=== PATIENT | male | born 1945 | race Two or more races ===

== ENCOUNTER 2024-11-13 11:47 | Outpatient (OUT) | payer MEDICARE, OTHER, SELFPAY ==
--- OUTSIDE RECORDS SUMMARY | 2024-10-30 09:30 | XMS_ITS | Encounter Summary ---
Author Organization [facility] Address [address] [place] [address] Phone Care Team Providers Care Hand Stitcher Name Role Phone Jeferson Estrada MD Primary Care Provider [phone] Reason for Referral * Consultation (Routine) - Authorized Specialty Diagnoses / Procedures Referred By Contac t Referred To Contact Cardiology Diagnoses Essential hypertension Procedures Follow Up In Cardiology Erika Mayes MD [address] [place] [address] [address], [address] [address] Phone: tel: fax: Erika Mayes MD [address] [place] [address] [address], [address] [address] Phone: tel: fax: Referral ID Status Reason Start Date Expiration Date V isits Requested Visits Authorized [id number] Authorized 10/30/2024 10/30/2025 1 1 Reason for Visit * Reason Comments BP OV * Consultation (Routine) - Authorized Specialty Diagnoses / Procedures Referred By Contac t Referred To Contact Cardiology Diagnoses Essential hypertension Procedures Follow Up In Cardiology Erika Mayes MD [address] [place] [address] [address], [address] [address] Phone: tel: fax: Erika Mayes MD [address] [place] [address] 2, [address] [address] Phone: tel: fax: Referral ID Status Reason Start Date Expiration Date V isits Requested Visits Authorized [id number] Authorized 10/07/2024 10/07/2025 1 1 Encounter Details Date Type Department Care Team (Late st Contact Info) Description 10/30/2024 9:30 AM EDT Office Visit [facility] [address] [facility] [address] [place] [id number] Erika Mayes MD [address] [facility] [address] [place] [address] Essential hypertension; [place] 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; BMI 24.0-24.9, adult; Former smoker Social History Tobacco Use Types Packs/Day Years Used Date Smoking Tobacco: Former Cigarettes Q uit: 06/1984 Smokeless Tobacco: Never Alcohol Use Standard Drinks/Week Comments Never 0 (1 standard drink = 0.6 oz pur e alcohol) Sex and Gender Information Value Date Recorded Sex Assigned at Not on file Legal Sex Male 4:28 AM EST Gender Identity Not on file Sexual Orientation Not on file documented as of this encounter Last Filed Vital Signs Vital Sign Reading Time Taken Comments Blood Pressure 146/70 10/30/2024 9:34 AM EDT Pulse 88 10/30/2024 9:30 AM EDT Temperature - - Respiratory Rate - - Oxygen Saturation - - Inhaled Oxygen Concentration - - Weight 73 kg (161 lb) 10/30/2024 9:30 AM EDT Height 172.7 cm (5' 8 ) 10/30/2024 9:30 AM EDT Body Mass Index 24.48 10/30/2024 9:30 AM EDT documented in this encounter Functional Status * BP Answer Date of Assessment Author 146/70 10/30/2024 9:34 AM EDT Lori Willson LPN * Pulse Answer Date of Assessment Author 88 10/30/2024 9:30 AM EDT Lori Willson LPN * Communicable Disease Screening Question Answer Date of Assessment Author Do you have any of the follo wing new or worsening symptoms? None of these 10/30/2024 9:05 AM EDT Cage, Jato charmaine documented as of this encounter Patient Instructions * Patient Instructions* Riddhi Harden LPN - 10/30/2024 9:30 AM EDT 03/31/2025 visit documented in this encounter Progress Notes * Erika Mayes MD - 10/30/2024 9:30 AM EDT HPI Patient is in the office for hypertension management. He did not tolerate amlodipine due to severe edema which eventually resolved by stopping the medicine, did not tolerate hydralazine and clonidine. His creatinine is 2.0 mg/dL and he is on 10 mg daily of lisinopril. Heart rate 88 bpm. Will add Neb ivolol 5 mg daily and watch his blood pressure reading and heart rate when he comes back in few weeks. ROS Vitals: 10/30/24 0930 10/30/24 0934 BP: 150/72 146/70 BP Location: Right arm Left arm Patient Position: Sitting Sitting Pulse: 88 Weight: 73 kg (161 lb) Height: 1.727 m (5' 8 ) Objective Physical Exam Allergies Clonidine, Hydralazine, Amlodipine, Atenolol, Beta-blockers (beta-adrenergic blocking agts), and Cyanocobalamin (vitamin b12) Current Medications Current Outpatient Medications Medication Instructions ascorbic acid (VITAMIN C) 1,000 mg, Daily aspirin 81 mg chewable tablet 1 tablet, Daily atorvastatin (LIPITOR) 40 mg, oral, Daily cholecalciferol (Vitamin D3) 50 mcg (2,000 units) capsule 2 capsules, Daily clopidogrel (PLAVIX) 75 mg, oral, Daily ezetimibe (ZETIA) 10 mg, oral, Daily ferrous sulfate 325 mg, 2 times daily levothyroxine (SYNTHROID, LEVOXYL) 100 mcg, Daily lisinopril 10 mg, oral, Daily MAGNESIUM GLYCINATE ORAL 300 mg, 2 times daily metFORMIN (GLUCOPHAGE) 500 mg, 2 times daily (morning and late afternoon) nitroglycerin (Nitrostat) 0.[address] under the tongue. pantoprazole (PROTONIX) 40 mg, oral, Daily before breakfast, Do not crush, chew, or split. pioglitazone (Actos) 15 mg tablet 1 tablet, Daily tamsulosin (FLOMAX) 0.4 mg, Daily Assessment/Plan 1. Essential hypertension Follow Up In Cardiology 2. 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 BMI 24.0-24.9, adult 4. Former smoker Scribe Attestation By signing my name below, Riddih Day LPN , Scribe attest that this documentation has been prepared under the direction and in the presence of Erika Mayes MD. Provider Attestation - Scribe documentation All medical record entries made by the Scribe were at my direction and personally dictated by me. Ihave reviewed the chart and agree that the record accurately reflects my personal performance of the history, physical exam, discussion and plan. 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
--- OUTSIDE RECORDS SUMMARY | 2024-11-10 09:46 | XMS_ITS | Continuity of Care Document ---
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 Role Phone Jeferson Estrada MD Primary Care Provider [phone] Himanshu Vargas Attending Provider [phone] Marisel Mcclain MD Emergency Provider Jeferson Estrada MD Attending Provider [phone] Jeferson Estrada MD Referring Provider [phone] Care Teams Patient Care Team Team Status: Active Member Role Status Quinn Estrada MD Primary Care Provider Active Visit Care Team Team Status: Inactive Member Role Status Quinn Estrada MD Primary Care Provider Active S tart: September 01, 2024 End: September 01, 2024 Sydney Vargas MD Attending Provider Active Start : September 01, 2024 End: September 01, 2024 Visit Care Team Team Status: Inactive Member Role Status Quinn Estrada MD Primary Care Provider Active S tart: September 04, 2024 End: September 04, 2024 Sydney Vargas MD Attending Provider Active Start : September 04, 2024 End: September 04, 2024 Visit Care Team Team Status: Inactive Member Role Status Quinn Estrada MD Primary Care Provider Active S tart: September 14, 2024 End: September 14, 2024 Marisel Mcclain MD Emergency Provider Active Start: September 14, 2024 End: September 14, 2024 Visit Care Team Team Status: Inactive Member Role Status Dates Jeferson Estrada MD Primary Care Provider Active S tart: September 18, 2024 End: September 18, 2024 Jeferson Estrada MD Attending Provider Active Star t: September 18, 2024 End: September 18, 2024 Jeferson Estrada MD Referring Provider Active Star t: September 18, 2024 End: September 18, 2024 Visit Care Team Team Status: Inactive Member Role Status Dates Jeferson Estrada MD Primary Care Provider Active S tart: October 27, 2024 End: October 27, 2024 Sydney Vargas MD Attending Provider Active Start : October 27, 2024 End: October 27, 2024 Patient Care Team Team Status: Inactive Member Role Status Dates Jeferson Estrada MD Primary Care Provider Active S tart: November 10, 2024 End: November 10, 2024 Sydney Vargas MD Attending Provider Active Start : November 10, 2024 End: November 10, 2024 Chief Complaint and Reason for Visit Chief Complaint Admit Date e11.22 September 01, 2024 12:0 6pm Renal F/U per DR Vargas September 04, 2024 2 :22pm bilat leg swelling September 14, 2024 7:26 am I67.1 September 18, 2024 11:2 1am I10 October 27, 2024 6:14am RENAL 4 MONTH F/U November 10, 2024 1:04pm Reason for Visit Admit Date Anemia of renal disease September 04, 2024 2:22pm Bladder cancer September 04, 2024 2:22 pm CKD (chronic kidney disease) stage 3, GF R 30-59 ml/min September 04, 2024 2:22pm Hyperkalemia September 04, 2024 2:22 pm Hypomagnesemia September 04, 2024 2:22 pm Proteinuria September 04, 2024 2:22 pm Secondary hyperparathyroidism September 04, 2024 2:22pm Type 2 diabetes mellitus wit h diabetic chronic kidney disease September 04, 2024 2:22pm Anemia of renal disease November 10, 2024 1:04pm Bladder cancer November 10, 2024 1:04pm CKD (chronic kidney disease) stage 3, GF R 30-59 ml/min November 10, 2024 1:04pm Hyperkalemia November 10, 2024 1:04pm Hypomagnesemia November 10, 2024 1:04pm Proteinuria November 10, 2024 1:04pm Secondary hyperparathyroidism November 10, 2024 1:04pm Type 2 diabetes mellitus wit h diabetic chronic kidney disease November 10, 2024 1:04pm Allergies, Adverse Reactions, Alerts Allergen Type Severity Reaction Last Updated Verified Status Comments house dust Allergy Mild Sneezing November 10, 2024 10:53am Yes Active This patient is not allergic to Albuterol amlodipine Allergy Unknown Swelling November 10, 2024 1:21pm Yes Active clonidine Allergy Unknown not able to sleep November 10, 2024 1:21pm Yes Active cyanocobalamin (vitamin B12) Allergy Unknown Dizziness November 10, 2024 10:53am Yes Active hydralazine Allergy Unknown Difficulty Breathing November 10, 2024 1:21pm Yes Active atenolol Adverse Reaction Unknown Unknown Reaction November 10, 2024 10:53am Yes Active pet dander Allergy Mild Sneezing February 26, 2024 9:48am No Active Social History Smoking Status Status Start Date End Date Date of Observa tion Ex-smoker (finding) Azra r 2024 1:21pm Observation Status Observation Response Date of Response Legal Sex Male (finding) Sex Assigned At Male April Family History Relationship Condition Age at Onset Recorded Date/T eder mother Unknown Malignant neoplasm of breast Unknown father Diabetes mellitus Unknown Heart disease Unknown Hypertension Unknown Cerebrovascular accident (CVA) Unknown Unknown sister Transient ischemic attack Unknown Problems Active Problems Medical Problem Onset Date Status NIRANJAN (acute kidney injury) Unknown Active Hypertensive urgency Unknown Active Epiploic appendagitis Unknown Active UTI (urinary tract infection) Unknown Ac tive Acute cystitis Unknown Active Elevated alkaline phosphatase level Unknown Active Type 2 diabetes mellitus with diabetic chronic k idney disease Unknown Active Diabetes mellitus due to underlying condition Un known Active Noncompliance w/medication t reatment due to intermit use of medication Unknown Active Secondary hyperparathyroidism Unknown Ac tive DM (diabetes mellitus) Unknown Active Bladder cancer Unknown Active B12 deficiency Unknown Active CKD (chronic kidney disease) stage 3, GFR 30-59 ml/min Unknown Active Anginal chest pain at rest Unknown Activ e CAD (coronary artery disease) Unknown Ac tive Mobitz (type) I (Wenckebach's) atrioventricular block Unknown Active Delirium Unknown Active Cerebral aneurysm without rupture Unknown Active Vitamin B12 deficiency anemia Unknown Ac tive Microscopic hematuria Unknown Active Postsurgical hypothyroidism Unknown Acti ve Proteinuria Unknown Active Encephalopathy Unknown Active Acute kidney injury superimposed on CKD Unknown Active Elevated TSH Unknown Active Acute metabolic encephalopathy Unknown A ctive S/P coronary artery stent placement Unknown Active Status post excision of lipoma Unknown A ctive Intermittent left lower quadrant abdominal pain Unknown Active AMS (altered mental status) Unknown Acti ve GERD (gastroesophageal reflux disease) Unknown Active Anemia of renal disease Unknown Active Primary papillary adenocarcinoma of thyroid glan d Unknown Active HTN (hypertension) Unknown Active Hypertension Unknown Active Vitamin D deficiency Unknown Active Hiatal hernia Unknown Active Dehydration Unknown Active Hyperkalemia Unknown Active Hypomagnesemia Unknown Active Inactive/Resolved Problems Medical Problem Onset Date Status CHF exacerbation Unknown Resolved Altered mental status Unknown Resolved Medications Medication Status Dose Units Route Directions Qty Days St art Date Stop Date End Date Instructions Adherence Furosemide (Lasix) 20 mg tablet Discont inued 20 MG PO Daily September 15, 2024 12:00a m [facility] 2024 1:16p m Atenolol 50 mg tablet Discont inued 50 MG PO Daily 2016 12:00a m Febua 2020 9:26a m Atorvastati n 40 mg tablet Discont inued 40 MG PO Daily 2016 12:00a m [facility] 2016 4:36p m Atorvastati n 40 mg tablet Discont inued 50 MG PO Daily 2016 12:00a m Febru 2018 12:36 pm Levothyroxi ne 175 mcg tablet Discont inued 175 MCG PO Daily 2016 12:00a m Febua 2020 9:26a m Gabapentin 600 mg tablet Discont inued 600 MG PO Daily at bedtime 2016 12:00a m 2024 12:16 pm Isosorbide Mononitrate 30 mg tablet extended release 24 hr Discont inued 30 MG PO Every morning 2016 12:00a m Octob er 2023 1:20p m Pioglitazon e (Actos) 45 mg tablet Discont inued 45 MG PO Daily 2016 12:00a m 2020 9:26a m Clopidogrel 75 mg tablet Discont inued 75 MG PO Every morning 2016 12:00a m July 12, 2021 12:11 pm On Hold: Resume on 07/14/21. Aspirin (Aspir-81) 81 mg Tablet,Fanta yed Release (Dr/Ec) Active 81 MG PO Every morning 2016 12:00a m Complies with drug therapy Metformin 1,000 mg tablet Discont inued 1000 MG PO Twice daily 2016 12:00a m July 16, 2024 9:15a m Lisinopril 10 mg tablet Discont inued 10 MG PO Every morning 2016 12:00a m Octob er 2023 1:34p m Nitroglycer in (Nitrostat) 0.4 mg Tablet, Sublingual Active 0.4 MG SUBLIN GUAL Per protocol as needed for Chest Pain 2016 12:00a m Complies with drug therapy Insulin Aspart U-100 (Novolog Flexpen U-100 Insulin) 100 unit/mL Insulin Pen Discont inued 5 UNITS SUBCUT Before meals 2016 12:00a m [facility] 2016 4:36p m Duloxetine (Cymbalta) 60 mg capsule,del ayed release(DR/ EC) Discont inued 60 MG PO Daily at bedtime 2016 12:00a m Feb 2024 12:16 pm Omeprazole 20 mg Capsule,Del ayed Release(Dr/ Ec) Discont inued 40 MG PO Daily at bedtime 2016 12:00a m September 04, 2024 3:01p m Insulin Glargine (Lantus Solostar U-100 Insulin) 100 unit/mL (3 mL) Insulin Pen Discont inued 30 UNITS SUBCUT Bedtime 2016 12:00a m [facility] 2016 4:36p m Tramadol 50 mg tablet Discont inued 50 MG PO Every 6 hours as needed for pain 45 Novemb er 2016 1:00am April 26, 2017 9:07a m 1/2-1 tab po q 6 hours prn pain Atorvastati n 40 mg tablet Discont inued 40 MG PO Daily 0 2018 12:35p m June 27, 2021 11:53 am Ascorbic Acid (Vitamin C) (Vitamin C) 1,000 mg Tablet Discont inued 1000 MG PO Every morning June 27, 2021 12:00a m July 12, 2021 1:13p m Zolpidem (Ambien Cr) 12.5 mg Tablet,Ext Release Multiphase Discont inued 12.5 MG PO Daily at bedtime June 27, 2021 12:00a m 2024 1:56p m Atorvastati n 40 mg tablet Discont inued 40 MG PO Every morning June 27, 2021 12:00p m 2024 12:16 pm Levothyroxi ne 125 mcg Tablet Discont inued 125 MCG PO Daily June 27, 2021 12:00a m June 07, 2023 1:11p m Polysacchar kyle Iron Complex 150 mg iron capsule Discont inued 150 MG PO Every 48 hours July 12, 2021 12:00a m June 07, 2023 1:13p m Lutein 20 mg tablet Discont inued 20 MG PO Daily Decemb er 2023 1:00am 2024 11:04 am give with meal/snack Amlodipine- Valsartan 5-160 mg tablet Discont inued 1 TAB PO Daily 2024 1:00am August 26, 2024 4:53p m Cephalexin 500 mg capsule Discont inued 500 MG PO Twice daily 14 2024 1:00am 2024 11:58 am Cyanocobala min (Vitamin B-12) 1,000 mcg Tablet Discont inued 1000 MCG PO Daily April 26, 2017 1:00am June 27, 2021 11:52 am Cholecalcif amy (Vitamin D3) 50,000 unit Capsule Discont inued 92903 UNIT PO every week April 26, 2017 1:00am clarisse 2018 6:46p m Diphenhydra mine-Acetam inophen (Tylenol Pm Extra Strength) 25-500 mg Tablet Discont inued 2 TAB PO Daily at bedtime as needed for Sleep 2016 12:00a m 2020 9:26a m Pioglitazon e 15 mg tablet Discont inued 15 MG PO Every morning 2020 1:00am 2024 1:56p m Atenolol 25 mg tablet Discont inued 25 MG PO Every morning 2020 1:00am June 07, 2023 1:16p m Cholecalcif amy (Vitamin D3) (Vitamin D3) 125 mcg (5,000 unit) Tablet Discont inued 125 MCG PO Every morning 2020 1:00am June 07, 2023 1:13p m Levothyroxi ne 150 mcg Capsule Discont inued 150 MCG PO Daily 2020 1:00am June 27, 2021 11:54 am Atenolol 25 mg tablet Discont inued 12.5 MG PO Every morning June 07, 2023 1:08pm June 07, 2023 1:20p m Cefdinir 300 mg capsule Discont inued 300 MG PO Twice daily 10 5 2024 1:00am 2024 7:49a m Cyanocobala min (Vitamin B-12) 1,000 mcg Tablet Discont inued 1000 MCG PO Every morning 2024 1:00am June 18, 2024 1:40p m Omeprazole 20 mg capsule,del ayed release(DR/ EC) Discont inued 20 MG PO Twice daily June 07, 2023 12:00a m June 22, 2023 2:03p m Levothyroxi ne 75 mcg tablet Discont inued 100 MCG PO Daily June 07, 2023 12:00a m Octob er 2023 1:21p m Clopidogrel 75 mg tablet Active 75 MG PO Daily June 07, 2023 12:00a m Complies with drug therapy Nitroglycer in (Nitrostat) 0.4 mg tablet, sublingual Discont inued 0.4 MG SUBLIN GUAL every 5 to 15 minutes as needed for chest pain June 07, 2023 12:00a m Octob er 2023 1:22p m Cholecalcif amy (Vitamin D3) 25 mcg (1,000 unit) capsule Discont inued 25 MCG PO Daily June 07, 2023 12:00a m July 16, 2024 8:59a m Magnesium Oxide 400 mg (241.3 mg magnesium) tablet Discont inued 400 MG PO Daily June 07, 2023 12:00a m Octob er 2023 1:22p m Ascorbic Acid (Vitamin C) 1,000 mg tablet Active 1 GM PO Daily June 07, 2023 12:00a m Complies with drug therapy Cholecalcif amy (Vitamin D3) 25 mcg (1,000 unit) capsule Discont inued 75 MCG PO Daily July 16, 2024 8:56am September 04, 2024 3:02p m Cholecalcif amy (Vitamin D3) 25 mcg (1,000 unit) capsule Active 100 MCG PO Daily September 04, 2024 3:02pm Complies with drug therapy Cholecalcif amy (Vitamin D3) 75 mcg (3,000 unit) tablet Discont inued 75 MCG PO Daily July 16, 2024 12:00a m September 04, 2024 2:58p m Ivermectin 3 mg tablet Discont inued 12 MG PO Daily July 16, 2024 12:00a m September 04, 2024 3:14p m Metformin 1,000 mg tablet Discont inued 500 MG PO Twice daily July 16, 2024 9:15am September 04, 2024 3:01p m Latanoprost 0.005 % drops Active DROPS OPHTHA LMIC 2024 12:00a m Complies with drug therapy Oxazepam 15 mg capsule Active 15 MG PO Daily at bedtime as needed 2024 12:00a m Complies with drug therapy Lisinopril 10 mg tablet Active 10 MG PO Daily 2024 12:00a m Complies with drug therapy Desonide 0.05 % lotion Active TOPICA L 2024 12:00a m Complies with drug therapy Ferrous Sulfate 325 mg (65 mg iron) tablet,fanta yed release (DR/EC) Active 325 MG PO Twice daily 2024 12:00a m Complies with drug therapy Pioglitazon e 30 mg tablet Active 30 MG PO Daily 2024 12:00a m Complies with drug therapy Levothyroxi ne 100 mcg capsule Discont inued 100 MCG PO Daily [facility] 2023 12:00a m July 16, 2024 8:59a m Magnesium 250 mg tablet Discont inued 750 MG PO Daily [facility] 2023 12:00a m June 18, 2024 1:41p m Tamsulosin 0.4 mg capsule Discont inued 0.4 MG PO Daily [facility] 2023 12:00a m July 16, 2024 8:58a m Ferrous Fumarate 325 mg (106 mg iron) tablet Discont inued 325 MG PO Twice daily [facility] r 2023 12:00a m September 04, 2024 2:59p m Levothyroxi ne 100 mcg capsule Discont inued 125 MCG PO Daily July 16, 2024 8:57am September 04, 2024 3:02p m Levothyroxi ne 100 mcg capsule Active 100 MCG PO Daily September 04, 2024 3:00pm Complies with drug therapy magnesium glycinate Discont inued PO June 18, 2024 12:00a m July 16, 2024 8:59a m turmeric Discont inued PO June 18, 2024 12:00a m September 04, 2024 3:01p m magnesium glycinate Discont inued 1 TAB PO Daily July 16, 2024 8:57am [facility] 2024 1:19p m magnesium glycinate Active 2 TAB PO Daily Oct 2024 1:16pm Complies with drug therapy Amlodipine 10 mg tablet Discont inued 10 MG PO Daily August 26, 2024 12:00a m August 26, 2024 4:56p m Amlodipine 10 mg tablet Discont inued 10 MG PO Daily 90 August 26, 2024 4:56pm [facility] 2024 1:15p m Ferrous Fumarate 324 mg (106 mg iron) tablet Discont inued 324 MG PO Twice daily September 04, 2024 12:00a m [facility] 22nd, 2025 1:17p m Metformin 500 mg tablet Active 500 MG PO Twice daily with meals September 04, 2024 12:00a m Complies with drug therapy Tamsulosin 0.4 mg capsule Discont inued MG PO September 04, 2024 12:00a m [facility] 2024 1:19p m Pantoprazol e 40 mg tablet,fanta yed release (DR/EC) Discont inued MG PO September 04, 2024 12:00a m [facility]2024 1:19p m Ezetimibe 10 mg tablet Active 10 MG PO Daily September 04, 2024 12:00a m Complies with drug therapy Pantoprazol e 40 mg tablet,fanta yed release (DR/EC) Active 40 MG PO Daily 2024 1:16pm Complies with drug therapy Tamsulosin 0.4 mg capsule Active 0.4 MG PO Daily at bedtime 2024 1:16pm Complies with drug therapy Immunizations Immunization Event Date Not Given Reason Dose 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 COVID-19 mRNA, Comirnaty ([employer]) May 07, [id number] [facility] COVID-19 mRNA, Comirnaty ([employer]) November 23, 2020 Pneumococcal Polysacc. Vaccine, 23 valent January 17, 2016 Trivalent Influenza Vaccine November 19, 2014 Trivalent Influenza Vaccine January 17, 2016 Shingles (Zoster) January 17, 2016 Medical Equipment Device Date Implanted Device Details CL CLOSURE DEVICE EXOSEAL 6F April 01, 2018 CL STENT LAUREANO 2.75 X 08 April 01, 2018 Procedures Procedure Date Performed Status MR angio head wo con September 18, 2024 11:22am com pleted XR chest 2V* September 14, 2024 7:38am completed Relevant Diagnostic Tests and/or Laboratory Data Laboratory Results Test Collection Date/Time Result Date/Time Result Interpretation Reference Range Result Comment Performing Site Corrected White Blood Count September 14, 2024 7:58am September 14, 2024 8:10am 7.0 10*3/uL 4.1-10.[address] [facility] [id number] [address] [place] [address] Corrected White Blood Count October 27, 2024 6:17am October 27, 2024 11:31am 6.2 10*3/uL 4.1-10.[address] [facility] [id number] [address] [place] [address] Uncorrect ed WBC Count September 14, 2024 7:58am September 14, 2024 8:10am 7.0 10*3/uL 4.1-10.[address] [facility] [id number] [address] [place], [place] [id number] Red Blood Count September 14, 2024 7:58am September 14, 2024 8:10am 3.54 10*6/uL Below low normal 3.90-5.[address] [facility] [id number] [address] [place] [address] Red Blood Count October 27, 2024 6:17am October 27, 2024 11:31am 4.17 10*6/uL 3.90-5.[address] [facility] [id number] [address] [place], [place] [id number] Hemoglobi n September 14, 2024 7:58am September 14, 2024 8:10am 10.8 g/dL Below low normal 13.0-17.[address] [facility] [id number] [address] [place] [address] Hemoglobi n October 27, 2024 6:17am October 27, 2024 11:31am 12.7 g/dL Below low normal 13.0-17.[address] [facility] [id number] [address] [place] [address] Hematocri t September 14, 2024 7:58am September 14, 2024 8:10am 32.7 % Below low normal 38.8-50.[address] [facility] [id number] [address] [place] [address] Hematocri t October 27, 2024 6:17am October 27, 2024 11:31am 38.0 % Below low normal 38.8-50.[address] [facility] [id number] [address] [place] [address] Mean Corpuscul ar Volume September 14, 2024 7:58am September 14, 2024 8:10am 92.3 fL 83.5-[address] [facility] [id number] [address] [facility] [address] Mean Corpuscul ar Volume October 27, 2024 6:17am October 27, 2024 11:31am 91.1 fL 83.5-[address] [facility] [id number] [address] [facility] [address] Mean Corpuscul ar Hemoglobi n September 14, 2024 7:58am September 14, 2024 8:10am 30.5 pg 27.5-35.[address] [facility] [id number] [address] [facility] [address] Mean Corpuscul ar Hemoglobi n October 27, 2024 6:17am October 27, 2024 11:31am 30.4 pg 27.5-35.[address] [facility] [id number] [address] [facility] [address] Mean Corpuscul ar Hemoglobi n Concent September 14, 2024 7:58am September 14, 2024 8:10am 33.1 g/dL 32.5-35.[address] [facility] [id number] [address] [facility] [address] Mean Corpuscul ar Hemoglobi n Concent October 27, 2024 6:17am October 27, 2024 11:31am 33.4 g/dL 32.5-35.[address] [facility] [id number] [address] [facility] [address] Red Cell Distribut ion Width September 14, 2024 7:58am September 14, 2024 8:10am 13.6 % 12.0-14.[address] [facility] [id number] [address] [facility] [address] Red Cell Distribut ion Width October 27, 2024 6:17am October 27, 2024 11:31am 13.3 % 12.0-14.[address] [facility] [id number] [address] [facility] [address] Platelet Count September 14, 2024 7:58am September 14, 2024 8:10am 300 10*3/uL 150-[address] [facility] [id number] [address] [facility] [address] Platelet Count October 27, 2024 6:17am October 27, 2024 11:31am 254 10*3/uL 150-[address] [facility] [id number] [address] [facility] [address] Mean Platelet Volume September 14, 2024 7:58am September 14, 2024 8:10am 8.4 fL 6.6-10.[address] [facility] [id number] [address] [facility] [address] Mean Platelet Volume October 27, 2024 6:17am October 27, 2024 11:31am 9.7 fL 6.6-10.[address] [facility] [id number] [address] [facility] [address] Monocyte Distribut ion Width September 14, 2024 7:58am September 14, 2024 8:10am 18.48 % 0.00-20.[address] [facility] [id number] [address] [facility] [address] Neutrophi ls (%) (Auto) September 14, 2024 7:58am September 14, 2024 8:10am 63.8 % . [facility] [id number] [address] [facility] [address] Lymphocyt es (%) (Auto) September 14, 2024 7:58am September 14, 2024 8:10am 18.3 % . [facility] [id number] [address] [facility] [address] Monocytes (%) (Auto) September 14, 2024 7:58am September 14, 2024 8:10am 7.9 % . [facility] [id number] [address] [facility] [address] Eosinophi ls (%) (Auto) September 14, 2024 7:58am September 14, 2024 8:10am 9.0 % . [facility] [id number] [address] [facility] [address] Basophils (%) (Auto) September 14, 2024 7:58am September 14, 2024 8:10am 1.0 % . [facility] [id number] [address] [facility] [address] Nucleated RBC Relative Count (auto) September 14, 2024 7:58am September 14, 2024 8:10am 0.1 /100{WB C} 0-0.[address] [facility] [id number] [address] [facility] [address] Neutrophi ls # (Auto) September 14, 2024 7:58am September 14, 2024 8:10am 4.5 10*3/uL 1.8-7.[address] [facility] [id number] [address] [facility] [address] Lymphocyt es # (Auto) September 14, 2024 7:58am September 14, 2024 8:10am 1.3 10*3/uL 1.00-4.[address] [facility] [id number] [address] [facility] [address] Monocytes # (Auto) September 14, 2024 7:58am September 14, 2024 8:10am 0.6 10*3/uL 0.0-0.[address] [facility] [id number] [address] [facility] [address] Eosinophi ls # (Auto) September 14, 2024 7:58am September 14, 2024 8:10am 0.6 10*3/uL Above high normal 0.0-0.[address] [facility] [id number] [address] [facility] [address] Basophils # (Auto) September 14, 2024 7:58am September 14, 2024 8:10am 0.1 10*3/uL 0.0-0.[address] [facility] [id number] [address] [facility] [address] Glucose Level September 01, 2024 12:06pm September 01, 2024 4:09pm 163 mg/dL Above high normal 70-100 ADA recommended reference rangeRandom Glucose Reference Range is dependent on time and content of last meal. Glucose of more than 200 mg/dL in a nonstressed, ambulatory subject supports the diagnosis of Diabetes Mellitus. [facility] [id number] [address] [facility] [address] Glucose Level September 14, 2024 7:58am September 14, 2024 8:30am 163 mg/dL Above high normal 70-100 ADA recommended reference rangeRandom Glucose Reference Range is dependent on time and content of last meal. Glucose of more than 200 mg/dL in a nonstressed, ambulatory subject supports the diagnosis of Diabetes Mellitus. [facility] [id number] [address] [facility] [address] Glucose Level October 27, 2024 6:16am October 27, 2024 11:55am 123 mg/dL Above high normal 70-100 ADA recommended reference rangeRandom Glucose Reference Range is dependent on time and content of last meal. Glucose of more than 200 mg/dL in a nonstressed, ambulatory subject supports the diagnosis of Diabetes Mellitus. [facility] [id number] [address] [place] [id number] Blood Urea Nitrogen September 01, 2024 12:06pm September 01, 2024 4:09pm 36 mg/dL Above high normal 7-[address] [facility] [address] [facility] [facility] [id number] [facility] [facility] [address] Blood Urea Nitrogen September 14, 2024 7:58am September 14, 2024 8:30am 28 mg/dL Above high normal 7-[address] [facility] [id number] [address] [facility] [address] Blood Urea Nitrogen October 27, 2024 6:16am October 27, 2024 11:55am 43 mg/dL Above high normal 7-[address] [facility] [id number] [address] [facility] [address] Creatinin e September 01, 2024 12:06pm September 01, 2024 4:09pm 1.76 mg/dL Above high normal 0.70-1.[address] [facility] [id number] [address] [facility] [address] Creatinin e September 14, 2024 7:58am September 14, 2024 8:30am 1.76 mg/dL Above high normal 0.70-1.[address] [facility] [id number] [address] [place] [address] Creatinin e October 27, 2024 6:16am October 27, 2024 11:55am 2.12 mg/dL Above high normal 0.70-1.[address] [facility] [id number] [address] [place] [address] Estimated GFR (CKD-EPI) September 01, 2024 12:06pm September 01, 2024 4:09pm 39.091 mL/Min [facility] [id number] [address] [facility] [address] Estimated GFR (CKD-EPI) September 14, 2024 7:58am September 14, 2024 8:30am 39.091 mL/Min [facility] [id number] [address] [facility] [address] Estimated GFR (CKD-EPI) October 27, 2024 6:16am October 27, 2024 11:55am 31.267 mL/Min [facility] [id number] [address] [facility] [address] Sodium Level September 01, 2024 12:06pm September 01, 2024 4:09pm 142 mmol/L 136-[address] [facility] [id number] [address] [facility] [address] Sodium Level September 14, 2024 7:58am September 14, 2024 8:30am 142 mmol/L 136-[address] [facility] [id number] [address] [facility] [address] Sodium Level October 27, 2024 6:16am October 27, 2024 11:55am 140 mmol/L 136-[address] [facility] [id number] [address] [facility] [address] Potassium Level September 01, 2024 12:06pm September 01, 2024 4:09pm 4.6 mmol/L 3.5-5.[address] [facility] [id number] [address] [facility] [address] Potassium Level September 14, 2024 7:58am September 14, 2024 8:30am 4.4 mmol/L 3.5-5.[address] [facility] [id number] [address] [facility] [address] Potassium Level October 27, 2024 6:16am October 27, 2024 11:55am 5.0 mmol/L 3.5-5.[address] [facility] [id number] [address] [facility] [address] Chloride Level September 01, 2024 12:06pm September 01, 2024 4:09pm 110 mmol/L Above high normal 98-[address] [facility] [id number] [address] [facility] [address] Chloride Level September 14, 2024 7:58am September 14, 2024 8:30am 110 mmol/L Above high normal 98-[address] [facility] [id number] [address] [facility] [address] Chloride Level October 27, 2024 6:16am October 27, 2024 11:55am 105 mmol/L 98-[address] [facility] [id number] [address] [facility] [address] Carbon Dioxide Level September 01, 2024 12:06pm September 01, 2024 4:09pm 24.7 mmol/L 21.0-31.[address] [facility] [id number] [address] [facility] [address] Carbon Dioxide Level September 14, 2024 7:58am September 14, 2024 8:30am 23.9 mmol/L 21.0-31.[address] [facility] [id number] [address] [facility] [address] Carbon Dioxide Level October 27, 2024 6:16am October 27, 2024 11:55am 24.9 mmol/L 21.0-31.[address] [facility] [id number] [address] [facility] [address] Anion Gap September 01, 2024 12:06pm September 01, 2024 4:09pm 11.9 mEq/L 6.0-15.[address] [facility] [id number] [address] [facility] [address] Anion Gap September 14, 2024 7:58am September 14, 2024 8:30am 12.5 mEq/L 6.0-15.[address] [facility] [id number] [address] [facility] [address] Anion Gap October 27, 2024 6:16am October 27, 2024 11:55am 15.1 mEq/L Above high normal 6.0-15.[address] [facility] [id number] [address] [facility] [address] Calcium Level September 01, 2024 12:06pm September 01, 2024 4:09pm 9.3 mg/dL 8.6-10.[address] [facility] [id number] [address] [facility] [address] Calcium Level September 14, 2024 7:58am September 14, 2024 8:30am 9.1 mg/dL 8.6-10.[address] [facility] [id number] [address] [facility] [address] Calcium Level October 27, 2024 6:16am October 27, 2024 11:55am 9.2 mg/dL 8.6-10.[address] [facility] [id number] [address] [facility] [address] Phosphoru s Level September 01, 2024 12:06pm September 01, 2024 4:09pm 4.0 mg/dL 2.5-4.[address] [facility] [id number] [address] [place] [address] Phosphoru s Level October 27, 2024 6:16am October 27, 2024 11:55am 4.3 mg/dL 2.5-4.[address] [facility] [id number] [address] [place] [address] Magnesium Level October 27, 2024 6:17am October 27, 2024 11:53am 2.2 mg/dL 1.9-2.[address] [facility] [id number] [address] [facility] [address] Albumin September 01, 2024 12:06pm September 01, 2024 4:09pm 4.2 g/dL 3.5-5.[address] [facility] [id number] [address] [facility] [address] Albumin October 27, 2024 6:16am October 27, 2024 11:55am 4.3 g/dL 3.5-5.[address] [facility] [id number] [address] [place] [address] Uric Acid October 27, 2024 6:17am October 27, 2024 11:53am 6.1 mg/dL 4.4-7.[address] [facility] [id number] [address] [place] [address] Iron Level October 27, 2024 6:17am October 27, 2024 11:53am 47 ug/dL Below low normal 50-[address] [facility] [id number] [address] [place] [address] Total Iron Binding Capacity October 27, 2024 6:17am October 27, 2024 11:53am 447 ug/dL 255-[address] [facility] [id number] [address] [place] [address] Iron Saturatio n October 27, 2024 6:17am October 27, 2024 11:53am 10.5 % Below low normal 20-[address] [facility] [id number] [address] [facility] [address] Transferr in October 27, 2024 6:17am October 27, 2024 11:53am 319 mg/dL 203-[address] [facility] [id number] [address] [facility] [address] Ferritin October 27, 2024 6:17am October 27, 2024 12:14pm 29.9 ng/mL 23.9-336.[address] [facility] [id number] [address] [place] [address] Troponin I High Sensitivi ty September 14, 2024 9:15am September 14, 2024 9:48am 25 ng/L Above high normal 0-20 The Troponin units of report have been changed to meet the Chest Pain Accreditatio n requirement, element EC5.M1l2. Troponin units are changed from pg/ml to ng/L. Also, the decimal is removed and results are in whole numbers. [facility] [id number] [address] [place] [address]683 B-Type Natriuret ic Peptide September 14, 2024 7:58am September 14, 2024 8:36am 598.0 pg/mL Above high normal 5-[address] [facility] [id number] [address] [place] [address] 25-Hydrox y Vitamin D Total October 27, 2024 6:17am October 27, 2024 12:21pm 62.4 ng/mL 30-100 VITAMIN D STATUS 25(OH)VITAMI N D RANGE (ng/mL) Deficient <20 Insufficient 20 to <30Sufficien t 30 to 100Reference : Ruperto MF,Cristóbal NC, Ros aguirre FLORES, et al. Evaluation,t reatment, and prevention of vitamin D deficiency; an Endocrine Society clinical practice guideline. JCEM. 2010; 96(7):1911-[address] [facility] [id number] [address] [facility] [address] Parathyro id Hormone (Intact) October 27, 2024 6:17am October 27, 2024 11:55am 68.0 pg/mL 12-[address] [facility] [id number] [address] [place], [place] [address] Pharmacy Creatinin e Clearance (Chem September 01, 2024 12:06pm September 01, 2024 4:09pm N/A [facility] [id number] [address] [place], [place] [address] Pharmacy Creatinin e Clearance (Chem September 14, 2024 7:58am September 14, 2024 8:30am 33.[address] [facility] [id number] [address] [place], [place] [address] Pharmacy Creatinin e Clearance (Chem October 27, 2024 6:16am October 27, 2024 11:55am N/A [facility] [id number] [address] [place], [place] [address] Urine Random Creatinin e October 27, 2024 6:17am October 27, 2024 10:56am 83.00 mg/dL No reference range established [facility] [id number] [address] [place], [place] [address] Urine Random Total Protein October 27, 2024 6:17am October 27, 2024 10:56am 107 mg/dL Above high normal 0-[address] [facility] [id number] [address] [place], [place] [address] Urine Protein/C reatinine Ratio October 27, 2024 6:17am October 27, 2024 10:56am 1289 mg/g{Cr e} Above high normal 0-[address] [facility] [id number] [address] [place], [place] [address] Diagnostic Imaging Reports Author Alejandro [facility] Authored September 14, 2024 8:33 am Report Dictated Date/Time Dictated By Status Radiology Report September 14, 2024 8:33am Alejandro ramey Jr DO completed [facility] Main [place] [id number] XRay Report Signed Patient: Maynor Samuels MR#: [id number] : 1945 Acct:[id number] Age/Sex: 79 / M ADM Date: 5 Loc: ER Room: Type: [facility] ER Attending Dr: Copies to: Marisel Mcclain MD~ Ordering Provider: Marisel Mcclain MD Date of Service: 09/14/24 XR/XR chest 2V*: Extremity Problem, Nontraumatic Chest 2 views CLINICAL HISTORY: Leg swelling and shortness of breath. COMPARISON: Chest 03/03/2024 FINDINGS: Heart is normal in size. Bibasilar airspace disease and trace pleural effusions. No pneumothorax or free air. XR/XR chest 2V* IMPRESSION: BIBASILAR AIRSPACE DISEASE AND TRACE PLEURAL EFFUSIONS. Impression dictated by: Alejandro Springer Jr., D.O. 09/14/2024 8:34 AM Dictation Location: RADIO-PC-18 Transcribed By: PWS 09/14/24 0834 Dictated By: Alejandro Springer Jr, DO 09/14/24 0833 Signed By: <Electronically signed by Alejandro Springer Jr, DO in [place]> 09/14/24 0834 Author Jamie [facility] Authored September 18, 2024 3:31 pm Report Dictated Date/Time Dictated By Status Radiology Report September 18, 2024 3:31pm Jamie Escobar MD completed [facility] [place] [address] MRI Report Signed Patient: Maynor Samuels MR#: [id number] : 1945 Acct:[id number] Age/Sex: 79 / M ADM Date: 5 Loc: Room: Type: [facility] Attending Dr: Jeferson Estrada MD Copies to: Jeferson Estrdaa MD~ Ordering Provider: Jeferson Estrada MD Date of Service: 09/18/24 MR/MR angio head wo con: I67.1 MR angio head wo con 09/18/2024 12:14 PM SIGN OF SYMPTOMS: I67.1 routine monitoring aneurysm COMPARISON: CT angiogram head 02/28/2024. FINDINGS: MRI BRAIN WITHOUT CONTRAST: Evidence of diffusion hyperintensity right splenium the corpus callosum and involving the left parietal deep white matter without corresponding ADC signal suggestive of areas of subacute stroke. Moderate generalized involutional changes, advanced for the patient's age. Diffuse thinning of the corpus callosum with remote focus of gliosis anterior body noted. No shift midline structure. Basal cisterns are patent. Moderate burden of periventricular, subcortical T2 signal suggestive of chronic small vessel ischemic disease. No midline shift. Cisterns are patent. Polypoid changes right sphenoid sinus. Remote areas of stroke left posterior medial cerebellum. Remote right thalamic lacunar stroke. MRA BRAIN: Stable 2 x 2 x 2.8 mm anterior inferiorly directed to aneurysm arising from the left MCA bifurcation. Otherwise intracranial ICAs, ACAs and MCAs are patent. Vertebral arteries, picas, basilar artery, and posterior cerebral arteries are patent. 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 No large vessel occlusion or hemodynamically significant stenosis. Findings suggestive of subacute stroke throughout involving right splenium the corpus callosum and left parietal deep white matter. Impression dictated by: Jamie Escobar M.D. 09/18/2024 3:41 PM Dictation Location: [place] [address] Transcribed By: [facility] 09/18/24 1541 Dictated By: Jamie Escobar MD 09/18/24 1531 Signed By: <Electronically signed by Jamie Escobar MD in [place]> 09/18/24 1541 Vital Signs Vital Reading Result Reference Range Collection Date/Time Height 69 [in_i] September 04, 2024 2:56pm Weight 76.82 kg September 04, 2024 2:56pm Body Temperature 96.2 [degF] 97.6-99.0 September 04, 2024 2:56pm Heart Rate 82 /min 60-100 September 04, 2024 2:56pm Respiratory rate 18 /min 12-24 September 04, 2024 2:56pm Oxygen saturation by Pulse oximetry 99 % 95-100 September 04, 2024 2:56 pm BP Systolic 147 mm[Hg] 100-140 September 04, 2024 2:56pm BP Diastolic 69 mm[Hg] 60-100 September 04, 2024 2:56pm BMI (Body Mass Index) 25.0 kg/m2 August 192024 2:56pm Height 68 [in_i] September 14, 2024 7:30am Weight 81.50 kg September 14, 2024 7:30am Body Temperature 97.8 [degF] 97.6-99.0 September 14, 2024 7:30am Heart Rate 91 /min 60-100 September 14, 2024 10:18am Respiratory rate 20 /min -September 14, 2024 10:18am Oxygen saturation by Pulse oximetry 95 % 95-100 September 14, 2024 10:1 8am BP Systolic 165 mm[Hg] 100-140 September 14, 2024 10:18am BP Diastolic 80 mm[Hg] 60-100 September 14, 2024 10:18am Height 68 [in_i] November 10, 2024 1:13pm Weight 73.48 kg November 10, 2024 1:13pm Heart Rate 55 /min 60-100 November 10, 2024 1:13pm Respiratory rate 18 /min -October 212024 1:13pm Oxygen saturation by Pulse oximetry 98 % 95-100 November 10, 2024 1:13pm BP Systolic 131 mm[Hg] 100-140 November 10, 2024 1:13pm BP Diastolic 55 mm[Hg] 60-100 November 10, 2024 1:13pm BMI (Body Mass Index) 24.6 kg/m2 2024 1:13pm Advance Directives Advance Directive Response Recorded Date/ Time Advance Directives No October 12, 2016 6:51pm Insurance Providers Guarantor Maynor Samuels Address [address] [place] [id number] Contact Info. Home Phone: Payer Policy Id Subscriber's Name Subscriber Id Effectiv e Date Expiration Date Medicare [id number] Maynor Samuels [id number] [facility] [id number] Maynor Samuels [id number] [facility] [id number] Maynor Samuels [id number] Encounters Encounter Location(s) Arrival/Admit Date Discharge/Depart Date Provider(s) Departed Clinical -Lab [place] September 01, 2024 12:06pm September 01, 2024 12:07pm Sydney Vargas MD Departed Physician/Prov ider Office Visit -[facility] September 04, 2024 2:22pm September 04, 2024 3:19pm Sydney Vargas MD Departed Emergency -Emergency Room September 14, 2024 7:26am September 14, 2024 10:36am Departed Clinical -MRI [facility] September 18, 2024 11:21am September 18, 2024 11:22am Jeferson Estrada MD Departed Clinical -Lab [place] October 27, 2024 6:14am October 27, 2024 6:15am Sydney Vargas MD Departed Physician/Prov ider Office Visit -[facility] November 10, 2024 1:04pm November 10, 2024 1:44pm Sydney Vargas MD Recent Diagnosis Onset Date Admit Date Anemia of renal disease Unknown August 2:22pm Bladder cancer Unknown September 04, 2024 2:22pm CKD (chronic kidney disease) stage 3, GFR 30-59 ml/min Unknown September 04, 2024 2:22pm Hyperkalemia Unknown September 04, 2024 2:22pm Hypomagnesemia Unknown September 04, 2024 2:22pm Proteinuria Unknown September 04, 2024 2:22pm Secondary hyperparathyroidism Unknown Ju ly 2024 2:22pm Type 2 diabetes mellitus wit h diabetic chronic kidney disease Unknown September 04, 2024 2:22pm Anemia of renal disease Unknown [facility] r 2024 1:04pm Bladder cancer Unknown November 10, 2024 1:04pm CKD (chronic kidney disease) stage 3, GFR 30-59 ml/min Unknown November 10, 2024 1:04pm Hyperkalemia Unknown November 10, 2024 1:04pm Hypomagnesemia Unknown November 10, 2024 1:04pm Proteinuria Unknown November 10, 2024 1:04pm Secondary hyperparathyroidism Unknown Se ptember 2024 1:04pm Type 2 diabetes mellitus wit h diabetic chronic kidney disease Unknown November 10, 2024 1:04pm Assessments Diagnosis Onset Date Resolution Status Admit Date Anemia of renal disease acute J nova 2024 2:22pm Bladder cancer acute September 04, 2024 2:22pm CKD (chronic kidney disease) stage 3, GFR 30-59 ml/min acute August 192024 2:22pm Hyperkalemia acute September 04 2:22pm Hypomagnesemia acute September 04, 2024 2:22pm Proteinuria acute September 04 2:22pm Secondary hyperparathyroidism acute September 04, 2024 2:22pm Type 2 diabetes mellitus wit h diabetic chronic kidney disease acute September 04, 2024 2:22pm Anemia of renal disease acute S eptember 2024 1:04pm Bladder cancer acute November 10, 2024 1:04pm CKD (chronic kidney disease) stage 3, GFR 30-59 ml/min acute 2024 1:04pm Hyperkalemia acute November 102024 1:04pm Hypomagnesemia acute November 10, 2024 1:04pm Proteinuria acute October 1:04pm Secondary hyperparathyroidism acute November 10, 2024 1:04pm Type 2 diabetes mellitus wit h diabetic chronic kidney disease acute November 10, 2024 1:04pm Plan of Treatment Author Sydney Varg[facility] Authored November 10, 2024 1:01pm He has CKD due to longstandi ng Hypertension with DM. His baseline serum creatinine is now 1.6 to 1.7 mg/dL. His renal function back to his baseline after discontinuation of the valsartan. His renal ultrasound renal disease in the right kidney with no evidence of kidney mass, hydronephrosis or kidney stones. I discussed with him the importance of good DM and HTN control to slow down the progression of CKD. I have advised him to avoid tumeric. Advised to continue to follow with PCP for DM management. He was taken off of the valsartan due to the hyperkalemia. He may benefit with a SGLT 2 inhibitors including Farxiga, Jardiance or Invokana. Will defer this to PCP. I would recommend to decrease the dose of the metformin is if EGFR stays below 45 ml/min. Hemoglobin is within the goal but has low iron stores. Will continue oral iron. We will give IV iron if hemoglobin drop below 10 g/dL. He has the EGD and colonoscopy in 2020. Advised him to take a high iron diet. 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 Continue oral magnesium 400 mg once daily. He has a secondary hyperparathyroidism due to the CKD but his calcium, phosphorus and vitamin D are within the goal. No need for calcitriol. He has a proteinuria likely due to the diabetic kidney disease. He had hyperkalemia due to the CKD and valsartan. His serum potassium is back to normal. I have advised him to comply with low potassium diet. He follows with Dr. Smith for bladder cancer and gets the BCG injection. He also taking ivermectin Author Sydney [facility] Authored September 07, 2024 1:51 pm He has CKD due to longstandi ng Hypertension with DM. His baseline serum creatinine is now 1.6 to 1.7 mg/dL. His renal function back to his baseline after discontinuation of the valsartan. His renal ultrasound renal disease in the right kidney with no evidence of kidney mass, hydronephrosis or kidney stones. I discussed with him the importance of good DM and HTN control to slow down the progression of CKD. I have advised him to avoid tumeric. Advised to continue to follow with PCP for DM management. He was taken off of the valsartan due to the hyperkalemia. He may benefit with a SGLT 2 inhibitors including Farxiga, Jardiance or Invokana. Will defer this to PCP. I would recommend to decrease the dose of the metformin is if EGFR stays below 45 ml/min. Hemoglobin is within the goal but has low iron stores. Will continue oral iron. We will give IV iron if hemoglobin drop below 10 g/dL. He has the EGD and colonoscopy in 2020. Advised him to take a high iron diet. 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 Continue oral magnesium 400 mg once daily. He has a secondary hyperparathyroidism due to the CKD but his calcium, phosphorus and vitamin D are within the goal. No need for calcitriol. He has a proteinuria likely due to the diabetic kidney disease. He had hyperkalemia due to the CKD and valsartan. His serum potassium is back to normal. I have advised him to comply with low potassium diet. He follows with Dr. Smith for bladder cancer and gets the BCG injection. He also taking ivermectin Future Tests Future scheduled test information is unavailable Pending Tests Test Name Ordered Date Scheduled Date Renal Function Panel November 10, 2024 1:43pm 6 Months Renal Function Panel September 04, 2024 3:16pm 3 Mo nths Future Visits Future appointment information is unavailable Referrals to Other Providers Reason for Referral Referral Start Date Provider Provider Contact Information Provider Address Jeferson Estrada MD Work Phone: [phone] [place] [address] Future Procedures Procedure Name Ordered Date Scheduled Date Hemogram CBC Without Diff November 10, 2024 1 :43pm 6 Months Iron and TIBC Profile November 10, 2024 1:43p m 6 Months Ferritin November 10, 2024 1:43pm 6 Mo nths Magnesium November 10, 2024 1:43pm 6 Mo nths Protein Creat Ratio Ur Random November 10 1:43pm 6 Months Parathyroid Hormone Intact November 10, 2024 1:43pm 6 Months Uric Acid November 10, 2024 1:43pm 6 Mo nths Vitamin D 25 Hydroxy Total November 10, 2024 1:43pm 6 Months Hemogram CBC Without Diff September 04, 2024 3:16pm 3 Months Magnesium September 04, 2024 3:16pm 3 Months Parathyroid Hormone Intact September 04, 2024 3:16p m 3 Months Uric Acid September 04, 2024 3:16pm 3 Months Vitamin D 25 Hydroxy Total September 04, 2024 3:16p m 3 Months Future Medications Future medication information is unavailable Patient Instructions Instruction Admit Date Low-sodium diet Heart failure in adults - Discharge instructions September 14, 2024 7:26am
--- OUTSIDE RECORDS SUMMARY | 2024-11-13 11:55 | XMS_ITS | Encounter Summary ---
Author Organization [facility] Address [address] [place] [address] Care Team Providers Care Reinforced Steel Placing Supervisor Name Role Phone Jeferson Estrada MD Unavailable [phone] Jeferson Estrada MD Primary Care Provider Leonie Mcginnis NP Unavailable Edwige Arana NP Unavailable [phone] Gera Escobar MA Unavailable [phone] Edwige Arana NP Unavailable Encounter Details Date Type Department Care Team (Late st Contact Info) Description 12/14/2023 External Result Encounter [facility] External Department Unsolicited Jeferson Estrada MD [address] [place] [address] Social History Tobacco Use Types Packs/Day Years Used Date Smoking Tobacco: Former Cigarettes 0 04/24/1962 - 1984 Smokeless Tobacco: Never Alcohol Use Standard Drinks/Week Comments Never 0 (1 standard drink = 0.6 oz pur e alcohol) Quit drinking in 1979 AUDIT-C Answer Date Recorded Q1: How often do you have a drink containing alcohol? Never 12/12/2022 Q2: How many drinks containi ng alcohol do you have on a typical day when you are drinking? Patient does not drink Q3: How often do you have si x or more drinks on one occasion? Never 12/12/2022 PHQ-2 Answer Date Recorded Patient Health Questionnaire-2 Score 0 11/21/2023 Sex and Gender Information Value Date Recorded Sex Assigned at Not on file Legal Sex Male 7:12 PM EDT Gender Identity Not on file Sexual Orientation Not on file documented as of this encounter Plan of Treatment Upcoming Encounters Date Type Department Care Team (Late st Contact Info) Description 12/26/2024 1:10 PM EST Office Visit [facility] [address] [place] [address] Jan Ghosh DPM [address] [address] 02/03/2025 2:00 PM EST Office Visit [facility] [address] [place] [address] Jeferson Estrada MD [address] [place] [address] 05/29/2025 1:00 PM EDT Office Visit [facility] [address] [place] [address] Jl Grajeda DO [address] [place] [address] documented as of this encounter Procedures Procedure Name Priority Date/Time Associated Diagnosis Comments CARDIAC EVENT MONITOR 12/14/2023 5:05 PM EDT documented in this encounter Results * Cardiac event monitor (12/14/2023 5:05 PM EDT) Anatomical Region Laterality Modality Heart Other 12/14/2023 5:05 PM EDT Narrative 12/17/2023 11:32 PM EDT [facility] Main [address] [address] Cardiac Event Monitor Signed Patient: Maynor Samuels MR#: [id number] : 1945 Acct:[id number] Age/Sex: 78 / M ADM Date: 10/27/23 Loc: Room: Type: [facility] Attending Dr: Jeferson Estrada MD Copies to: MD Davin Dutton MD Ordering Provider: Jeferson Estrada MD Date of Service: 10/27/23 CA/CA cardiac event monitor: R42 I65.23 Z91.81 REASON FOR STUDY: Arrhythmia, palpitation. REFERRING PHYSICIAN: Jeferson Estrada MD PROCEDURE: The patient underwent 30-day event monitor. Baseline rhythm is sinus with first-degree AV block. During the monitoring period, numerous complaints of palpitation, lightheadedness, dizziness, shortness of breath were reported. Rhythm during those episodes appears to alternate between sinus rhythm with first-degree AV block alternating with sinus with 2:1 AV block, occasional tachycardia noted with documentation of junctional rhythm, atrial tachycardia and sinus tachycardia. 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 Episode of bradycardia with heart rate in the mid 30s with 2:1 AV block was noted. CONCLUSION: 1. Baseline rhythm is normal sinus rhythm with first-degree AV block. 2. A variety of arrhythmia, suggesting the diagnosis of tachy-shubham syndrome. 3. Occasional PACs and PVCs. 4. Multiple episodes of 2:1 AV block with bradycardia and heart rate down to the mid 30s. 5. Episode of junctional rhythm and junctional tachycardia. 6. A few episodes of atrial tachycardia were seen. 7. Symptoms of lightheadedness, dizziness, palpitation, occurred during a variety of the above described rhythm, more than 100 pages of rhythm strips were reviewed. Transcribed By: NTS 12/16/23 1012 Dictated By: Davin Donald MD 12/14/23 1705 Signed By: <Electronically signed by MD Davin Donald> 12/17/23 2332 Procedure Note Davin Donald MD - 12/17/2023 [facility] [place] [address] Cardiac Event Monitor Signed Patient: Maynor Samuels R#: [id number] : 1945cct:[id number] Age/Sex: 78 / MADM Date: 10/27/23 Loc: Room:Type: [facility] Attending Dr: Jeferson Estrada MD Copies to: MD Davin Dutton MD Ordering Provider: Jeferson Estrada MD Date of Service: 10/27/23 CA/CA cardiac event monitor: R42 I65.23Z91.81 REASON FOR STUDY: Arrhythmia, palpitation. REFERRING PHYSICIAN: Jeferson Estrada MD PROCEDURE: The patient underwent 30-day event monitor. Baseline rhythmis sinus with first-degree AV block. During the monitoring period, numerous complaints ofpalpitation, lightheadedness, dizziness, shortness of breath were reported. Rhythm during thoseepisodes appears to alternate between sinus rhythm with first-degree AV block alternating with sinuswith 2:1 AV block, occasional tachycardia noted with documentation of junctional rhythm, atrialtachycardia and sinus tachycardia. 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 Episode of bradycardia with heart rate in the mid 30s with 2:1 AV block was noted. CONCLUSION: 1. Baseline rhythm is normal sinus rhythm with first-degree AV block. 2. A variety of arrhythmia, suggesting the diagnosis of tachy-bradysyndrome. 3. Occasional PACs and PVCs. 4. Multiple episodes of 2:1 AV block with bradycardia and heart ratedown to the mid 30s. 5. Episode of junctional rhythm and junctional tachycardia. 6. A few episodes of atrial tachycardia were seen. 7. Symptoms of lightheadedness, dizziness, palpitation, occurred duringa variety of the above described rhythm, more than 100 pages of rhythm strips were reviewed. Transcribed By: NTS 12/16/23 1012 Dictated By: Davin Donald MD 12/14/23 1705 Signed By: <Electronically signed by MD Davin Donald> 12/17/23 2332 us Jeferson Estrada MD CV CARDIAC SERVICES PROCEDURES Final Result documented in this encounter Visit Diagnoses Not on filedocumented in this encounter Additional Health Concerns Assessment Noted Time PHQ-9 Depression Total Score: 2 10/09/19 1:18 PM EDT documented as of this encounter Care Teams Reinforced Steel Placing Supervisor Relationship Specialty Start Date End Date Jeferson Estrada MD [address] [place] [address] PCP - ACO Reach 07/13/22 Jeferson Estrada MD [address] [place] [address] PCP - General Family Medicine 08/09/22 Leonie Mcginnis NP [address] [place] [address] Nurse Practitioner Family Medicine 09/18/22 05/08/24 Edwige Arana, WOOL AND PELT GRADER [address] [place] [address] Nurse Practitioner Pulmonary Disease 09/18/22 10/23/24 Gera Escobar MA [address] [place] [address] Family Medicine 07/01/24 07/09/24 Edwige Arana WOOL AND PELT GRADER [address] [place] [address] Nurse Practitioner Family Medicine 10/24/24 documented as of this encounter
--- OUTSIDE RECORDS SUMMARY | 2024-11-13 11:55 | XMS_ITS | Encounter Summary ---
Author Organization [facility] Address [address] [place] [address] Phone Care Team Providers Care Vocational Counselor Name Role Phone Jeferson Estrada MD Primary Care Provider Encounter Details Date Type Department Care Team (Late st Contact Info) Description 06/15/2022 Orders Only [facility] [address] [place] [address] Conversion, Onbase Social History Tobacco Use Types Packs/Day Years Used Date Smoking Tobacco: Never Assessed Sex and Gender Information Value Date Recorded Sex Assigned at Not on file Legal Sex Male 4:28 AM EST Gender Identity Not on file Sexual Orientation Not on file documented as of this encounter Plan of Treatment Upcoming Encounters Date Type Department Care Team (Late st Contact Info) Description 12/09/2024 9:30 AM EDT Office Visit [address] [phone] Erika Mayes MD [address] [place] [address], [address] [address] 03/31/2025 11:10 AM EST Office Visit [address] [phone] Erika Mayes MD 703 [place] 2, [address] [address] Scheduled Orders Name Type Priority Associated Diagnoses Orde r Schedule OUTSIDE LAB SCAN Lab Ordered: 06/15/2022 documented as of this encounter Visit Diagnoses Not on filedocumented in this encounter Care Teams Vocational Counselor Relationship Specialty Start Date End Date Jeferson Estrada MD [address] [place] [address] PCP - General 12/30/13 documented as of this encounter
--- OUTSIDE RECORDS SUMMARY | 2024-11-13 11:55 | XMS_ITS | Encounter Summary ---
Author Organization [facility] Address [address] [place] [address] Phone Care Team Providers Care Manager Database Name Role Phone Jeferson Estrada MD Primary Care Provider Encounter Details Date Type Department Care Team (Late st Contact Info) Description 09/22/2021 Orders Only [facility] [address] [place] [address] Conversion, Onbase Social History Tobacco Use Types [...] Description 12/09/2024 9:30 AM EDT Office Visit [address] [phone] Erika Mayes MD [address] [place] [address], [address] [address] 03/31/2025 11:10 AM EST Office Visit [address] [phone] Erika Mayes MD 3 [facility] 2, [address] [address] Scheduled Orders Name Type Priority Associated Diagnoses Orde r Schedule OUTSIDE LAB SCAN Lab Ordered: 09/22/2021 documented as of this encounter Visit Diagnoses Not on filedocumented in this encounter Care Teams Manager Database Relationship Specialty Start Date End Date Jeferson Estrada MD [address] [place] [address] PCP - General 12/30/13 documented as of this encounter
--- OUTSIDE RECORDS SUMMARY | 2024-11-13 11:55 | XMS_ITS | Encounter Summary ---
Author Organization [facility] Address [address] [place] [address] Phone Care Team Providers Care Skin Tanner Name Role Phone Jeferson Estrada MD Primary Care Provider [phone] Encounter Details Date Type Department Care Team (Late st Contact Info) Description 11/17/2023 Orders Only [facility] [address] [place] [address] Scanning, Generic Provider Social History Tobacco Use Types Packs/Day Years [...] Description 12/09/2024 9:30 AM EDT Office Visit [address] [address] Erika Mayes MD 703 [facility] 2, [address] [place] [address] 03/31/2025 11:10 AM EST Office Visit [address] [place] [address] Erika Mayes MD 703 [facility] 2, [address] [place] [address] documented as of this encounter Procedures Procedure Name Priority Date/Time Associated Diagnosis Comments HOLTER AND CARDIAC EVENT MONITOR - ONBASE SCAN 11/17/2023 documented in this encounter Results * Holter and Cardiac Event Monitor - Onbase Scan (11/17/2023) Narrative 11/17/2023 Ordered by an unspecified provider. Generic Provider Scanning [facility] [place] OCEDURES Final Result documented in this encounter Visit Diagnoses Not on filedocumented in this encounter Additional Health Concerns Assessment Noted Time A fall risk assessment has been complete d for the patient 03/28/2023 11:30 AM EST documented as of this encounter Care Teams Skin Tanner Relationship Specialty Start Date End Date Jeferson Estrada MD [address] [place] [address] PCP - General 12/30/13 documented as of this encounter
--- OUTSIDE RECORDS SUMMARY | 2024-11-13 11:55 | XMS_ITS | Encounter Summary ---
Author Organization [facility] Address [address] [place] [address] Phone Care Team Providers Care Saxophone Teacher Name Role Phone Jeferson Estrada MD Primary Care Provider [phone] Encounter Details Date Type Department Care Team (Late st Contact Info) Description 11/12/2023 Scanned Document [facility] [address] [place] [address] Scanning, Generic Provider Social History [...] Description 12/09/2024 9:30 AM EDT Office Visit [address] [address] Erika Mayes MD 703 [facility] 2, [address] [place] [address] 03/31/2025 11:10 AM EST Office Visit [address] [place] [address] Erika Mayes MD 703 [facility] 2, [address] [place] [address] documented as of this encounter Visit Diagnoses Not on filedocumented in this encounter Additional Health Concerns Assessment Noted Time A fall risk assessment has been complete d for the patient 03/28/2023 11:30 AM EST documented as of this encounter Care Teams Saxophone Teacher Relationship Specialty Start Date End Date Jeferson Estrada MD [address] [place] [address] PCP - General 12/30/13 documented as of this encounter
--- OUTSIDE RECORDS SUMMARY | 2024-11-13 11:55 | XMS_ITS | Encounter Summary ---
Author Organization [facility] Address [address] [facility] [place] [address] Care Team Providers Care Sweatband Flanger Name Role Phone Jeferson Estrada MD Unavailable [phone] Jeferson Estrada MD Primary Care Provider Edwige Arana STAFF ANALYST Unavailable [phone] Gera Escobar MA Unavailable [phone] Edwige Arana NP Unavailable [phone] Encounter Details Date Type Department Care Team (Late st Contact Info) Description 06/18/2024 Abstract [facility] [address] [place] [address] Jeferson Estrada MD [address] [place] [address] Social History Tobacco Use Types Packs/Day Years [...] Date Recorded Patient Health Questionnaire-2 Score 0 03/20/2024 Sex and Gender Information Value Date Recorded Sex Assigned at Not on file Legal Sex Male 7:12 PM EDT Gender Identity Not on file Sexual Orientation Not on file documented as of this encounter Plan of Treatment Upcoming Encounters Date Type Department Care Team (Late st Contact Info) Description 12/26/2024 1:10 PM EST Office Visit [facility] [address] [place] [address] Jan Ghosh DPM [address] [address] 02/03/2025 2:00 PM EST Office Visit [facility] [address] [place] [address] Jeferson Estrada MD [address] [place] [address] 05/29/2025 1:00 PM EDT [facility] [address] [place] [address] Jl Grajeda DO [address] [place] [address] documented as of this encounter Visit Diagnoses Not on filedocumented in this encounter Additional Health Concerns Assessment Noted Time PHQ-9 Depression Total Score: 2 10/09/19 24 1:18 PM EDT documented as of this encounter Care Teams Sweatband Flanger Relationship Specialty Start Date End Date Jeferson Estrada MD [address] [place] [address] PCP - ACO Reach 07/13/22 Jeferson Estrada MD [address] [place] [address] PCP - General Family Medicine 08/09/22 Edwige Arana NP [address] [place] [address] Nurse Practitioner Pulmonary Disease 09/18/22 10/23/24 Gera Escobar, [place] [address] [place] [address] Family Medicine 07/01/24 07/09/24 Edwige Arana NP [address] [place] [address] Nurse Practitioner Family Medicine 10/24/24 documented as of this encounter
--- OUTSIDE RECORDS SUMMARY | 2024-11-13 11:55 | XMS_ITS | Encounter Summary ---
Author Organization [facility] Address [address] [place] [address] Care Team Providers Care Hauling Contractor Name Role Phone Jeferson Estrada MD Primary Care Provider Unav ailable Source Comments In the event this information is protected by the Federal Confidentiality of Alcohol and Drug AbusePatient Records regulations: The Federal rules restrict any use of the information to criminally investigate or prosecute any alcohol or drug abuse patient.[facility] Encounter Details Date Type Department Care Team (Late st Contact Info) Description 03/07/2024 Lab Requisition [facility] [address] [place] [address] Soy Valdez MD [address] [place], [place] [id number] Person encountering health services to consult on behalf of another person Social History Tobacco Use Types Packs/Day Years Used Date Smoking Tobacco: Never Assessed Sex and Gender Information Value Date Recorded Sex Assigned at Not on file Legal Sex Male 9:48 AM EST Gender Identity Not on file Sexual Orientation Not on file documented as of this encounter Plan of Treatment Not on file documented as of this encounter Procedures Procedure Name Priority Date/Time Associated Diagnosis Comments SURGICAL PATHOLOGY REFERENCE LAB CONSULT Routine 03/07/2024 9:48 PM EST Person encountering health services to consult on behalf of another person documented in this encounter Results * SURGICAL PATHOLOGY REFERENCE LAB CONSULT (03/07/2024 9:48 PM EST) Case Report Surgical Pathology Report Case: [id number] Authorizing Provider: Soy Valdez, Collected: 03/07/2024 09:48 PM Ordering Location: [facility] Received: 03/07/2024 09:45 PM [facility] Pathologist: Jewel Pereira MD Specimen: Slide(s), 5 SLIDES [id number] 03/10/2024 1:43 PM EST [facility] FINAL DIAGNOSIS Outside slides for consultation, 02/26/2024 Urinary bladder, tumor, transurethral resection: - Urothelial carcinoma, papillary and suspicious for focal invasion, high-grade. - Suspicious for early lamina propria invasion (at least sensory scientist, suspicious for pT1). - Muscularis propria is present for evaluation and negative for neoplasm. 03/10/2024 1:43 PM EST [facility] at 1343 EST Clinical History CONSULT REQUESTED 03/10/2024 1:43 PM EST [facility] Performing Lab Diagnostic interpretation performed at: [facility], [address] [place] [address], [place] [address] CLIA# [id number] Android Programmer: Abhishek High MD 03/10/2024 1:43 PM EST [facility] Blocks or Slides MICROSCOPE SLIDE / Unknown 03/07/2024 9:48 PM EST 03/07/2024 9:45 PM EST us Soy Jarrett MD SURGICAL PATHOLOGY Fin al Result [facility] [address] [place] [address] documented in this encounter Visit Diagnoses Diagnosis Person encountering health services to consult on behalf of another person Other person consulting on behalf of another person documented in this encounter Care Teams Hauling Contractor Relationship Specialty Start Date End Date Jeferson Estrada MD [address] [place] [address] PCP - General Family Medicine 03/28/24 documented as of this encounter
--- OUTSIDE RECORDS SUMMARY | 2024-11-13 11:55 | XMS_ITS | Encounter Summary ---
Author Organization [facility] Address [address] [place] [address] Phone Care Team Providers Care Bank Clerk Name Role Phone Jeferson Estrada MD Primary Care Provider [phone] Encounter Details Date Type Department Care Team (Late st Contact Info) Description 03/01/[address] [facility] [address] [place] [address] Conversion, Onbase Social History Tobacco Use Types [...] Description 12/09/2024 9:30 AM EDT Office Visit [address] [phone] Erika Mayes MD [address] [place] [address], [address] [address] 03/31/2025 11:10 AM EST Office Visit [address] [phone] Erika Mayes MD 3 [facility] 2, [address] [address] Scheduled Orders Name Type Priority Associated Diagnoses Orde r Schedule OUTSIDE LAB SCAN Lab Ordered: 03/01/2020 documented as of this encounter Visit Diagnoses Not on filedocumented in this encounter Care Teams Bank Clerk Relationship Specialty Start Date End Date Jeferson Estrada MD [address] [place] [address] PCP - General 12/30/13 documented as of this encounter
--- OUTSIDE RECORDS SUMMARY | 2024-11-13 11:55 | XMS_ITS | Encounter Summary ---
Author Organization [facility] Address [address] [place] [address] Phone Care Team Providers Care Wine Steward/Stewardess Name Role Phone Jeferson Estrada MD Primary Care Provider [phone] Encounter Details Date Type Department Care Team (Late st Contact Info) Description 07/07/2020 Orders Only [facility] [address] [place] [address] Conversion, Onbase Social History Tobacco Use Types [...] Description 12/09/2024 9:30 AM EDT Office Visit [address] [phone] Erika Mayes MD [address] [place] [address], [address] [address] 03/31/2025 11:10 AM EST Office Visit [address] [phone] Erika Mayes MD 3 [facility] 2, [address] [address] Scheduled Orders Name Type Priority Associated Diagnoses Orde r Schedule OUTSIDE LAB SCAN Lab Ordered: 07/07/2020 documented as of this encounter Visit Diagnoses Not on filedocumented in this encounter Care Teams Wine Steward/Stewardess Relationship Specialty Start Date End Date Jeferson Estrada MD [address] [place] [address] PCP - General 12/30/13 documented as of this encounter
--- OUTSIDE RECORDS SUMMARY | 2024-11-13 11:55 | XMS_ITS | Encounter Summary ---
Author Organization [facility] Address [address] [facility] [place] [address] Care Team Providers Care Electronics Warfare Technician Name Role Phone Jeferson Estrada MD Unavailable [phone] Jeferson Estrada MD Primary Care Provider [phone] Leonie Mcginnis NP Unavailable Edwige Arana NP Unavailable Gera Escobar MA Unavailable [phone] Edwige Arana NP Unavailable [phone] Encounter Details Date Type Department Care Team (Late st Contact Info) Description 12/11/2023 Abstract [facility] [address] [place] [address] Jeferson Estrada MD [address] [place] [address] Social History Tobacco Use Types [...] Description 12/26/2024 1:10 PM EST Office Visit [facility] [address] [place] [address] Jan Ghosh DPM [address] [address] 02/03/2025 2:00 PM EST Office Visit [facility] [address] [place] [address] Jeferson Estrada MD [address] [place] [address] 05/29/2025 1:00 PM EDT Office Visit [facility] [address] [place] [address] Jl Grajeda DO [address] [place] [address] documented as of this encounter Visit Diagnoses Not on filedocumented in this encounter Additional Health Concerns Assessment Noted Time PHQ-9 Depression Total Score: 2 10/09/19 1:18 PM EDT documented as of this encounter Care Teams Electronics Warfare Technician Relationship Specialty Start Date End Date Jeferson Estrada MD [address] [place] [address] PCP - ACO Reach 07/13/22 Jeferson Estrada MD [address] [place] [address] PCP - General Family Medicine 08/09/22 Leonie Mcginnis NP [address] [place] [address] Nurse Practitioner Family Medicine 09/18/22 05/08/24 Edwige Arana NP [address] [place] [address] Nurse Practitioner Pulmonary Disease 09/18/22 10/23/24 Gera Escobar, PA [address] [place] [address] Family Medicine 07/01/24 07/09/24 Edwige Arana NP [address] [place] [address] Nurse Practitioner Family Medicine 10/24/24 documented as of this encounter
--- OUTSIDE RECORDS SUMMARY | 2024-11-13 11:55 | XMS_ITS | Encounter Summary ---
Author Organization [facility] Address [address] [place] [address] Phone Care Team Providers Care Pick Out Hand Name Role Phone Jeferson Estrada MD Primary Care Provider Encounter Details Date Type Department Care Team (Late st Contact Info) Description 08/19/2021 Orders Only [facility] [address] [place] [address] Conversion, Onbase Social History Tobacco Use Types [...] Description 12/09/2024 9:30 AM EDT Office Visit [address] [phone] Erika Mayes MD [address] [place] [address], [address] [address] 03/31/2025 11:10 AM EST Office Visit [address] [phone] Erika Mayes MD 3 [facility] 2, [address] [address] Scheduled Orders Name Type Priority Associated Diagnoses Orde r Schedule OUTSIDE LAB SCAN Lab Ordered: 08/19/2021 documented as of this encounter Visit Diagnoses Not on filedocumented in this encounter Care Teams Pick Out Hand Relationship Specialty Start Date End Date Jeferson Estrada MD [address] [place] [address] PCP - General 12/30/13 documented as of this encounter
--- OUTSIDE RECORDS SUMMARY | 2024-11-13 11:55 | XMS_ITS | Encounter Summary ---
Author Organization [facility] Address [address] [place] [address] Phone Care Team Providers Care It Training Specialist Name Role Phone Jeferson Estrada MD Primary Care Provider [phone] Encounter Details Date Type Department Care Team (Late st Contact Info) Description 02/28/2024 Scanned Document [facility] [address] [place] [address] Scanning, Generic Provider Social History [...] on file Sexual Orientation Not on file COVID-19 Exposure Response Date Recorded In the last 10 days, have yo u been in contact with someone who was confirmed or suspected to have Coronavirus/COVID-19? No / Unsure 02/21/2024 8:31 AM EST documented as of this encounter Plan of Treatment Upcoming Encounters Date Type Department Care Team (Late st Contact Info) Description 12/09/2024 9:30 AM EDT Office Visit [address] [address] Erika Mayes MD [address] [place] [address] 2, [address] [place] [address] 03/31/2025 11:10 AM EST Office Visit [address] [place] [address] Erika Mayes MD 703 [facility] [address] 2, [facility] [address] [place] [address] Scheduled Orders Name Type Priority Associated Diagnoses Orde r Schedule Ultrasound- OnBase Scan Imaging O rdered: 02/28/2024 documented as of this encounter Visit Diagnoses Not on filedocumented in this encounter Additional Health Concerns Assessment Noted Time A fall risk assessment has been complete d for the patient 02/21/2024 8:57 AM EST documented as of this encounter Care Teams It Training Specialist Relationship Specialty Start Date End Date Jeferson Estrada MD [address] [place] [address] PCP - General 12/30/13 documented as of this encounter
--- OUTSIDE RECORDS SUMMARY | 2024-11-13 11:55 | XMS_ITS | Encounter Summary ---
Author Organization [facility] Address [address] [place] [address] Phone Care Team Providers Care Ship Unloader Name Role Phone Jeferson Estrada MD Primary Care Provider [phone] Encounter Details Date Type Department Care Team (Late st Contact Info) Description 03/04/2024 Scanned Document [facility] [address] [place] [address] Scanning, Generic Provider Social History [...] Description 12/09/2024 9:30 AM EDT Office Visit [address] [address] Erika Mayes MD [address] [place] [address] 2, [address] [place] [address] 03/31/2025 11:10 AM EST Office Visit [address] [place] [address] Erika Mayes MD 703 [facility] [address] 2, [address] [place] [address] documented as of this encounter Visit Diagnoses Not on filedocumented in this encounter Additional Health Concerns Assessment Noted Time A fall risk assessment has been complete d for the patient 02/21/2024 8:57 AM EST documented as of this encounter Care Teams Ship Unloader Relationship Specialty Start Date End Date Jeferson Estrada MD [address] [place] [address] PCP - General 12/30/13 documented as of this encounter
--- OUTSIDE RECORDS SUMMARY | 2024-11-13 11:55 | XMS_ITS | Encounter Summary ---
Author Organization [facility] Address [address] [facility] [place] [address] Care Team Providers Care Jd Edwards Consultant Name Role Phone Jeferson Estrada MD Unavailable [phone] Jeferson Estrada MD Primary Care Provider [phone] Leonie Mcginnis NP Unavailable Edwige Arana RENAL TECHNICIAN Unavailable [phone] Gera Escobar MA Unavailable [phone] Edwige Arana RENAL TECHNICIAN Unavailable [phone] Encounter Details Date Type Department Care Team (Late st Contact Info) Description 08/16/2023 Orders Only [facility] [address] [place] [address] Unallocated, Noms MD Trina [address] [place], [place] [id number] Social History Tobacco Use Types Packs/Day Years [...] Date Recorded Patient Health Questionnaire-2 Score 0 09/28/2022 Sex and Gender Information Value Date Recorded Sex Assigned at Not on file Legal Sex Male 7:12 PM EDT Gender Identity Not on file Sexual Orientation Not on file documented as of this encounter Plan of Treatment Upcoming Encounters Date Type Department Care Team (Late st Contact Info) Description 12/26/2024 1:10 PM EST Office Visit [facility] [address] [place] [address] Jan Ghosh DPM [address] [address] 02/03/2025 2:00 PM EST Office Visit [facility] [address] [place] [address] Jeferson Estrada MD [address] [place] [address] 05/29/2025 1:00 PM EDT Office Visit [facility] [address] [place] [address] Jl Grajeda DO [address] [place] [address] documented as of this encounter Procedures Procedure Name Priority Date/Time Associated Diagnosis Comments CYTOLOGY, URINE Routine 08/16/2023 1:18 PM EDT documented in this encounter Results * Cytology, urine (08/16/2023 1:18 PM EDT) Urine Urine specimen obtained by clean catch procedure / Unknown us Noms Provider Unallocated LAB CYTOLOGY ORDERA BLES Final Result documented in this encounter Visit Diagnoses Not on filedocumented in this encounter Additional Health Concerns Assessment Noted Time PHQ-9 Depression Total Score: 0 09/29/19 12:00 PM EDT documented as of this encounter Care Teams Jd Edwards Consultant Relationship Specialty Start Date End Date Jeferson Estrada MD [address] [place] [address] PCP - ACO Reach 07/13/22 Jeferson Estrada MD [address] [place] [address] PCP - General Family Medicine 08/09/22 Leonie Mcginnis NP [address] [place] [address] Nurse Practitioner Family Medicine 09/18/22 05/08/24 Edwige Arana, RENAL TECHNICIAN [address] [place] [address] Nurse Practitioner Pulmonary Disease 09/18/22 10/23/24 Gera Escobar MA [address] [place] [address] Family Medicine 07/01/24 07/09/24 Edwige Arana RENAL TECHNICIAN [address] [place] [address] Nurse Practitioner Family Medicine 10/24/24 documented as of this encounter
--- OUTSIDE RECORDS SUMMARY | 2024-11-13 11:55 | XMS_ITS | Encounter Summary ---
Author Organization [facility] Address [address] [place] [address] Phone Care Team Providers Care Communication Analyst Name Role Phone Jeferson Estrada MD Primary Care Provider Encounter Details Date Type Department Care Team (Late st Contact Info) Description 06/20/2019 Orders Only [facility] [address] [place] [address] Conversion, Onbase Social History Tobacco Use Types [...] Description 12/09/2024 9:30 AM EDT Office Visit [address] [phone] Erika Mayes MD [address] [place] [address], [address] [address] 03/31/2025 11:10 AM EST Office Visit [address] [phone] Erika Mayes MD 3 [facility] 2, [address] [address] Scheduled Orders Name Type Priority Associated Diagnoses Orde r Schedule OUTSIDE LAB SCAN Lab Ordered: 06/20/2019 documented as of this encounter Visit Diagnoses Not on filedocumented in this encounter Care Teams Communication Analyst Relationship Specialty Start Date End Date Jeferson Estrada MD [address] [place] [address] PCP - General 12/30/13 documented as of this encounter
--- OUTSIDE RECORDS SUMMARY | 2024-11-13 11:55 | XMS_ITS | Encounter Summary ---
Author Organization [facility] Address [address] [place] [address] Phone Care Team Providers Care Generation Technician Name Role Phone Jeferson Estrada MD Primary Care Provider Encounter Details Date Type Department Care Team (Late st Contact Info) Description 04/21/2019 Orders Only [facility] [address] [place] [address] Conversion, Onbase Social History Tobacco Use Types [...] Description 12/09/2024 9:30 AM EDT Office Visit [address] [phone] Erika Mayes MD [address] [place] [address], [address] [address] 03/31/2025 11:10 AM EST Office Visit [address] [phone] Erika Mayes MD 3 [facility] 2, [address] [address] Scheduled Orders Name Type Priority Associated Diagnoses Orde r Schedule OUTSIDE LAB SCAN Lab Ordered: 04/21/2019 documented as of this encounter Visit Diagnoses Not on filedocumented in this encounter Care Teams Generation Technician Relationship Specialty Start Date End Date Jeferson Estrada MD [address] [place] [address] PCP - General 12/30/13 documented as of this encounter
--- OUTSIDE RECORDS SUMMARY | 2024-11-13 11:55 | XMS_ITS | Encounter Summary ---
Author Organization [facility] Address [address] [place] [address] Phone Care Team Providers Care Floor Cleaner Name Role Phone Jeferson Estrada MD Primary Care Provider [phone] Encounter Details Date Type Department Care Team (Late st Contact Info) Description 10/27/2023 Orders Only [facility] [address] [place] [address] Scanning, Generic Provider Social History [...] Description 12/09/2024 9:30 AM EDT Office Visit [address] [address] Erika Mayes MD 703 [facility] 2, [address] [place] [address] 03/31/2025 11:10 AM EST Office Visit [address] [place] [address] Erika Mayes MD 703 [facility] 2, [address] [place] [address] documented as of this encounter Procedures Procedure Name Priority Date/Time Associated Diagnosis Comments HOLTER AND CARDIAC EVENT MONITOR - ONBASE SCAN 10/27/2023 documented in this encounter Results * Holter and Cardiac Event Monitor - Onbase Scan (10/27/2023) Narrative 10/27/2023 Ordered by an unspecified provider. Generic Provider Scanning [facility] MD OCEDURES Final Result documented in this encounter Visit Diagnoses Not on filedocumented in this encounter Additional Health Concerns Assessment Noted Time A fall risk assessment has been complete d for the patient 03/28/2023 11:30 AM EST documented as of this encounter Care Teams Floor Cleaner Relationship Specialty Start Date End Date Jeferson Estrada MD [address] [place] [address] PCP - General 12/30/13 documented as of this encounter
--- OUTSIDE RECORDS SUMMARY | 2024-11-13 11:55 | XMS_ITS | Encounter Summary ---
Author Organization [facility] Address [address] [facility] [place] [address] Care Team Providers Care Dough Cutting Machine Operator Name Role Phone Jeferson Estrada MD Unavailable [phone] Jeferson Estrada MD Primary Care Provider Leonie Mcginnis NP Unavailable Edwige Arana NP Unavailable [phone] Gera Escobar MA Unavailable [phone] Edwige Arana NP Unavailable Encounter Details Date Type Department Care Team (Late st Contact Info) Description 12/13/2023 Abstract [facility] [address] [place] [address] Jeferson Estrada MD [address] [place] [address] Social History Tobacco Use Types [...] EST Office Visit [facility] [address] [place] [address] Jan Ghosh DPM [address] [address] 02/03/2025 2:00 PM EST Office Visit [facility] [address] [place] [address] Jeferson Estrada MD [address] [place] [address] 05/29/2025 1:00 PM EDT Office Visit [facility] [address] [place] [address] Jl Grajeda DO [address] [place] [address] documented as of this encounter Visit Diagnoses Not on filedocumented in this encounter Additional Health Concerns Assessment Noted Time PHQ-9 Depression Total Score: 2 10/09/19 1:18 PM EDT documented as of this encounter Care Teams Dough Cutting Machine Operator Relationship Specialty Start Date End Date Jeferson Estrada MD [address] [place] [address] PCP - ACO Reach 07/13/22 Jeferson Estrada MD [address] [place] [address] PCP - General Family Medicine 08/09/22 Leonie Mcginnis NP [address] [place] [address] Nurse Practitioner Family Medicine 09/18/22 05/08/24 Edwige Arana NP [address] [place] [address] Nurse Practitioner Pulmonary Disease 09/18/22 10/23/24 Gera Escobar, [place] [address] [place] [address] Family Medicine 07/01/24 07/09/24 Edwige Arana NP [address] [place] [address] Nurse Practitioner Family Medicine 10/24/24 documented as of this encounter
--- OUTSIDE RECORDS SUMMARY | 2024-11-13 11:55 | XMS_ITS | Encounter Summary ---
Author Organization [facility] Address [address] [place] [address] Phone Care Team Providers Care Occupational Therapist Assistant Name Role Phone Jeferson Estrada MD Primary Care Provider [phone] Encounter Details Date Type Department Care Team (Late st Contact Info) Description 03/03/2024 Scanned Document [facility] [address] [place] [address] Scanning, Generic Provider Social History [...] Description 12/09/2024 9:30 AM EDT Office Visit [address] [address] Erika Mayes MD [address] [place] [address] 2, [address] [place] [address] 03/31/2025 11:10 AM EST Office Visit [address] [place] [address] Erika Mayes MD 703 [facility] [address] 2, [address] [place] [address] documented as of this encounter Procedures Procedure Name Priority Date/Time Associated Diagnosis Comments OUTSIDE IMAGING SCAN 03/03/2024 documented in this encounter Results * OUTSIDE IMAGING SCAN (03/03/2024) Anatomical Region Laterality Modality Other Narrative 03/03/2024 Ordered by an unspecified provider. us Generic Provider Scanning OUTSIDE SCAN Final Result documented in this encounter Visit Diagnoses Not on filedocumented in this encounter Additional Health Concerns Assessment Noted Time A fall risk assessment has been complete d for the patient 02/21/2024 8:57 AM EST documented as of this encounter Care Teams Occupational Therapist Assistant Relationship Specialty Start Date End Date Jeferson Estrada MD [address] [place] [address] PCP - General 12/30/13 documented as of this encounter
--- OUTSIDE RECORDS SUMMARY | 2024-11-13 11:55 | XMS_ITS | Encounter Summary ---
Author Organization [facility] Address [address] [facility] [place] [address] Care Team Providers Care Airport Maintenance Chief Name Role Phone Jeferson Estrada MD Unavailable [phone] Jeferson Estrada MD Primary Care Provider Leonie Mcginnis NP Unavailable Edwige Arana NP Unavailable [phone] Gera Escobar MA Unavailable [phone] Edwige Arana NP Unavailable [phone] Encounter Details Date Type Department Care Team (Late st Contact Info) Description 12/13/2023 Abstract [facility] [address] [place] [address] Jeferson Estrada MD [address] [place] [address] Social History Tobacco Use Types [...] EST Office Visit [facility] [address] [place] [address] Jan Ghosh DPM [address] [address] 02/03/2025 2:00 PM EST Office Visit [facility] [address] [place] [address] Jeferson Estrada MD [address] [place] [address] 05/29/2025 1:00 PM EDT Office Visit [facility] [address] [place] [address] Jl Grajeda DO [address] [place] [address] documented as of this encounter Visit Diagnoses Not on filedocumented in this encounter Additional Health Concerns Assessment Noted Time PHQ-9 Depression Total Score: 2 10/09/19 1:18 PM EDT documented as of this encounter Care Teams Airport Maintenance Chief Relationship Specialty Start Date End Date Jeferson Estrada MD [address] [place] [address] PCP - ACO Reach 07/13/22 Jeferson Estrada MD [address] [place] [address] PCP - General Family Medicine 08/09/22 Leonie Mcginnis NP [address] [place] [address] Nurse Practitioner Family Medicine 09/18/22 05/08/24 Edwige Arana NP [address] [place] [address] Nurse Practitioner Pulmonary Disease 09/18/22 10/23/24 Gera Escobar, [place] [address] [place] [address] Family Medicine 07/01/24 07/09/24 Edwige Arana NP [address] [place] [address] Nurse Practitioner Family Medicine 10/24/24 documented as of this encounter
--- OUTSIDE RECORDS SUMMARY | 2024-11-13 11:55 | XMS_ITS | Encounter Summary ---
Author Organization [facility] Address [address] [place] [address] Phone Care Team Providers Care Repeat Photocomposing Machine Operator Name Role Phone Jeferson Estrada MD Primary Care Provider [phone] Encounter Details Date Type Department Care Team (Late st Contact Info) Description 02/27/2024 Scanned Document [facility] [address] [place] [address] Scanning, Generic Provider Social History [...] 12/09/2024 9:30 AM EDT Office Visit [address] [address] Erika Mayes MD [address] [place] [address] 2, [address] [place] [address] 03/31/2025 11:10 AM EST Office Visit [address] [place] [address] Erika Mayes MD 703 [facility] [address] 2, [address] [place] [address] documented as of this encounter Visit Diagnoses Not on filedocumented in this encounter Additional Health Concerns Assessment Noted Time A fall risk assessment has been complete d for the patient 02/21/2024 8:57 AM EST documented as of this encounter Care Teams Repeat Photocomposing Machine Operator Relationship Specialty Start Date End Date Jeferson Estrada MD [address] [place] [address] PCP - General 12/30/13 documented as of this encounter
--- OUTSIDE RECORDS SUMMARY | 2024-11-13 11:55 | XMS_ITS | Encounter Summary ---
Author Organization [facility] Address [address] [facility] [place] [address] Care Team Providers Care Actuarial Manager Name Role Phone Jeferson Estrada MD Unavailable [phone] Jeferson Estrada MD Primary Care Provider Edwige Arana END POLISHER Unavailable [phone] Gera Escobar MA Unavailable [phone] Edwige Arana NP Unavailable [phone] Encounter Details Date Type Department Care Team (Late st Contact Info) Description 05/09/2024 Abstract [facility] [address] [place] [address] Jeferson Estrada MD [address] [place] [address] Social History Tobacco Use Types [...] 1:10 PM EST Office Visit [facility] [address] [place] [address] Jan Ghosh DPM [address] [address] 02/03/2025 2:00 PM EST Office Visit [facility] [address] [place] [address] Jeferson Estrada MD [address] [place] [address] 05/29/2025 1:00 PM EDT Office Visit [facility] [address] [place] [address] Jl Grajeda DO [address] [address] documented as of this encounter Visit Diagnoses Not on filedocumented in this encounter Additional Health Concerns Assessment Noted Time PHQ-9 Depression Total Score: 2 10/09/19 24 1:18 PM EDT documented as of this encounter Care Teams Actuarial Manager Relationship Specialty Start Date End Date Jeferson Estrada MD [address] [place] [address] PCP - ACO Reach 07/13/22 Jeferson Estrada MD [address] [place] [address] PCP - General Family Medicine 08/09/22 Edwige Arana NP [address] [place] [address] Nurse Practitioner Pulmonary Disease 09/18/22 10/23/24 Gera Escobar, [place] [address] [place] [address] Family Medicine 07/01/24 07/09/24 Edwige Arana NP [address] [place] [address] Nurse Practitioner Family Medicine 10/24/24 documented as of this encounter
--- OUTSIDE RECORDS SUMMARY | 2024-11-13 11:55 | XMS_ITS | Encounter Summary ---
Author Organization [facility] Address [address] [place] [address] Phone Care Team Providers Care Parker Name Role Phone Jeferson Estrada MD Primary Care Provider [phone] Encounter Details Date Type Department Care Team (Late st Contact Info) Description 02/11/2024 Scanned Document [facility] [address] [place] [address] Scanning, Generic Provider Social History [...] Description 12/09/2024 9:30 AM EDT Office Visit [address] [address] Erika Mayes MD 703 [facility] 2, [address] [place] [address] 03/31/2025 11:10 AM EST Office Visit [address] [place] [address] Erika Mayes MD 703 [facility] 2, [address] [place] [address] documented as of this encounter Procedures Procedure Name Priority Date/Time Associated Diagnosis Comments OUTSIDE IMAGING SCAN 02/11/2024 documented in this encounter Results * OUTSIDE IMAGING SCAN (02/11/2024) Anatomical Region Laterality Modality Other Narrative 02/11/2024 Ordered by an unspecified provider. Generic Provider Scanning OUTSIDE SCAN Final Result documented in this encounter Visit Diagnoses Not on filedocumented in this encounter Additional Health Concerns Assessment Noted Time A fall risk assessment has been complete d for the patient 12/07/2023 1:43 PM EDT documented as of this encounter Care Teams Parker Relationship Specialty Start Date End Date Jeferson Estrada MD [address] [place] [address] PCP - General 12/30/13 documented as of this encounter
--- OUTSIDE RECORDS SUMMARY | 2024-11-13 11:55 | XMS_ITS | Encounter Summary ---
Author Organization [facility] Address [address] [place] [address] Phone Care Team Providers Care Stock Broker Supervisor Name Role Phone Jeferson Estrada MD Primary Care Provider Encounter Details Date Type Department Care Team (Late st Contact Info) Description 11/28/2022 Scanned Document [facility] [address] [place] [address] Scanning, Generic Provider Social History [...] Description 12/09/2024 9:30 AM EDT Office Visit [address] [address] Erika Mayes MD [address] [place] [address] 2, [address] [address] 03/31/2025 11:10 AM EST Office Visit [address] [address] Erika Mayes MD [address] [place] [address] 2, [address] [phone] documented as of this encounter Visit Diagnoses Not on filedocumented in this encounter Care Teams Stock Broker Supervisor Relationship Specialty Start Date End Date Jeferson Estrada MD [address] [place] [address] PCP - General 12/30/13 documented as of this encounter
--- OUTSIDE RECORDS SUMMARY | 2024-11-13 11:55 | XMS_ITS | Encounter Summary ---
Author Organization [facility] Address [address] [place] [address] Phone Care Team Providers Care Plate Straightener Name Role Phone Jeferson Estrada MD Primary Care Provider Encounter Details Date Type Department Care Team (Late st Contact Info) Description 09/14/2020 Orders Only [facility] [address] [place] [address] Conversion, Onbase Social History Tobacco Use Types [...] Description 12/09/2024 9:30 AM EDT Office Visit [address] [phone] Erika Mayes MD [address] [place] [address], [address] [address] 03/31/2025 11:10 AM EST Office Visit [address] [phone] Erika Mayes MD 3 [facility] 2, [address] [address] Scheduled Orders Name Type Priority Associated Diagnoses Orde r Schedule OUTSIDE LAB SCAN Lab Ordered: 09/14/2020 documented as of this encounter Visit Diagnoses Not on filedocumented in this encounter Care Teams Plate Straightener Relationship Specialty Start Date End Date Jeferson Estrada MD [address] [place] [address] PCP - General 12/30/13 documented as of this encounter
--- OUTSIDE RECORDS SUMMARY | 2024-11-13 11:55 | XMS_ITS | Encounter Summary ---
Author Organization [facility] Address [address] [place] [address] Phone Care Team Providers Care Travel Writer Name Role Phone Jeferson Estrada MD Primary Care Provider Encounter Details Date Type Department Care Team (Late st Contact Info) Description 01/22/2020 Orders Only [facility] [address] [place] [address] Conversion, Onbase Social History Tobacco Use Types [...] Description 12/09/2024 9:30 AM EDT Office Visit [address] [phone] Erika Mayes MD [address] [place] [address], [address] [address] 03/31/2025 11:10 AM EST Office Visit [address] [phone] Erika Mayes MD 3 [facility] 2, [address] [address] Scheduled Orders Name Type Priority Associated Diagnoses Orde r Schedule OUTSIDE LAB SCAN Lab Ordered: 01/22/2020 documented as of this encounter Visit Diagnoses Not on filedocumented in this encounter Care Teams Travel Writer Relationship Specialty Start Date End Date Jeferson Estrada MD [address] [place] [address] PCP - General 12/30/13 documented as of this encounter
--- OUTSIDE RECORDS SUMMARY | 2024-11-13 11:55 | XMS_ITS | Encounter Summary ---
Author Organization [facility] Address [address] [facility] [place] [address] Care Team Providers Care Media Relations Intern Name Role Phone Jeferson Estrada MD Unavailable [phone] Jeferson Estrada MD Primary Care Provider Leonie Mcginnis NP Unavailable Edwige Arana PERSONAL CARE SERVICE PROVIDER Unavailable Gera Escobar MA Unavailable [phone] Edwige Arana PERSONAL CARE SERVICE PROVIDER Unavailable [phone] Encounter Details Date Type Department Care Team (Late st Contact Info) Description 11/20/2023 Orders Only [facility] [address] [place] [address] Unallocated, Noms MD Trina [address] [place], [place] [address] Social History Tobacco Use Types Packs/Day Years [...] on file documented as of this encounter Functional Status * Over the past 2 weeks, how often have you been bothered by any of the following problems? Question Answer Date of Assessment Author Little interest or pleasure in doing things Not at all 11/21/2023 3:31 PM EDT Tracey Meraz MA Feeling down, depressed, or hopeless Not at all 11/21/2023 3:31 PM EDT Tracey Meraz MA Patient Health Questionnaire -2 Score 0 11/21/2023 3:31 PM EDT Tracey Meraz MA documented as of this encounter Plan of Treatment Upcoming Encounters Date Type Department Care Team (Late st Contact Info) Description 12/26/2024 1:10 PM EST Office Visit [facility] [address] [place] [address] Jan Ghosh DPM [address] [address] 02/03/2025 2:00 PM EST Office Visit [facility] [address] [place] [address] Jeferson Estrada MD [address] [place] [address] 05/29/2025 1:00 PM EDT Office Visit [facility] [address] [place] [address] Jl Grajeda DO [address] [place] [address] documented as of this encounter Procedures Procedure Name Priority Date/Time Associated Diagnosis Comments CARDIAC EVENT MONITOR Routine 11/18/2023 8:39 AM EDT documented in this encounter Results * Cardiac event monitor (11/18/2023 8:39 AM EDT) Anatomical Region Laterality Modality Heart Other us Noms Provider Unallocated CV CARDIAC SERVICES PROCEDURES Final Result documented in this encounter Visit Diagnoses Not on filedocumented in this encounter Additional Health Concerns Assessment Noted Time PHQ-9 Depression Total Score: 2 10/09/19 24 1:18 PM EDT documented as of this encounter Care Teams Media Relations Intern Relationship Specialty Start Date End Date Jeferson Estrada MD [address] [place] [address] PCP - ACO Reach 07/13/22 Jeferson Estrada MD [address] [place] [address] PCP - General Family Medicine 08/09/22 Leonie Mcginnis NP [address] [place] [address] Nurse Practitioner Family Medicine 09/18/22 05/08/24 Edwige Arana NP [address] [place] [address] Nurse Practitioner Pulmonary Disease 09/18/22 10/23/24 Gera Escobar MA [address] [place] [address] Family Medicine 07/01/24 07/09/24 Edwige Arana NP [address] [place] [address] Nurse Practitioner Family Medicine 10/24/24 documented as of this encounter
--- OUTSIDE RECORDS SUMMARY | 2024-11-13 11:55 | XMS_ITS | Encounter Summary ---
Author Organization [facility] Address [address] [place] [address] Phone Care Team Providers Care Director Product Development Name Role Phone Jeferson Estrada MD Primary Care Provider Encounter Details Date Type Department Care Team (Late st Contact Info) Description 10/13/2022 Scanned Document [facility] [address] [place] [address] Conversion, Onbase Social History Tobacco Use Types [...] Description 12/09/2024 9:30 AM EDT Office Visit [address] [phone] Erika Mayes MD 3 [facility] 2, [address] [address] 03/31/2025 11:10 AM EST Office Visit [address] [phone] Erika Mayes MD 703 [facility] 2, [address] [address] documented as of this encounter Procedures Procedure Name Priority Date/Time Associated Diagnosis Comments OUTSIDE IMAGING SCAN 10/13/2022 documented in this encounter Results * OUTSIDE IMAGING SCAN (10/13/2022) Anatomical Region Laterality Modality Other Narrative 10/13/2022 Ordered by an unspecified provider. us Onbase Conversion OUTSIDE SCAN Final Result documented in this encounter Visit Diagnoses Not on filedocumented in this encounter Care Teams Director Product Development Relationship Specialty Start Date End Date Jeferson Estrada MD [address] [place] [address] PCP - General 12/30/13 documented as of this encounter
--- OUTSIDE RECORDS SUMMARY | 2024-11-13 11:56 | XMS_ITS | Encounter Summary ---
Author Organization [facility] Address [address] [facility] [place] [address] Care Team Providers Care Diet Kitchen Cook Name Role Phone Jeferson Estrada MD Unavailable [phone] Jeferson Estrada MD Primary Care Provider [phone] Leonie Mcginnis NP Unavailable Edwige Arana NP Unavailable Gera Escobar MA Unavailable [phone] Edwige Arana NP Unavailable [phone] Encounter Details Date Type Department Care Team (Late st Contact Info) Description 03/03/2024 Abstract [facility] [address] [place] [address] Jeferson Estrada MD [address] [place] [address] Social History Tobacco Use Types [...] EST Office Visit [facility] [address] [place] [address] Jan Ghosh DPM [address] [address] 02/03/2025 2:00 PM EST Office Visit [facility] [address] [place] [address] Jeferson Estrada MD [address] [place] [address] 05/29/2025 1:00 PM EDT Office Visit [facility] [address] [place] [address] Jl Grajeda DO [address] [place] [address] documented as of this encounter Visit Diagnoses Not on filedocumented in this encounter Additional Health Concerns Assessment Noted Time PHQ-9 Depression Total Score: 2 10/09/19 1:18 PM EDT documented as of this encounter Care Teams Diet Kitchen Cook Relationship Specialty Start Date End Date Jeferson Estrada MD [address] [place] [address] PCP - ACO Reach 07/13/22 Jeferson Estrada MD [address] [place] [address] PCP - General Family Medicine 08/09/22 Leonie Mcginnis NP [address] [place] [address] Nurse Practitioner Family Medicine 09/18/22 05/08/24 Edwige Arana NP [address] [place] [address] Nurse Practitioner Pulmonary Disease 09/18/22 10/23/24 Gera Escobar, [place] [address] [place] [address] Family Medicine 07/01/24 07/09/24 Edwige Arana NP [address] [place] [address] Nurse Practitioner Family Medicine 10/24/24 documented as of this encounter
--- OUTSIDE RECORDS SUMMARY | 2024-11-13 11:56 | XMS_ITS | Encounter Summary ---
Author Organization [facility] Address [address] [facility] [place] [address] Care Team Providers Care Jig Hand Name Role Phone Jeferson Estrada MD Unavailable [phone] Jeferson Estrada MD Primary Care Provider Leonie Mcginnis NP Unavailable Edwige Arana NP Unavailable Gera Escobar MA Unavailable [phone] Edwige Arana NP Unavailable Encounter Details Date Type Department Care Team (Late st Contact Info) Description 02/28/2024 Abstract [facility] [address] [place] [address] Jeferson Estrada MD [address] [place] [address] Social History Tobacco Use Types [...] EST Office Visit [facility] [address] [place] [address] Jan Ghosh DPM [address] [address] 02/03/2025 2:00 PM EST Office Visit [facility] [address] [place] [address] Jeferson Estrada MD [address] [place] [address] 05/29/2025 1:00 PM EDT Office Visit [facility] [address] [place] [address] Jl Grajeda DO [address] [place] [address] documented as of this encounter Visit Diagnoses Not on filedocumented in this encounter Additional Health Concerns Assessment Noted Time PHQ-9 Depression Total Score: 2 10/09/19 1:18 PM EDT documented as of this encounter Care Teams Jig Hand Relationship Specialty Start Date End Date Jeferson Estrada MD [address] [place] [address] PCP - ACO Reach 07/13/22 Jeferson Estrada MD [address] [place] [address] PCP - General Family Medicine 08/09/22 Leonie Mcginnis NP [address] [place] [address] Nurse Practitioner Family Medicine 09/18/22 05/08/24 Edwige Arana NP [address] [place] [address] Nurse Practitioner Pulmonary Disease 09/18/22 10/23/24 Gera Escobar, [place] [address] [place] [address] Family Medicine 07/01/24 07/09/24 Edwige Arana NP [address] [place] [address] Nurse Practitioner Family Medicine 10/24/24 documented as of this encounter
--- OUTSIDE RECORDS SUMMARY | 2024-11-13 11:56 | XMS_ITS | Encounter Summary ---
Author Organization [facility] Address [address] [place] [address] Phone Care Team Providers Care Astronautical Engineer Name Role Phone Jeferson Estrada MD Primary Care Provider [phone] Encounter Details Date Type Department Care Team (Late st Contact Info) Description 09/14/2024 Scanned Document [facility] [address] [place] [address] Scanning, Generic Provider Social History [...] Description 12/09/2024 9:30 AM EDT Office Visit [address] [address] Erika Mayes MD 703 [facility] 2, [address] [place] [address] 03/31/2025 11:10 AM EST Office Visit [address] [place] [address] Erika Mayes MD 703 [facility] 2, [address] [place] [address] documented as of this encounter Procedures Procedure Name Priority Date/Time Associated Diagnosis Comments OUTSIDE IMAGING SCAN 09/14/2024 documented in this encounter Results * OUTSIDE IMAGING SCAN (09/14/2024) Anatomical Region Laterality Modality Other Narrative 09/14/2024 Ordered by an unspecified provider. Generic Provider Scanning OUTSIDE SCAN Final Result documented in this encounter Visit Diagnoses Not on filedocumented in this encounter Additional Health Concerns Assessment Noted Time A fall risk assessment has been complete d for the patient 08/15/2024 1:06 PM EDT documented as of this encounter Care Teams Astronautical Engineer Relationship Specialty Start Date End Date Jeferson Etsrada MD [address] [place] [address] PCP - General 12/30/13 documented as of this encounter
--- OUTSIDE RECORDS SUMMARY | 2024-11-13 11:56 | XMS_ITS | Encounter Summary ---
Author Organization [facility] Address [address] [facility] [address] Care Team Providers Care Cell Changer Name Role Phone Jeferson Estrada MD Unavailable [phone] Jeferson Estrada MD Primary Care Provider Leonie Mcginnis NP Unavailable Edwige Arana NP Unavailable [phone] Gera Escobar MA Unavailable [phone] Edwige Arana NP Unavailable Encounter Details Date Type Department Care Team (Late st Contact Info) Description 03/04/2024 Orders Only [facility] [address] [place] [address] Jeferson Estrada MD [address] [place] [address] Social History Tobacco Use Types [...] 12/26/2024 1:10 PM EST Office Visit [facility] [address] [place] [address] Jan Ghosh DPM [address] [address] 02/03/2025 2:00 PM EST Office Visit [facility] [address] [place] [address] Jeferson Estrada MD [address] [place] [address] 05/29/2025 1:00 PM EDT Office Visit [facility] [address] [place] [address] Jl Grajeda DO [address] [place] [address] documented as of this encounter Procedures Procedure Name Priority Date/Time Associated Diagnosis Comments DIABETIC RETINOPATHY SCREENING - OU - BOTH EYES Routine 06/06/2023 3:01 PM EDT documented in this encounter Results * (ABNORMAL) Diabetic Retinopathy Screening - OU - Both Eyes (06/06/2023 3:01 PM EDT) Anatomical Region Laterality Modality Head Other us Jeferson Estrada MD OPHTH PHOTOGRAPHY Final Result documented in this encounter Visit Diagnoses Not on filedocumented in this encounter Additional Health Concerns Assessment Noted Time PHQ-9 Depression Total Score: 2 10/09/19 1:18 PM EDT documented as of this encounter Care Teams Cell Changer Relationship Specialty Start Date End Date Jeferson Estrada MD [address] [place] [address] PCP - ACO Reach 07/13/22 Jeferson Estrada MD [address] [place] [address] PCP - General Family Medicine 08/09/22 Leonie Mcginnis NP [address] [place] [address] Nurse Practitioner Family Medicine 09/18/22 05/08/24 Edwige Arana, LEATHER LACER [address] [place] [address] Nurse Practitioner Pulmonary Disease 09/18/22 10/23/24 Gera Escobar MA [address] [place] [address] Family Medicine 07/01/24 07/09/24 Edwige Arana, LEATHER LACER [address] [place] [address] Nurse Practitioner Family Medicine 10/24/24 documented as of this encounter
--- OUTSIDE RECORDS SUMMARY | 2024-11-13 11:56 | XMS_ITS | Encounter Summary ---
Author Organization [facility] Address [address] [facility] [place] [address] Care Team Providers Care Supervisor Word Processing Name Role Phone Jeferson Estrada MD Unavailable [phone] Jeferson Estrada MD Primary Care Provider Edwige Arana REMOTE OPERATIONS PRODUCER Unavailable [phone] Gera Escobar MA Unavailable [phone] Edwige Arana NP Unavailable Encounter Details Date Type Department Care Team (Late st Contact Info) Description 07/08/2024 Abstract [facility] [address] [place] [address] Jeferson Estrada MD [address] [place] [address] Social History Tobacco Use Types [...] 1:10 PM EST Office Visit [facility] [address] [place] [address] Jan Ghosh DPM [address] [address] 02/03/2025 2:00 PM EST Office Visit [facility] [address] [place] [address] Jeferson Estrada MD [address] [place] [address] 05/29/2025 1:00 PM EDT Office Visit [facility] [address] [place] [address] Jl Grajeda DO [address] [place] [address] documented as of this encounter Visit Diagnoses Not on filedocumented in this encounter Additional Health Concerns Assessment Noted Time PHQ-9 Depression Total Score: 2 10/09/19 24 1:18 PM EDT documented as of this encounter Care Teams Supervisor Word Processing Relationship Specialty Start Date End Date Jeferson Estrada MD [address] [place] [address] PCP - ACO Reach 07/13/22 Jeferson Estrada MD [address] [place] [address] PCP - General Family Medicine 08/09/22 Edwige Arana NP [address] [place] [address] Nurse Practitioner Pulmonary Disease 09/18/22 10/23/24 Gera Escobar, [place] [address] [place] [address] Family Medicine 07/01/24 07/09/24 Edwige Arana NP [address] [place] [address] Nurse Practitioner Family Medicine 10/24/24 documented as of this encounter
--- OUTSIDE RECORDS SUMMARY | 2024-11-13 11:56 | XMS_ITS | Encounter Summary ---
Author Organization [facility] Address [address] [facility] [place] [address] Care Team Providers Care Metropolitan Editor Name Role Phone Jeferson Estrada MD Unavailable [phone] Jeferson Estrada MD Primary Care Provider Leonie Mcginnis NP Unavailable Edwige Arana NP Unavailable Gera Escobar MA Unavailable [phone] Edwige Arana NP Unavailable Encounter Details Date Type Department Care Team (Late st Contact Info) Description 02/29/2024 Abstract [facility] [address] [place] [address] Jeferson Estrada MD [address] [place] [address] Social History Tobacco Use Types [...] EST Office Visit [facility] [address] [place] [address] Jan Ghosh DPM [address] [address] 02/03/2025 2:00 PM EST Office Visit [facility] [address] [place] [address] Jeferson Estrada MD [address] [place] [address] 05/29/2025 1:00 PM EDT Office Visit [facility] [address] [place] [address] Jl Grajeda DO [address] [place] [address] documented as of this encounter Visit Diagnoses Not on filedocumented in this encounter Additional Health Concerns Assessment Noted Time PHQ-9 Depression Total Score: 2 10/09/19 1:18 PM EDT documented as of this encounter Care Teams Metropolitan Editor Relationship Specialty Start Date End Date Jeferson Estrada MD [address] [place] [address] PCP - ACO Reach 07/13/22 Jeferson Estrada MD [address] [place] [address] PCP - General Family Medicine 08/09/22 Leonie Mcginnis NP [address] [place] [address] Nurse Practitioner Family Medicine 09/18/22 05/08/24 Edwige Arana NP [address] [place] [address] Nurse Practitioner Pulmonary Disease 09/18/22 10/23/24 Gera Escobar, [place] [address] [place] [address] Family Medicine 07/01/24 07/09/24 Edwige Arana NP [address] [place] [address] Nurse Practitioner Family Medicine 10/24/24 documented as of this encounter
--- OUTSIDE RECORDS SUMMARY | 2024-11-13 11:56 | XMS_ITS | Encounter Summary ---
Author Organization [facility] Address [address] [place] [address] Phone Care Team Providers Care Flame Hardening Machine Operator Name Role Phone Jeferson Estrada MD Primary Care Provider [phone] Encounter Details Date Type Department Care Team (Late st Contact Info) Description 09/01/2024 Scanned Document [facility] [address] [place] [address] Scanning, Generic Provider Social History [...] Description 12/09/2024 9:30 AM EDT Office Visit [address] [address] Erika Mayes MD 703 [facility] 2, [address] [place] [address] 03/31/2025 11:10 AM EST Office Visit [address] [place] [address] Erika Mayes MD 703 [facility] 2, [address] [place] [address] documented as of this encounter Visit Diagnoses Not on filedocumented in this encounter Additional Health Concerns Assessment Noted Time A fall risk assessment has been complete d for the patient 08/15/2024 1:06 PM EDT documented as of this encounter Care Teams Flame Hardening Machine Operator Relationship Specialty Start Date End Date Jeferson Estrada MD [address] [place] [address] PCP - General 12/30/13 documented as of this encounter
--- OUTSIDE RECORDS SUMMARY | 2024-11-13 11:56 | XMS_ITS | Encounter Summary ---
Author Organization [facility] Address [address] [facility] [place] [address] Care Team Providers Care Tourist Home Keeper Name Role Phone Jeferson Estrada MD Unavailable [phone] Jeferson Estrada MD Primary Care Provider [phone] Leonie Mcginnis NP Unavailable Edwige Arana NP Unavailable [phone] Gera Escobar MA Unavailable [phone] Edwige Arana NP Unavailable Encounter Details Date Type Department Care Team (Late st Contact Info) Description 02/28/2024 Abstract [facility] [address] [place] [address] Jeferson Estrada MD [address] [place] [address] Social History Tobacco Use Types [...] EST Office Visit [facility] [address] [place] [address] Jan Ghosh DPM [address] [address] 02/03/2025 2:00 PM EST Office Visit [facility] [address] [place] [address] Jeferson Estrada MD [address] [place] [address] 05/29/2025 1:00 PM EDT Office Visit [facility] [address] [place] [address] Jl Grajeda DO [address] [place] [address] documented as of this encounter Visit Diagnoses Not on filedocumented in this encounter Additional Health Concerns Assessment Noted Time PHQ-9 Depression Total Score: 2 10/09/19 1:18 PM EDT documented as of this encounter Care Teams Tourist Home Keeper Relationship Specialty Start Date End Date Jeferson Estrada MD [address] [place] [address] PCP - ACO Reach 07/13/22 Jeferson Estrada MD [address] [place] [address] PCP - General Family Medicine 08/09/22 Leonie Mcginnis NP [address] [place] [address] Nurse Practitioner Family Medicine 09/18/22 05/08/24 Edwige Arana NP [address] [place] [address] Nurse Practitioner Pulmonary Disease 09/18/22 10/23/24 Gera Escobar, [place] [address] [place] [address] Family Medicine 07/01/24 07/09/24 Edwige Arana NP [address] [place] [address] Nurse Practitioner Family Medicine 10/24/24 documented as of this encounter
--- OUTSIDE RECORDS SUMMARY | 2024-11-13 11:56 | XMS_ITS | Encounter Summary ---
Author Organization [facility] Address [address] [facility] [place] [address] Care Team Providers Care Terrazzo Worker Apprentice Name Role Phone Jeferson Estrada MD Unavailable [phone] Jeferson Estrada MD Primary Care Provider Leonie Mcginnis NP Unavailable Edwige Arana NP Unavailable Gera Escobar MA Unavailable [phone] Edwige Arana NP Unavailable Encounter Details Date Type Department Care Team (Late st Contact Info) Description 03/04/2024 Abstract [facility] [address] [place] [address] Jeferson Estrada MD [address] [place] [address] Social History Tobacco Use Types [...] EST Office Visit [facility] [address] [place] [address] Jan Ghosh DPM [address] [address] 02/03/2025 2:00 PM EST Office Visit [facility] [address] [place] [address] Jeferson Estrada MD [address] [place] [address] 05/29/2025 1:00 PM EDT Office Visit [facility] [address] [place] [address] Jl Grajeda DO [address] [place] [address] documented as of this encounter Visit Diagnoses Not on filedocumented in this encounter Additional Health Concerns Assessment Noted Time PHQ-9 Depression Total Score: 2 10/09/19 1:18 PM EDT documented as of this encounter Care Teams Terrazzo Worker Apprentice Relationship Specialty Start Date End Date Jeferson Estrada MD [address] [place] [address] PCP - ACO Reach 07/13/22 Jeferson Estrada MD [address] [place] [address] PCP - General Family Medicine 08/09/22 Leonie Mcginnis NP [address] [place] [address] Nurse Practitioner Family Medicine 09/18/22 05/08/24 Edwige Arana NP [address] [place] [address] Nurse Practitioner Pulmonary Disease 09/18/22 10/23/24 Gera Escobar, [place] [address] [place] [address] Family Medicine 07/01/24 07/09/24 Edwige Arana NP [address] [place] [address] Nurse Practitioner Family Medicine 10/24/24 documented as of this encounter
--- OUTSIDE RECORDS SUMMARY | 2024-11-13 11:56 | XMS_ITS | Encounter Summary ---
Author Organization [facility] Address [address] [place] [address] Care Team Providers Care Director Work Name Role Phone Jeferson Estrada MD Unavailable [phone] Jeferson Estrada MD Primary Care Provider [phone] Edwige Arana GETTER OPERATOR Unavailable Edwige Arana NP Unavailable [phone] Encounter Details Date Type Department Care Team (Late st Contact Info) Description 10/02/2024 Telephone [facility] [address] [facility] [address] [place] [address] Niya Johnson, GETTER OPERATOR [address] [facility] [address] [place] [address] Social History Tobacco Use Types Packs/Day Years [...] on file documented as of this encounter Miscellaneous Notes * Telephone Encounter - Niya Johnson NP - 10/02/2024 2:16 PM EDT Please let the patient know the results of his venous ultrasound. He does not have a blood clot. Hedoes have soft tissue inflammation to his right thigh. I sent an antibiotic for him to start along with the steroid cream for his rash. He must follow-up with PCP or UC Sunday for recheck. documented in this encounter Plan of Treatment Upcoming Encounters Date Type Department Care Team (Late st Contact Info) Description 12/26/2024 1:10 PM EST Office Visit [facility] [address] [place] [address] Jan Ghosh DPM [address] [address] 02/03/2025 2:00 PM EST Office Visit [facility] [address] [place] [address] Jeferson Estrada MD [address] [place] [address] 05/29/2025 1:00 PM EDT Office Visit [facility] [address] [place] [address] Jl Grajeda DO [address] [place] [address] documented as of this encounter Visit Diagnoses Not on filedocumented in this encounter Additional Health Concerns Assessment Noted Time PHQ-9 Depression Total Score: 2 10/09/19 1:18 PM EDT documented as of this encounter Care Teams Director Work Relationship Specialty Start Date End Date Jeferson Estrada MD [address] [place] [address] PCP - ACO Reach 07/13/22 Jeferson Estrada MD [address] [place] [address] PCP - General Family Medicine 08/09/22 Edwige Arana NP [address] [place] [address] Nurse Practitioner Pulmonary Disease 09/18/22 10/23/24 Edwige Arana NP [address] [place] [address] Nurse Practitioner Family Medicine 10/24/24 documented as of this encounter
--- OUTSIDE RECORDS SUMMARY | 2024-11-13 11:56 | XMS_ITS ---
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
--- OUTSIDE RECORDS SUMMARY | 2024-11-13 11:56 | XMS_ITS | Encounter Summary ---
Author Organization [facility] Address [address] [place] [address] Care Team Providers Care Disbursing Officer Name Role Phone Jeferson Estrada MD Unavailable [phone] Jeferson Estrada MD Primary Care Provider [phone] Edwige Arana [employer] Unavailable [phone] Encounter Details Date Type Department Care Team (Late Contact Info) Description 11/12/2024 Abstract [facility] [address] [place] [address] Jeferson Estrada MD [address] [place] [address] Social History Tobacco Use Types Packs/Day Years [...] Date Recorded Patient Health Questionnaire-2 Score 0 10/28/2024 Sex and Gender Information Value Date Recorded Sex Assigned at Not on file Legal Sex Male 7:12 PM EDT Gender Identity Not on file Sexual Orientation Not on file documented as of this encounter Plan of Treatment Upcoming Encounters Date Type Department Care Team (Late st Contact Info) Description 12/26/2024 1:10 PM EST Office Visit [facility] [address] [facility] [address] Jan Ghosh DPM [address] [address] 02/03/2025 2:00 PM EST Office Visit [facility] [address] [place] [address] Jeferson Estrada MD [address] [place] [address] 05/29/2025 1:00 PM EDT Office Visit [facility] [address] [place] [address] Jl Grajeda DO [address] [place] [place] [address] documented as of this encounter Visit Diagnoses Not on filedocumented in this encounter Additional Health Concerns Assessment Noted Time PHQ-9 Depression Total Score: 6 10/29/19 25 1:00 PM EDT documented as of this encounter Care Teams Disbursing Officer Relationship Specialty Start Date End Date Jeferson Estrada MD [address] [place] [address] PCP - ACO Reach 07/13/22 Jeferson Estrada MD [address] [place] [address] PCP - General Family Medicine 08/09/22 Edwige Arana NP [address] [place] [address] Nurse Practitioner Family Medicine 10/24/24 documented as of this encounter
--- OUTSIDE RECORDS SUMMARY | 2024-11-13 11:56 | XMS_ITS | Clinical Summary ---
Author Organization [facility] Address [address] [place] [address] Phone Care Team Providers Care Decker Operator Name Role Phone Jeferson Estrada MD Primary Care Provider Allergies Active Allergy Reactions Criticality Noted Date Comments Amlodipine Swelling Medium 10/07/2024 Atenolol Unknown Low 06/18/2024 Beta-Blockers (Beta-Adrenergic Blocking Agts) Other Low 03/28/2023 bradycardia Clonidine Shortness of breath High 10/30/2024 Cyanocobalamin (Vitamin B12) Dizziness Low 025 Hydralazine Shortness of breath High 10/30/2024 Medications aspirin 81 mg chewable tablet Chew and swallow 1 tablet (81 mg) once daily. Active pioglitazone (Actos) 15 mg tablet Take 1 tablet (15 mg) by mouth once daily. Active ascorbic acid (Vitamin C) 1,000 mg tablet Take 1 tablet (1,000 mg) by mouth once daily. Active clopidogrel (Plavix) 75 mg tabletIndications: Athscl heart disease of [place] coronary artery w/o ang pctrs,Essential hypertension Take 1 tablet (75 mg) by mouth once daily. 90 tablet 3 12/07/19 24 025 Active atorvastatin (Lipitor) 40 mg tabletIndications: Mixed hyperlipidemia TAKE 1 TABLET BY MOUTH DAILY 90 tablet 3 04/18/19 25 Active levothyroxine (Synthroid, Levoxyl) 100 mcg tablet Take 1 tablet (100 mcg) by mouth early in the morning.. Take on an empty stomach at the same time each day, either 30 to 60 minutes prior to breakfast Active tamsulosin (Flomax) 0.4 mg 24 hr capsule Take 1 capsule (0.4 mg) by mouth once daily. 05/14/19 Active metFORMIN (Glucophage) 500 mg tablet Take 1 tablet (500 mg) by mouth 2 times daily (morning and late afternoon). 08/06/19 25 Active cholecalciferol (Vitamin D3) 50 mcg (2,000 units) capsule Take 2 capsules (100 mcg) by mouth once daily. Active MAGNESIUM GLYCINATE ORAL Take 300 mg by mouth 2 times a day. Active ferrous sulfate 325 (65 Fe) mg EC tablet Take 1 tablet by mouth 2 times a day. Do not crush, chew, or split. Active ezetimibe (Zetia) 10 mg tabletIndications: Mixed hyperlipidemia Take 1 tablet (10 mg) by mouth once daily. 90 tablet 3 08/16/19 Active pantoprazole (Protonix) 40 mg EC tabletIndications: Gastroesophageal reflux disease without esophagitis Take 1 tablet (40 mg) by mouth once daily in the morning. Take before meals. Do not crush, chew, or split. 90 tablet 3 08/16/19 026 Active lisinopril 10 mg tabletIndications: Essential hypertension Take 1 tablet (10 mg) by mouth once daily. 90 tablet 3 10/23/19 026 Active nitroglycerin (Nitrostat) 0.4 mg SL tabletIndications: Athscl heart disease of [place] coronary artery w/o ang pctrs Place 1 tablet (0.4 mg) under the tongue every 5 minutes if needed for chest pain. 25 tablet 10/31/19 25 Active nebivolol (Bystolic) 5 mg tabletIndications: Essential hypertension Take 1 tablet (5 mg) by mouth once daily. 90 tablet 3 10/31/19 25 Active levothyroxine (Synthroid, Levoxyl) 75 mcg tabletIndications: Hyperthyroidism TAKE 1 TABLET BY MOUTH DAILY 90 tablet 3 12/21/19 23 025 Discontin ued(Thera py completed ) nitroglycerin (Nitrostat) 0.[address] under the tongue. 02/28/19 14 025 Discontin ued(Reord er) cloNIDine (Catapres) 0.1 mg tabletIndications: Essential hypertension Take 1 tablet (0.1 mg) by mouth 2 times a day. 180 tablet 3 09/09/19 25 025 Discontin ued(Side effects) levothyroxine (Synthroid, Levoxyl) 100 mcg tablet Take 1 tablet (100 mcg) by mouth early in the morning.. Take on an empty stomach at the same time each day, either 30 to 60 minutes prior to breakfast 025 Discontin ued(Dupli sarbjit order) hydrALAZINE (Apresoline) 50 mg tabletIndications: Essential hypertension Take 1 tablet (50 mg) by mouth 2 times a day. 180 tablet 3 10/08/19 25 025 Discontin ued(Side effects) Active Problems Problem Noted Date Diagnosed Date Stage 3b chronic kidney disease (Multi) 05/13/19 25 BMI 24.0-24.9, adult 02/21/2024 PVD (peripheral vascular disease) 12/07/2023 Former smoker 12/07/2023 AAA (abdominal aortic aneurysm) 12/19/2022 Aneurysm of middle cerebral artery (HHS-HCC) Arthritis 12/19/2022 Athscl heart disease of [place] coronary artery w/o ang pctrs 12/19/2022 AV block, Mobitz 1 12/19/2022 Cancer (Multi) 12/19/2022 Carcinoma of thyroid gland 12/19/2022 Cataract 12/19/2022 Diabetes mellitus (Multi) 12/19/2022 Esophageal reflux 12/19/2022 Essential hypertension 12/19/2022 Essential tremor 12/19/2022 H/O total thyroidectomy 12/19/2022 Hyperlipidemia 12/19/2022 Hypothyroidism 12/19/2022 Pain in throat 12/19/2022 Status post coronary angioplasty 12/19/2022 Resolved Problems Problem Noted Date Diagnosed Date Resolved Date BMI 25.0-25.9,adult 12/07/2023 02/20/19 25 Hyperthyroidism 12/19/2022 12/07/2023 Intermittent claudication 12/19/2022 Encounters Date Type Department Care Team Description 10/30/2024 9:30 AM EDT Office Visit [address] [address] Erika Mayes MD Essential hypertension; Athscl heart disease of [place] coronary artery w/o ang pctrs; BMI 24.0-24.9, adult; Former smoker 10/30/2024 Travel 10/23/[address] [place] [address] Riddhi Harden LPN pre op 10/15/2024 Telephone [place] [address] [place] [address] Althea Rojas LPN Hypertension 10/07/2024 9:30 AM EDT Office Visit [facility] [address] [place] [address] [address] [place] [address] Erika Mayes MD Essential hypertension 10/07/2024 Travel 09/15/2024 Telephone [facility] [address] [place] [address] Althea Rojas LPN recent ER visit 09/14/2024 Scanned Document [facility] [address] [place] [address] Scanning, Generic Provider 09/08/2024 1:30 PM EDT Office Visit [address] [place] [address] Erika Mayes MD Essential hypertension; BMI 26.0-26.9,adult; Former smoker 09/08/2024 Travel 09/01/2024 Scanned Document [facility] [address] [place] [address] Scanning, Generic Provider 08/15/2024 1:10 PM EDT Office Visit [address] [place] [address] Erika Mayes MD Athscl heart disease of [place] coronary artery w/o ang pctrs; Status post coronary angioplasty; Essential hypertension; Mixed hyperlipidemia; PVD (peripheral vascular disease); Gastroesophageal reflux disease without esophagitis; Stage 3b chronic kidney disease (Multi); Former smoker; BMI 25.0-25.9,adult 08/15/2024 Travel from Last 3 Months Immunizations Immunization Administration Dates Next Due Flu vaccine (IIV4), preserva tive free *Check age/dose* 11/05/2019 Flu vaccine, quadrivalent, h igh-dose, preservative free, age 65y+ (FLUZONE) 11/24/2021,10/25/2020 Flu vaccine, trivalent, pres ervative free, HIGH-DOSE, age 65y+ (Fluzone) 10/21/2019,01/19/2017 Flu vaccine, trivalent, pres ervative free, age 6 months and greater (Fluarix/Fluzone/Flulaval) 02/10/2015 Influenza, Seasonal, Quadriv alent, Adjuvanted 12/12/2022 Influenza, Unspecified 11/20/2023,12/24/2017 Influenza, seasonal, injectable 11/20/2023,11/19 Influenza, seasonal, intrade rmal, preservative free 12/20/2015,01/20/2011 Pneumococcal conjugate vacci ne, 13-valent (PREVNAR 13) 08/05/2014,02/19/2013 Pneumococcal polysaccharide vaccine, 23-valent, age 2 years and older (PNEUMOVAX 23) 10/31/2017,01/17/2016,03/01/2013 Td vaccine, age 7 years and older (TENIVAC) 06/20 Zoster, live 01/17/2016,01/24/2013,11/19/2012 Family History Medical History Relation Name Comments Coronary artery disease Father Stroke Father arteriosclerotic cardiovascular disease Father Breast cancer Mother Relation Name Status Comments Father Mother Social History Tobacco Use Types Packs/Day Years [...] on file Sexual Orientation Not on file Last Filed Vital Signs Vital Sign Reading [...] Mass Index 24.48 10/30/2024 9:30 AM EDT Plan of Treatment Upcoming Encounters Date Type Department Care Team (Late st Contact Info) Description 12/09/2024 9:30 AM EDT Office Visit [address] [phone] Erika Mayes MD [address] [place] [address] 2, [facility] [address] [place] [address] 03/31/2025 11:10 AM EST Office Visit [address] [place] [address] Erika Mayes MD [address] [place] [address] 2, [address] [id number] Health Maintenance Due Date Last Done Comments Creatinine Level 1946 Diabetes: Hemoglobin A1C 1945 Medicare Annual Wellness Visit (AWV) 1945 Potassium Level 1946 Diabetes: Retinopathy Screening 1956 Hepatitis C Screening 1964 Hepatitis A Vaccines (1 of 2 - Risk 2-dose series) 1965 Hepatitis B Vaccines (1 of 3 - Risk 3-dose series) 2006 DTaP/Tdap/Td Vaccines (1 - Tdap) 07/15/2007 07/14/2007 Zoster Vaccines (2 of 3) 03/13/2016 016, 01/24/2013, 11/19/2012 RSV High Risk: (Elderly (60+) or Population) (1 - 1-dose 75+ series) 2021 Echocardiogram 06/21/2022 06/21/2021 Diabetes: Urine Protein Screening 06/13/2024 06/14/2023 COVID-19 Vaccine ( - season) 2024 Thyroglobulin Test 05/16/2025 05/16/2024 Lipid Panel 06/21/2025 06/21/2024, 10/10/2023 TSH Level 06/21/2025 06/21/2024, 04/20, 05/16/2024 Pneumococcal Vaccine Completed 10/31/2017, 01/17/2016, 08/05/2014, Additional history exists Colonoscopy Discontinued 02/26/2020 Colorectal Cancer Screening Discontinued Irritable Bowel Syndrome Discontinued 02/26/2020 Influenza Vaccine Completed 10/24/2024, , 11/20/2023, Additional history exists CT Colonography Discontinued FIT-DNA (Cologuard) Discontinued FIT Discontinued HIB Vaccines Aged Out No longer eligi ble based on patient's age to complete this topic HPV Vaccines Aged Out No longer eligi ble based on patient's age to complete this topic IPV Vaccines Aged Out No longer eligi ble based on patient's age to complete this topic Meningococcal Vaccine Aged Out No salena darya eligible based on patient's age to complete this topic Rotavirus Vaccines Aged Out No longer eligible based on patient's age to complete this topic Sigmoidoscopy Discontinued Procedures Procedure Name Priority Date/Time Associated Diagnosis Comments OUTSIDE IMAGING SCAN 09/14/2024 ECHOCARDIOGRAM 06/21/2021 from Last 3 Months or Most Recently Relevant to Health Maintenance Results * OUTSIDE IMAGING SCAN (09/14/2024) Anatomical Region Laterality Modality Other Narrative 09/14/2024 Ordered by an unspecified provider. us Generic Provider Scanning OUTSIDE SCAN Final Result * ECHOCARDIOGRAM (06/21/2021) Narrative 06/21/2021 Ordered by an unspecified provider. us Onbase Conversion CV ECHO PROCEDURES Final Resul t from Last 3 Months or Most Recently Relevant to Health Maintenance Insurance MEDICARE PART A AND B [employer] MEDICARE SUPPLEMENT Care Teams Decker Operator Relationship Specialty Start Date End Date Jeferson Estrada MD [address] [place] [id number] PCP - General 12/30/13
--- OUTSIDE RECORDS SUMMARY | 2024-11-13 11:56 | XMS_ITS | Encounter Summary ---
Author Organization [facility] Address [address] [facility] [place] [address] Care Team Providers Care Electrician Master Name Role Phone Jeferson Estrada MD Unavailable Jeferson Estrada MD Primary Care Provider [phone] Edwige Arana SOLE TRIMMER Unavailable Edwige Arana SOLE TRIMMER Unavailable [phone] Encounter Details Date Type Department Care Team (Late st Contact Info) Description 09/07/2024 Abstract [facility] [address] [place] [address] Jeferson Estrada MD [address] [place] [address] Social History Tobacco Use Types Packs/Day Years [...] 12/26/2024 1:10 PM EST Office Visit [facility] [address] [place] [address] Jan Ghosh DPM [address] [address] 02/03/2025 2:00 PM EST Office Visit [facility] [address] [place] [address] Jeferson Estrada MD [address] [place] [address] 05/29/2025 1:00 PM EDT Office Visit [facility] [address] [place] [address] Jl Grajeda DO [address] [address] documented as of this encounter Visit Diagnoses Not on filedocumented in this encounter Additional Health Concerns Assessment Noted Time PHQ-9 Depression Total Score: 2 10/09/19 1:18 PM EDT documented as of this encounter Care Teams Electrician Master Relationship Specialty Start Date End Date Jeferson Estrada MD [address] [place] [address] PCP - ACO Reach 07/13/22 Jeferson Estrada MD [address] [place] [address] PCP - General Family Medicine 08/09/22 Edwige Arana SOLE TRIMMER [address] [place] [address] Nurse Practitioner Pulmonary Disease 09/18/22 10/23/24 Edwige Arana NP [address] [place] [address] Nurse Practitioner Family Medicine 10/24/24 documented as of this encounter
--- OUTSIDE RECORDS SUMMARY | 2024-11-13 11:56 | XMS_ITS | Clinical Summary ---
Author Organization [facility] Address [address] [place] [address] Care Team Providers Care Traffic Division Commanding Officer Name Role Phone Jeferson Estrada MD Primary Care Provider Unav ailable Allergies Active Allergy Reactions Criticality Noted Date Comments Beta-Blockers (Beta-Adrenergic Blocking Agts) Other: See Comments 03/28/2023 bradycardia Medications atorvastatin calcium (ATORVASTATIN ORAL) Take 50 mg by mouth once daily. 6 Active aspirin, enteric coated (ASPIRIN, ENTERIC COATED) 81 mg EC tablet Take 81 mg by mouth once daily. Active clopidogrel (PLAVIX) 75 mg tablet Take 75 mg by mouth once daily. 6 12/07/19 25 Active isosorbide mononitrate ER (IMDUR) 30 mg 24 hr tablet Take 30 mg by mouth once daily. 6 Active levothyroxine (SYNTHROID) 100 mcg tablet Take 100 mcg by mouth daily before breakfast. 5 Active levothyroxine (SYNTHROID) 175 mcg tablet Take 175 mcg by mouth daily before breakfast. 6 Active MAGNESIUM ORAL Take 300 mg by mouth once daily. Active metFORMIN (GLUCOPHAGE) 1,000 mg tablet Take 1,000 mg by mouth two times a day with meals. 2 Active nitroglycerin sublingual (NITROQUICK) 0.4 mg SL tablet Dissolve 0.4 mg under the tongue every 5 minutes as needed. 4 Active pioglitazone (ACTOS) 45 mg tablet Take 45 mg by mouth once daily. 6 Active Ascorbic Acid (VITAMIN C) 1,000 mg tablet Take 1,000 mg by mouth once daily. Active cholecalciferol, vitamin D3, (VITAMIN D3 ORAL) Take by mouth once daily. Active amLODIPine-Valsa rtan 5-160 mg per tablet Take 1 tablet by mouth once daily. 5 02/20/19 Active omeprazole (PRILOSEC) 20 mg capsule Take 40 mg by mouth once daily. Active pantoprazole DR (PROTONIX) 40 mg tablet Take 40 mg by mouth. 5 08/16/19 26 Active Active Problems Problem Noted Date Diagnosed Date Malignant neoplasm of overlapping sites of bladd er 03/28/2024 Cancer Staging:Clinical:Stage I(cT1, cN0, cM0) - Signed by Tunde Blair MD on 03/30/2024 Encounters Date Type Department Care Team Description 10/14/2024 Telephone Cancer Appts [facility] [place] [address] Tunde Blair MD 09/16/2024 Telephone Hematology/Oncology [address] [place] [address] [place] [address] Tunde Blair MD Records copied 08/29/2024 Results Follow-Up Hematology/Oncology [address] [place] [address] [place] [address] Emmy Bailey APRN.CLINICAL PRODUCT SPECIALIST Results 08/21/2024 8:30 AM EDT Infusion Center Hematology/Oncology [address] [place] [address] [place] [address] Malignant neoplasm of overlapping sites of bladder (HCC) (Primary Dx) 08/21/2024 8:30 AM EDT Visit (SP) Office Hematology/Oncology [address] [place] [address] [place] [address] Emmy Bailey APRN.CLINICAL PRODUCT SPECIALIST Malignant neoplasm of overlapping sites of bladder (HCC) (Primary Dx); Malignant neoplasm of urinary bladder, unspecified site (HCC); Hematuria, unspecified type 08/21/2024 Results Follow-Up Hematology/Oncology [address] [place] [address] [place] [address] Iesha Cabral APRN.CLINICAL PRODUCT SPECIALIST abnormal labs (renal function/K+) 08/21/2024 Travel 08/15/2024 8:30 AM EDT Infusion Center Hematology/Oncology [address] [place] [address] [place] [address] Malignant neoplasm of overlapping sites of bladder (HCC) (Primary Dx) from Last 3 Months Immunizations Immunization Administration Dates Next Due influenza (HD-IIV3) vaccine, age 65+ yr, high dose, trivalent, PF (FLUZONE HIGH-DOSE) 10/21/2019,01/19/2017 influenza (HD-IIV4) vaccine, age 65+ yr, high dose, quadrivalent, PF (FLUZONE HIGH-DOSE) 11/24/2021,10/25/2020 influenza (IIV3) vaccine, tr ivalent (AFLURIA, FLULAVAL, FLUVIRIN, FLUZONE) 11/20/2023,01/17/2016,11/19/2014 influenza (IIV3) vaccine, tr ivalent, PF (AFLURIA, FLUARIX, FLULAVAL, FLUVIRIN, FLUZONE) 02/10/2015 influenza (IIV3) vaccine, tr ivalent, PF, intradermal (FLUZONE INTRADERMAL) 12/20/2015,01/20/2011 influenza (IIV4) vaccine, ag e 6 mo - 64 yr, quadrivalent, PF (AFLURIA, FLUARIX, FLULAVAL, FLUZONE) 11/05/2019,12/24/2017 influenza (aIIV4) vaccine, a ge 65+ yr, quadrivalent, PF (FLUAD QUAD) 12/12/2022 pneumococcal conjugate (PCV1 3) vaccine, 13 valent (PREVNAR 13) 08/05/2014,02/19/2013 pneumococcal polysaccharide (PPV23) vaccine, 23 valent (PNEUMOVAX 23) 10/31/2017,01/17/2016,03/01/2013 tetanus diphtheria (Td) vacc ine, age 7+ yr, 5 Lf tetanus, PF (TENIVAC) 07/14/2007 zoster (ZVL) vaccine, live (ZOSTAVAX) 01/17/2016 ,01/24/2013,11/19/2012 Family History Medical History Relation Comments Diabetes Father Heart disease Father Hyperlipidemia Father Hypertension Father Stroke Father Cancer Mother Liver Disease Mother Malignant neoplasm of female breast Mother Stroke Sister Relation Status Comments Father Mother Sister Social History Tobacco Use Types Packs/Day Years Used Date Smoking Tobacco: Former Cigarettes Smokeless Tobacco: Never Tobacco Cessation:Counseling Given: Not Answered Alcohol Use Standard Drinks/Week Comments Not Currently 0 (1 standard drink = 0.6 oz pur e alcohol) Area Deprivation Index Answer Date Joseluis rded National Score (1-100), lower number is lower ri sk 64 03/28/2024 State Score (1-10), lower number is lower risk 4 03/28/2024 Data from: https://www.neighborhoodatlas.medicine.[facility]/. Last address used for calculation [address] [facility] 03/28/2024 Sex and Gender Information Value Date Recorded Sex Assigned at Not on file Legal Sex Male 9:48 AM EST Gender Identity Not on file Sexual Orientation Not on file Last Filed Vital Signs Vital Sign Reading Time Taken Comments Blood Pressure 121/63 08/21/2024 8:17 AM EDT Pulse 86 08/21/2024 8:17 AM EDT Temperature 36.6 C (97.8 F) 08/21/2024 8:17 AM EDT Respiratory Rate 16 08/21/2024 8:17 AM EDT Oxygen Saturation 95% 08/21/2024 8:17 AM EDT Inhaled Oxygen Concentration - - Weight 75.9 kg (167 lb 5.3 oz) 08/21/2024 8:17 A M EDT Height 171.3 cm (5' 7.44 ) 08/21/2024 8:17 AM ED T Body Mass Index 25.87 08/21/2024 8:17 AM EDT Plan of Treatment Health Maintenance Due Date Last Done Comments Anxiety Screening 1963 Depression Screening 1963 Hepatitis C Screening 1963 DTaP,Tdap,Td Vaccine (1 - Tdap) 07/15/2007 8 Medicare Annual Wellness Visit 04/20/2011 Shingrix Vaccine (2 of 3) 03/13/20162015, 01/24/2013, 11/19/2012 RSV Vaccine (1 - 1-dose 75+ series) 2021 Advance Directive Discussion 02/20/2024 Influenza Vaccine (#1) 2024 , 12/12/2022, 11/24/2021, Additional history exists Diabetes Screening 08/29/2027 08/28/2024, 0 08/21/2024, 08/05/2024, Additional history exists Pneumococcal Vaccine: 50+ Completed 2017, 01/17/2016, 08/05/2014, Additional history exists Procedures Procedure Name Priority Date/Time Associated Diagnosis Comments COMPREHENSIVE METABOLIC PANEL Routine 08/28/2024 12:48 PM EDT Malignant neoplasm of overlapping sites of bladder (HCC) EXTERNAL LAB 08/21/2024 9:34 AM EDT EXTERNAL PROCEDURE 08/21/2024 9: 34 AM EDT COMPREHENSIVE METABOLIC PANEL Routine 08/21/2024 8:14 AM EDT Malignant neoplasm of overlapping sites of bladder (HCC) CBC + DIFF Routine 08/21/2024 8:14 AM EDT Malignant neoplasm of overlapping sites of bladder (HCC) from Last 3 Months Results * (ABNORMAL) COMPREHENSIVE METABOLIC PANEL (08/28/2024 12:48 PM EDT) Only the most recent of2 resultswithin the time period is included. Protein, Total 7.1 6.3 - 8.0 g/dL 08/28/2024 1:11 PM EDT [facility] Albumin 4.4 3.9 - 4.9 g/dL 08/28/2024 1:11 PM EDT [facility] Calcium, Total 9.7 8.5 - 10.2 mg/dL 08/28/2024 1:11 PM EDT [facility] Bilirubin, Total 0.3 0.2 - 1.3 mg/dL 08/28/2024 1:11 PM EDT [facility] Alkaline Phosphatase 106 38 - 113 U/L 08/28/2024 1:11 PM EDT [facility] AST 10(L) 14 - 40 U/L 08/28/2024 1:11 PM EDT [facility] ALT 11 10 - 54 U/L 08/28/2024 1:11 PM [facility] Glucose 188(H) 74 - 99 mg/dL 08/28/2024 1:11 PM [facility] Comment: The [place] Diabetes Association (ADA) provides guidance for cutoff values for fasting glucose and random glucose. The ADA defines fasting as no caloric intake for at least 8 hours. Fasting plasma glucose results between 100 to 125 mg/dL indicate increased risk for diabetes (prediabetes). Fasting plasma glucose results greater than or equal to 126 mg/dL meet the criteria for diagnosis of diabetes. In the absence of unequivocal hyperglycemia, results should be confirmed by repeat testing. In a patient with classic symptoms of hyperglycemia or hyperglycemic crisis, random plasma glucose results greater than or equal to 200 mg/dL meet the criteria for diagnosis of diabetes. Reference: Standards of Medical Care in Diabetes 2016, [place] [employer] Association. Diabetes Care. 2016.39(Suppl 1). BUN 45(H) 9 - 24 mg/dL 08/28/2024 1:11 PM [facility] Creatinine 2.08(H) 0.73 - 1.22 mg/dL 08/28/2024 1:11 PM [facility] Sodium 141 136 - 144 mmol/L 08/28/2024 1:11 PM [facility] Potassium 4.9 3.7 - 5.1 mmol/L 08/28/2024 1:11 PM [facility] Chloride 107 98 - 107 mmol/L 08/28/2024 1:11 PM [facility] CO2 22 22 - 30 mmol/L 08/28/2024 1:11 PM [facility] Anion Gap 12 8 - 15 mmol/L 08/28/2024 1:11 PM [facility] Estimated Glomerular Filtration Rate 32(L) >=60 mL/min/1. 73m 08/28/2024 1:11 PM [facility] Comment:Estimated Glomerular Filtration Rate (eGFR) is calculated using the 2020 CKD-EPI creatinine equation. This equation utilizes serum creatinine, sex, and age as parameters. The creatinine assay has traceable calibration to isotope dilution- mass spectrometry. Refer to KDIGO guidelines for clinical interpretation. In patients with unstable renal function, e.g. those with acute kidney injury, the eGFR may not accurately reflect actual GFR. Blood BLOOD SPECIMEN / Unknown Venipuncture / Unknown 08/28/2024 12:48 PM EDT 08/28/2024 12:48 PM EDT us Emmy Bailey MONITORING ANALYST.CLINICAL PRODUCT SPECIALIST LABORATORY Final Resul t [facility] [address] [place] [address] * EXTERNAL LAB (08/21/2024 9:34 AM EDT) us External Provider PA-C LABORATORY Final Res ult * EXTERNAL PROCEDURE (08/21/2024 9:34 AM EDT) External Provider PA-C PROCEDURE Final Res ult * (ABNORMAL) COMPLETE BLOOD COUNT AND DIFFERENTIAL (08/21/2024 8:14 AM EDT) WBC 5.49 3.70 - 11.00 k/uL 08/21/2024 8:23 AM EDT [facility] RBC 3.36(L) 4.20 - 6.00 m/uL 08/21/2024 8:23 AM EDT [facility] Hemoglobin 10.4(L) 13.0 - 17.0 g/dL 08/21/2024 8:23 AM EDT [facility] Hematocrit 32.0(L) 39.0 - 51.0 % 08/21/2024 8:23 AM EDT [facility] MCV 95.2 80.0 - 100.0 fL 08/21/2024 8:23 AM EDT [facility] MCH 31.0 26.0 - 34.0 pg 08/21/2024 8:23 AM EDT [facility] MCHC 32.5 30.5 - 36.0 g/dL 08/21/2024 8:23 AM EDT [facility] RDW-CV 13.3 11.5 - 15.0 % 08/21/2024 8:23 AM EDT [facility] Platelet Count 240 150 - 400 k/uL 08/21/2024 8:23 AM EDT [facility] MPV 10.2 9.0 - 12.7 fL 08/21/2024 8:23 AM EDT [facility] Neutrophils % 60.5 % 08/21/2024 8:23 AM EDT [facility] Abs Neut 3.33 1.45 - 7.50 k/uL 08/21/2024 8:23 AM EDT [facility] Lymphocytes % 23.9 % 08/21/2024 8:23 AM EDT [facility] Abs Lymph 1.31 1.00 - 4.00 k/uL 08/21/2024 8:23 AM EDT [facility] Monocytes % 9.7 % 08/21/2024 8:23 AM EDT [facility] Abs [place] 0.53 <0.87 k/uL 08/21/2024 8:23 AM EDT [facility] Eosinophils % 4.6 % 08/21/2024 8:23 AM EDT [facility] Abs Eosin 0.25 <0.46 k/uL 08/21/2024 8:23 AM EDT [facility] Basophils % 0.9 % 08/21/2024 8:23 AM EDT [facility] Abs Baso 0.05 <0.11 k/uL 08/21/2024 8:23 AM EDT [facility] Immature Granulocytes % 0.4 % 08/21/2024 8:23 AM EDT [facility] Abs Immature Gran <0.03 <0.10 k/uL 08/21/2024 8:23 AM EDT [facility] NRBC 0.0 /100 WBC 08/21/2024 8:23 AM EDT [facility] Absolute nRBC <0.01 <0.01 k/uL 08/21/2024 8:23 AM EDT [facility] Diff Type Auto 08/21/2024 8:23 AM EDT [facility] Blood BLOOD SPECIMEN / Unknown Venipuncture / Unknown 08/21/2024 8:14 AM EDT 08/21/2024 8:14 AM EDT Tunde Blair MD LABORATORY Final Result [facility] [address] [place] [address] from Last 3 Months Insurance [facility] MEDICARE Care Teams Traffic Division Commanding Officer Relationship Specialty Start Date End Date Jeferson Estrada MD [address] [place] [address] PCP - General Family Medicine 03/28/24
--- OUTSIDE RECORDS SUMMARY | 2024-11-13 11:56 | XMS_ITS | Clinical Summary ---
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 Name Role Phone Jeferson Estrada MD Unavailable [phone] Jeferson Estrada MD Primary Care Provider [phone] Edwige Arana FACILITY MAINTENANCE WORKER Unavailable [phone] Allergies Active Allergy Reactions Criticality Noted Date Comments Beta Adrenergic Blockers 03/28/2023 Other Reaction(s): Other: See Comments bradycardia Dust Mite Extract Unknown Low 08/11/2022 Other Reaction(s): Sneezing This patient is not allergic to Albuterol Other Low 02/26/2024 Other Reaction(s): Sneezing Vitamin B12 Dizziness 08/11/2022 Medications ASPIRIN 81 PO Take 81 mg by mouth in the morning. Active clopidogrel (Plavix) 75 MG tablet Take 75 mg by mouth in the morning. Active nitroglycerin (Nitrostat) 0.[address] 0.4 mg under the tongue every 5 (five) minutes if needed. Active atorvastatin (Lipitor) 40 MG tablet Take 40 mg by mouth 1 (one) time each day at the same time. Active Ascorbic Acid (vitamin C) 1000 MG tablet Take 1,000 mg by mouth 1 (one) time each day at the same time. Active isosorbide mononitrate ER (Imdur) 30 MG 24 hr tablet Take 30 mg by mouth in the morning. 03/01/19 24 Active cholecalciferol (Vitamin D-3) 25 MCG (1000 UT) tabletIndications: Vitamin D Deficiency Take 1,000 Units by mouth Daily Active metFORMIN (Glucophage) 1000 MG tabletIndications: Type 2 diabetes mellitus with chronic kidney disease, with long-term current use of insulin, unspecified CKD stage (HCC) Take 1 tablet (1,000 mg) by mouth in the morning and 1 tablet (1,000 mg) in the evening. Take with meals. 200 tablet 1 05/02/19 25 025 Active amLODIPine-valsart an (Exforge) 5-160 MG tablet Take 1 tablet by mouth in the morning. 02/20/19 25 026 Active ivermectin (Stromectol) 3 MG tabletIndications: Thyroid cancer (HCC) Take 3 tablets (9 mg) by mouth Daily for 90 doses 90 tablet 2 06/04/19 25 Active levothyroxine (Synthroid) 125 MCG tabletIndications: Postoperative hypothyroidism Take 1 tablet (125 mcg) by mouth in the morning. Take before meals. 90 tablet 3 07/03/19 25 Active metFORMIN (Glucophage) 500 MG tabletIndications: Type 2 diabetes mellitus with chronic kidney disease, with long-term current use of insulin, unspecified CKD stage (HCC) Take 1 tablet (500 mg) by mouth in the morning and 1 tablet (500 mg) in the evening. Take with meals. 180 tablet 1 08/06/19 25 025 Active omeprazole (PriLOSEC) [address] capsuleIndications :Esophageal dysphagia Take 2 capsules (40 mg) by mouth at bedtime 180 capsule 08/15/19 25 Active Additional Information Patient not taking.Reported on 10/28/2024 Ferrous Fumarate 325 (106 Fe) MG tabletIndications: Iron deficiency anemia secondary to inadequate dietary iron intake Take 325 mg by mouth Daily 90 tablet 1 08/28/19 25 025 Active amLODIPine (Norvasc) 10 MG tablet Daily 08/27/19 25 Active cloNIDine (Catapres) 0.1 MG tablet Take 0.1 mg by mouth in the morning and 0.1 mg in the evening. 09/09/19 25 026 Active ezetimibe (Zetia) 10 MG tablet Daily 08/16/19 25 Active pantoprazole (ProtoNix) 40 MG EC tablet 08/16/19 25 Active tamsulosin (Flomax) 0.4 MG 24 hr capsule 05/14/19 25 Active pioglitazone (Actos) 30 MG tabletIndications: 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) Take 1 tablet (30 mg) by mouth Daily 90 tablet 1 10/03/19 25 026 Active ferrous sulfate 325 (65 Fe) MG EC tabletIndications: Iron deficiency Take 1 tablet (325 mg) by mouth in the morning and at noon 180 tablet 1 10/29/19 25 Active oxazepam (Serax) 15 MG capsuleIndications :Primary insomnia Take 1 capsule (15 mg) by mouth as needed at bedtime for sleep 30 capsule 1 10/29/19 25 026 Active desonide (DesOwen) 0.05 % lotionIndications: Morbilliform rash Apply topically in the morning and before bedtime. Do all this for 14 days. 118 mL 2 10/29/19 25 Active ferrous sulfate 325 (65 Fe) MG EC tablet Take 1 tablet by mouth in the morning and 1 tablet in the evening. 025 Discontinu ed(Reorder ) desonide (DesOwen) 0.05 % lotionIndications: Morbilliform rash Apply topically in the morning and before bedtime. Do all this for 14 days. 118 mL 1 10/12/19 25 025 Discontinu ed(Reorder ) cephalexin (Keflex) 250 MG capsuleIndications :Cellulitis of right thigh Take 1 capsule (250 mg) by mouth in the morning and 1 capsule (250 mg) in the evening and 1 capsule (250 mg) before bedtime. Do all this for 5 days. 15 capsule 10/12/19 25 025 Active Problems Problem Noted Date Diagnosed Date Abnormal CT scan, pelvis 11/21/2023 Asthma 11/21/2023 BPH (benign prostatic hyperplasia) 11/21/2023 Diverticulosis 11/21/2023 Vomiting without nausea 06/19/2023 Abdominal aortic aneurysm (AAA) without rupture 08/11/2022 Abnormal blood chemistry 08/11/2022 Abnormal ultrasound of neck 08/11/2022 Acquired hypothyroidism 08/11/2022 Anemia of chronic disease 08/11/2022 Carotid stenosis, bilateral 08/11/2022 Chronic cluster headache, not intractable 2022 Cerebral aneurysm (HHS-HCC) 08/11/2022 Diabetic peripheral neuropat hy associated with type 2 diabetes mellitus 08/11/2022 Diverticulosis of large intestine without hemorr mono 08/11/2022 Dystonia 08/11/2022 Esophageal dysphagia 08/11/2022 Gastroesophageal reflux disease 08/11/2022 Hiatal hernia 08/11/2022 Neurogenic pain 08/11/2022 PAD (peripheral artery disease) 08/11/2022 Peripheral neuropathy 08/11/2022 Sensorineural hearing loss, bilateral 08/11/2022 Primary insomnia 08/11/2022 Stage 3b chronic kidney disease 08/11/2022 Type 2 diabetes mellitus wit h diabetic chronic kidney disease 08/11/2022 Vitamin D deficiency 08/11/2022 Class 1 obesity 10/21/2020 Reactive depression (situational) 10/01/2020 Hypertensive heart failure 08/09/2020 Pulmonary hypertension 08/09/2020 Low back pain 11/17/2019 Constipation 03/24/2019 Mixed hyperlipidemia 12/11/2018 Unspecified rotator cuff tea r or rupture of left shoulder, not specified as traumatic 05/22/2018 Lumbosacral spondylosis without myelopathy 12/27 Chronic obstructive pulmonary disease 06/01/2017 Iron deficiency 05/07/2017 Hyperglycemia due to type 2 diabetes mellitus Chronic diastolic heart failure 06/12/2016 Simple chronic bronchitis 06/12/2016 Peripheral angiopathy due to type 2 diabetes anna litus 07/27/2015 Resolved Problems Problem Noted Date Diagnosed Date Resolved Date Acute cystitis 05/16/2024 05/16/2024 Acute metabolic encephalopathy 05/16/2024 05/16/2024 Altered mental status 05/16/20242024 B12 deficiency 05/16/2024 05/16/2024 Bladder cancer 05/16/2024 05/16/2024 Delirium 05/16/2024 05/16/2024 Dyslipidemia 05/16/2024 05/16/2024 Elevated TSH 05/16/2024 05/16/2024 Follicular cystitis 05/16/2024 05/17/19 25 Glaucoma 05/16/2024 05/16/2024 History of testicular mass 05/16/2024 0 05/16/2024 Hypertensive urgency 05/16/2024 025 Iron deficiency anemia 05/16/202405/16 Left renal stone 05/16/2024 05/16/2024 Simple renal cyst 05/16/2024 05/16/2024 Stricture of penile urethra 05/16/2024 05/16/2024 UTI (urinary tract infection) 05/16/2024 05/16/2024 BMI 24.0-24.9, adult 02/21/2024 025 Former smoker 12/07/2023 05/16/2024 NIRANJAN (acute kidney injury) 04/27/2023 Anginal chest pain at rest 04/27/2023 0 04/27/2023 Primary papillary adenocarci noma of thyroid gland 04/27/2023 04/27/2023 Dehydration 04/27/2023 04/27/2023 Hyperkalemia 04/27/2023 04/27/2023 Intermittent left lower quad rant abdominal pain 04/27/2023 04/27/2023 Mobitz (type) I (Wenckebach' s) atrioventricular block 04/27/2023 04/27/2023 Noncompliance w/medication t reatment due to intermit use of medication 04/27/2023 04/27/2023 S/P coronary artery stent placement 04/27/2023 04/27/2023 Status post excision of lipoma 04/27/2023 04/27/2023 Aneurysm of middle cerebral artery ([facility]) 04/27/2023 Cancer 12/19/2022 04/27/2023 Carcinoma of thyroid gland 12/19/2022 0 04/27/2023 Cataract 12/19/2022 04/27/2023 Essential hypertension 12/19/202204/26 Essential tremor 12/19/2022 04/27/2023 H/O total thyroidectomy 12/19/2022 03/0 09/2023 Intermittent claudication 12/19/2022 AV block, Mobitz 1 12/19/2022 Pain in throat 12/19/2022 04/27/2023 Status post coronary angioplasty 12/19/2022 04/27/2023 CVD (cerebrovascular disease) 08/11/2022 09/21/2022 Excessive daytime sleepiness 08/11/2022 03/06/2024 Muscle twitch 08/11/2022 09/21/2022 Other osteoporosis without c urrent pathological fracture 08/11/2022 09/21/2022 Dementia 12/11/2018 03/06/2024 Dyssomnia 12/11/2018 09/21/2022 Encounters Date Type Department Care Team Description 11/12/2024 [facility] [address] [place] [address] Jeferson Estrada MD 11/03/2024 Telephone [facility] [place] [facility] [address] [place] [address] Jeferson Estrada MD 11/03/2024 Orders [facility] [address] [place] [address] Jeferson Estrada MD 10/28/2024 1:20 PM EDT Office Visit [facility] [address] [place] [address] Jeferson Estrada MD Medicare annual wellness visit, subsequent (Primary Dx); [...] Malignant neoplasm of urinary bladder, unspecified site ([facility]) 10/28/2024 Bamboo flowsheet [facility] [place] [facility] [address] [place] [address] Jeferson Estrada MD 10/28/2024 Travel 10/21/2024 [facility] [address] [place] [address] Jeferson Estrada MD 10/11/2024 9:10 AM EDT [facility] [address] [place] [phone] Leonie Mcginnis, ALICJA Morbilliform rash (Primary Dx); Cellulitis of right thigh 10/11/2024 Travel 10/02/2024 2:00 PM EDT Ancillary Procedure [facility] [address] [place] [address] 10/02/2024 10:25 AM EDT Office Visit [facility] [address] [place] [address] Niya Johnson NP Acute pain of right thigh (Primary Dx); Rash; Cellulitis of right thigh 10/02/2024 Refill [facility] [address] [place] [phone] Jeferson Estrada MD 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) 10/02/2024 [facility]phone [facility] [address] [place] [address] Niya Johnson NP 10/02/2024 Travel 09/29/2024 2:00 PM EDT Office Visit [facility] [address] [place] [phone] Jan Ghosh DPM Venous insufficiency (Primary Dx); Diabetes mellitus due to underlying condition with diabetic polyneuropathy, without long-term current use of insulin (HCC); Pain due to onychomycosis of toenails of both feet; PVD (peripheral vascular disease) 09/29/2024 Bamboo flowsheet [facility] [address] [place] [phone] Jan Ghosh DPM 09/18/2024 Results Follow-Up [facility] [address] [place] [phone] eJferson Estrada MD MR angiogram head wo IV contrast 09/18/2024 External Result Encounter [facility] External Department Unsolicited Jeferson Estrada MD 09/15/2024 Patient Outreach [facility] [address] [place] [address] Gera Escobar MA 09/15/2024 Abstract [facility] [place] [facility] [address] [place] [address] Jeferson Estrada MD 09/07/2024 Abstract [facility] [address] [place] [address] Jeferson Estrada MD 08/28/2024 Clinisync Result Encounter [facility] External Department Unsolicited Provider, Generic External Data [facility] [address] [place] [address] Lupe Mcgregor MA Iron deficiency anemia secondary to inadequate dietary iron intake 08/21/2024 Clinisync Result Encounter [facility] External Department Unsolicited Provider, Generic External Data 08/19/2024 [facility] [address] [place] [address] Jeferson Estrada MD 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) 08/13/2024 Refill [facility] [address] [place] [address] Jeferson Estrada MD Esophageal dysphagia from Last 3 Months Immunizations Immunization Administration Dates Next Due Influenza, High Dose Seasona l, Preservative Free 11/05/2019,12/24/2017,12/20/2015 Influenza, High-dose Seasona l, Quadrivalent, Preservative Free 11/24/2021,10/25/2020,10/21/2019 Influenza, Seasonal, Quadriv alent, Adjuvanted 12/12/2022 Influenza, Unspecified 11/20/2023 Influenza, seasonal, injectable 01/17/2016 Influenza, seasonal, injecta ble, preservative free 02/10/2015 Influenza, seasonal, intrade rmal, preservative free 01/20/2011 Influenza, trivalent, adjuvanted 10/24/2024 Pneumococcal Conjugate PCV 13 08/05/2014, 014 Pneumococcal Polysaccharide PPSV23 10/31/2017,,03/01/2013 Td (adult), 5 Lf tetanus tox oid, preservative free, adsorbed 07/14/2007 Zoster, live 01/17/2016,01/24/2013,11/19/2012 Family History Medical History Relation Name Comments No Known Problems Daughter 1 willie 1972 No Known Problems Daughter 2 lilli 1976 Diabetes Father anna Heart disease Father anna 76 Hypertension Father anna Stroke Father anna Breast cancer Mother lisa 42 COPD Sister nhung Hypertension Sister nhung 1949 Relation Name Status Comments Daughter 1 willie Alive Daughter 2 lilli Alive Father anna Maternal Grandfather Maternal Grandmother Mother lisa Paternal Grandfather Paternal Grandmother Sister nhung Alive Social History Tobacco Use Types Packs/Day Years Used Date Smoking Tobacco: Former Cigarettes 0 04/24/1962 - 1984 Smokeless Tobacco: Never Tobacco Cessation:Counseling Given: Yes Alcohol Use Standard Drinks/Week Comments Never 0 [...] Sign Reading Time Taken Comments Blood Pressure 140/60 10/28/2024 1:18 PM EDT Pulse 82 10/28/2024 1:18 PM EDT Temperature 36.6 C (97.8 F) 10/28/2024 1:18 PM EDT Respiratory Rate 18 09/29/2024 1:55 PM EDT Oxygen Saturation 98% 10/28/2024 1:18 PM EDT Inhaled Oxygen Concentration - - Weight 73 kg (161 lb) 10/28/2024 1:18 PM EDT Height 172.7 cm (5' 8 ) 10/28/2024 1:18 PM EDT Body Mass Index 24.48 10/28/2024 1:18 PM EDT Plan of Treatment Upcoming Encounters Date Type Department Care Team (Late st Contact Info) Description 12/26/2024 1:10 PM EST Office Visit [facility] [address] [place] [address] Jan Ghosh DPM [address] [address] 02/03/2025 2:00 PM EST Office Visit [facility] [address] [place] [address] Jeferson Estrada MD [address] [place] [address] 05/29/2025 1:00 PM EDT Office Visit [facility] [address] [place] [phone] Jl Grajeda DO [address] [place] [address] Health Maintenance Due Date Last Done Comments Diabetes: Hemoglobin A1C 11/05/2024 025, 03/06/2024, 10/09/2023, Additional history exists Diabetes: Urine Protein Screening 08/05/2025 08/05/2024, 06/14/2023, 06/27/2021, Additional history exists Medicare Annual Wellness (AWV) 10/28/2025 0 10/28/2024, 10/09/2023, 09/22/2021 Diabetes: Retinopathy Screening 10/29/2026 10/29/2024, 06/06/2023, 10/11/2022, Additional history exists Pneumococcal Vaccine: 65+ Years Completed 10/31/2017, 01/17/2016, 08/05/2014, Additional history exists Influenza Vaccine Completed 10/24/2024, , 12/12/2022, Additional history exists Procedures Procedure Name Priority Date/Time Associated Diagnosis Comments DIABETIC RETINOPATHY SCREENING - OU - BOTH EYES Routine 10/29/2024 11:34 AM EDT VASC US LOWER EXTREMITY VENOUS DUPLEX RIGHT STAT 10/02/2024 2:11 PM EDT Acute pain of right thigh MR ANGIOGRAM HEAD WO IV CONTRAST 09/18/2024 3:31 PM EDT [facility] COMP METAB 2000 PNL SERPL Routine 08/28/2024 12:48 PM EDT [facility] COMP METAB 2000 PNL SERPL Routine 08/21/2024 8:14 AM EDT [facility] CBC W AUTO DIFF BLD Routine 08/21/2024 8:14 AM EDT POCT MICROALBUMIN Routine 08/05/2024 2:2 8 PM EDT Type 2 diabetes mellitus with chronic kidney disease, with long-term current use of insulin, unspecified CKD stage (HCC) POCT GLYCOSYLATED HEMOGLOBIN (HGB A1C) Routine 08/05/2024 2:09 PM EDT Type 2 diabetes mellitus with chronic kidney disease, with long-term current use of insulin, unspecified CKD stage (HCC) from Last 3 Months or Most Recently Relevant to Health Maintenance Results * Diabetic Retinopathy Screening - OU - Both Eyes (10/29/2024 11:34 AM EDT) Anatomical Region Laterality Modality Head Other us Jeferson Estrada MD OPHTH PHOTOGRAPHY Final Result * Vascular US lower extremity venous duplex right (10/02/2024 2:11 PM EDT) Anatomical Region Laterality Modality Lower Extremities Ultrasound 10/02/2024 2:47 PM EDT Impressions 10/02/2024 2:48 PM EDT NO DVT IDENTIFIED IN THE RIGHT LOWER EXTREMITY. ELECTRONICALLY SIGNED BY: Bello Queen DO Narrative 10/02/2024 2:48 PM EDT [facility] US LOWER EXTREMITY VENOUS DUPLEX RIGHT : 10/02/2024 1:42 PM CLINICAL HISTORY: right thigh pain and erythema. hx of cancer. COMPARISON: None available. Grayscale, compression, color and waveform Doppler analysis of the right lower extremity deep venous systems was performed with augmentation. FINDINGS: There is no deep venous thrombosis, abnormal masses, fluid collections or other findings of concern identified within the right lower extremity. Procedure Note Bello Queen DO - 10/02/2024 [facility] US LOWER EXTREMITY VENOUS DUPLEX RIGHT : 10/02/2024 1:42 PM CLINICAL HISTORY: right thigh pain and erythema. hx of cancer. COMPARISON: None available. Grayscale, compression, color and waveform Doppler analysis of the rightlower extremity deep venous systems was performed with augmentation. FINDINGS: There is no deep venous thrombosis, abnormal masses, fluid collections orother findings of concern identified within the right lower extremity. IMPRESSION: NO DVT IDENTIFIED IN THE RIGHT LOWER EXTREMITY. ELECTRONICALLY SIGNED BY: Bello Queen DO Niya Johnson FACILITY MAINTENANCE WORKER IMG US PROCEDURES Final Res ult * MR angiogram head wo IV contrast (09/18/2024 3:31 PM EDT) Anatomical Region Laterality Modality Head, Neck Magnetic Resonan ce 09/18/2024 3:31 PM EDT Impressions 09/18/2024 3:43 PM EDT Stable left MCA bifurcation aneurysm measuring 2.8 mm in size in greatest dimension. No large vessel occlusion or hemodynamically significant stenosis. Findings suggestive of subacute stroke throughout involving right splenium the corpus callosum and left parietal deep white matter. Impression dictated by: Jamie Escobar M.D. 09/18/2024 3:41 PM Dictation Location: [place] [address] Transcribed By: [facility] 09/18/24 1541 Dictated By: Jamie Escobar MD 09/18/24 1531 Signed By: <Electronically signed by Jamie Escobar MD in OV> 09/18/24 1541 Narrative 09/18/2024 3:43 PM EDT [facility] [address] [place] [address] MRI Report Signed Patient: Maynor Samuels MR#: [id number] : 1945 Acct:[id number] Age/Sex: 79 / M ADM Date: 09/18/24 Loc: MR Room: Type: [facility] Attending Dr: Jeferson Estrada MD Copies to: Jeferson Estrada MD Ordering Provider: Jeferson Estrada MD Date [...] and MCAs are patent. Vertebral arteries, picas, bas ilar artery, and posterior cerebral arteries are patent. 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 MR/MR angio head wo con Procedure Note Radiology, Radiologist, - 09/18/2024 [facility] [address] [place] [id number] MRI Report Signed Patient: Maynor Samuels LMR#: [id number] : 1945cct:[id number] Age/Sex: 79 / MADM Date: 09/18/24 Loc: MR Room:Type: [facility] Attending Dr: Jeferson Estrada MD Copies to: Jeferson Estrada MD Ordering Provider: Jeferson Estrada MD Date of Service: 09/18/24 MR/MR angio head wo con: I67.1 MR angio head wo con 09/18/2024 12:14 PM SIGN OF SYMPTOMS: I67.1 routine monitoring aneurysm COMPARISON: CT angiogram head 02/28/2024. FINDINGS: MRI BRAIN WITHOUT CONTRAST: Evidence of diffusion hyperintensity right splenium the corpus callosumand involving the left parietal deep white matter without corresponding ADC signal suggestive ofareas of subacute stroke. Moderate generalized involutional changes, advanced for the patient's age.Diffuse thinning of the corpus callosum with remote focus of gliosis anterior body noted. Noshift midline structure. Basal cisterns are patent. Moderate burden of periventricular,subcortical T2 signal suggestive of chronic small vessel ischemic disease. No midline shift. Cisterns arepatent. Polypoid changes right sphenoid sinus. Remote areas of stroke left posterior medialcerebellum. Remote right thalamic lacunar stroke. MRA BRAIN: Stable 2 x 2 x 2.8 mm anterior inferiorly directed to aneurysm arisingfrom the left MCA bifurcation. Otherwise intracranial ICAs, ACAs and MCAs are patent.Vertebral arteries, picas, bas ilar artery, and posterior cerebral arteries are patent. 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 No large vessel occlusion or hemodynamically significant stenosis. Findings suggestive of subacute stroke throughout involving right spleniumthe corpus callosum and left parietal deep white matter. Impression dictated by: Jamie Escobar M.D. 09/18/2024 3:41 PM Dictation Location: [place] [address] Transcribed By: [facility] 09/18/24 1541 Dictated By: Jamie Escobar MD 09/18/24 1531 Signed By: <Electronically signed by Jamie Escobar MD in OV> 09/18/24 1541 us Jeferson Estrada MD IMG MRI PROCEDURES Final Resul t * (ABNORMAL) [facility] COMP METAB 2000 PNL SERPL (08/28/2024 12:48 PM EDT) Only the most recent of2 resultswithin the time period is included. [facility] PROT SERPL-[facility] 7.1 6.3 - 8.0 g/dL [facility] ALBUMIN SERPL-[facility] 4.4 3.9 - 4.9 g/dL [facility] CALCIUM SERPL-[facility] 9.7 8.5 - 10.2 mg/dL [facility] BILIRUB SERPL-[facility] 0.3 0.2 - 1.3 mg/dL [facility] ALP SERPL-[facility] 106 38 - 113 U/L [facility] AST SERPL-[facility] 10(L) 14 - 40 U/L [facility] ALT SERPL-[facility] 11 10 - 54 U/L [facility] GLUCOSE SERPL-[facility] 188(H) 74 - 99 mg/dL [facility] Comment: The [place] [employer] (ADA) provides guidance for cutoff [...] Standards of Medical Care in Diabetes 2016, [place] [employer]. Diabetes Care. 2016.39(Suppl 1). [facility] BUN SERPL-[facility] 45(H) 9 - 24 mg/dL [facility] CREAT SERPL-[facility] 2.08(H) 0.73 - 1.22 mg/dL [facility] SODIUM SERPL-[facility] 141 136 - 144 mmol/L [facility] POTASSIUM SERPL-[facility] 4.9 3.7 - 5.1 mmol/L [facility] CHLORIDE SERPL-[facility] 107 98 - 107 mmol/L [facility] CO2 SERPL-[facility] 22 22 - 30 mmol/L [facility] ANION GAP SERPL-[facility] 12 8 - 15 mmol/L [facility] CREATININE + EGFR PNL SERPLBLD 32(L) >=60 mL/min/1. 73m??? [facility] Comment:Estimated Glomerular Filtration Rate (eGFR) is calculated using the 2020 CKD-EPI creatinine equation. This equation utilizes serum creatinine, sex, and age as parameters. The creatinine assay has traceable calibration to isotope dilution- mass spectrometry. Refer to KDIGO guidelines for clinical interpretation. In patients with unstable renal function, e.g. those with acute kidney injury, the eGFR may not accurately reflect actual GFR. 08/28/2024 12:4 8 PM EDT 08/28/2024 12:48 PM EDT Narrative [facility] - 08/28/2024 1:11 PM EDT Specimen Type: BLOOD SPECIMEN Ordering Facility: [facility] Address: [address] [place], [place] [id number] Original Ordering Provider: KIMBER AGUILLON Generic External Data Provider ALEC billy Result Performing Organization Address [facility]/State/[facility] Phone Number [facility] [address] [place] [address] * (ABNORMAL) [facility] CBC W AUTO DIFF BLD (08/21/2024 8:14 AM EDT) [facility] WBC # BLD AUTO 5.49 3.70 - 11.00 k/uL [facility] RBC # BLD AUTO 3.36(L) 4.20 - 6.00 m/uL [facility] HGB BLD-[facility] 10.4(L) 13.0 - 17.0 g/dL [facility] HCT VFR BLD AUTO 32.0(L) 39.0 - 51.0 % [facility] MCV RBC AUTO 95.2 80.0 - 100.0 fL [facility] MCH RBC QN AUTO 31.0 26.0 - 34.0 pg [facility] MCHC RBC AUTO-[facility] 32.5 30.5 - 36.0 g/dL [facility] RDW RBC-RTO 13.3 11.5 - 15.0 % [facility] PLATELET # BLD AUTO 240 150 - 400 k/uL [facility] PMV BLD AUTO 10.2 9.0 - 12.7 fL [facility] NEUTROPHILS/LEUK NFR BLD AUTO 60.5 % [facility] NEUTROPHILS # BLD AUTO 3.33 1.45 - 7.50 k/uL [facility] LYMPHOCYTES/LEUK NFR BLD AUTO 23.9 % [facility] LYMPHOCYTES # BLD AUTO 1.31 1.00 - 4.00 k/uL [facility] MONOCYTES/LEUK NFR BLD AUTO 9.7 % [facility] MONOCYTES # BLD AUTO 0.53 <0.87 k/uL [facility] EOSINOPHIL/LEUK NFR BLD AUTO 4.6 % [facility] EOSINOPHIL # BLD AUTO 0.25 <0.46 k/uL [facility] BASOPHILS/LEUK NFR BLD AUTO 0.9 % [facility] BASOPHILS # BLD AUTO 0.05 <0.11 k/uL [facility] IMM GRANULOCYTES/LEUK NFR BLD AUTO 0.4 % [facility] IMM GRANULOCYTES # BLD AUTO <0.03 <0.10 k/uL [facility] NRBC/100 WBC BLD-RTO 0.0 /100 WBC [facility] NRBC # BLD AUTO <0.01 <0.01 k/uL [facility] DIFFERENTIAL METHOD BLD Auto [facility] 08/21/2024 8:14 AM EDT 08/21/2024 8:14 AM EDT Narrative ALE[facility] - 08/21/2024 8:23 AM EDT Specimen Type: BLOOD SPECIMEN Ordering Facility: [facility] Address: [address] [place] [address] Original Ordering Provider: AILYN LANE us Generic External Data Provider CLINISYDARYL F inal Result [facility] [address] [place] [address] * (ABNORMAL) POCT microalbumin manually resulted (08/05/2024 2:28 PM EDT) MICROALBUMIN, URINE 150 ALB/CREAT RATIO >300 URINE CREAT 100 Urine 08/05/2024 2:28 PM EDT Jefreson Estrada MD POINT OF CARE TEST ENTER/EDIT ORDERABLES Final Result * (ABNORMAL) POCT glycosylated hemoglobin (Hb A1C) docked device (08/05/2024 2:09 PM EDT) Hemoglobin A1C 6.6 Blood Venous blood specimen / Unknown 08/05/2024 2:09 PM EDT Jeferson Estrada MD POINT OF CARE TEST ENTER/EDIT ORDERABLES Final Result from Last 3 Months or Most Recently Relevant to Health Maintenance Insurance MEDICARE [facility] MEDICARE SUPPLEMENT Care Teams Dry Cell And Battery Assembler Relationship Specialty Start Date End Date Jeferson Estrada MD [address] [place] [address] PCP - ACO Reach 07/13/22 Jeferson Estrada MD [address] [place] [address] PCP - General Family Medicine 08/09/22 Edwige Arana NP [address] [place] [address] Nurse Practitioner Family Medicine 10/24/24
--- OUTSIDE RECORDS SUMMARY | 2024-11-13 11:56 | XMS_ITS | Encounter Summary ---
Author Organization [facility] Address [address] [facility] [place] [address] Care Team Providers Care Director Of Online Education Name Role Phone Jeferson Estrada MD Unavailable [phone] Jeferson Estrada MD Primary Care Provider [phone] Leonie Mcginnis NP Unavailable Edwige Arana NP Unavailable Gera Escobar MA Unavailable [phone] Edwige Arana NP Unavailable Encounter Details Date Type Department Care Team (Late st Contact Info) Description 02/29/2024 Abstract [facility] [address] [place] [address] Jeferson Estrada MD [address] [place] [address] Social History Tobacco Use Types [...] EST Office Visit [facility] [address] [place] [address] Jan Ghosh DPM [address] [address] 02/03/2025 2:00 PM EST Office Visit [facility] [address] [place] [address] Jeferson Estrada MD [address] [place] [address] 05/29/2025 1:00 PM EDT Office Visit [facility] [address] [place] [address] Jl Grajeda DO [address] [place] [address] documented as of this encounter Visit Diagnoses Not on filedocumented in this encounter Additional Health Concerns Assessment Noted Time PHQ-9 Depression Total Score: 2 10/09/19 1:18 PM EDT documented as of this encounter Care Teams Director Of Online Education Relationship Specialty Start Date End Date Jeferson Estrada MD [address] [place] [address] PCP - ACO Reach 07/13/22 Jeferson Estrada MD [address] [place] [address] PCP - General Family Medicine 08/09/22 Leonie Mcginnis NP [address] [place] [address] Nurse Practitioner Family Medicine 09/18/22 05/08/24 Edwige Arana NP [address] [place] [address] Nurse Practitioner Pulmonary Disease 09/18/22 10/23/24 Gera Escobar, [place] [address] [place] [address] Family Medicine 07/01/24 07/09/24 Edwige Arana NP [address] [place] [address] Nurse Practitioner Family Medicine 10/24/24 documented as of this encounter
--- OUTSIDE RECORDS SUMMARY | 2024-11-13 11:56 | XMS_ITS | Encounter Summary ---
Author Organization [facility] Address [address] [place] [address] Care Team Providers Care Rn International Name Role Phone Jeferson Estrada MD Unavailable [phone] Jeferson Estrada MD Primary Care Provider [phone] Edwige Arana CLINICAL LABORATORY SCIENTIST Unavailable Encounter Details Date Type Department Care Team ([facility] Contact Info) Description 11/03/2024 Telephone [facility] [address] [place] [address] Jeferson Estrada MD [address] [place] [address] Social History Tobacco Use Types [...] encounter Miscellaneous Notes * Telephone Encounter - Neymar Reyna - 11/03/2024 4:22 PM EDT 11/03/24 pt seen at [facility] on 10/29/24 they are faxing exam report over documented in this encounter Plan of Treatment Upcoming Encounters Date Type Department Care Team (Late st Contact Info) Description 12/26/2024 1:10 PM EST Office Visit [facility] [address] [place] [address] Jan Ghosh DPM [address] [address] 02/03/2025 2:00 PM EST Office Visit [facility] [address] [place] [address] Jeferson Estrada MD [address] [place] [address] 05/29/2025 1:00 PM EDT Office Visit [facility] [address] [place] [address] Jl Grajeda DO [address] [place] [address] documented as of this encounter Visit Diagnoses Not on filedocumented in this encounter Additional Health Concerns Assessment Noted Time PHQ-9 Depression Total Score: 6 10/29/19 1:00 PM EDT documented as of this encounter Care Teams Rn International Relationship Specialty Start Date End Date Jeferson Estrada MD [address] [place] [address] PCP - ACO Reach 07/13/22 Jeferson Estrada MD [address] [place] [address] PCP - General Family Medicine 08/09/22 Edwige Arana NP [address] [place] [address] Nurse Practitioner Family Medicine 10/24/24 documented as of this encounter
--- OUTSIDE RECORDS SUMMARY | 2024-11-13 11:56 | XMS_ITS | Encounter Summary ---
Author Organization [facility] Address [address] [facility] [place] [address] Care Team Providers Care Staff Physical Therapist Name Role Phone Jeferson Estrada MD Unavailable [phone] Jeferson Estrada MD Primary Care Provider Leonie Mcginnis NP Unavailable Edwige Arana NP Unavailable Gera Escobar MA Unavailable [phone] Edwige Arana NP Unavailable Encounter Details Date Type Department Care Team (Late st Contact Info) Description 03/31/2024 Abstract [facility] [address] [place] [address] Jeferson Estrada MD [address] [place] [address] Social History Tobacco Use Types [...] EST Office Visit [facility] [address] [place] [address] Jan Ghosh DPM [address] [address] 02/03/2025 2:00 PM EST Office Visit [facility] [address] [place] [address] Jeferson Estrada MD [address] [place] [address] 05/29/2025 1:00 PM EDT Office Visit [facility] [address] [place] [address] Jl Grajeda DO [address] [place] [address] documented as of this encounter Visit Diagnoses Not on filedocumented in this encounter Additional Health Concerns Assessment Noted Time PHQ-9 Depression Total Score: 2 10/09/19 24 1:18 PM EDT documented as of this encounter Care Teams Staff Physical Therapist Relationship Specialty Start Date End Date Jeferson Estrada MD [address] [place] [address] PCP - ACO Reach 07/13/22 Jeferson Estrada MD [address] [place] [address] PCP - General Family Medicine 08/09/22 Leonie Mcginnis NP [address] [place] [address] Nurse Practitioner Family Medicine 09/18/22 05/08/24 Edwige Arana NP [address] [place] [address] Nurse Practitioner Pulmonary Disease 09/18/22 10/23/24 Gera Escobar, [place] [address] [place] [address] Family Medicine 07/01/24 07/09/24 Edwige Arana NP [address] [place] [address] Nurse Practitioner Family Medicine 10/24/24 documented as of this encounter
--- OUTSIDE RECORDS SUMMARY | 2024-11-13 11:56 | XMS_ITS | Encounter Summary ---
Author Organization [facility] Address [address] [facility] [place] [address] Care Team Providers Care Hydraulic Repairer Name Role Phone Jeferson Estrada MD Unavailable [phone] Jeferson Estrada MD Primary Care Provider [phone] Edwige Arana FEDERAL DISTRICT CLERK Unavailable Edwige Arana FEDERAL DISTRICT CLERK Unavailable [phone] Encounter Details Date Type Department Care Team (Late st Contact Info) Description 10/21/2024 Abstract [facility] [address] [place] [address] Jeferson Estrada MD [address] [place] [address] Social History Tobacco Use Types Packs/Day Years [...] Office Visit [facility] [address] [place] [address] Jan Ghosh DPM [address] [address] 02/03/2025 2:00 PM EST Office Visit [facility] [address] [place] [address] Jeferson Estrada MD [address] [place] [address] 05/29/2025 1:00 PM EDT Office Visit [facility] [address] [place] [place] [address] Jl Grajeda DO [address] [place] [address] documented as of this encounter Visit Diagnoses Not on filedocumented in this encounter Additional Health Concerns Assessment Noted Time PHQ-9 Depression Total Score: 2 10/09/19 1:18 PM EDT documented as of this encounter Care Teams Hydraulic Repairer Relationship Specialty Start Date End Date Jeferson Estrada MD [address] [place] [address] PCP - ACO Reach 07/13/22 Jeferson Estrada MD [address] [place] [address] PCP - General Family Medicine 08/09/22 Edwige Arana FEDERAL DISTRICT CLERK [address] [place] [address] Nurse Practitioner Pulmonary Disease 09/18/22 10/23/24 Edwige Arana NP [address] [place] [address] Nurse Practitioner Family Medicine 10/24/24 documented as of this encounter
--- OUTSIDE RECORDS SUMMARY | 2024-11-13 11:56 | XMS_ITS | Encounter Summary ---
Author Organization [facility] Address [address] [place] [address] Phone Care Team Providers Care Review Consultant Name Role Phone Jeferson Estrada MD Primary Care Provider [phone] Encounter Details Date Type Department Care Team (Late st Contact Info) Description 07/16/2024 Scanned Document [facility] [address] [place] [address] Scanning, Generic Provider Social History [...] 12/09/2024 9:30 AM EDT Office Visit [address] [address] Erika Mayes MD [address] [facility] [address] [place] [address] 03/31/2025 11:10 AM EST Office Visit [address] [place] [address] Erika Mayes MD [address] [facility] [address] [place] [address] documented as of this encounter Visit Diagnoses Not on filedocumented in this encounter Additional Health Concerns Assessment Noted Time A fall risk assessment has been complete d for the patient 03/26/2024 1:30 PM EST documented as of this encounter Care Teams Review Consultant Relationship Specialty Start Date End Date Jeferson Estrada MD [address] [place] [address] PCP - General 12/30/13 documented as of this encounter
--- OUTSIDE RECORDS SUMMARY | 2024-11-13 11:56 | XMS_ITS | Encounter Summary ---
Author Organization [facility] Address [address] [facility] [place] [address] Care Team Providers Care Speeder Machine Operator Name Role Phone Jeferson Estrada MD Unavailable [phone] Jeferson Estrada MD Primary Care Provider [phone] Edwige Arana SENIOR APPLICATION PROGRAMMER Unavailable [phone] Edwige Arana SENIOR APPLICATION PROGRAMMER Unavailable [phone] Encounter Details Date Type Department Care Team (Late st Contact Info) Description 09/18/2024 External Result Encounter [facility] External Department Unsolicited Jeferson Estrada MD [address] [place] [address] Social History Tobacco Use Types Packs/Day Years [...] 1:10 PM EST Office Visit [facility] [address] [facility] [place] [place] [address] Jan Ghosh DPM [address] [address] 02/03/2025 2:00 PM EST Office Visit [facility] [address] [place] [address] Jeferson Estrada MD [address] [place] [address] 05/29/2025 1:00 PM EDT Office Visit [facility] [address] [place] [address] Jl Grajeda DO [address] [place] [address] documented as of this encounter Procedures Procedure Name Priority Date/Time Associated Diagnosis Comments MR ANGIOGRAM HEAD WO IV CONTRAST 09/18/2024 3:31 PM EDT documented in this encounter Results * MR angiogram head wo IV contrast [...] Escobar M.D. 09/18/2024 3:41 PM Dictation Location: [id number] Transcribed By: [facility] 09/18/24 1541 Dictated By: Jamie Escobar MD 09/18/24 1531 Signed By: <Electronically signed by Jamie Escobar MD in OV> 09/18/24 1541 Narrative 09/18/2024 3:43 PM EDT [facility] [address] MRI Report Signed Patient: Maynor Samuels MR#: [id number] : 1945 Acct:[id number] Age/Sex: 79 / M ADM Date: 09/18/24 Loc: MR Room: Type: [facility] Attending Dr: Jeferson Estrada MD Copies [...] posterior cerebral arteries are patent. origin bilateral fur repair inspector. MR/MR angio head wo con Procedure Note Radiology, Radiologist, - 09/18/2024 [facility] [address] MRI Report Signed Patient: Maynor Samuels LMR#: [id number] : 7Acct:[id number] Age/Sex: 79 / MADM Date: 09/18/24 Loc: MR Room:Type: [facility] Attending Dr: Jeferson Estrada MD Copies [...] and posterior cerebral arteries are patent. originbilateral fur repair inspector. 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 No large vessel occlusion or hemodynamically significant stenosis. Findings suggestive of subacute stroke throughout involving right spleniumthe corpus callosum and left parietal deep white matter. Impression dictated by: Jamie Escobar M.D. 09/18/2024 3:41 PM Dictation Location: [place] [address] Transcribed By: [facility] 09/18/24 1541 Dictated By: Jamie Escobar MD 09/18/24 1531 Signed By: <Electronically signed by Jamie Escobar MD in OV> 09/18/24 1541 us Jeferson Estrada MD IMG MRI PROCEDURES Final Resul t documented in this encounter Visit Diagnoses Not on filedocumented in this encounter Additional Health Concerns Assessment Noted Time PHQ-9 Depression Total Score: 2 10/09/19 24 1:18 PM EDT documented as of this encounter Care Teams Speeder Machine Operator Relationship Specialty Start Date End Date Jeferson Estrada MD [address] [place] [address] PCP - ACO Reach 07/13/22 Jeferson Estrada MD [address] [place] [address] PCP - General Family Medicine 08/09/22 Edwige Arana NP [address] [place] [address] Nurse Practitioner Pulmonary Disease 09/18/22 10/23/24 Edwige Arana NP [address] [place] [address] Nurse Practitioner Family Medicine 10/24/24 documented as of this encounter
--- OUTSIDE RECORDS SUMMARY | 2024-11-13 11:56 | XMS_ITS ---
Author Organization [facility] Address [address] [place] [address] Care Team Providers Care Homebirth Midwife Name Role Phone Jeferson Estrada MD Unavailable [phone] Jeferson Estrada MD Primary Care Provider Edwige Arana ASSEMBLER METAL BUILDING Unavailable Active Problems Problem Noted Date Diagnosed Date [...] to type 2 diabetes anna litus 07/27/2015 Current Treatment and Therapy Plans No current plan information found. Past Treatment and Therapy Plans No past plan information found. Lifetime Dose Tracking * Chemical Lifetime Dose Automatic Entry Manual Entr y Radiation 111 mSv 111 mSv 0 mSv Resolved Problems Problem Noted Date Diagnosed Date [...] 04/27/2023 04/27/2023 Aneurysm of middle cerebral artery ([facility]) 04/27/2023 Cancer 12/19/2022 04/27/2023 Carcinoma of thyroid [...]
--- OUTSIDE RECORDS SUMMARY | 2024-11-13 11:56 | XMS_ITS | Encounter Summary ---
Author Organization [facility] Address [address] [facility] [place] [address] Care Team Providers Care Nascar Driver Name Role Phone Jeferson Estrada MD Unavailable [phone] Jeferson Estrada MD Primary Care Provider [phone] Edwige Arana HEALTH AND WELLNESS ADVISOR Unavailable [phone] Edwige Arana HEALTH AND WELLNESS ADVISOR Unavailable [phone] Encounter Details Date Type Department Care Team (Late st Contact Info) Description 09/15/2024 Abstract [facility] [address] [place] [address] Jeferson Estrada MD [address] [place] [address] Social History Tobacco Use Types Packs/Day Years [...] Office Visit [facility] [address] [place] [address] Jan Ghosh DPM [address] [address] 02/03/2025 2:00 PM EST Office Visit [facility] [address] [place] [address] Jeferson Estrada MD [address] [place] [address] 05/29/2025 1:00 PM EDT Office Visit [facility] [address] [place] [address] Jl Grajeda DO [address] [address] documented as of this encounter Visit Diagnoses Not on filedocumented in this encounter Additional Health Concerns Assessment Noted Time PHQ-9 Depression Total Score: 2 10/09/19 1:18 PM EDT documented as of this encounter Care Teams Nascar Driver Relationship Specialty Start Date End Date Jeferson Estrada MD [address] [place] [address] PCP - ACO Reach 07/13/22 Jeferson Estrada MD [address] [place] [address] PCP - General Family Medicine 08/09/22 Edwige Arana HEALTH AND WELLNESS ADVISOR [address] [place] [address] Nurse Practitioner Pulmonary Disease 09/18/22 10/23/24 Edwige Arana NP [address] [place] [address] Nurse Practitioner Family Medicine 10/24/24 documented as of this encounter
--- OUTSIDE RECORDS SUMMARY | 2024-11-13 11:56 | XMS_ITS | Encounter Summary ---
Author Organization [facility] Address [address] [facility] [place] [address] Care Team Providers Care Research Geologist Name Role Phone Jeferson Estrada MD Unavailable [phone] Jeferson Estrada MD Primary Care Provider Leonie Mcginnis NP Unavailable Edwige Arana NP Unavailable [phone] Gera Escobar MA Unavailable [phone] Edwige Arana NP Unavailable Encounter Details Date Type Department Care Team (Late st Contact Info) Description 02/28/2024 Abstract [facility] [address] [place] [address] Jeferson Estrada MD [address] [place] [address] Social History Tobacco Use Types [...] EST Office Visit [facility] [address] [place] [address] Jan Ghosh DPM [address] [address] 02/03/2025 2:00 PM EST Office Visit [facility] [address] [place] [address] Jeferson Estrada MD [address] [place] [address] 05/29/2025 1:00 PM EDT Office Visit [facility] [address] [place] [address] Jl Grajeda DO [address] [place] [address] documented as of this encounter Visit Diagnoses Not on filedocumented in this encounter Additional Health Concerns Assessment Noted Time PHQ-9 Depression Total Score: 2 10/09/19 1:18 PM EDT documented as of this encounter Care Teams Research Geologist Relationship Specialty Start Date End Date Jeferson Estrada MD [address] [place] [address] PCP - ACO Reach 07/13/22 Jeferson Estrada MD [address] [place] [address] PCP - General Family Medicine 08/09/22 Leonie Mcginnis NP [address] [place] [address] Nurse Practitioner Family Medicine 09/18/22 05/08/24 Edwige Arana NP [address] [place] [address] Nurse Practitioner Pulmonary Disease 09/18/22 10/23/24 Gera Escobar, MD [address] [place] [address] Family Medicine 07/01/24 07/09/24 Edwige Arana NP [address] [place] [address] Nurse Practitioner Family Medicine 10/24/24 documented as of this encounter
--- OUTSIDE RECORDS SUMMARY | 2024-11-13 11:56 | XMS_ITS | Encounter Summary ---
Author Organization [facility] Address [address] [place] [address] Care Team Providers Care Refractory Repairer Name Role Phone Jeferson Estrada MD Unavailable [phone] Jeferson Estrada MD Primary Care Provider Leonie Mcginnis NP Unavailable Edwige Arana NP Unavailable Gera Escobar MA Unavailable [phone] Edwige Arana NP Unavailable Encounter Details Date Type Department Care Team (Late st Contact Info) Description 12/20/2023 Abstract [facility] [address] [place] [address] Jeferson Estrada MD [address] [place] [address] Social History Tobacco Use Types [...] EST Office Visit [facility] [address] [place] [address] Jan Ghosh DPM [address] [address] 02/03/2025 2:00 PM EST Office Visit [facility] [address] [place] [address] Jeferson Estrada MD [address] [place] [address] 05/29/2025 1:00 PM EDT Office Visit [facility] [address] [place] [address] Jl Grajeda DO [address] [place] [address] documented as of this encounter Visit Diagnoses Not on filedocumented in this encounter Additional Health Concerns Assessment Noted Time PHQ-9 Depression Total Score: 2 10/09/19 1:18 PM EDT documented as of this encounter Care Teams Refractory Repairer Relationship Specialty Start Date End Date Jeferson Estrada MD [address] [place] [address] PCP - ACO Reach 07/13/22 Jeferson Estrada MD [address] [place] [address] PCP - General Family Medicine 08/09/22 Leonie Mcginnis NP [address] [place] [address] Nurse Practitioner Family Medicine 09/18/22 05/08/24 Edwige Arana NP [address] [place] [address] Nurse Practitioner Pulmonary Disease 09/18/22 10/23/24 Gera Escobar, [place] [address] [place] [address] Family Medicine 07/01/24 07/09/24 Edwige Arana NP [address] [place] [address] Nurse Practitioner Family Medicine 10/24/24 documented as of this encounter
--- OUTSIDE RECORDS SUMMARY | 2024-11-13 11:56 | XMS_ITS | Encounter Summary ---
Author Organization [facility] Address [address] [facility] [address] Care Team Providers Care Rn Hospice Name Role Phone Jeferson Estrada MD Unavailable [phone] Jeferson Estrada MD Primary Care Provider [phone] Leonie Mcginnis NP Unavailable Edwige Arana NP Unavailable [phone] Jake Hall LPN Unavailable Unavailable Gera Escobar MA Unavailable [phone] Edwige Arana NP Unavailable Encounter Details Date Type Department Care Team (Late st Contact Info) Description 06/10/2023 Abstract [facility] [address] [place] [address] Jeferson Estrada MD [address] [place] [address] Social History Tobacco Use Types Packs/Day Years [...] 12/26/2024 1:10 PM EST Office Visit [facility] [address] [place] [address] Jan Ghosh DPM [address] [address] 02/03/2025 2:00 PM EST Office Visit [facility] [address] [place] [address] Jeferson Estrada MD [address] [place] [address] 05/29/2025 1:00 PM EDT Office Visit [facility] [address] [place] [address] Jl Grajeda DO [address] [place] [address] documented as of this encounter Visit Diagnoses Not on filedocumented in this encounter Additional Health Concerns Assessment Noted Time PHQ-9 Depression Total Score: 0 09/29/19 12:00 PM EDT documented as of this encounter Care Teams Rn Hospice Relationship Specialty Start Date End Date Jeferson Estrada MD [address] [place] [address] PCP - ACO Reach 07/13/22 Jeferson Estrada MD [address] [place] [address] PCP - General Family Medicine 08/09/22 Leonie Mcginnis NP [address] [place] [address] Nurse Practitioner Family Medicine 09/18/22 05/08/24 Edwige Arana NP [address] [place] [address] Nurse Practitioner Pulmonary Disease 09/18/22 10/23/24 Jake Hall LPN Licensed Practical Nurse Family Medicine 07/20/2307/23/23 Gera Escobar MA [address] [place] [address] Family Medicine 07/01/24 07/09/24 Edwige Arana NP [address] [place] [address] Nurse Practitioner Family Medicine 10/24/24 documented as of this encounter
--- OUTSIDE RECORDS SUMMARY | 2024-11-13 11:56 | XMS_ITS | Encounter Summary ---
Author Organization [facility] Address [address] [facility] [place] [address] Care Team Providers Care Cytopathology Technologist Name Role Phone Jeferson Estrada MD Unavailable [phone] Jeferson Estrada MD Primary Care Provider [phone] Edwige Arana CLOTHES MARKER Unavailable Edwige Arana CLOTHES MARKER Unavailable [phone] Encounter Details Date Type Department Care Team (Late st Contact Info) Description 07/16/2024 Abstract [facility] [address] [place] [address] Jeferson Estrada MD [address] [place] [address] Social History Tobacco Use Types Packs/Day Years [...] Office Visit [facility] [address] [place] [address] Jan Ghosh DPM [address] [address] 02/03/2025 2:00 PM EST Office Visit [facility] [address] [place] [address] Jeferson Estrada MD [address] [place] [address] 05/29/2025 1:00 PM EDT Office Visit [facility] [place] [facility] [address] [place] [address] Jl Grajeda DO [address] [place] [address] documented as of this encounter Visit Diagnoses Not on filedocumented in this encounter Additional Health Concerns Assessment Noted Time PHQ-9 Depression Total Score: 2 10/09/19 1:18 PM EDT documented as of this encounter Care Teams Cytopathology Technologist Relationship Specialty Start Date End Date Jeferson Estrada MD [address] [place] [address] PCP - ACO Reach 07/13/22 Jeferson Estrada MD [address] [place] [address] PCP - General Family Medicine 08/09/22 Edwige Arana CLOTHES MARKER [address] [place] [address] Nurse Practitioner Pulmonary Disease 09/18/22 10/23/24 Edwige Arana NP [address] [place] [address] Nurse Practitioner Family Medicine 10/24/24 documented as of this encounter
--- OUTSIDE RECORDS SUMMARY | 2024-11-13 11:56 | XMS_ITS | Encounter Summary ---
Author Organization [facility] Address [address] [place] [address] Care Team Providers Care Fruit Harvest Machine Operator Name Role Phone Jeferson Estrada MD Unavailable [phone] Jeferson Estrada MD Primary Care Provider Leonie Mcginnis NP Unavailable Edwige Arana NP Unavailable Jake Hall LPN Unavailable Unavailable Gera Escobar MA Unavailable [phone] Edwige Arana NP Unavailable Encounter Details Date Type Department Care Team (Late st Contact Info) Description 06/15/2023 External Result Encounter [facility] External Department Unsolicited Jeferson Estrada MD [address] [place] [address] Social History Tobacco Use Types Packs/Day Years [...] Description 12/26/2024 1:10 PM EST Office Visit [facility] [address] [place] [address] Jan Ghosh DPM [address] [address] 02/03/2025 2:00 PM EST Office Visit [facility] [place] [facility] [address] [place] [address] Jeferson Estrada MD [address] [place] [address] 05/29/2025 1:00 PM EDT Office Visit [facility] [address] [place] [address] Jl Grajeda DO [address] [place] [address] documented as of this encounter Procedures Procedure Name Priority Date/Time Associated Diagnosis Comments XR LUMBAR SPINE 6+ VIEWS INCLUDING OBLIQUE FLEXION EXTENSION 06/15/2023 1:01 PM EDT documented in this encounter Results * XR lumbar spine 6+ views including oblique flexion extension (06/15/2023 1:01 PM EDT) Anatomical Region Laterality Modality Spine, L-spine Radiographic Neeru ging 06/15/2023 1:01 PM EDT Impressions 06/15/2023 1:09 PM EDT OSTEOPENIA AND DEGENERATIVE CHANGES. ATHEROSCLEROTIC DISEASE AND DISTAL ABDOMINAL AORTA ANEURYSM. Impression dictated by: Sheri Fishman M.D.06/15/2023 1:06 PM Dictation Location: [facility]--12 Transcribed By: [facility] [place] 06/15/23 1306 Dictated By: Sheri Fishman MD 06/15/23 1301 Signed By: <Electronically signed by MD Sheri Fishman in OV> 06/15/23 1306 Narrative 06/15/2023 1:09 PM EDT [facility] [place] [address] XRay Report Signed Patient: Maynor Samuels MR#: [id number] : 1945 Acct:[id number] Age/Sex: 78 / M ADM Date: 06/15/23 Loc: XD Room: Type: [facility] Attending Dr: Jeferson Estrada MD Copies to: Jeferson Estrada MD Ordering Provider: Jeferson Estrada MD Date of Service: 06/15/23 XR/XR lumbar spine 6V w bending: M48.062 LUMBAR SPINE COMPLETE WITH FLEXION AND EXTENSION VIEWS - 8 views: CLINICAL HISTORY: Chronic low back pain radiating to the hips and down the legs where there is weakness and numbness. COMPARISON: CT 11/15/2016 AP, lateral (neutral, flexion and extension), both oblique and AP and lateral coned-down views of the lumbosacral junction were obtained. There is osteopenia. There is no evidence of fracture. Alignment is maintained on the lateral views. No instability is seen. Mild posterior disc space narrowing is seen at L3-4. There is also mild to moderate disc space narrowing at L4-5 and the lumbosacral junction. Mild endplate spurring is present. There is minimal lower lumbar facet hypertrophy. No pars defect is identified. The sacroiliac joints are maintained. There are no paraspinal soft tissue abnormalities. There is atherosclerotic plaque at the abdominal aorta and iliac arteries. There is continued mild interstitial dilatation at the aorta distally with potential diameter of 3.5 cm. XR/XR lumbar spine 6V w bending Procedure Note Radiology, Radiologist, - 06/15/2023 [facility] [place] [address] [address] XRay Report Signed Patient: Maynor Samuels LMR#: [id number] : 7Acct:[id number] Age/Sex: 78 / MADM Date: 06/15/23 Loc: XD Room:Type: [facility] Attending Dr: Jeferson Estrada MD Copies to: Jeferson Estrada MD Ordering Provider: Jeferson Estrada MD Date of Service: 06/15/23 XR/XR lumbar spine 6V w bending: M48.062 LUMBAR SPINE COMPLETE WITH FLEXION AND EXTENSION VIEWS - 8 views: CLINICAL HISTORY: Chronic low back pain radiating to the hips and downthe legs where there is weakness and numbness. COMPARISON: CT 11/15/2016 AP, lateral (neutral, flexion and extension), both oblique and AP andlateral coned-down views of the lumbosacral junction were obtained. There is osteopenia. There is noevidence of fracture. Alignment is maintained on the lateral views. No instability is seen. Mildposterior disc space narrowing is seen at L3-4. There is also mild to moderate disc spacenarrowing at L4-5 and the lumbosacral junction. Mild endplate spurring is present. There is minimallower lumbar facet hypertrophy. No pars defect is identified. The sacroiliac joints aremaintained. There are no paraspinal soft tissue abnormalities. There is atherosclerotic plaque atthe abdominal aorta and iliac arteries. There is continued mild interstitial dilatation at theaorta distally with potential diameter of 3.5 cm. XR/XR lumbar spine 6V w bending IMPRESSION: OSTEOPENIA AND DEGENERATIVE CHANGES. ATHEROSCLEROTIC DISEASE AND DISTAL ABDOMINAL AORTA ANEURYSM. Impression dictated by: Sheri Fishman M.D.06/15/2023 1:06 PM Dictation Location: [place] [address] Transcribed By: [facility] [place] 06/15/23 1306 Dictated By: Sheri Fsihman MD 06/15/23 1301 Signed By: <Electronically signed by MD Sheri Fishman in OV> 06/15/23 1306 us Jeferson Estrada MD IMG XR PROCEDURES Final Result documented in this encounter Visit Diagnoses Not on filedocumented in this encounter Additional Health Concerns Assessment Noted Time PHQ-9 Depression Total Score: 0 09/29/19 12:00 PM EDT documented as of this encounter Care Teams Fruit Harvest Machine Operator Relationship Specialty Start Date End Date Jeferson Estrada MD [address] [place] [address] PCP - ACO Reach 07/13/22 Jeferson Estrada MD [address] [place] [address] PCP - General Family Medicine 08/09/22 Leonie Mcginnis NP [address] [place] [address] Nurse Practitioner Family Medicine 09/18/22 05/08/24 Edwige Arana NP [address] [place] [address] Nurse Practitioner Pulmonary Disease 09/18/22 10/23/24 Jake Hall LPN Licensed Practical Nurse Family Medicine 07/20/2307/23/23 Gera Escobar MA [address] [place] [address] Family Medicine 07/01/24 07/09/24 Edwige Arana NP [address] [place] [address] Nurse Practitioner Family Medicine 10/24/24 documented as of this encounter
--- OUTSIDE RECORDS SUMMARY | 2024-11-13 11:56 | XMS_ITS | Encounter Summary ---
Author Organization [facility] Address [address] [place] [address] Care Team Providers Care Family Worker Name Role Phone Jeferson Estrada MD Unavailable [phone] Jeferson Estrada MD Primary Care Provider [phone] Leonie Mcginnis NP Unavailable Edwige Arana NP Unavailable Jake Hall LPN Unavailable Unavailable Gera Escobar MA Unavailable [phone] Edwige Arana NP Unavailable [phone] Encounter Details Date Type Department Care Team (Late st Contact Info) Description 07/08/2023 Orders Only [facility] [address] [place] [address] Jeferson Estrada MD [address] [place] [address] Social History Tobacco Use Types Packs/Day Years [...] 1:10 PM EST Office Visit [facility] [address] [place] [address] Jan Ghosh DPM [address] [address] 02/03/2025 2:00 PM EST Office Visit [facility] [address] [place] [address] Jeferson Estrada MD [address] [place] [address] 05/29/2025 1:00 PM EDT Office Visit [facility] [address] [place] [address] Jl Grajeda DO [address] [place] [address] documented as of this encounter Procedures Procedure Name Priority Date/Time Associated Diagnosis Comments ESOPHAGOSCOPY Routine 07/06/2023 8:27 PM EDT documented in this encounter Results * Esophagoscopy (07/06/2023 8:27 PM EDT) Anatomical Region Laterality Modality Endoscopy Jeferson Estrada MD ENDOSCOPY PROCEDURE ORDERABLES Final Result documented in this encounter Visit Diagnoses Not on filedocumented in this encounter Additional Health Concerns Assessment Noted Time PHQ-9 Depression Total Score: 0 09/29/19 12:00 PM EDT documented as of this encounter Care Teams Family Worker Relationship Specialty Start Date End Date Jeferson Estrada MD [address] [place] [address] PCP - ACO Reach 07/13/22 Jeferson Estrada MD [address] [place] [address] PCP - General Family Medicine 08/09/22 Leonie Mcginnis NP [address] [place] [address] Nurse Practitioner Family Medicine 09/18/22 05/08/24 Edwige Arana NP [address] [place] [address] Nurse Practitioner Pulmonary Disease 09/18/22 10/23/24 Jake Hall LPN Licensed Practical Nurse Family Medicine 07/20/2307/23/23 Gera Escobar, HEATH [address] [place] [address] Family Medicine 07/01/24 07/09/24 Edwige Arana NP [address] [place] [address] Nurse Practitioner Family Medicine 10/24/24 documented as of this encounter
--- OUTSIDE RECORDS SUMMARY | 2024-11-13 11:56 | XMS_ITS | Encounter Summary ---
Author Organization [facility] Address [address] [facility] [place] [address] Care Team Providers Care Fabric Cutter Name Role Phone Jeferson Estrada MD Unavailable [phone] Jeferson Estrada MD Primary Care Provider Leoine Mcginnis NP Unavailable Edwige Arana NP Unavailable Gera Escobar MA Unavailable [phone] Edwige Arana NP Unavailable Encounter Details Date Type Department Care Team (Late st Contact Info) Description 02/26/2024 Abstract [facility] [address] [place] [address] Jeferson Estrada MD [address] [place] [address] Social History Tobacco Use Types [...] EST Office Visit [facility] [address] [place] [address] Jan Ghosh DPM [address] [address] 02/03/2025 2:00 PM EST Office Visit [facility] [address] [place] [address] Jeferson Estrada MD [address] [place] [address] 05/29/2025 1:00 PM EDT Office Visit [facility] [address] [place] [address] Jl Grajeda DO [address] [place] [address] documented as of this encounter Visit Diagnoses Not on filedocumented in this encounter Additional Health Concerns Assessment Noted Time PHQ-9 Depression Total Score: 2 10/09/19 1:18 PM EDT documented as of this encounter Care Teams Fabric Cutter Relationship Specialty Start Date End Date Jeferson Estrada MD [address] [place] [address] PCP - ACO Reach 07/13/22 Jeferson Estrada MD [address] [place] [address] PCP - General Family Medicine 08/09/22 Leonie Mcginnis NP [address] [place] [address] Nurse Practitioner Family Medicine 09/18/22 05/08/24 Edwige Arana NP [address] [place] [address] Nurse Practitioner Pulmonary Disease 09/18/22 10/23/24 Gera Escobar, [place] [address] [place] [address] Family Medicine 07/01/24 07/09/24 Edwige Arana NP [address] [place] [address] Nurse Practitioner Family Medicine 10/24/24 documented as of this encounter
--- OUTSIDE RECORDS SUMMARY | 2024-11-13 11:56 | XMS_ITS | Encounter Summary ---
Author Organization [facility] Address [address] [place] [address] Phone Care Team Providers Care Planer Chain Offbearer Name Role Phone Jeferson Estrada MD Primary Care Provider [phone] Encounter Details Date Type Department Care Team (Latest Contact Info) Description 10/30/2024 Travel Social History Tobacco Use Types Packs/Day Years [...] as of this encounter Functional Status * BP Answer Date of Assessment Author 146/70 10/30/2024 9:34 AM EDT Lori Willson LPN * Pulse Answer Date of Assessment Author 88 10/30/2024 9:30 AM EDT Lori Willson LPN * Communicable Disease Screening Question Answer Date of Assessment Author Do you have any of the follo wing new or worsening symptoms? None of these 10/30/2024 9:05 AM EDT CageGuille charmaine documented as of this encounter Plan of Treatment Upcoming Encounters Date Type Department Care Team (Late st Contact Info) Description 12/09/2024 9:30 AM EDT Office Visit [facility] [address] [facility] [address] [place] [address] Erika Mayes MD [address] [facility] [address] [place] [address] 03/31/2025 11:10 AM EST Office Visit [facility] [address] [facility] [address] [place] [address] Erika Mayes MD [address] [facility] [address] [place], [place] [address] documented as of this encounter Visit Diagnoses Not on filedocumented in this encounter Additional Health Concerns Assessment Noted Time A fall risk assessment has been complete d for the patient 08/15/2024 1:06 PM EDT documented as of this encounter Care Teams Planer Chain Offbearer Relationship Specialty Start Date End Date Jeferson Estrada MD [address] [place] [address] PCP - General 12/30/13 documented as of this encounter
--- OUTSIDE RECORDS SUMMARY | 2024-11-13 11:56 | XMS_ITS | Encounter Summary ---
Author Organization [facility] Address [address] [place] [address] Care Team Providers Care Buffing Machine Operator Semiautomatic Name Role Phone Jfeerson Estrada MD Unavailable [phone] Jeferson Estrada MD Primary Care Provider [phone] Edwige Arana PROTOTYPE SPECIAL BUILD Unavailable Encounter Details Date Type Department Care Team (Late Contact Info) Description 11/03/2024 Orders Only [facility] [address] [place] [address] Jeferson Estrada MD [address] [place] [address] Social History Tobacco Use Types Packs/Day Years [...] 12/26/2024 1:10 PM EST Office Visit [facility] [address] [facility] [place] [address] Jan Ghosh DPM [address] [facility] [address] [place] [address] 02/03/2025 2:00 PM EST Office Visit [facility] [address] [place] [address] Jeferson Estrada MD [address] [place] [address] 05/29/2025 1:00 PM EDT Office Visit [facility] [address] [place] [address] Jl Grajeda DO [address] [place] [address] documented as of this encounter Procedures Procedure Name Priority Date/Time Associated Diagnosis Comments DIABETIC RETINOPATHY SCREENING - OU - BOTH EYES Routine 10/29/2024 11:34 AM EDT documented in this encounter Results * Diabetic Retinopathy Screening - OU - Both Eyes (10/29/2024 11:34 AM EDT) Anatomical Region Laterality Modality Head Other Jeferson Estrada MD OPHTH PHOTOGRAPHY Final Result documented in this encounter Visit Diagnoses Not on filedocumented in this encounter Additional Health Concerns Assessment Noted Time PHQ-9 Depression Total Score: 6 10/29/19 25 1:00 PM EDT documented as of this encounter Care Teams Buffing Machine Operator Semiautomatic Relationship Specialty Start Date End Date Jeferson Estrada MD [address] [place] [address] PCP - ACO Reach 07/13/22 Jeferson Estrada MD [address] [place] [address] PCP - General Family Medicine 08/09/22 Edwige Arana NP [address] [place] [address] Nurse Practitioner Family Medicine 10/24/24 documented as of this encounter
--- OUTSIDE RECORDS SUMMARY | 2024-11-13 11:56 | XMS_ITS | Encounter Summary ---
Author Organization [facility] Address [address] [place] [address] Care Team Providers Care Maple Products Maker Name Role Phone Jeferson Estrada MD Unavailable [phone] Jeferson Estrada MD Primary Care Provider Leonie Mcginnis NP Unavailable Edwige Arana NP Unavailable Gera Escobar MA Unavailable [phone] Edwige Arana NP Unavailable Encounter Details Date Type Department Care Team (Late st Contact Info) Description 10/09/2023 Abstract [facility] [address] [place] [address] Leonie Mcginnis PORTABLE ROUTER OPERATOR [address] [facility] [address] [place] [address] Social History Tobacco Use Types Packs/Day Years [...] Date Recorded Patient Health Questionnaire-2 Score 0 10/09/2023 Sex and Gender Information Value Date Recorded [...] pleasure in doing things Not at all 10/09/2023 1:18 PM EDT Mansi Arenas MA Feeling down, depressed, or hopeless Not at all 10/09/2023 1:18 PM EDT Mansi Arenas MA Patient Health Questionnaire -2 Score 0 10/09/2023 1:18 PM EDT Mansi Arenas MA * Question Answer Date of Assessment Author Trouble falling or staying asleep, or sleeping too much Not at all 10/09/2023 1:18 PM EDT Mansi Arenas MA Feeling tired or having little energy More than half the days 10/09/2023 1:18 PM EDT Mansi Arenas MA Poor appetite or overeating Not at all 10/09/2023 1:18 PM EDT Mansi Arenas MA Feeling bad about yourself - or that you are a failure or have let yourself or your family down Not at all 10/09/2023 1:18 PM EDT Mansi Arenas MA Trouble concentrating on things, such as reading the newspaper or watching television Not at all 10/09/2023 1:18 PM EDT Mansi Arenas MA Moving or speaking so slowly that other people could have noticed? Or the opposite - being so fidgety or restless that you have been moving around a lot more than usual. Not at all 10/09/2023 1:18 PM EDT Mansi Arenas MA Thoughts that you would be better off or hurting yourself in some way Not at all 10/09/2023 1:18 PM EDT Mansi Arenas MA Patient Health Questionnaire-9 Score 2 10/09/2023 1:18 PM EDT Mansi Arenas M A documented as of this encounter Plan of Treatment Upcoming Encounters Date Type Department Care Team (Late st Contact Info) Description 12/26/2024 1:10 PM EST Office Visit [facility] [address] [place] [address] Jan Ghosh DPM [address] [address] 02/03/2025 2:00 PM EST Office Visit [facility] [address] [place] [address] Jeferson Estrada MD [address] [place] [address] 05/29/2025 1:00 PM EDT Office Visit [facility] [address] [place] [address] Jl Grajeda DO [address] [place] [address] documented as of this encounter Visit Diagnoses Not on filedocumented in this encounter Additional Health Concerns Assessment Noted Time PHQ-9 Depression Total Score: 2 10/09/19 24 1:18 PM EDT documented as of this encounter Care Teams Maple Products Maker Relationship Specialty Start Date End Date Jeferson Estrada MD [address] [place] [address] PCP - ACO Reach 07/13/22 Jeferson Estrada MD [address] [place] [address] PCP - General Family Medicine 08/09/22 Leonie Mcginnis NP [address] [place] [address] Nurse Practitioner Family Medicine 09/18/22 05/08/24 Edwige Arana NP [address] [place] [address] Nurse Practitioner Pulmonary Disease 09/18/22 10/23/24 Gera Escobar, [place] [address] [place] [address] Family Medicine 07/01/24 07/09/24 Edwige Arana NP [address] [place] [address] Nurse Practitioner Family Medicine 10/24/24 documented as of this encounter
--- OUTSIDE RECORDS SUMMARY | 2024-11-13 11:57 | XMS_ITS | Encounter Summary ---
Author Organization [facility] Address [address] [place] [address] Care Team Providers Care Atomic Physics Teacher Name Role Phone Jeferson Estrada MD Unavailable [phone] Jeferson Estrada MD Primary Care Provider Leonie Mcginnis NP Unavailable Edwige Arana SMOOTH STUCCO RESURFACER Unavailable [phone] Gera Escobar MA Unavailable [phone] Edwige Arana SMOOTH STUCCO RESURFACER Unavailable Reason for Visit * Reason Comments Med Refill Encounter Details Date Type Department Care Team (Late Contact Info) Description 04/21/2024 Refill [facility] [address] [place] [address] Jl Grajeda, [address] [place] [address] Postoperative hypothyroidism Social History Tobacco Use Types Packs/Day Years [...] encounter Miscellaneous Notes * Telephone Encounter - Maria Del Carmen Lancaster - 05/20/2024 4:17 PM EDT Per labs - increase to 125mcg. Sent to Pharmacy and we will check labs in 6 weeks. Will mail order to patient. Spoke with patient. * Telephone Encounter - Maria Del Carmen [place] - 04/29/2024 1:11 PM EDT Waiting on appt and labs scheduled 05/16 documented in this encounter Plan of Treatment Upcoming Encounters Date Type Department Care Team (Late st Contact Info) Description 12/26/2024 1:10 PM EST Office Visit [facility] [address] [place] [address] Jan Ghosh DPM [address] [address] 02/03/2025 2:00 PM EST Office Visit [facility] [address] [place] [address] Jeferson Estrada MD [address] [place] [address] 05/29/2025 1:00 PM EDT Office Visit [facility] [address] [place] [address] Jl Grajeda DO [address] [place] [address] documented as of this encounter Visit Diagnoses Diagnosis Postoperative hypothyroidism Postsurgical hypothyroidism documented in this encounter Additional Health Concerns Assessment Noted Time PHQ-9 Depression Total Score: 2 10/09/19 24 1:18 PM EDT documented as of this encounter Care Teams Atomic Physics Teacher Relationship Specialty Start Date End Date Jeferson Estrada MD [address] [place] [id number] PCP - ACO Reach 07/13/22 Jeferson Estrada MD [address] [place] [address] PCP - General Family Medicine 08/09/22 Leonie Mcginnis NP [address] [place] [phone] Nurse Practitioner Family Medicine 09/18/22 05/08/24 Edwige Arana NP [address] [place] [address] Nurse Practitioner Pulmonary Disease 09/18/22 10/23/24 Gera Escobar MA [address] [place] [address] Family Medicine 07/01/24 07/09/24 Ediwge Arana NP [address] [place] [address] Nurse Practitioner Family Medicine 10/24/24 documented as of this encounter
--- OUTSIDE RECORDS SUMMARY | 2024-11-13 11:57 | XMS_ITS | Encounter Summary ---
Author Organization [facility] Address [address] [facility] [place] [address] Care Team Providers Care Morale Officer Name Role Phone Jeferson Estrada MD Unavailable [phone] Jeferson Estrada MD Primary Care Provider [phone] Leonie Mcginnis NP Unavailable Edwige Arana MUSIC CATALOGUER Unavailable Jake Hall LPN Unavailable Unavailable Gera Escobar MA Unavailable [phone] Edwige Arana MUSIC CATALOGUER Unavailable Encounter Details Date Type Department Care Team (Late st Contact Info) Description 09/19/2022 Orders Only [facility] [address] [place] [address] [place] [phone] Qiana Agustin, MUSIC CATALOGUER [address] [place] [address] Social History Tobacco Use Types Packs/Day Years Used Date Smoking Tobacco: Former Cigarettes Smokeless Tobacco: Never Alcohol Use Standard Drinks/Week Comments Never 0 (1 standard drink = 0.6 oz pur e alcohol) PHQ-2 Answer Date Recorded Patient Health Questionnaire-2 Score 0 09/21/2022 Sex and Gender Information Value Date Recorded [...] pleasure in doing things Not at all 09/21/2022 1:18 PM EDT Leah Stanley LPN Feeling down, depressed, or hopeless Not at all 09/21/2022 1:18 PM EDT Leah Stanley LPN Patient Health Questionnaire-2 Score 0 09/21/2022 1:18 PM EDT Singh Stanley LPN documented as of this encounter Plan of Treatment Upcoming Encounters Date Type Department Care Team (Late st Contact Info) Description 12/26/2024 1:10 PM EST Office Visit [facility] [address] [place] [address] Jan Ghosh DPM [address] [address] 02/03/2025 2:00 PM EST Office Visit [facility] [address] [place] [address] Jeferson Estrada MD [address] [place] [address] 05/29/2025 1:00 PM EDT Office Visit [facility] [address] [address] Jl Grajeda DO [address] [place] [address] documented as of this encounter Visit Diagnoses Not on filedocumented in this encounter Care Teams Morale Officer Relationship Specialty Start Date End Date Jeferson Estrada MD [address] [place] [address] PCP - ACO Reach 07/13/22 Jeferson Estrada MD [address] [place] [address] PCP - General Family Medicine 08/09/22 Leonie Mcginnis NP [address] [place] [address] Nurse Practitioner Family Medicine 09/18/22 05/08/24 Edwige Arana NP [address] [place] [place] [address] Nurse Practitioner Pulmonary Disease 09/18/22 10/23/24 Jake Hall LPN Licensed Practical Nurse Family Medicine 07/20/2307/23/23 Gera Escobar AL [address] [place] [address] Family Medicine 07/01/24 07/09/24 Edwige Arana NP [address] [place] [address] Nurse Practitioner Family Medicine 10/24/24 documented as of this encounter
--- OUTSIDE RECORDS SUMMARY | 2024-11-13 11:57 | XMS_ITS | Encounter Summary ---
Author Organization [facility] Address [address] [place] [address] Care Team Providers Care Cycle Analyst Name Role Phone Jeferson Estrada MD Unavailable [phone] Jeferson Estrada MD Primary Care Provider Leonie Mcginnis NP Unavailable Edwige Arana NP Unavailable Jake Hall LPN Unavailable Unavailable Gera Escobar MA Unavailable [phone] Edwige Arana NP Unavailable Encounter Details Date Type Department Care Team (Late st Contact Info) Description 10/17/2022 [facility] [address] [place] [address] [place] [address] [place] [address] Social History Tobacco Use Types Packs/Day Years Used Date Smoking Tobacco: Former Cigarettes Smokeless Tobacco: Never Alcohol Use Standard Drinks/Week Comments Never 0 (1 standard drink = 0.6 oz pur e alcohol) AUDIT-C Answer Date Recorded Q1: How often do you have a drink containing alcohol? Never 09/28/2022 Q2: How many drinks containi ng alcohol do you have on a typical day when you are drinking? Patient does not drink Q3: How often do you have si x or more drinks on one occasion? Never 09/28/2022 PHQ-2 Answer Date Recorded Patient Health Questionnaire-2 Score 0 09/28/2022 Sex and Gender Information Value Date Recorded Sex Assigned at Not on file Legal Sex Male 7:12 PM EDT Gender Identity Not on file Sexual Orientation Not on file documented as of this encounter Plan of Treatment Upcoming Encounters Date Type Department Care Team ([facility] st Contact Info) Description 12/26/2024 1:10 PM EST Office Visit [facility] [address] [place] [address] Jan Ghosh DPM [address] [address] 02/03/2025 2:00 PM EST Office Visit [facility] [address] [place] [address] Jeferson Estrada MD [address] [place] [address] 05/29/2025 1:00 PM EDT Office Visit [facility] [address] [place] [address] Jl Grajeda DO [address] [place] [address] documented as of this encounter Procedures Procedure Name Priority Date/Time Associated Diagnosis Comments US DOPPLER ABDOMEN COMPLE Routine 10/13/2022 9:22 AM EDT documented in this encounter Results * US DOPPLER ABDOMEN COMPLE (10/13/2022 9:22 AM EDT) Anatomical Region Laterality Modality Radiographic Neeru ging us Sugey Bundy MD IMG XR PROCEDURES Final Result documented in this encounter Visit Diagnoses Not on filedocumented in this encounter Additional Health Concerns Assessment Noted Time PHQ-9 Depression Total Score: 0 09/29/19 12:00 PM EDT documented as of this encounter Care Teams Cycle Analyst Relationship Specialty Start Date End Date Jeferson Estrada MD [address] [place] [address] PCP - ACO Reach 07/13/22 Jeferson Estrada MD [address] [place] [address] PCP - General Family Medicine 08/09/22 Leonie Mcginnis NP [address] [place] [address] Nurse Practitioner Family Medicine 09/18/22 05/08/24 Edwige Arana FOOT SETTER [address] [place] [address] Nurse Practitioner Pulmonary Disease 09/18/22 10/23/24 Jake Hall LPN Licensed Practical Nurse Family Medicine 07/20/2307/23/23 Gera Escobar MA [address] [place] [address] Family Medicine 07/01/24 07/09/24 Edwige Arana FOOT SETTER [address] [place] [address] Nurse Practitioner Family Medicine 10/24/24 documented as of this encounter
--- OUTSIDE RECORDS SUMMARY | 2024-11-13 11:57 | XMS_ITS | Encounter Summary ---
Author Organization [facility] Address [address] [facility] [place] [address] Care Team Providers Care Top Former Name Role Phone Jeferson Estrada MD Unavailable [phone] Jeferson Estrada MD Primary Care Provider Leonie Mcginnis NP Unavailable Edwige Arana NP Unavailable [phone] Jake Hall LPN Unavailable Unavailable Gera Escobar MA Unavailable [phone] Edwige Arana NP Unavailable Encounter Details Date Type Department Care Team (Late st Contact Info) Description 12/05/2022 [facility] [address] [place] [address] Jeferson Estrada MD [address] [place] [address] Social History Tobacco Use Types Packs/Day Years [...] Office Visit [facility] [address] [place] [address] Jan Ghosh DPM [address] [address] 02/03/2025 2:00 PM EST Office Visit [facility] [address] [place] [address] Jeferson Estrada MD [address] [place] [address] 05/29/2025 1:00 PM EDT Office Visit [facility] [address] [place] [address] Jl Grajeda DO [address] [place] [address] documented as of this encounter Visit Diagnoses Not on filedocumented in this encounter Additional Health Concerns Assessment Noted Time PHQ-9 Depression Total Score: 0 09/29/19 12:00 PM EDT documented as of this encounter Care Teams Top Former Relationship Specialty Start Date End Date Jeferson Estrada MD [address] [place] [address] PCP - ACO Reach 07/13/22 Jeferson Estrada MD [address] [place] [address] PCP - General Family Medicine 08/09/22 Leonie Mcginnis NP [address] [place] [address] Nurse Practitioner Family Medicine 09/18/22 05/08/24 Edwige rAana NP [address] [place] [address] Nurse Practitioner Pulmonary Disease 09/18/22 10/23/24 Jake Hall LPN Licensed Practical Nurse Family Medicine 07/20/2307/23/23 Gera Escobar, [place] [address] [place] [address] Family Medicine 07/01/24 07/09/24 Edwige Arana COMB FIXER [address] [place] [address] Nurse Practitioner Family Medicine 10/24/24 documented as of this encounter
--- OUTSIDE RECORDS SUMMARY | 2024-11-13 11:57 | XMS_ITS | Encounter Summary ---
Author Organization [facility] Address [address] [place] [address] Care Team Providers Care Operations Technician Name Role Phone Jeferson Estrada MD Unavailable [phone] Jeferson Estrada MD Primary Care Provider [phone] Leonie Mcginnis NP Unavailable Edwige Arana NP Unavailable Gera Escobar MA Unavailable [phone] Edwige Arana NP Unavailable Encounter Details Date Type Department Care Team (Late st Contact Info) Description 03/06/2024 Abstract [facility] [address] [place] [address] Jeferson Estrada MD [address] [place] [address] Social History Tobacco Use Types [...] EST Office Visit [facility] [address] [place] [address] Jan Ghosh DPM [address] [address] 02/03/2025 2:00 PM EST Office Visit [facility] [address] [place] [address] Jeferson Estrada MD [address] [place] [address] 05/29/2025 1:00 PM EDT Office Visit [facility] [address] [place] [address] Jl Grajeda DO [address] [place] [address] documented as of this encounter Visit Diagnoses Not on filedocumented in this encounter Additional Health Concerns Assessment Noted Time PHQ-9 Depression Total Score: 2 10/09/19 1:18 PM EDT documented as of this encounter Care Teams Operations Technician Relationship Specialty Start Date End Date Jeferson Estrada MD [address] [place] [address] PCP - ACO Reach 07/13/22 Jeferson Estrada MD [address] [place] [address] PCP - General Family Medicine 08/09/22 Leonie Mcginnis NP [address] [place] [address] Nurse Practitioner Family Medicine 09/18/22 05/08/24 Edwige Arana NP [address] [place] [address] Nurse Practitioner Pulmonary Disease 09/18/22 10/23/24 Gera Escobar, [place] [address] [place] [address] Family Medicine 07/01/24 07/09/24 Edwige Arana NP [address] [place] [address] Nurse Practitioner Family Medicine 10/24/24 documented as of this encounter
--- OUTSIDE RECORDS SUMMARY | 2024-11-13 11:57 | XMS_ITS | Clinical Summary ---
Author Organization [facility] Address [address] [facility] [place] [address] Care Team Providers Care Gate Supervisor Name Role Phone Silviano Gonzalez MD Primary Care Provider [phone] Source Comments The following information is NOT included in Care Everywhere downloads:Psychiatric notes, ECG results, Cardiac Rehab notes, Pulmonary Function notes, data from [employer] (includes but not limited toPregnancy data,audiograms, eye exams, pre-surgical evaluation notes, well-child exam data).[facility] Allergies Active Allergy Reactions Criticality Noted Date Comments Dust Blurred Vision 12/17/2008 Dust mites. Runny eyes, nasal drainage. Takes weekly allergy shots Medications TYLENOL PM EXTRA STRENGTH ORAL Take by mouth as needed. Active AMBIEN CR 12.5 MG TBCR Take 12.5 mg by mouth at bedtime as needed for Sleep. Active ASPIRIN 81 MG tablet Take 81 mg by mouth daily. Active NITROSTAT SUBLINGUAL 0.4 mg by Sublingual route as needed. Active CO-ENZYME Q-10 100 MG CAPS Take by mouth daily. Active OMEPRAZOLE 20 MG TBEC Take by mouth daily. Active SYNTHROID 175 MCG TABSIndications: Malignant neoplasm of thyroid gland (HCC),Secondary and unspecified malignant neoplasm of lymph nodes of head, face, and neck Take 175 mcg by mouth daily. Active LISINOPRIL 10 MG tablet Take 10 mg by mouth daily. Active PLAVIX 75 MG TABS Take 75 mg by mouth daily. Active CRESTOR 10 MG TABS Take 10 mg by mouth daily. Active ACTOS 45 MG TABS Take 45 mg by mouth daily. Active METFORMIN 1000 MG tablet Take 1,000 mg by mouth 2 times daily (with meals). Active ONGLYZA 5 MG TABS Take by mouth daily. Active TRILIPIX 135 MG CPDR Take by mouth daily. Active Social History Tobacco Use Types Packs/Day Years Used Date Smoking Tobacco: Never Assessed Sex and Gender Information Value Date Recorded Sex Assigned at Not on file Legal Sex Male 12:55 PM EST Gender Identity Not on file Sexual Orientation Not on file Last Filed Vital Signs Vital Sign Reading Time Taken Comments Blood Pressure 159/75 12/17/2008 10:43 AM EDT Pulse 74 12/17/2008 10:43 AM EDT Temperature 35.8 C (96.5 F) 12/17/2008 10:43 AM EDT Respiratory Rate 18 12/17/2008 10:43 AM EDT Oxygen Saturation - - Inhaled Oxygen Concentration - - Weight 81.6 kg (180 lb) 12/17/2008 10:43 AM EDT Height 177.8 cm (5' 10 ) 12/17/2008 10:43 AM EDT Body Mass Index 25.83 12/17/2008 10:43 AM EDT Plan of Treatment Health Maintenance Due Date Last Done Comments Hepatitis C Antibody 1964 Tdap Booster 1964 Hepatitis A (HAV) Vaccine (optional start 19+ years) 0 1965 Tetanus (Td or Tdap) Booster 1965 Pneumococcal Vaccine(s) (50+ yrs) (1 of 1 - PCV) 05/03 Shingles (RZV) Vaccine (1 of 2) 1996 Hepatitis B (HBV) Vaccine (optional start 60+ years) 0 2006 RSV vaccine (adult) (1 - 1-dose 75+ series) 2021 COVID-19 Vaccine ( - 2023- season) 2024 Influenza Vaccine (#1) 2024 Insurance [employer] - HMO/PPO/POS Member Subscriber Plan / Payer (Ef fective 2008-Present) Name:Maynor Samuels Relation to Subscriber:Self Name:Maynor Samuels Payer ID:Not on file Type:PPO Address: [address] [place] [id number] Care Teams Gate Supervisor Relationship Specialty Start Date End Date Silviano Gonzalez MD PCP - General 12/10/08
--- OUTSIDE RECORDS SUMMARY | 2024-11-13 11:57 | XMS_ITS | Encounter Summary ---
Author Organization [facility] Address [address] [facility] [place] [address] Care Team Providers Care Scheduling Clerk Name Role Phone Jeferson Estrada MD Unavailable [phone] Jeferson Estrada MD Primary Care Provider [phone] Leonie Mcginnis NP Unavailable Edwige Arana NP Unavailable [phone] Jake Hall LPN Unavailable Unavailable Gera Escobar MA Unavailable [phone] Edwige Arana NP Unavailable Encounter Details Date Type Department Care Team (Late st Contact Info) Description 12/12/2022 Abstract [facility] [address] [place] [address] Jeferson Estrada MD [address] [place] [address] Social History Tobacco Use Types Packs/Day Years Used Date Smoking Tobacco: Former Cigarettes Q uit: 1985 Smokeless Tobacco: Never Alcohol Use Standard Drinks/Week [...] as of this encounter Functional Status * Audit-C Score Answer Date of Assessment Author 0 12/12/2022 1:22 PM EDT Lupe Mcgregor MA * Question Answer Date of Assessment Author Q1: How often do you have a drink containing alcohol? Never 12/12/2022 1:22 PM EDT Lupe Mcgregor MA Q2: How many drinks containing alcohol do you have on a typical day when you are drinking? Patient does not drink 12/12/2022 1:22 PM EDT Lupe Mcgregor MA Q3: How often do you have six or more drinks on one occasion? Never 12/12/2022 1:22 PM EDT Lupe Mcgregor MA documented as of this encounter Plan of Treatment Upcoming Encounters Date Type Department Care Team (Late st Contact Info) Description 12/26/2024 1:10 PM EST Office Visit [facility] [address] [place] [address] Jan Ghosh DPM [address] [address] 02/03/2025 2:00 PM EST Office Visit [facility] [address] [place] [address] Jeferson Estrada MD [address] [place] [address] 05/29/2025 1:00 PM EDT Office Visit [facility] [address] [place] [address] Jl Grajeda DO [address] [place] [address] documented as of this encounter Visit Diagnoses Not on filedocumented in this encounter Additional Health Concerns Assessment Noted Time PHQ-9 Depression Total Score: 0 09/29/19 12:00 PM EDT documented as of this encounter Care Teams Scheduling Clerk Relationship Specialty Start Date End Date Jeferson Estrada MD [address] [place] [address] PCP - ACO Reach 07/13/22 Jeferson Estrada MD [address] [place] [address] PCP - General Family Medicine 08/09/22 Leonie Mcginnis NP [address] [place] [address] Nurse Practitioner Family Medicine 09/18/22 05/08/24 Edwige Arana NP [address] [place] [address] Nurse Practitioner Pulmonary Disease 09/18/22 10/23/24 Jake Hall LPN Licensed Practical Nurse Family Medicine 07/20/2307/23/23 Gera Escobar MA [address] [place] [address] Family Medicine 07/01/24 07/09/24 Edwige Arana NP [address] [place] [address] Nurse Practitioner Family Medicine 10/24/24 documented as of this encounter
--- OUTSIDE RECORDS SUMMARY | 2024-11-13 11:57 | XMS_ITS | Encounter Summary ---
Author Organization [facility] Address [address] [place] [address] Care Team Providers Care Helpdesk Manager Name Role Phone Jeferson Estrada MD Unavailable [phone] Jeferson Estrada MD Primary Care Provider Leonie Mcginnis NP Unavailable Edwige Arana NP Unavailable [phone] Jake Hall LPN Unavailable Unavailable Gera Escobar MA Unavailable [phone] Edwige Arana NP Unavailable Encounter Details Date Type Department Care Team (Late st Contact Info) Description 10/11/2022 Orders Only [facility] [address] [place] [address] Jeferson Estrada MD [address] [place] [address] Social History Tobacco Use Types [...] 1:10 PM EST Office Visit [facility] [address] [place] [address] Jan Ghosh DPM [address] [address] 02/03/2025 2:00 PM EST Office Visit [facility] [address] [place] [address] Jeferson Estrada MD [address] [place] [address] 05/29/2025 1:00 PM EDT [facility] [address] [place] [address] Jl Grajeda DO [address] [place] [address] documented as of this encounter Procedures Procedure Name Priority Date/Time Associated Diagnosis Comments DIABETIC RETINOPATHY SCREENING - OU - BOTH EYES Routine 10/11/2022 3:42 PM EDT documented in this encounter Results * (ABNORMAL) Diabetic Retinopathy Screening - OU - Both Eyes (10/11/2022 3:42 PM EDT) RESULTS Comment:stable proliferative diabetic retinopathy Anatomical Region Laterality Modality Head Other Jeferson Estrada MD OPHTH PHOTOGRAPHY Final Result documented in this encounter Visit Diagnoses Not on filedocumented in this encounter Additional Health Concerns Assessment Noted Time PHQ-9 Depression Total Score: 0 09/29/19 23 12:00 PM EDT documented as of this encounter Care Teams Helpdesk Manager Relationship Specialty Start Date End Date Jeferson Estrada MD [address] [place] [address] PCP - ACO Reach 07/13/22 Jeferson Estrada MD [address] [place] [address] PCP - General Family Medicine 08/09/22 Leonie Mcginnis NP [address] [place] [address] Nurse Practitioner Family Medicine 09/18/22 05/08/24 Edwige Arana NP [address] [place] [address] Nurse Practitioner Pulmonary Disease 09/18/22 10/23/24 Jake Hall LPN Licensed Practical Nurse Family Medicine 07/20/2307/23/23 Gera Escobar MA [address] [place] [address] Family Medicine 07/01/24 07/09/24 Edwige Arana NP [address] [place] [address] Nurse Practitioner Family Medicine 10/24/24 documented as of this encounter
--- NOTE | 2024-11-13 12:07 | ECG_ITS ---
[facility] Test Date: 2024-11-13 Pat Name: CLARY LIZAMA Department: Room: - Gender: Male Sales Porter: : 1945 Requested By: Order Number: [id number] [place] MD: DOROTHY DELACRUZ M.D. Measurements Intervals [place] Rate: 41 P: LA: QRS: 19 QRSD: 87 T: 49 QT: 486 QTc: 405 Interpretive Statements SINUS BRADYCARDIA WITH 2ND DEGREE AV BLOCK, MOBITZ TYPE I (WENCKEBACH) MINIMAL ST DEPRESSION [0.025+ mV ST DEPRESSION] Abnormal ECG No previous ECG available for comparison Electronically Signed On 11-14-2024 7:30:48 EDT by DOROTHY DELACRUZ M.D.
--- NOTE | 2024-11-13 12:08 | XR_ITS ---
The [address] [address] Patient Name: CLARY LIZAMA MRN: [facility]:[id number] date: 1945 Sex: M [facility] Current Patient Location: [facility] Accession/Order Number: [id number] Exam Date: 11/13/2024 13:25 Report Date: 11/13/2024 14:43 At the request of: TOAN DAWKINS MD Procedure: XR chest 2V Chest 2 views CLINICAL HISTORY: Preop exam COMPARISON: None FINDINGS: Heart normal in size. No lung consolidation pneumothorax pleural effusion or free air. XR/XR chest 2V IMPRESSION: NO ACUTE CARDIOPULMONARY ABNORMALITY. Impression dictated by: Alejandro Springer Jr., D.OSarah 11/13/2024 2:43 PM Dictation Location: [place] [address] Electronically authenticated by: [id number] Y Date: 11/13/2024 14:43
[2024-11-13 13:23] LABS: Hematocrit 36.9 % (42.0-54.0); Hemoglobin 11.5 g/dL (14.0-18.0); Immature Granulocytes Abs Auto 0.02 10^3/uL (0.00-0.03); Immature Granulocytes Pct Auto 0.3 % (0.0-0.5); Lymphocytes Absolute Auto 1.1 10^3/uL (1.2-3.8); Mean Corpuscular HGB Conc 31.2 g/dL (29.9-35.2); Mean Corpuscular Hemoglobin 29.6 pg (25.9-34.0); Mean Corpuscular Volume 95.1 fL (80.0-94.0); Platelet Count 217 10^3/uL (150-450); Red Blood Count 3.88 10^6/uL (4.70-6.10); White Blood Count 6.7 10^3/uL (4.0-11.0)
--- NOTE | 2024-11-13 13:30 | PM.PRESUREVA ---
History of Present Illness History of Present Illness Chief complaint: Bladder Tumors/Lesions Narrative: Patient presents for presurgical testing. The patient states he has a history of bladder cancer and had a cystoscopy and is now scheduled for a TURBT. The patient states he has intermittent hematuria and he does take Plavix. He denies dysuria, abdominal pain, fever, difficulty with urination, or any other complaints. Review of Systems ROS Narrative REVIEW OF SYSTEMS: Negative except as stated in HPI, ten or more systems reviewed. Constitutional: No fever, chills, weakness ENT: No sore throat or epistaxis Cardiovascular: No edema, chest pain, or palpitations; admits to dyspnea on exertion. Respiratory: No cough or wheezing Musculoskeletal: No joint pain or swelling Gastrointestinal: No abdominal pain, constipation, diarrhea, or vomiting Genitourinary: No dysuria Neurological: No tingling, weakness, or headache Psychiatric: No mood changes [facility] Medical History (Updated 11/13/24 @ 13:04 by Kathy Russell NP) Renal disease ?N28.9 - Disorder of kidney and ureter, unspecified (ICD-10) Back pain ?M54.9 - Dorsalgia, unspecified (ICD-10) Neuropathy ?G62.9 - Polyneuropathy, unspecified (ICD-10) Brain aneurysm ?I67.1 - Cerebral aneurysm, nonruptured (ICD-10) Abdominal aortic aneurysm (AAA) ?I71.40 - Abdominal aortic aneurysm, without rupture, unspecified (ICD-10) 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 without hematuria (ICD-10) Thyroid cancer ?C73 - Malignant neoplasm of thyroid gland (ICD-10) Urethral stricture ?N35.919 - Unspecified urethral stricture, male, unspecified site (ICD-10) Renal cyst ?N28.1 - Cyst of kidney, acquired (ICD-10) Hyperparathyroidism ?E21.3 - Hyperparathyroidism, unspecified (ICD-10) Peripheral vascular disease ?I73.9 - Peripheral vascular disease, unspecified (ICD-10) Kidney stones ?N20.0 - Calculus of kidney (ICD-10) Iron deficiency anemia ?D50.9 - Iron deficiency anemia, unspecified (ICD-10) Hypertension ?I10 - Essential (primary) hypertension (ICD-10) Testicular mass ?N50.89 - Other specified disorders of the male genital organs (ICD-10) Hiatal hernia ?K44.9 - Diaphragmatic hernia without obstruction or gangrene (ICD-10) Heel spur ?M77.30 - Calcaneal spur, unspecified foot (ICD-10) Myocardial infarction ?I21.9 - Acute myocardial infarction, unspecified (ICD-10) Glaucoma ?H40.9 - Unspecified glaucoma (ICD-10) GERD (gastroesophageal reflux disease) ?K21.9 - Gastro-esophageal reflux disease without esophagitis (ICD-10) Dyslipidemia ?E78.5 - Hyperlipidemia, unspecified (ICD-10) Diverticulosis ?K57.90 - Diverticulosis of intestine, part unspecified, without perforation or abscess without bleeding (ICD-10) Diabetes ?E11.9 - Type 2 diabetes mellitus without complications (ICD-10) Chronic kidney disease ?N18.9 - Chronic kidney disease, unspecified (ICD-10) CAD (coronary artery disease) ?I25.10 - Atherosclerotic heart disease of pechanga coronary artery without angina pectoris (ICD-10) BPH (benign prostatic hyperplasia) ?N40.0 - Benign prostatic hyperplasia without lower urinary tract symptoms (ICD-10) Asthma ?J45.909 - Unspecified asthma, uncomplicated (ICD-10) Arthritis ?M19.90 - Unspecified osteoarthritis, unspecified site (ICD-10) Bladder cancer ?C67.9 - Malignant neoplasm of bladder, unspecified (ICD-10) Bladder tumor ?D49.4 - Neoplasm of unspecified behavior of bladder (ICD-10) Surgical History (Updated 11/13/24 @ 13:04 by Kathy Russell NP) History of hernia repair ?Z98.890 - Other specified postprocedural states (ICD-10) ?Z87.19 - Personal history of other diseases of the digestive system (ICD-10) History of penile implant ?Z96.0 - Presence of urogenital implants (ICD-10) History of cataract extraction with lens replacement S/P arterial stent ?Z95.9 - Presence of cardiac and vascular implant and graft, unspecified (ICD-10) History of vasectomy ?Z98.52 - Vasectomy status (ICD-10) Hx of tonsillectomy ?Z90.89 - Acquired absence of other organs (ICD-10) H/O thyroidectomy ?Z98.890 - Other specified postprocedural states (ICD-10) ?Z90.89 - Acquired absence of other organs (ICD-10) H/O colonoscopy ?Z98.890 - Other specified postprocedural states (ICD-10) History of cardiac catheterization ?Z98.890 - Other specified postprocedural states (ICD-10) S/P arthroscopic knee surgery ?Z98.890 - Other specified postprocedural states (ICD-10) S/P trigger finger release ?Z98.890 - Other specified postprocedural states (ICD-10) H/O transurethral resection of bladder tumor (TURBT) (02/26/24) ?Z98.890 - Other specified postprocedural states (ICD-10) ?Z86.03 - Personal history of neoplasm of uncertain behavior (ICD-10) H/O cystoscopy ?Z98.890 - Other specified postprocedural states (ICD-10) Family History (Updated 11/13/24 @ 13:00 by Kathy Russell NP) Other Family history of cancer Family history of coronary artery disease Family history of diabetes mellitus Family history of hypertension Family history of stroke Social History (Updated 11/13/24 @ 12:56 by Kathy Russell NP) Within the past year, how often did you have a drink containing alcohol: never Score interpretation: A score less than 4 is consistent with normal alcohol consumption. Smoking status: Former smoker Non-prescribed substance use: denies use Highest level of school completed/degree received: high school graduate Meds Home Medications and Allergies Home Medications ?Medication ?Instructions ?Recorded ?Confirmed ?Type ascorbic acid (vitamin C) 1,000 mg 1 g PO DAILY 11/13/24 11/13/24 History capsule aspirin 81 mg tablet,delayed 81 mg PO DAILY 11/13/24 11/13/24 History release (Adult Aspirin Regimen) atorvastatin 40 mg tablet 40 mg PO DAILY 11/13/24 11/13/24 History cholecalciferol (vitamin D3) 50 4,000 unit PO QDAY 11/13/24 11/13/24 History mcg (2,000 unit) capsule clopidogrel 75 mg tablet 75 mg PO DAILY 11/13/24 11/13/24 History ezetimibe 10 mg tablet 10 mg PO DAILY 11/13/24 11/13/24 History ferrous sulfate 325 mg (65 mg 325 mg PO DAILY 11/13/24 11/13/24 History iron) tablet,delayed release isosorbide mononitrate 30 mg 30 mg PO DAILY 11/13/24 11/13/24 History tablet,extended release 24 hr latanoprost 0.005 % eye drops 1 drp ophthalmic (eye) DAILY 11/13/24 11/13/24 History levothyroxine 100 mcg capsule 100 mcg PO DAILY 11/13/24 11/13/24 History lisinopril 10 mg tablet 10 mg PO DAILY 11/13/24 11/13/24 History magnesium glycinate 120 mg (as 240 mg PO BID 11/13/24 11/13/24 History glycinate) capsule metformin 500 mg tablet 500 mg PO BID 11/13/24 11/13/24 History nebivolol 5 mg tablet 5 mg PO QPM 11/13/24 11/13/24 History nitroglycerin 0.4 mg sublingual 0.4 mg sublingual Q5M PRN chest 11/13/24 11/13/24 History tablet pain oxazepam 15 mg capsule 15 mg PO QPM 11/13/24 11/13/24 History pantoprazole 40 mg tablet,delayed 40 mg PO DAILY 11/13/24 11/13/24 History release pioglitazone 30 mg tablet 30 mg PO DAILY 11/13/24 11/13/24 History tamsulosin 0.4 mg capsule 0.4 mg PO DAILY 11/13/24 11/13/24 History Allergies Allergy/AdvReac Type Severity Reaction Status Date / Time amlodipine Allergy swelling Verified 11/13/24 12:47 atenolol Allergy Unknown Verified 11/13/24 12:47 clonidine Allergy Insomnia Verified 11/13/24 12:47 cyanocobalamin (vitamin B12) Allergy Dizziness Verified 11/13/24 12:47 hydralazine Allergy Difficulty Verified 11/13/24 12:47 Breathing Exam Narrative Exam Narrative: Constitutional: Awake, alert, comfortable, appears chronically ill, nontoxic, interactive, vital signs as charted Head: Normocephalic, atraumatic Neck: Supple, normal appearance, normal range of motion, no meningeal signs, no lymphadenopathy Respiratory: No respiratory distress, breath sounds clear Cardiovascular: Bradycardic rate, regular rhythm, strong and regular heart tones Abdomen: Nontender, normal bowel sounds, soft, no CVA tenderness Musculoskeletal: Normal gait, no swelling or edema Skin: Pale, no rashes or induration, no lesions, only visible skin inspected Neuro: No neurological deficits, normal sensation Psychiatric: Oriented ?3, normal affect Assessment and Plan Assessment and Plan (1) Bladder tumor: (2) Bladder cancer: Plan Cystoscopy, TURBT scheduled with Dr. Smith November 20, 2024.
[2024-11-13 13:50] LABS: INR 1.05; Partial Thromboplastin Time 27.7 sec (22.3-36.2); Prothrombin Time 11.1 sec (9.0-11.6)
[2024-11-13 13:57] LABS: Anion Gap 12.6; Blood Urea Nitrogen 38.0 mg/dL (7.0-18.0); Calcium 8.9 mg/dL (8.5-10.1); Carbon Dioxide 28.6 mmol/L (21.0-32.0); Chloride 110 mmol/L (98-107); Estimated GFR (African America 48 (>=60 mL/min/1.73m^2); Estimated GFR (Non-African Ame 39 (>=60 mL/min/1.73m^2); Glucose 132 mg/dL (74-106); Potassium 5.2 mmol/L (3.5-5.1); Sodium 146 mmol/L (136-145)
== END 2024-11-13 11:48 | disposition home or self-care (01) ==
PROVIDERS: PCP Family Medicine; Visit Provider Urology
DX: Z01.810 Encounter for preprocedural cardiovascular examination (principal); Z01.812 Encounter for preprocedural laboratory examination; Z01.818 Encounter for other preprocedural examination; D49.4 Neoplasm of unspecified behavior of bladder
CPT/HCPCS: 36415; 71046; 80048; 85025; 85610; 85730; 93005; G0463

== ENCOUNTER 2024-11-20 09:01 | Day surgery (SDC) | payer MEDICARE, OTHER, SELFPAY ==
--- OUTSIDE RECORDS SUMMARY | 2021-03-14 09:00 | XMS_ITS | Continuity of Care Document ---
Author Organization [facility] Address [address] [place] [address] Phone Care Team Providers Care Fan Mail Clerk Name Role Phone Alejandro Hinojosa DDS Unavailable Unavailable Allergies, Adverse Reactions, Alerts Substance Reaction Status Criticality No Known Allergies Active No Inform ation Medications Medication Instructions Dosage Effective Dates (start - stop) Status Comments atenolol 50 mg tablet take 1 tablet by oral route every day 50 MG - Active atorvastatin 40 mg tablet take 1 tablet by oral route every day 40 MG - Active duloxetine 60 mg capsule,delayed release take 1 capsule by oral route every day 60 MG - Active lisinopril 10 mg tablet take 1 tablet by oral route every day 10 MG - Active BiDil 20 mg-37.5 mg tablet take 2 tablet by oral route 3 times every day 2.00 tablet - Active pioglitazone 45 mg tablet take 1 tablet by oral route every day 45 MG - Active metformin ER 1,000 mg tablet,extended release 24hr take 1 tablet by oral route every day with the evening meal 1000 MG - Active Gralise 600 mg tablet,extended release take 3 tablet by oral route every day with the evening meal 1800 MG - Active omeprazole 20 mg capsule,delayed release take 1 capsule by oral route every day 30 minutes to 1 hour before a meal 20 MG - Active levothyroxine 175 mcg capsule take 1 capsule by oral route every day 175 MCG - Active Aspirin Childrens 81 mg chewable tablet chew 1 tablet by oral route every day 81 MG - Active Vitamin B-12 1,000 mcg tablet - Active Nitrostat 0.[address] 1 tablet by sublingual route at 1st sign of attack; may repeat every 5 minutes up to 3 tabs; if norelief seek medical help 0.4 MG - Active Procedures Procedure Date Resin One Surface; Anterior Resin One Surface; Anterior Panoramic Film Nutrit Couns For Control Of [place] Dis Dec Oral Hygiene Instruction Comp Oral Eval New/estab Patient 2020 Advance Directives Directive Yes / No Effective Date File Name No Information Encounters Encounter Description Practice Location Reason(s) For Visit Diagnoses Date Provider Providers Copied on Encounter [facility], [address] [place] [address], [address] [place] [address], tel:[phone] Dental Clinic Filling (chief complaint) Encounter for screening for dental disorders Ashish Allen. [address] [place] [address], [facility], . tel:[phone] [facility], [address] [place] [address], [address] [place] [address], tel:[phone] Dental Clinic Dental New (chief complaint) Encounter for screening for dental disorders Ashish Allen. [address] [place] [address], [facility], . tel:[phone] Family History Family Member Type Diagnosis Age At Onset Mother Problem malignant neopla sm of breast in first degree relative Father Problem stroke Payers Payer name Insurance type Covered constitution party ID Authoriza tion(s) Self Pay Indigent [id number] Social History Type Description Quantity Date Captured Comments Alcohol Use Details Unknown Caffeine Use Details Unknown Tobacco Use Status No Information Smoking Status Former smoker Sex Male Sexual Orientation Straight or heterosexual Gender Identity Male Vital Signs Date / Time: Height Weight BMI Pulse Rate Blood Pressure Temperature Respiratory Rate Body Surface Area Head Circumference Head Circ. Percentile Wt./Martir. Percentile BMI percentile Pulse Ox Inhaled Ox 1:07 PM 56 /min 117/63 mm[Hg] 96.80 F Chief Complaint And Reason For Visit From encounter dated '03/14/2021 13:00'. Filling (chief complaint). Description: Filling Reason For Referral Reason For Referral No Information History Of Present Illness Encounter Date Complaint History Of Prese nt Illness Filling Filling Dental New Dental New Functional Status Date Functional Assessmen t No Information Instructions Date Instruction Additional Infor mation No Information Assessments Type Assessment Date No Information Patient Care Teams Name Effective Dates (start - stop) Status Members No Information
[2024-11-13 13:11] VITALS: BP 174/75; PULSE 50; TEMP 36.3; O2SAT 98; BMI 25.0
[2024-11-20] VITALS (14 sets, daily range): BP systolic 130–179; BP diastolic 43–70; PULSE 52–62; TEMP 36.2–36.4; O2SAT 95–100; BMI 25.0
--- OUTSIDE RECORDS SUMMARY | 2024-11-20 09:04 | XMS_ITS | Encounter Summary ---
Author Organization [facility] Address [address] [place] [address] Phone Care Team Providers Care Dermatologist Managing Partner Name Role Phone Jeferson Estrada MD Primary Care Provider Encounter Details Date Type Department Care Team (Late st Contact Info) Description 01/22/2020 Orders Only [facility] [address] [place] [address] Conversion, Onbase Social History Tobacco Use Types [...] Description 12/09/2024 9:30 AM EDT Office Visit [address] [phone] Erika Mayes MD [address] [place] [address], [address] [address] 03/31/2025 11:10 AM EST Office Visit [address] [phone] Erika Mayes MD 3 [facility] 2, [address] [address] Scheduled Orders Name Type Priority Associated Diagnoses Orde r Schedule OUTSIDE LAB SCAN Lab Ordered: 01/22/2020 documented as of this encounter Visit Diagnoses Not on filedocumented in this encounter Care Teams Dermatologist Managing Partner Relationship Specialty Start Date End Date Jeferson Estrada MD [address] [place] [address] PCP - General 12/30/13 documented as of this encounter
--- OUTSIDE RECORDS SUMMARY | 2024-11-20 09:04 | XMS_ITS | Encounter Summary ---
Author Organization [facility] Address [address] [place] [address] Phone Care Team Providers Care Exterior Designer Name Role Phone Jeferson Estrada MD Primary Care Provider [phone] Encounter Details Date Type Department Care Team (Late st Contact Info) Description 07/07/2020 Orders Only [facility] [address] [place] [address] Conversion, Onbase Social History Tobacco Use Types [...] Description 12/09/2024 9:30 AM EDT Office Visit [address] [phone] Erika Mayes MD 3 [place] [address], [address] [address] 03/31/2025 11:10 AM EST Office Visit [address] [phone] Erika Mayes MD 3 [facility] 2, [address] [address] Scheduled Orders Name Type Priority Associated Diagnoses Orde r Schedule OUTSIDE LAB SCAN Lab Ordered: 07/07/2020 documented as of this encounter Visit Diagnoses Not on filedocumented in this encounter Care Teams Exterior Designer Relationship Specialty Start Date End Date Jeferson Estrada MD [address] [place] [address] PCP - General 12/30/13 documented as of this encounter
--- OUTSIDE RECORDS SUMMARY | 2024-11-20 09:04 | XMS_ITS | Encounter Summary ---
Author Organization [facility] Address [address] [place] [address] Phone Care Team Providers Care Software Business Analyst Name Role Phone Jeferson Estrada MD Primary Care Provider Encounter Details Date Type Department Care Team (Late st Contact Info) Description 06/20/2019 Orders Only [facility] [address] [place] [address] Conversion, Onbase Social History Tobacco Use Types [...] Description 12/09/2024 9:30 AM EDT Office Visit [address] [phone] Erika Mayes MD [address] [place] [address], [address] [address] 03/31/2025 11:10 AM EST Office Visit [address] [phone] Erika Mayes MD 3 [facility] 2, [address] [address] Scheduled Orders Name Type Priority Associated Diagnoses Orde r Schedule OUTSIDE LAB SCAN Lab Ordered: 06/20/2019 documented as of this encounter Visit Diagnoses Not on filedocumented in this encounter Care Teams Software Business Analyst Relationship Specialty Start Date End Date Jeferson Estrada MD [address] [place] [address] PCP - General 12/30/13 documented as of this encounter
--- OUTSIDE RECORDS SUMMARY | 2024-11-20 09:05 | XMS_ITS | Encounter Summary ---
Author Organization [facility] Address [address] [facility] [place] [address] Care Team Providers Care Business Functional Analyst Name Role Phone Jeferson Estrada MD Unavailable [phone] Jeferson Estrada MD Primary Care Provider [phone] Edwige Arana ORTHOTICS TECHNICIAN Unavailable [phone] Gera Escobar MA Unavailable [phone] Edwige Arana NP Unavailable [phone] Encounter Details Date Type Department Care Team (Late st Contact Info) Description 05/09/2024 Abstract [facility] [address] [place] [address] Jeferson Estrada MD [address] [place] [address] Social History Tobacco Use Types [...] 1:10 PM EST Office Visit [facility] [address] [place] [address] Jan Ghosh DPM [address] [address] 02/03/2025 2:00 PM EST Office Visit [facility] [address] [place] [address] Jeferson Estrada MD [address] [place] [address] 05/29/2025 1:00 PM EDT [facility] [address] [place] [address] Jl Grajeda DO [address] [place] [address] documented as of this encounter Visit Diagnoses Not on filedocumented in this encounter Additional Health Concerns Assessment Noted Time PHQ-9 Depression Total Score: 2 10/09/19 24 1:18 PM EDT documented as of this encounter Care Teams Business Functional Analyst Relationship Specialty Start Date End Date Jeferson Estrada MD [address] [place] [address] PCP - ACO Reach 07/13/22 Jeferson Estrada MD [address] [place] [address] PCP - General Family Medicine 08/09/22 Edwige Arana NP [address] [place] [address] Nurse Practitioner Pulmonary Disease 09/18/22 10/23/24 Gera Escobar, [place] [address] [place] [address] Family Medicine 07/01/24 07/09/24 Edwige Arana NP [address] [place] [address] Nurse Practitioner Family Medicine 10/24/24 documented as of this encounter
--- OUTSIDE RECORDS SUMMARY | 2024-11-20 09:05 | XMS_ITS | Encounter Summary ---
Author Organization [facility] Address [address] [facility] [place] [address] Care Team Providers Care Chummer Name Role Phone Jeferson Estrada MD Unavailable [phone] Jeferson Estrada MD Primary Care Provider [phone] Leonie Mcginnis NP Unavailable Edwige Arana NP Unavailable Gera Escobar MA Unavailable [phone] Edwige Arana NP Unavailable Encounter Details Date Type Department Care Team (Late st Contact Info) Description 02/26/2024 Abstract [facility] [address] [place] [phone] Jeferson Estrada MD [address] [place] [address] Social History Tobacco Use Types [...] EST Office Visit [facility] [address] [place] [address] Jan Ghosh DPM [address] [address] 02/03/2025 2:00 PM EST Office Visit [facility] [address] [place] [address] Jeferson Estrada MD [address] [place] [address] 05/29/2025 1:00 PM EDT Office Visit [facility] [address] [place] [address] Jl Grajeda DO [address] [place] [address] documented as of this encounter Visit Diagnoses Not on filedocumented in this encounter Additional Health Concerns Assessment Noted Time PHQ-9 Depression Total Score: 2 10/09/19 1:18 PM EDT documented as of this encounter Care Teams Chummer Relationship Specialty Start Date End Date Jeferson Estrada MD [address] [place] [address] PCP - ACO Reach 07/13/22 Jeferson Estrada MD [address] [place] [address] PCP - General Family Medicine 08/09/22 Leonie Mcginnis NP [address] [place] [address] Nurse Practitioner Family Medicine 09/18/22 05/08/24 Edwige Arana NP [address] [place] [address] Nurse Practitioner Pulmonary Disease 09/18/22 10/23/24 Gera Escobar, [place] [address] [place] [address] Family Medicine 07/01/24 07/09/24 Edwige Arana NP [address] [place] [address] Nurse Practitioner Family Medicine 10/24/24 documented as of this encounter
--- OUTSIDE RECORDS SUMMARY | 2024-11-20 09:05 | XMS_ITS | Encounter Summary ---
Author Organization [facility] Address [address] [place] [address] Phone Care Team Providers Care Bus Driver Supervisor Name Role Phone Jeferson Estrada MD Primary Care Provider [phone] Encounter Details Date Type Department Care Team (Late st Contact Info) Description 03/04/2024 Scanned Document [facility] [address] [place] [address] Scanning, Generic Provider Social History [...] Description 12/09/2024 9:30 AM EDT Office Visit [address] [address] Erika Mayes MD [address] [place] [address] 2, [address] [place] [address] 03/31/2025 11:10 AM EST Office Visit [address] [place] [phone] Erika Mayes MD 7[address] [facility] 2, [address] [place] [address] documented as of this encounter Visit Diagnoses Not on filedocumented in this encounter Additional Health Concerns Assessment Noted Time A fall risk assessment has been complete d for the patient 02/21/2024 8:57 AM EST documented as of this encounter Care Teams Bus Driver Supervisor Relationship Specialty Start Date End Date Jeferson Estrada MD [address] [place] [address] PCP - General 12/30/13 documented as of this encounter
--- OUTSIDE RECORDS SUMMARY | 2024-11-20 09:05 | XMS_ITS | Encounter Summary ---
Author Organization [facility] Address [address] [facility] [place] [address] Care Team Providers Care Smutter Name Role Phone Jeferson Estrada MD Unavailable [phone] Jeferson Estrada MD Primary Care Provider Edwige Arana PHLEBOTOMY INSTRUCTOR Unavailable Gera Escobar MA Unavailable [phone] Edwige Arana NP Unavailable Encounter Details Date Type Department Care Team (Late st Contact Info) Description 06/18/2024 Abstract [facility] [address] [place] [address] Jeferson Estrada MD [address] [place] [address] Social History Tobacco Use Types [...] 1:10 PM EST Office Visit [facility] [address] [place] [address] Jan Ghosh DPM [address] [address] 02/03/2025 2:00 PM EST Office Visit [facility] [address] [place] [address] Jeferson Estrada MD [address] [place] [address] 05/29/2025 1:00 PM EDT [facility] [address] [place] [address] Jl Grajeda DO [address] [place] [address] documented as of this encounter Visit Diagnoses Not on filedocumented in this encounter Additional Health Concerns Assessment Noted Time PHQ-9 Depression Total Score: 2 10/09/19 24 1:18 PM EDT documented as of this encounter Care Teams Smutter Relationship Specialty Start Date End Date Jeferson Estrada MD [address] [place] [address] PCP - ACO Reach 07/13/22 Jeferson Estrada MD [address] [place] [address] PCP - General Family Medicine 08/09/22 Edwige Arana NP [address] [place] [address] Nurse Practitioner Pulmonary Disease 09/18/22 10/23/24 Gera Escobar, [place] [address] [place] [address] Family Medicine 07/01/24 07/09/24 Edwige Arana NP [address] [place] [address] Nurse Practitioner Family Medicine 10/24/24 documented as of this encounter
--- OUTSIDE RECORDS SUMMARY | 2024-11-20 09:05 | XMS_ITS | Encounter Summary ---
Author Organization [facility] Address [address] [place] [address] Phone Care Team Providers Care Lead Clinical Research Coordinator Name Role Phone Jeferson Estrada MD Primary Care Provider [phone] Encounter Details Date Type Department Care Team (Late st Contact Info) Description 02/28/2024 Scanned Document [facility] [address] [place] [address] Scanning, Generic Provider Social History [...] Description 12/09/2024 9:30 AM EDT Office Visit [address] [address] Erika Mayes MD [address] [place] [address] 2, [address] [place] [address] 03/31/2025 11:10 AM EST Office Visit [address] [place] [address] Erika Mayes MD [address] [facility] [address], [facility] [address] [place] [address] Scheduled Orders Name Type Priority Associated Diagnoses Orde r Schedule Ultrasound- OnBase Scan Imaging O rdered: 02/28/2024 documented as of this encounter Visit Diagnoses Not on filedocumented in this encounter Additional Health Concerns Assessment Noted Time A fall risk assessment has been complete d for the patient 02/21/2024 8:57 AM EST documented as of this encounter Care Teams Lead Clinical Research Coordinator Relationship Specialty Start Date End Date Jeferson Estrada MD [address] [place] [address] PCP - General 12/30/13 documented as of this encounter
--- OUTSIDE RECORDS SUMMARY | 2024-11-20 09:05 | XMS_ITS | Encounter Summary ---
Author Organization [facility] Address [address] [place] [address] Phone Care Team Providers Care Security Operations Center Operator Name Role Phone Jeferson Estrada MD Primary Care Provider [phone] Encounter Details Date Type Department Care Team (Late st Contact Info) Description 03/01/[address] [facility] [address] [place] [address] Conversion, Onbase Social History Tobacco Use Types [...] 12/09/2024 9:30 AM EDT Office Visit [address] [phone] Erika Mayes MD [address] [place] [address], [address] [address] 03/31/2025 11:10 AM EST Office Visit [address] [phone] Erika Mayes MD 3 [facility] 2, [address] [address] Scheduled Orders Name Type Priority Associated Diagnoses Orde r Schedule OUTSIDE LAB SCAN Lab Ordered: 03/01/2020 documented as of this encounter Visit Diagnoses Not on filedocumented in this encounter Care Teams Security Operations Center Operator Relationship Specialty Start Date End Date Jeferson Estrada MD [address] [place] [address] PCP - General 12/30/13 documented as of this encounter
--- OUTSIDE RECORDS SUMMARY | 2024-11-20 09:05 | XMS_ITS | Encounter Summary ---
Author Organization [facility] Address [address] [place] [address] Care Team Providers Care Ict Account Manager Name Role Phone Jeferson Estrada MD Unavailable [phone] Jeferson Estrada MD Primary Care Provider [phone] Leonie Mcginnis NP Unavailable Edwige Arana NP Unavailable Gera Escobar MA Unavailable [phone] Edwige Arana NP Unavailable Encounter Details Date Type Department Care Team (Late st Contact Info) Description 02/28/2024 Abstract [facility] [address] [place] [address] Jeferson Estrada MD [address] [place] [address] Social History Tobacco Use Types [...] EST Office Visit [facility] [address] [place] [address] Jan Ghosh DPM [address] [address] 02/03/2025 2:00 PM EST Office Visit [facility] [address] [place] [address] Jeferson Estrada MD [address] [place] [address] 05/29/2025 1:00 PM EDT Office Visit [facility] [address] [place] [address] Jl Grajeda DO [address] [place] [address] documented as of this encounter Visit Diagnoses Not on filedocumented in this encounter Additional Health Concerns Assessment Noted Time PHQ-9 Depression Total Score: 2 10/09/19 1:18 PM EDT documented as of this encounter Care Teams Ict Account Manager Relationship Specialty Start Date End Date Jeferson Estrada MD [address] [place] [address] PCP - ACO Reach 07/13/22 Jeferson Estrada MD [address] [place] [address] PCP - General Family Medicine 08/09/22 Leonie Mcginnis NP [address] [place] [address] Nurse Practitioner Family Medicine 09/18/22 05/08/24 Edwige Arana NP [address] [place] [address] Nurse Practitioner Pulmonary Disease 09/18/22 10/23/24 Gera Escobar, MD [address] [place] [address] Family Medicine 07/01/24 07/09/24 Edwige Arana NP [address] [place] [address] Nurse Practitioner Family Medicine 10/24/24 documented as of this encounter
--- OUTSIDE RECORDS SUMMARY | 2024-11-20 09:05 | XMS_ITS | Encounter Summary ---
Author Organization [facility] Address [address] [facility] [place] [address] Care Team Providers Care Medical Accounting Clerk Name Role Phone Jeferson Estrada MD Unavailable [phone] Jeferson Estrada MD Primary Care Provider Leonie Mcginnis NP Unavailable Edwige Arana NP Unavailable [phone] Gera Escobar MA Unavailable [phone] Edwige Arana NP Unavailable Encounter Details Date Type Department Care Team (Late st Contact Info) Description 12/13/2023 Abstract [facility] [address] [place] [address] Jeferson Estrada MD [address] [place] [address] Social History Tobacco Use Types [...] EST Office Visit [facility] [address] [place] [address] Jan Ghosh DPM [address] [address] 02/03/2025 2:00 PM EST Office Visit [facility] [address] [place] [address] Jeferson Estrada MD [address] [place] [address] 05/29/2025 1:00 PM EDT Office Visit [facility] [address] [place] [address] Jl Grajeda DO [address] [place] [address] documented as of this encounter Visit Diagnoses Not on filedocumented in this encounter Additional Health Concerns Assessment Noted Time PHQ-9 Depression Total Score: 2 10/09/19 1:18 PM EDT documented as of this encounter Care Teams Medical Accounting Clerk Relationship Specialty Start Date End Date Jeferosn Estrada MD [address] [place] [address] PCP - ACO Reach 07/13/22 Jeferson Estrada MD [address] [place] [address] PCP - General Family Medicine 08/09/22 Leonie Mcginnis NP [address] [place] [address] Nurse Practitioner Family Medicine 09/18/22 05/08/24 Edwige Arana NP [address] [place] [address] Nurse Practitioner Pulmonary Disease 09/18/22 10/23/24 Gera Escobar, [place] [address] [place] [address] Family Medicine 07/01/24 07/09/24 Edwige Arana NP [address] [place] [address] Nurse Practitioner Family Medicine 10/24/24 documented as of this encounter
--- OUTSIDE RECORDS SUMMARY | 2024-11-20 09:05 | XMS_ITS | Encounter Summary ---
Author Organization [facility] Address [address] [facility] [place] [address] Care Team Providers Care Mechanical Cad Designer Name Role Phone Jeferson Estrada MD Unavailable [phone] Jeferson Estrada MD Primary Care Provider [phone] Lenoie Mcginnis NP Unavailable Edwige Arana RISK CONTROL FIELD REPRESENTATIVE Unavailable Gera Escobar MA Unavailable [phone] Edwige Arana RISK CONTROL FIELD REPRESENTATIVE Unavailable Encounter Details Date Type Department Care Team (Late st Contact Info) Description 08/16/2023 Orders Only [facility] [address] [place] [address] Unallocated, Noms MD Trina [address] [place], [place] [address] Social History Tobacco Use Types Packs/Day Years [...] EST Office Visit [facility] [address] [place] [address] Jan Ghosh DPM [address] [address] 02/03/2025 2:00 PM EST Office Visit [facility] [address] [place] [address] Jeferson Estrada MD [address] [place] [address] 05/29/2025 1:00 PM EDT Office Visit [facility] [address] [place] [address] Jl Grajeda DO [address] [place] [address] documented as of this encounter Procedures Procedure [...] documented as of this encounter Care Teams Mechanical Cad Designer Relationship Specialty Start Date End Date Jeferson Estrada MD [address] [place] [address] PCP - ACO Reach 07/13/22 Jeferson Estrada MD [address] [place] [address] PCP - General Family Medicine 08/09/22 Leonie Mcginnis NP [address] [place] [address] Nurse Practitioner Family Medicine 09/18/22 05/08/24 Edwige Arana, RISK CONTROL FIELD REPRESENTATIVE [address] [place] [address] Nurse Practitioner Pulmonary Disease 09/18/22 10/23/24 Gera Ecsobar MA [address] [place] [address] Family Medicine 07/01/24 07/09/24 Edwige Arana RISK CONTROL FIELD REPRESENTATIVE [address] [place] [address] Nurse Practitioner Family Medicine 10/24/24 documented as of this encounter
--- OUTSIDE RECORDS SUMMARY | 2024-11-20 09:05 | XMS_ITS | Encounter Summary ---
Author Organization [facility] Address [address] [place] [address] Phone Care Team Providers Care Formulator Name Role Phone Jeferson Estrada MD Primary Care Provider [phone] Encounter Details Date Type Department Care Team (Late st Contact Info) Description 11/12/2023 Scanned Document [facility] [address] [place] [address] Scanning, Generic Provider Social History [...] Description 12/09/2024 9:30 AM EDT Office Visit [address] [address] Erika Mayes MD 703 [facility] [address], [address] [place] [address] 03/31/2025 11:10 AM EST Office Visit [address] [place] [address] Erika Mayes MD 703 [facility] 2, [address] [place] [address] documented as of this encounter Visit Diagnoses Not on filedocumented in this encounter Additional Health Concerns Assessment Noted Time A fall risk assessment has been complete d for the patient 03/28/2023 11:30 AM EST documented as of this encounter Care Teams Formulator Relationship Specialty Start Date End Date Jeferson Estrada MD [address] [place] [address] PCP - General 12/30/13 documented as of this encounter
--- OUTSIDE RECORDS SUMMARY | 2024-11-20 09:05 | XMS_ITS | Encounter Summary ---
Author Organization [facility] Address [address] [place] [address] Care Team Providers Care Blind Lacer Name Role Phone Jeferson Estrada MD Unavailable [phone] Jeferson Estrada MD Primary Care Provider Leonie Mcginnis NP Unavailable Edwige Arana NP Unavailable [phone] Gera Escobar MA Unavailable [phone] Edwige Arana NP Unavailable [phone] Encounter Details Date Type Department Care Team (Late st Contact Info) Description 10/09/2023 Abstract [facility] [address] [place] [address] Leonie Mcginnis MEDICAL I D SALES [address] [facility] [address] [place] [address] Social History Tobacco Use Types Packs/Day Years [...] EST Office Visit [facility] [address] [place] [address] Jan Ghosh DPM [address] [address] 02/03/2025 2:00 PM EST Office Visit [facility] [address] [place] [address] Jeferson Estrada MD [address] [place] [address] 05/29/2025 1:00 PM EDT Office Visit [facility] [address] [place] [address] Jl Grajeda DO [address] [place] [address] documented as of this encounter Visit Diagnoses Not on filedocumented in this encounter Additional Health Concerns Assessment Noted Time PHQ-9 Depression Total Score: 2 10/09/19 24 1:18 PM EDT documented as of this encounter Care Teams Blind Lacer Relationship Specialty Start Date End Date Jeferson Estrada MD [address] [place] [address] PCP - ACO Reach 07/13/22 Jeferson Estrada MD [address] [place] [address] PCP - General Family Medicine 08/09/22 Leonie Mcginnis NP [address] [place] [address] Nurse Practitioner Family Medicine 09/18/22 05/08/24 Edwige Arana NP [address] [place] [address] Nurse Practitioner Pulmonary Disease 09/18/22 10/23/24 Gera Escobar, [place] [address] [place] [address] Family Medicine 07/01/24 07/09/24 Edwige Arana NP [address] [place] [address] Nurse Practitioner Family Medicine 10/24/24 documented as of this encounter
--- OUTSIDE RECORDS SUMMARY | 2024-11-20 09:05 | XMS_ITS | Encounter Summary ---
Author Organization [facility] Address [address] [place] [address] Phone Care Team Providers Care Testing Tech Name Role Phone Jeferson Estrada MD Primary Care Provider [phone] Encounter Details Date Type Department Care Team (Late st Contact Info) Description 02/27/2024 Scanned Document [facility] [address] [place] [address] Scanning, Generic Provider Social History [...] Description 12/09/2024 9:30 AM EDT Office Visit [address] [address] Erika Mayes MD [address] [place] [address] 2, [address] [place] [address] 03/31/2025 11:10 AM EST Office Visit [address] [place] [address] Erika Mayes MD 703 [facility] [address], [address] [place] [address] documented as of this encounter Visit Diagnoses Not on filedocumented in this encounter Additional Health Concerns Assessment Noted Time A fall risk assessment has been complete d for the patient 02/21/2024 8:57 AM EST documented as of this encounter Care Teams Testing Tech Relationship Specialty Start Date End Date Jeferson Estrada MD [address] [place] [address] PCP - General 12/30/13 documented as of this encounter
--- OUTSIDE RECORDS SUMMARY | 2024-11-20 09:05 | XMS_ITS | Encounter Summary ---
Author Organization [facility] Address [address] [place] [address] Phone Care Team Providers Care Painter Apprentice Name Role Phone Jeferson Estrada MD Primary Care Provider [phone] Encounter Details Date Type Department Care Team (Late st Contact Info) Description 03/03/2024 Scanned Document [facility] [address] [place] [address] Scanning, Generic Provider Social History [...] Description 12/09/2024 9:30 AM EDT Office Visit [address] [address] Erika Mayes MD [address] [place] [address] 2, [address] [place] [address] 03/31/2025 11:10 AM EST Office Visit [address] [place] [address] Erika Mayes MD 703 [facility] [address], [address] [place] [address] documented as of this encounter [...] documented as of this encounter Care Teams Painter Apprentice Relationship Specialty Start Date End Date Jeferson Estrada MD [address] [place] [address] PCP - General 12/30/13 documented as of this encounter
--- OUTSIDE RECORDS SUMMARY | 2024-11-20 09:05 | XMS_ITS | Encounter Summary ---
Author Organization [facility] Address [address] [facility] [place] [address] Care Team Providers Care Heel Seat Sander Name Role Phone Jeferson Estrada MD Unavailable [phone] Jeferson Estrada MD Primary Care Provider [phone] Leonie Mcginnis NP Unavailable Edwige Arana NP Unavailable Gera Escobar MA Unavailable [phone] Edwige Arana NP Unavailable Encounter Details Date Type Department Care Team (Late st Contact Info) Description 02/29/2024 Abstract [facility] [address] [place] [address] Jeferson Estrada MD [address] [place] [address] Social History Tobacco Use Types [...] EST Office Visit [facility] [address] [place] [address] Jan Ghosh DPM [address] [address] 02/03/2025 2:00 PM EST Office Visit [facility] [address] [place] [address] Jeferson Estrada MD [address] [place] [address] 05/29/2025 1:00 PM EDT Office Visit [facility] [address] [place] [address] Jl Grajeda DO [address] [place] [address] documented as of this encounter Visit Diagnoses Not on filedocumented in this encounter Additional Health Concerns Assessment Noted Time PHQ-9 Depression Total Score: 2 10/09/19 1:18 PM EDT documented as of this encounter Care Teams Heel Seat Sander Relationship Specialty Start Date End Date Jeferson Estrada MD [address] [place] [address] PCP - ACO Reach 07/13/22 Jeferson Estrada MD [address] [place] [address] PCP - General Family Medicine 08/09/22 Leonie Mcginnis NP [address] [place] [address] Nurse Practitioner Family Medicine 09/18/22 05/08/24 Edwige Arana NP [address] [place] [address] Nurse Practitioner Pulmonary Disease 09/18/22 10/23/24 Gera Escobar, [place] [address] [place] [address] Family Medicine 07/01/24 07/09/24 Edwige Arana NP [address] [place] [address] Nurse Practitioner Family Medicine 10/24/24 documented as of this encounter
--- OUTSIDE RECORDS SUMMARY | 2024-11-20 09:05 | XMS_ITS | Encounter Summary ---
Author Organization [facility] Address [address] [place] [address] Care Team Providers Care Food Service Manager Name Role Phone Jeferson Estrada MD Unavailable [phone] Jeferson Estrada MD Primary Care Provider Leoine Mcginnis NP Unavailable Edwige Arana INDUSTRIAL THERAPIST Unavailable Gera Escobar MA Unavailable [phone] Edwige Arana INDUSTRIAL THERAPIST Unavailable Encounter Details Date Type Department Care Team (Late st Contact Info) Description 11/20/2023 Orders Only [facility] [address] [place] [address] Unallocated, Noms MD Trina [address] [place], [place] [address] Social History Tobacco Use Types Packs/Day Years [...] EST Office Visit [facility] [address] [place] [address] Jan Ghosh DPM [address] [address] 02/03/2025 2:00 PM EST Office Visit [facility] [address] [place] [address] Jeferson Estrada MD [address] [place] [address] 05/29/2025 1:00 PM EDT Office Visit [facility] [address] [place] [address] Jl Grajeda DO [address] [place] [address] documented as of this encounter Procedures Procedure [...] documented as of this encounter Care Teams Food Service Manager Relationship Specialty Start Date End Date Jeferson Estrada MD [address] [place] [address] PCP - ACO Reach 07/13/22 Jeferson Estrada MD [address] [place] [address] PCP - General Family Medicine 08/09/22 Leonie Mcginnis NP [address] [place] [address] Nurse Practitioner Family Medicine 09/18/22 05/08/24 Edwige Arana NP [address] [place] [address] Nurse Practitioner Pulmonary Disease 09/18/22 10/23/24 Gera Escobar MA [address] [place] [address] Family Medicine 07/01/24 07/09/24 Edwige Arana NP [address] [place] [address] Nurse Practitioner Family Medicine 10/24/24 documented as of this encounter
--- OUTSIDE RECORDS SUMMARY | 2024-11-20 09:05 | XMS_ITS | Encounter Summary ---
Author Organization [facility] Address [address] [place] [address] Phone Care Team Providers Care Mental Retardation Nurse Name Role Phone Jeferson Estrada MD Primary Care Provider [phone] Encounter Details Date Type Department Care Team (Late st Contact Info) Description 11/17/2023 Orders Only [facility] [address] [place] [address] Scanning, Generic Provider Social History [...] Description 12/09/2024 9:30 AM EDT Office Visit [address] [address] Erika Mayes MD 703 [facility] 2, [address] [place] [address] 03/31/2025 11:10 AM EST Office Visit [address] [place] [address] Erika Mayes MD 703 [facility] 2, [address] [place] [address] documented as of this encounter Procedures Procedure Name Priority Date/Time Associated Diagnosis Comments HOLTER AND CARDIAC EVENT MONITOR - ONBASE SCAN 11/17/2023 documented in this encounter Results * Holter and Cardiac Event Monitor - Onbase Scan (11/17/2023) Narrative 11/17/2023 Ordered by an unspecified provider. Generic Provider Scanning [facility] [place] [facility] Final Result documented in this encounter Visit Diagnoses Not on filedocumented in this encounter Additional Health Concerns Assessment Noted Time A fall risk assessment has been complete d for the patient 03/28/2023 11:30 AM EST documented as of this encounter Care Teams Mental Retardation Nurse Relationship Specialty Start Date End Date Jeferson Estrada MD [address] [place] [address] PCP - General 12/30/13 documented as of this encounter
--- OUTSIDE RECORDS SUMMARY | 2024-11-20 09:05 | XMS_ITS | Encounter Summary ---
Author Organization [facility] Address [address] [place] [address] Phone Care Team Providers Care Matrix Supervisor Name Role Phone Jeferson Estrada MD Primary Care Provider Encounter Details Date Type Department Care Team (Late st Contact Info) Description 09/22/2021 Orders Only [facility] [address] [place] [address] Conversion, Onbase Social History Tobacco Use Types [...] Description 12/09/2024 9:30 AM EDT Office Visit [address] [address] Erika Mayes MD [address] [place] [address], [address] [address] 03/31/2025 11:10 AM EST Office Visit [address] [address] Erika Mayes MD 3 [facility] 2, [address] [address] Scheduled Orders Name Type Priority Associated Diagnoses Orde r Schedule OUTSIDE LAB SCAN Lab Ordered: 09/22/2021 documented as of this encounter Visit Diagnoses Not on filedocumented in this encounter Care Teams Matrix Supervisor Relationship Specialty Start Date End Date Jeferson Estrada MD [address] [place] [address] PCP - General 12/30/13 documented as of this encounter
--- OUTSIDE RECORDS SUMMARY | 2024-11-20 09:05 | XMS_ITS | Encounter Summary ---
Author Organization [facility] Address [address] [place] [address] Phone Care Team Providers Care Box Truck Driver Name Role Phone Jeferson Estrada MD Primary Care Provider Encounter Details Date Type Department Care Team (Late st Contact Info) Description 09/14/2020 Orders Only [facility] [address] [place] [address] Conversion, Onbase Social History Tobacco Use Types [...] Description 12/09/2024 9:30 AM EDT Office Visit [address] [address] Erika Mayes MD [address] [place] [address], [address] [address] 03/31/2025 11:10 AM EST Office Visit [address] [address] Erika Mayes MD 3 [facility] 2, [address] [address] Scheduled Orders Name Type Priority Associated Diagnoses Orde r Schedule OUTSIDE LAB SCAN Lab Ordered: 09/14/2020 documented as of this encounter Visit Diagnoses Not on filedocumented in this encounter Care Teams Box Truck Driver Relationship Specialty Start Date End Date Jeferson Estrada MD [address] [place] [address] PCP - General 12/30/13 documented as of this encounter
--- OUTSIDE RECORDS SUMMARY | 2024-11-20 09:05 | XMS_ITS | Encounter Summary ---
Author Organization [facility] Address [address] [facility] [place] [address] Care Team Providers Care Occupational Therapist Assistant Name Role Phone Jeferson Estrada MD Unavailable [phone] Jeferson Estrada MD Primary Care Provider Leonie Mcginnis NP Unavailable Edwige Arana NP Unavailable [phone] Gera Escobar MA Unavailable [phone] Edwige Arana NP Unavailable [phone] Encounter Details Date Type Department Care Team (Late st Contact Info) Description 12/11/2023 Abstract [facility] [address] [place] [address] Jeferson Estrada MD [address] [place] [address] Social History Tobacco Use Types [...] EST Office Visit [facility] [address] [place] [address] Jan Ghosh DPM [address] [address] 02/03/2025 2:00 PM EST Office Visit [facility] [address] [place] [address] Jeferson Estrada MD [address] [place] [address] 05/29/2025 1:00 PM EDT Office Visit [facility] [address] [place] [address] Jl Grajeda DO [address] [place] [address] documented as of this encounter Visit Diagnoses Not on filedocumented in this encounter Additional Health Concerns Assessment Noted Time PHQ-9 Depression Total Score: 2 10/09/19 1:18 PM EDT documented as of this encounter Care Teams Occupational Therapist Assistant Relationship Specialty Start Date End Date Jeferson Estrada MD [address] [place] [address] PCP - ACO Reach 07/13/22 Jeferson Estrada MD [address] [place] [address] PCP - General Family Medicine 08/09/22 Leonie Mcginnis NP [address] [place] [address] Nurse Practitioner Family Medicine 09/18/22 05/08/24 Edwige Arana NP [address] [place] [address] Nurse Practitioner Pulmonary Disease 09/18/22 10/23/24 Gera Escobar, [place] [address] [place] [address] Family Medicine 07/01/24 07/09/24 Edwige Arana NP [address] [place] [address] Nurse Practitioner Family Medicine 10/24/24 documented as of this encounter
--- OUTSIDE RECORDS SUMMARY | 2024-11-20 09:05 | XMS_ITS | Encounter Summary ---
Author Organization [facility] Address [address] [place] [address] Phone Care Team Providers Care Manager Sas Name Role Phone Jeferson Estrada MD Primary Care Provider [phone] Encounter Details Date Type Department Care Team (Late st Contact Info) Description 10/13/2022 Scanned Document [facility] [address] [place] [address] Conversion, Onbase Social History Tobacco Use Types [...] Description 12/09/2024 9:30 AM EDT Office Visit [address] [phone] Erika Mayes MD 3 [facility] 2, [address] [address] 03/31/2025 11:10 AM EST Office Visit [address] [address] Erika Mayes MD 703 [facility] 2, [address] [address] documented as of this encounter Procedures Procedure Name Priority Date/Time Associated Diagnosis Comments OUTSIDE IMAGING SCAN 10/13/2022 documented in this encounter Results * OUTSIDE IMAGING SCAN (10/13/2022) Anatomical Region Laterality Modality Other Narrative 10/13/2022 Ordered by an unspecified provider. us Onbase Conversion OUTSIDE SCAN Final Result documented in this encounter Visit Diagnoses Not on filedocumented in this encounter Care Teams Manager Sas Relationship Specialty Start Date End Date Jeferson Estrada MD [address] [place] [address] PCP - General 12/30/13 documented as of this encounter
--- OUTSIDE RECORDS SUMMARY | 2024-11-20 09:05 | XMS_ITS | Encounter Summary ---
Author Organization [facility] Address [address] [place] [address] Phone Care Team Providers Care Conveyor Technician Name Role Phone Jeferson Estrada MD Primary Care Provider Encounter Details Date Type Department Care Team (Late st Contact Info) Description 11/28/2022 Scanned Document [facility] [address] [place] [address] Scanning, Generic Provider Social History [...] Description 12/09/2024 9:30 AM EDT Office Visit [address] [address] Erika Mayes MD [address] [place] [address] 2, [address] [address] 03/31/2025 11:10 AM EST Office Visit [address] [address] Erika Mayes MD [address] [place] [address] 2, [address] [id number] documented as of this encounter Visit Diagnoses Not on filedocumented in this encounter Care Teams Conveyor Technician Relationship Specialty Start Date End Date Jeferson Estrada MD [address] [place] [address] PCP - General 12/30/13 documented as of this encounter
--- OUTSIDE RECORDS SUMMARY | 2024-11-20 09:05 | XMS_ITS | Encounter Summary ---
Author Organization [facility] Address [address] [facility] [place] [address] Care Team Providers Care Fire Tender Name Role Phone Jeferson Estrada MD Unavailable [phone] Jeferson Estrada MD Primary Care Provider Leonie Mcginnis NP Unavailable Edwige Arana NP Unavailable Gera Escobar MA Unavailable [phone] Edwige Arana NP Unavailable Encounter Details Date Type Department Care Team (Late st Contact Info) Description 02/28/2024 Abstract [facility] [address] [place] [address] Jeferson Estrada MD [address] [place] [address] Social History Tobacco Use Types [...] EST Office Visit [facility] [address] [place] [address] Jan Ghosh DPM [address] [address] 02/03/2025 2:00 PM EST Office Visit [facility] [address] [place] [address] Jeferson Estrada MD [address] [place] [address] 05/29/2025 1:00 PM EDT Office Visit [facility] [address] [place] [address] Jl Grajeda DO [address] [place] [address] documented as of this encounter Visit Diagnoses Not on filedocumented in this encounter Additional Health Concerns Assessment Noted Time PHQ-9 Depression Total Score: 2 10/09/19 1:18 PM EDT documented as of this encounter Care Teams Fire Tender Relationship Specialty Start Date End Date Jeferson Estrada MD [address] [place] [address] PCP - ACO Reach 07/13/22 Jeferson Estrada MD [address] [place] [address] PCP - General Family Medicine 08/09/22 Leonie Mcginnis NP [address] [place] [address] Nurse Practitioner Family Medicine 09/18/22 05/08/24 Edwige Arana NP [address] [place] [address] Nurse Practitioner Pulmonary Disease 09/18/22 10/23/24 Gera Escobar, [place] [address] [place] [address] Family Medicine 07/01/24 07/09/24 Edwige Arana NP [address] [place] [address] Nurse Practitioner Family Medicine 10/24/24 documented as of this encounter
--- OUTSIDE RECORDS SUMMARY | 2024-11-20 09:05 | XMS_ITS | Encounter Summary ---
Author Organization [facility] Address [address] [facility] [place] [address] Care Team Providers Care Nougat Candy Maker Helper Name Role Phone Jeferson Estrada MD Unavailable [phone] Jeferson Estrada MD Primary Care Provider Edwige Arana NP Unavailable [phone] Gera Escobar MA Unavailable [phone] Edwige Arana NP Unavailable Encounter Details Date Type Department Care Team (Late st Contact Info) Description 07/08/2024 Abstract [facility] [address] [place] [address] Jeferson Estrada MD [address] [place] [address] Social History Tobacco Use Types [...] 1:10 PM EST Office Visit [facility] [address] [place] [address] Jan Ghosh DPM [address] [address] 02/03/2025 2:00 PM EST Office Visit [facility] [address] [place] [address] Jeferson Estrada MD [address] [place] [address] 05/29/2025 1:00 PM EDT Office Visit [facility] [address] [place] [address] Jl Grajeda DO [address] [place] [address] documented as of this encounter Visit Diagnoses Not on filedocumented in this encounter Additional Health Concerns Assessment Noted Time PHQ-9 Depression Total Score: 2 10/09/19 24 1:18 PM EDT documented as of this encounter Care Teams Nougat Candy Maker Helper Relationship Specialty Start Date End Date Jeferson Estrada MD [address] [place] [address] PCP - ACO Reach 07/13/22 Jeferson Estrada MD [address] [place] [address] PCP - General Family Medicine 08/09/22 Edwige Arana NP [address] [place] [address] Nurse Practitioner Pulmonary Disease 09/18/22 10/23/24 Gera Escobar, [place] [address] [place] [address] Family Medicine 07/01/24 07/09/24 Edwige Arana NP [address] [place] [address] Nurse Practitioner Family Medicine 10/24/24 documented as of this encounter
--- OUTSIDE RECORDS SUMMARY | 2024-11-20 09:05 | XMS_ITS | Encounter Summary ---
Author Organization [facility] Address [address] [place] [address] Phone Care Team Providers Care Wood Preserving Plant Laborer Name Role Phone Jeferson Estrada MD Primary Care Provider Encounter Details Date Type Department Care Team (Late st Contact Info) Description 06/15/2022 Orders Only [facility] [address] [place] [address] Conversion, Onbase Social History Tobacco Use Types [...] Description 12/09/2024 9:30 AM EDT Office Visit [address] [phone] Erika Mayes MD 3 [place] [address], [address] [address] 03/31/2025 11:10 AM EST Office Visit [address] [phone] Erika Mayes MD 703 [facility] 2, [address] [address] Scheduled Orders Name Type Priority Associated Diagnoses Orde r Schedule OUTSIDE LAB SCAN Lab Ordered: 06/15/2022 documented as of this encounter Visit Diagnoses Not on filedocumented in this encounter Care Teams Wood Preserving Plant Laborer Relationship Specialty Start Date End Date Jeferson Estrada MD [address] [place] [address] PCP - General 12/30/13 documented as of this encounter
--- OUTSIDE RECORDS SUMMARY | 2024-11-20 09:05 | XMS_ITS | Encounter Summary ---
Author Organization [facility] Address [address] [place] [address] Phone Care Team Providers Care Theater Education Teacher Name Role Phone Jeferson Estrada MD Primary Care Provider [phone] Encounter Details Date Type Department Care Team (Late st Contact Info) Description 10/27/2023 Orders Only [facility] [address] [place] [address] Scanning, Generic Provider Social History [...] 12/09/2024 9:30 AM EDT Office Visit [address] [address] Erika Mayes MD 703 [facility] 2, [address] [place] [address] 03/31/2025 11:10 AM EST Office Visit [address] [place] [address] Erika Mayes MD 703 [facility] 2, [address] [place] [address] documented as of this encounter Procedures Procedure Name Priority Date/Time Associated Diagnosis Comments HOLTER AND CARDIAC EVENT MONITOR - ONBASE SCAN 10/27/2023 documented in this encounter Results * Holter and Cardiac Event Monitor - Onbase Scan (10/27/2023) Narrative 10/27/2023 Ordered by an unspecified provider. Generic Provider Scanning CV CARDIAC SERVICES ID OCEDURES Final Result documented in this encounter Visit Diagnoses Not on filedocumented in this encounter Additional Health Concerns Assessment Noted Time A fall risk assessment has been complete d for the patient 03/28/2023 11:30 AM EST documented as of this encounter Care Teams Theater Education Teacher Relationship Specialty Start Date End Date Jeferson Estrada MD [address] [place] [address] PCP - General 12/30/13 documented as of this encounter
--- OUTSIDE RECORDS SUMMARY | 2024-11-20 09:05 | XMS_ITS | Encounter Summary ---
Author Organization [facility] Address [address] [place] [address] Care Team Providers Care Multiple Wire Sawyer Name Role Phone Jeferson Estrada MD Unavailable [phone] Jeferson Estrada MD Primary Care Provider [phone] Leonie Mcginnis NP Unavailable Edwige Arana NP Unavailable Gera Escobar MA Unavailable [phone] Edwige Arana NP Unavailable Encounter Details Date Type Department Care Team (Late st Contact Info) Description 03/03/2024 Abstract [facility] [address] [place] [address] Jeferson Estrada MD [address] [place] [address] Social History Tobacco Use Types [...] EST Office Visit [facility] [address] [place] [address] Jan Ghosh DPM [address] [address] 02/03/2025 2:00 PM EST Office Visit [facility] [address] [place] [address] Jeferson Estrada MD [address] [place] [address] 05/29/2025 1:00 PM EDT Office Visit [facility] [address] [place] [address] Jl Grajeda DO [address] [place] [address] documented as of this encounter Visit Diagnoses Not on filedocumented in this encounter Additional Health Concerns Assessment Noted Time PHQ-9 Depression Total Score: 2 10/09/19 1:18 PM EDT documented as of this encounter Care Teams Multiple Wire Sawyer Relationship Specialty Start Date End Date Jeferson Estrada MD [address] [place] [address] PCP - ACO Reach 07/13/22 Jeferson Estrada MD [address] [place] [address] PCP - General Family Medicine 08/09/22 Leonie Mcginnis NP [address] [place] [address] Nurse Practitioner Family Medicine 09/18/22 05/08/24 Edwige Arana NP [address] [place] [address] Nurse Practitioner Pulmonary Disease 09/18/22 10/23/24 Gera Escobar, [place] [address] [place] [address] Family Medicine 07/01/24 07/09/24 Edwige Arana NP [address] [place] [address] Nurse Practitioner Family Medicine 10/24/24 documented as of this encounter
--- OUTSIDE RECORDS SUMMARY | 2024-11-20 09:05 | XMS_ITS | Encounter Summary ---
Author Organization [facility] Address [address] [place] [address] Phone Care Team Providers Care Supervisor Cytology Name Role Phone Jeferson Estrada MD Primary Care Provider Encounter Details Date Type Department Care Team (Late st Contact Info) Description 08/19/2021 Orders Only [facility] [address] [place] [address] Conversion, Onbase Social History Tobacco Use Types [...] Description 12/09/2024 9:30 AM EDT Office Visit [address] [address] Erika Mayes MD [address] [place] [address], [address] [address] 03/31/2025 11:10 AM EST Office Visit [address] [phone] Erika Mayes MD 3 [facility] 2, [address] [address] Scheduled Orders Name Type Priority Associated Diagnoses Orde r Schedule OUTSIDE LAB SCAN Lab Ordered: 08/19/2021 documented as of this encounter Visit Diagnoses Not on filedocumented in this encounter Care Teams Supervisor Cytology Relationship Specialty Start Date End Date Jeferson Estrada MD [address] [place] [address] PCP - General 12/30/13 documented as of this encounter
--- OUTSIDE RECORDS SUMMARY | 2024-11-20 09:05 | XMS_ITS | Encounter Summary ---
Author Organization [facility] Address [address] [place] [address] Care Team Providers Care Cafeteria Cashier Name Role Phone Jeferson Estrada MD Unavailable [phone] Jeferson Estrada MD Primary Care Provider Leonie Mcginnis NP Unavailable Edwige Arana NP Unavailable [phone] Gera Escobar MA Unavailable [phone] Edwige Arana NP Unavailable Encounter Details Date Type Department Care Team (Late st Contact Info) Description 12/14/2023 External Result Encounter [facility] External Department Unsolicited Jeferson Estrada MD [address] [place] [address] Social History Tobacco Use Types Packs/Day Years [...] Office Visit [facility] [address] [place] [address] Jan Ghosh DPM [address] [address] 02/03/2025 2:00 PM EST Office Visit [facility] [address] [place] [address] Jeferson Estrada MD [address] [place] [address] 05/29/2025 1:00 PM EDT Office Visit [facility] [address] [place] [address] Jl Grajeda DO [address] [place] [address] documented as of this encounter Procedures Procedure Name Priority Date/Time Associated Diagnosis Comments CARDIAC EVENT MONITOR 12/14/2023 5:05 PM EDT documented in this encounter Results * Cardiac event monitor (12/14/2023 5:05 PM EDT) Anatomical Region Laterality Modality Heart Other 12/14/2023 5:05 PM EDT Narrative 12/17/2023 11:32 PM EDT [facility] Main [address] [address] Cardiac Event Monitor Signed Patient: Maynor Samuels MR#: [id number] : 1945 Acct:[id number] Age/Sex: 78 / M ADM Date: 10/27/23 Loc: Room: Type: [facility] Attending Dr: Jeferson Estrada MD Copies [...] Procedure Note Davin Donald MD - 12/17/2023 [facility] [place] [address] Cardiac Event Monitor Signed Patient: Maynor Samuels R#: [id number] : 1945cct:[id number] Age/Sex: 78 / MADM Date: 10/27/23 Loc: Room:Type: [facility] Attending Dr: Jeferson Estrada MD Copies [...] documented as of this encounter Care Teams Cafeteria Cashier Relationship Specialty Start Date End Date Jeferson Estrada MD [address] [place] [address] PCP - ACO Reach 07/13/22 Jeferson Estrada MD [address] [place] [address] PCP - General Family Medicine 08/09/22 Leonie Mcginnis NP [address] [place] [address] Nurse Practitioner Family Medicine 09/18/22 05/08/24 Edwige Arana, SECURITY SME [address] [place] [address] Nurse Practitioner Pulmonary Disease 09/18/22 10/23/24 Gera Escobar MA [address] [place] [address] Family Medicine 07/01/24 07/09/24 Edwige Arana SECURITY SME [address] [place] [address] Nurse Practitioner Family Medicine 10/24/24 documented as of this encounter
--- OUTSIDE RECORDS SUMMARY | 2024-11-20 09:05 | XMS_ITS | Encounter Summary ---
Author Organization [facility] Address [address] [facility] [place] [address] Care Team Providers Care Lining Layer Name Role Phone Jeferson Estrada MD Unavailable [phone] Jeferson Estrada MD Primary Care Provider [phone] Edwige Arana AMBULATORY SERVICE REPRESENTATIVE Unavailable [phone] Edwige Arana AMBULATORY SERVICE REPRESENTATIVE Unavailable [phone] Encounter Details Date Type Department Care Team (Late st Contact Info) Description 09/18/2024 External Result Encounter [facility] External Department Unsolicited Jeferson Estrada MD [address] [place] [address] Social History Tobacco Use Types Packs/Day Years [...] Office Visit [facility] [address] [facility] [place] [address] Jan Ghosh DPM [address] [address] 02/03/2025 2:00 PM EST Office Visit [facility] [address] [place] [address] Jeferson Estrada MD [address] [place] [address] 05/29/2025 1:00 PM EDT Office Visit [facility] [address] [place] [address] Jl Grajeda DO [address] [place] [address] documented as of this encounter Procedures Procedure [...] 3:41 PM Dictation Location: [id number] Transcribed By: [facility] 09/18/24 1541 Dictated By: Jamie Escobar MD 09/18/24 1531 Signed By: <Electronically signed by Jamie Escobar MD in OV> 09/18/24 1541 Narrative 09/18/2024 3:43 PM EDT [facility] [place] [address] MRI Report Signed Patient: Maynor Samuels MR#: [id number] : 1945 Acct:[id number] Age/Sex: 79 / M ADM Date: 09/18/24 Loc: MR Room: Type: [facility] Attending Dr: Jeferson Estrada MD Copies [...] posterior cerebral arteries are patent. origin bilateral validation architect. MR/MR angio head wo con Procedure Note Radiology, Radiologist, - 09/18/2024 [facility] [place] [address] MRI Report Signed Patient: Maynor Samuels LMR#: [id number] : 7Acct:[id number] Age/Sex: 79 / MADM Date: 09/18/24 Loc: MR Room:Type: [facility] Attending Dr: Jeferson Estrada MD Copies [...] and posterior cerebral arteries are patent. originbilateral validation architect. 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 No large vessel occlusion or hemodynamically significant stenosis. Findings suggestive of subacute stroke throughout involving right spleniumthe corpus callosum and left parietal deep white matter. Impression dictated by: Jamie Escobar M.D. 09/18/2024 3:41 PM Dictation Location: [place] [address] Transcribed By: [facility] 09/18/24 1541 Dictated By: Jamie Escobar [...] documented as of this encounter Care Teams Lining Layer Relationship Specialty Start Date End Date Jeferson Estrada MD [address] [place] [address] PCP - ACO Reach 07/13/22 Jeferson Estrada MD [address] [place] [address] PCP - General Family Medicine 08/09/22 Edwige Arana NP [address] [place] [address] Nurse Practitioner Pulmonary Disease 09/18/22 10/23/24 Edwige Arana NP [address] [place] [address] Nurse Practitioner Family Medicine 10/24/24 documented as of this encounter
--- OUTSIDE RECORDS SUMMARY | 2024-11-20 09:05 | XMS_ITS | Encounter Summary ---
Author Organization [facility] Address [address] [facility] [address] Care Team Providers Care Management And Budget Analyst Name Role Phone Jeferson Estrada MD Unavailable [phone] Jeferson Estrada MD Primary Care Provider Leonie Mcginnis NP Unavailable Edwige Arana NP Unavailable [phone] Gera Escobar MA Unavailable [phone] Edwige Arana NP Unavailable Encounter Details Date Type Department Care Team (Late st Contact Info) Description 12/13/2023 Abstract [facility] [address] [place] [address] Jeferson Estrada MD [address] [place] [address] Social History Tobacco Use Types [...] EST Office Visit [facility] [address] [place] [address] Jan Ghosh DPM [address] [address] 02/03/2025 2:00 PM EST Office Visit [facility] [address] [place] [address] Jeferson Estrada MD [address] [place] [address] 05/29/2025 1:00 PM EDT Office Visit [facility] [address] [place] [address] Jl Grajeda DO [address] [place] [address] documented as of this encounter Visit Diagnoses Not on filedocumented in this encounter Additional Health Concerns Assessment Noted Time PHQ-9 Depression Total Score: 2 10/09/19 1:18 PM EDT documented as of this encounter Care Teams Management And Budget Analyst Relationship Specialty Start Date End Date Jeferson Estrada MD [address] [place] [address] PCP - ACO Reach 07/13/22 Jeferson Estrada MD [address] [place] [address] PCP - General Family Medicine 08/09/22 Leonie Mcginnis NP [address] [place] [address] Nurse Practitioner Family Medicine 09/18/22 05/08/24 Edwige Arana NP [address] [place] [address] Nurse Practitioner Pulmonary Disease 09/18/22 10/23/24 Gera Escobar, [place] [address] [place] [address] Family Medicine 07/01/24 07/09/24 Edwige Arana NP [address] [place] [address] Nurse Practitioner Family Medicine 10/24/24 documented as of this encounter
--- OUTSIDE RECORDS SUMMARY | 2024-11-20 09:05 | XMS_ITS | Encounter Summary ---
Author Organization [facility] Address [address] [facility] [place] [address] Care Team Providers Care Superintendent Cemetery Name Role Phone Jeferson Estrada MD Unavailable [phone] Jeferson Estrada MD Primary Care Provider [phone] Edwige Arana AMPHIBIOUS OPERATIONS OFFICER Unavailable Edwige Arana AMPHIBIOUS OPERATIONS OFFICER Unavailable [phone] Encounter Details Date Type Department Care Team (Late st Contact Info) Description 09/07/2024 Abstract [facility] [address] [place] [address] Jeferson Estrada MD [address] [place] [address] Social History Tobacco Use Types Packs/Day Years [...] 12/26/2024 1:10 PM EST Office Visit [facility] [address] [place] [address] Jan Ghosh DPM [address] [address] 02/03/2025 2:00 PM EST Office Visit [facility] [address] [place] [address] Jeferson Estrada MD [address] [place] [address] 05/29/2025 1:00 PM EDT Office Visit [facility] [place] [address] [place] [address] Jl Grajeda DO [address] [place] [address] documented as of this encounter Visit Diagnoses Not on filedocumented in this encounter Additional Health Concerns Assessment Noted Time PHQ-9 Depression Total Score: 2 10/09/19 1:18 PM EDT documented as of this encounter Care Teams Superintendent Cemetery Relationship Specialty Start Date End Date Jeferson Estrada MD [address] [place] [address] PCP - ACO Reach 07/13/22 Jeferson Estrada MD [address] [place] [address] PCP - General Family Medicine 08/09/22 Edwige Arana AMPHIBIOUS OPERATIONS OFFICER [address] [place] [address] Nurse Practitioner Pulmonary Disease 09/18/22 10/23/24 Edwige Arana NP [address] [place] [address] Nurse Practitioner Family Medicine 10/24/24 documented as of this encounter
--- OUTSIDE RECORDS SUMMARY | 2024-11-20 09:05 | XMS_ITS | Encounter Summary ---
Author Organization [facility] Address [address] [facility] [place] [address] Care Team Providers Care Manager Integration Name Role Phone Jeferson Estrada MD Unavailable [phone] Jeferson Estrada MD Primary Care Provider [phone] Edwige Arana RESIN REMOVER Unavailable Edwige Arana RESIN REMOVER Unavailable [phone] Encounter Details Date Type Department Care Team (Late st Contact Info) Description 07/16/2024 Abstract [facility] [address] [place] [address] Jeferson Estrada MD [address] [place] [address] Social History Tobacco Use Types Packs/Day Years [...] 12/26/2024 1:10 PM EST Office [facility] [address] [place] [address] Jan Ghosh DPM [address] [address] 02/03/2025 2:00 PM EST Office Visit [facility] [address] [place] [address] Jeferson Estrada MD [address] [place] [address] 05/29/2025 1:00 PM EDT Office Visit [facility] [address] [place] [address] Jl Grajeda DO [address] [place] [address] documented as of this encounter Visit Diagnoses Not on filedocumented in this encounter Additional Health Concerns Assessment Noted Time PHQ-9 Depression Total Score: 2 10/09/19 1:18 PM EDT documented as of this encounter Care Teams Manager Integration Relationship Specialty Start Date End Date Jeferson Estrada MD [address] [place] [address] PCP - ACO Reach 07/13/22 Jeferson Estrada MD [address] [place] [address] PCP - General Family Medicine 08/09/22 Edwige Arana RESIN REMOVER [address] [place] [address] Nurse Practitioner Pulmonary Disease 09/18/22 10/23/24 Edwige Arana NP [address] [place] [address] Nurse Practitioner Family Medicine 10/24/24 documented as of this encounter
--- OUTSIDE RECORDS SUMMARY | 2024-11-20 09:05 | XMS_ITS | Encounter Summary ---
Author Organization [facility] Address [address] [facility] [place] [address] Care Team Providers Care Lamination Builder Name Role Phone Jeferson Estrada MD Unavailable [phone] Jeferson Estrada MD Primary Care Provider Leonie Mcginnis NP Unavailable Edwige Arana NP Unavailable Gera Escobar MA Unavailable [phone] Edwige Arana NP Unavailable [phone] Encounter Details Date Type Department Care Team (Late st Contact Info) Description 02/29/2024 Abstract [facility] [address] [place] [address] Jeferson Estrada MD [address] [place] [address] Social History Tobacco Use Types [...] EST Office Visit [facility] [address] [place] [address] Jan Ghosh DPM [address] [address] 02/03/2025 2:00 PM EST Office Visit [facility] [address] [place] [address] Jeferson Estrada MD [address] [place] [address] 05/29/2025 1:00 PM EDT Office Visit [facility] [address] [place] [address] Jl Grajeda DO [address] [place] [address] documented as of this encounter Visit Diagnoses Not on filedocumented in this encounter Additional Health Concerns Assessment Noted Time PHQ-9 Depression Total Score: 2 10/09/19 1:18 PM EDT documented as of this encounter Care Teams Lamination Builder Relationship Specialty Start Date End Date Jeferson Estrada MD [address] [place] [address] PCP - ACO Reach 07/13/22 Jeferson Estrada MD [address] [place] [address] PCP - General Family Medicine 08/09/22 Leonie Mcginnis NP [address] [place] [address] Nurse Practitioner Family Medicine 09/18/22 05/08/24 Edwige Arana NP [address] [place] [address] Nurse Practitioner Pulmonary Disease 09/18/22 10/23/24 Gera Escobar, [place] [address] [place] [address] Family Medicine 07/01/24 07/09/24 Edwige Arana NP [address] [place] [address] Nurse Practitioner Family Medicine 10/24/24 documented as of this encounter
--- OUTSIDE RECORDS SUMMARY | 2024-11-20 09:05 | XMS_ITS | Encounter Summary ---
Author Organization [facility] Address [address] [place] [address] Phone Care Team Providers Care Office Communication Professor Name Role Phone Jeferson Estrada MD Primary Care Provider [phone] Encounter Details Date Type Department Care Team (Late st Contact Info) Description 02/11/2024 Scanned Document [facility] [address] [place] [address] Scanning, Generic Provider Social History [...] 12/09/2024 9:30 AM EDT Office Visit [address] [address] Erika Mayes MD [address]03 [facility] 2, [address] [place] [address] 03/31/2025 11:10 AM EST Office Visit [address] [place] [address] Erika Mayes MD 703 [facility] 2, [address] [place] [address] documented as of this encounter [...] documented as of this encounter Care Teams Office Communication Professor Relationship Specialty Start Date End Date Jeferson Estrada MD [address] [place] [address] PCP - General 12/30/13 documented as of this encounter
--- OUTSIDE RECORDS SUMMARY | 2024-11-20 09:05 | XMS_ITS | Encounter Summary ---
Author Organization [facility] Address [address] [place] [address] Phone Care Team Providers Care Apiculturist Name Role Phone Jeferson Estrada MD Primary Care Provider Encounter Details Date Type Department Care Team (Late st Contact Info) Description 04/21/2019 Orders Only [facility] [address] [place] [address] Conversion, Onbase Social History Tobacco Use Types [...] 12/09/2024 9:30 AM EDT Office Visit [address] [address] Erika Mayes MD [address] [place] [address], [address] [address] 03/31/2025 11:10 AM EST Office Visit [address] [address] Erika Mayes MD 3 [facility] 2, [address] [address] Scheduled Orders Name Type Priority Associated Diagnoses Orde r Schedule OUTSIDE LAB SCAN Lab Ordered: 04/21/2019 documented as of this encounter Visit Diagnoses Not on filedocumented in this encounter Care Teams Apiculturist Relationship Specialty Start Date End Date Jeferson Estrada MD [address] [place] [address] PCP - General 12/30/13 documented as of this encounter
--- OUTSIDE RECORDS SUMMARY | 2024-11-20 09:05 | XMS_ITS | Encounter Summary ---
Author Organization [facility] Address [address] [facility] [place] [address] Care Team Providers Care Pipelines Manager Name Role Phone Jeferson Estrada MD Unavailable [phone] Jeferson Estrada MD Primary Care Provider [phone] Edwige Arana PROPERTY MANAGEMENT INTERN Unavailable [phone] Edwige Arana PROPERTY MANAGEMENT INTERN Unavailable [phone] Encounter Details Date Type Department Care Team (Late st Contact Info) Description 09/15/2024 Abstract [facility] [address] [place] [address] Jeferson Estrada MD [address] [place] [address] Social History Tobacco Use Types Packs/Day Years [...] 12/26/2024 1:10 PM EST Office Visit [facility] [address] [place] [address] Jan Ghosh DPM [address] [address] 02/03/2025 2:00 PM EST Office Visit [facility] [address] [place] [address] Jeferson Estrada MD [address] [place] [address] 05/29/2025 1:00 PM EDT Office Visit [facility] [address] [place] [address] Jl Grajeda DO [address] [place] [address] documented as of this encounter Visit Diagnoses Not on filedocumented in this encounter Additional Health Concerns Assessment Noted Time PHQ-9 Depression Total Score: 2 10/09/19 1:18 PM EDT documented as of this encounter Care Teams Pipelines Manager Relationship Specialty Start Date End Date Jeferson Estrada MD [address] [place] [address] PCP - ACO Reach 07/13/22 Jeferson Estrada MD [address] [place] [address] PCP - General Family Medicine 08/09/22 Edwige Arana PROPERTY MANAGEMENT INTERN [address] [place] [address] Nurse Practitioner Pulmonary Disease 09/18/22 10/23/24 Edwige Arana NP [address] [place] [address] Nurse Practitioner Family Medicine 10/24/24 documented as of this encounter
--- OUTSIDE RECORDS SUMMARY | 2024-11-20 09:05 | XMS_ITS | Encounter Summary ---
Author Organization [facility] Address [address] [facility] [place] [address] Care Team Providers Care Bull Bucker Name Role Phone Jeferson Estrada MD Unavailable [phone] Jeferson Estrada MD Primary Care Provider Leonie Mcginnis NP Unavailable Edwige Arana NP Unavailable Gera Escobar MA Unavailable [phone] Edwige Arana NP Unavailable Encounter Details Date Type Department Care Team (Late st Contact Info) Description 12/20/2023 Abstract [facility] [address] [place] [address] Jeferson Estrada MD [address] [place] [address] Social History Tobacco Use Types [...] EST Office Visit [facility] [address] [place] [address] Jan Ghosh DPM [address] [address] 02/03/2025 2:00 PM EST Office Visit [facility] [address] [place] [address] Jeferson Estrada MD [address] [place] [address] 05/29/2025 1:00 PM EDT Office Visit [facility] [address] [place] [address] Jl Grajeda DO [address] [place] [address] documented as of this encounter Visit Diagnoses Not on filedocumented in this encounter Additional Health Concerns Assessment Noted Time PHQ-9 Depression Total Score: 2 10/09/19 1:18 PM EDT documented as of this encounter Care Teams Bull Bucker Relationship Specialty Start Date End Date Jeferson Estrada MD [address] [place] [address] PCP - ACO Reach 07/13/22 Jeferson Estrada MD [address] [place] [address] PCP - General Family Medicine 08/09/22 Leonie Mcginnis NP [address] [place] [address] Nurse Practitioner Family Medicine 09/18/22 05/08/24 Edwige Arana NP [address] [place] [address] Nurse Practitioner Pulmonary Disease 09/18/22 10/23/24 Gera Escobar, [place] [address] [place] [address] Family Medicine 07/01/24 07/09/24 Edwige Arana NP [address] [place] [address] Nurse Practitioner Family Medicine 10/24/24 documented as of this encounter
--- OUTSIDE RECORDS SUMMARY | 2024-11-20 09:05 | XMS_ITS | Encounter Summary ---
Author Organization [facility] Address [address] [facility] [place] [address] Care Team Providers Care Racing Driver Name Role Phone Jeferson Estrada MD Unavailable [phone] Jeferson Estrada MD Primary Care Provider [phone] Leonie Mcginnis NP Unavailable Edwige Arana NP Unavailable [phone] Gera Escobar MA Unavailable [phone] Edwige Arana NP Unavailable Encounter Details Date Type Department Care Team (Late st Contact Info) Description 02/28/2024 Abstract [facility] [address] [place] [address] Jeferson Estrada MD [address] [place] [address] Social History Tobacco Use Types [...] Visit [facility] [address] [place] [address] Jan Ghosh DPM [address] [address] 02/03/2025 2:00 PM EST Office Visit [facility] [address] [place] [address] Jeferson Estrada MD [address] [place] [address] 05/29/2025 1:00 PM EDT Office Visit [facility] [address] [place] [address] Jl Grajeda DO [address] [place] [address] documented as of this encounter Visit Diagnoses Not on filedocumented in this encounter Additional Health Concerns Assessment Noted Time PHQ-9 Depression Total Score: 2 10/09/19 1:18 PM EDT documented as of this encounter Care Teams Racing Driver Relationship Specialty Start Date End Date Jeferson Estrada MD [address] [place] [address] PCP - ACO Reach 07/13/22 Jeferson Estrada MD [address] [place] [address] PCP - General Family Medicine 08/09/22 Leonie Mcginnis NP [address] [place] [address] Nurse Practitioner Family Medicine 09/18/22 05/08/24 Edwige Arana NP [address] [place] [address] Nurse Practitioner Pulmonary Disease 09/18/22 10/23/24 Gera Escobar, [place] [address] [place] [address] Family Medicine 07/01/24 07/09/24 Edwige Arana NP [address] [place] [address] Nurse Practitioner Family Medicine 10/24/24 documented as of this encounter
--- OUTSIDE RECORDS SUMMARY | 2024-11-20 09:05 | XMS_ITS | Encounter Summary ---
Author Organization [facility] Address [address] [facility] [place] [address] Care Team Providers Care Contract Specialist Name Role Phone Jeferson Estrada MD Unavailable [phone] Jeferson Estrada MD Primary Care Provider Leonie Mcginnis NP Unavailable Edwige Arana NP Unavailable [phone] Gera Escobar MA Unavailable [phone] Edwige Arana NP Unavailable Encounter Details Date Type Department Care Team (Late st Contact Info) Description 03/04/2024 Abstract [facility] [address] [place] [address] Jeferson Estrada MD [address] [place] [address] Social History Tobacco Use Types [...] EST Office Visit [facility] [address] [place] [address] Jan Ghosh DPM [address] [address] 02/03/2025 2:00 PM EST Office Visit [facility] [address] [place] [address] Jeferson Estrada MD [address] [place] [address] 05/29/2025 1:00 PM EDT Office Visit [facility] [address] [place] [address] Jl Grajeda DO [address] [place] [address] documented as of this encounter Visit Diagnoses Not on filedocumented in this encounter Additional Health Concerns Assessment Noted Time PHQ-9 Depression Total Score: 2 10/09/19 1:18 PM EDT documented as of this encounter Care Teams Contract Specialist Relationship Specialty Start Date End Date Jeferson Estrada MD [address] [place] [address] PCP - ACO Reach 07/13/22 Jeferson Estrada MD [address] [place] [address] PCP - General Family Medicine 08/09/22 Leonie Mcginnis NP [address] [place] [address] Nurse Practitioner Family Medicine 09/18/22 05/08/24 dEwige Arana NP [address] [place] [address] Nurse Practitioner Pulmonary Disease 09/18/22 10/23/24 Gera Escobar, [place] [address] [place] [address] Family Medicine 07/01/24 07/09/24 Edwige Arana NP [address] [place] [address] Nurse Practitioner Family Medicine 10/24/24 documented as of this encounter
--- OUTSIDE RECORDS SUMMARY | 2024-11-20 09:06 | XMS_ITS | Encounter Summary ---
Author Organization [facility] Address [address] [place] [address] Phone Care Team Providers Care Gyroscopic Instrument Tester Name Role Phone Jeferson Estrada MD Primary Care Provider [phone] Encounter Details Date Type Department Care Team (Late st Contact Info) Description 07/16/2024 Scanned Document [facility] [address] [place] [address] Scanning, Generic Provider Social History [...] 12/09/2024 9:30 AM EDT Office Visit [address] [address] Erika Mayes MD 703 [facility] 2, [address] [place] [address] 03/31/2025 11:10 AM EST Office Visit [address] [place] [address] Erika Mayes MD [address]03 [facility] 2, [address] [place] [address] documented as of this encounter Visit Diagnoses Not on filedocumented in this encounter Additional Health Concerns Assessment Noted Time A fall risk assessment has been complete d for the patient 03/26/2024 1:30 PM EST documented as of this encounter Care Teams Gyroscopic Instrument Tester Relationship Specialty Start Date End Date Jeferson Estrada MD [address] [place] [address] PCP - General 12/30/13 documented as of this encounter
--- OUTSIDE RECORDS SUMMARY | 2024-11-20 09:06 | XMS_ITS | Encounter Summary ---
Author Organization [facility] Address [address] [place] [address] Care Team Providers Care Dental Appliance Repairer Name Role Phone Jeferson Estrada MD Unavailable [phone] Jeferson Estrada MD Primary Care Provider [phone] Edwige Arana MESS ATTENDANT CREW Unavailable Encounter Details Date Type Department Care Team (Late Contact Info) Description 11/03/2024 Orders Only [facility] [address] [place] [address] Jeferson Estrada MD [address] [place] [address] Social History Tobacco Use Types Packs/Day Years [...] 12/26/2024 1:10 PM EST [facility] [address] [facility] [place] [address] Jan Ghosh DPM 3006 [facility] [place] [address] 02/03/2025 2:00 PM EST Office Visit [facility] [address] [place] [address] Jeferson Estrada MD [address] [place] [address] 05/29/2025 1:00 PM EDT Office Visit [facility] [address] [place] [address] Jl Grajeda DO [address] [place] [address] documented as of this encounter Procedures Procedure [...] documented as of this encounter Care Teams Dental Appliance Repairer Relationship Specialty Start Date End Date Jeferson Estrada MD [address] [place] [address] PCP - ACO Reach 07/13/22 Jeferson Estrada MD [address] [place] [address] PCP - General Family Medicine 08/09/22 Edwige Arana NP [address] [place] [address] Nurse Practitioner Family Medicine 10/24/24 documented as of this encounter
--- OUTSIDE RECORDS SUMMARY | 2024-11-20 09:06 | XMS_ITS | Clinical Summary ---
Author Organization [facility] Address [address] [place] [address] Phone Care Team Providers Care Framing Specialist Name Role Phone Jeferson Estrada MD [...] 75 mg tabletIndications: Athscl heart disease of [place] coronary artery w/o ang pctrs,Essential hypertension Take [...] mg SL tabletIndications: Athscl heart disease of [place] tribes coronary artery w/o ang pctrs Place 1 [...] Description 10/30/2024 9:30 AM EDT Office Visit [address] [address] Erika Mayes MD Essential hypertension; Athscl heart disease of [place] coronary artery w/o ang pctrs; BMI 24.0-24.9, adult; Former smoker 10/30/2024 Travel 10/23/[address] [place] [address] Riddhi Harden LPN pre op 10/15/[address] [place] [address] Althea Rojas LPN Hypertension 10/07/2024 9:30 AM EDT Office Visit [facility] [address] [place] [address] Erika Mayes MD Essential hypertension 10/07/2024 Travel 09/15/2024 Telephone [facility] [address] [place] [address] Althea Rojas LPN recent ER visit 09/14/2024 Scanned Document [facility] [address] [place] [address] Scanning, Generic Provider 09/08/2024 1:30 PM EDT Office Visit [facility] 703 [facility] [address] [place] [address] Erika Mayes MD Essential hypertension; BMI 26.0-26.9,adult; Former smoker 09/08/2024 Travel 09/01/2024 Scanned Document [facility] [address] [place] [address] Scanning, Generic Provider from Last 3 Months Immunizations Immunization Administration [...] Upcoming Encounters Date Type Department Care Team ([facility] st Contact Info) Description 12/09/2024 9:30 AM EDT Office Visit [address] [address] Erika Mayes MD 703 [facility] 2, [address] [place] [address] 03/31/2025 11:10 AM EST Office Visit [facility] [address] [facility] [address] [place] [address] Erika Mayes MD 703 [facility] 2, [address] [place] [address] Health Maintenance Due Date Last Done Comments [...] Protein Screening 06/13/2024 06/14/2023 COVID-19 Vaccine ( season) 2024 Thyroglobulin Test 05/16/2025 05/16/2024 Lipid [...] AND B [employer] MEDICARE SUPPLEMENT Care Teams Framing Specialist Relationship Specialty Start Date End Date Jeferson Estrada MD [address] [place] [address] PCP - General 12/30/13
--- OUTSIDE RECORDS SUMMARY | 2024-11-20 09:06 | XMS_ITS | Encounter Summary ---
Author Organization [facility] Address [address] [place] [address] Care Team Providers Care Car Rental Sales Assistant Name Role Phone Jeferson Estrada MD Unavailable [phone] Jeferson Estrada MD Primary Care Provider [phone] Edwige Arana LINT CLEANER Unavailable Edwige Arana NP Unavailable [phone] Encounter Details Date Type Department Care Team (Late st Contact Info) Description 10/02/2024 Telephone [facility] [address] [facility] [address] [place] [address] Niya Johnson, LINT CLEANER [address] [facility] [address] [place] [address] Social History Tobacco Use Types Packs/Day Years [...] 1:10 PM EST Office Visit [facility] [address] [place] [address] Jan Ghosh DPM [address] [address] 02/03/2025 2:00 PM EST Office Visit [facility] [address] [place] [address] Jeferson Estrada MD [address] [place] [address] 05/29/2025 1:00 PM EDT Office Visit [facility] [address] [place] [address] Jl Grajeda DO [address] [place] [address] documented as of this encounter Visit Diagnoses Not on filedocumented in this encounter Additional Health Concerns Assessment Noted Time PHQ-9 Depression Total Score: 2 10/09/19 1:18 PM EDT documented as of this encounter Care Teams Car Rental Sales Assistant Relationship Specialty Start Date End Date Jeferson Estrada MD [address] [place] [address] PCP - ACO Reach 07/13/22 Jeferson Estrada MD [address] [place] [address] PCP - General Family Medicine 08/09/22 Edwige Arana NP [address] [place] [address] Nurse Practitioner Pulmonary Disease 09/18/22 10/23/24 Edwige Arana NP [address] [place] [address] Nurse Practitioner Family Medicine 10/24/24 documented as of this encounter
--- OUTSIDE RECORDS SUMMARY | 2024-11-20 09:06 | XMS_ITS | Encounter Summary ---
Author Organization [facility] Address [address] [place] [address] Phone Care Team Providers Care Lumber Stacker Driver Name Role Phone Jeferson Estrada MD Primary Care Provider [phone] Encounter Details Date Type Department Care Team (Late st Contact Info) Description 09/14/2024 Scanned Document [facility] [address] [place] [address] Scanning, Generic Provider Social History [...] 12/09/2024 9:30 AM EDT Office Visit [address] [address] Erika Mayes MD 703 [facility] [address], [address] [place] [address] 03/31/2025 11:10 AM EST Office Visit [address] [place] [address] Erika Mayes MD 703 [facility] 2, [address] [place] [address] documented as of this encounter [...] documented as of this encounter Care Teams Lumber Stacker Driver Relationship Specialty Start Date End Date Jeferson Estrada MD [address] [place] [address] PCP - General 12/30/13 documented as of this encounter
--- OUTSIDE RECORDS SUMMARY | 2024-11-20 09:06 | XMS_ITS | Encounter Summary ---
Author Organization [facility] Address [address] [place] [address] Care Team Providers Care Neighborhood Coordinator Name Role Phone Jeferson Estrada MD Unavailable [phone] Jeferson Estrada MD Primary Care Provider Leonie Mcginnis NP Unavailable Edwige Arana NP Unavailable Jake Hall LPN Unavailable Unavailable Gera Escobar MA Unavailable [phone] Edwige Arana NP Unavailable [phone] Encounter Details Date Type Department Care Team (Late st Contact Info) Description 06/15/2023 External Result Encounter [facility]OM[facility] External Department Unsolicited Jeferson Estrada MD [address] [place] [address] Social History Tobacco Use Types Packs/Day Years [...] 1:10 PM EST Office Visit [facility] [address] [place] [address] Jan Ghosh DPM [address] [address] 02/03/2025 2:00 PM EST Office Visit [facility] [address] [place] [address] Jeferson Estrada MD [address] [place] [address] 05/29/2025 1:00 PM EDT Office Visit [facility] [address] [place] [address] Jl Grajeda DO [address] [place] [address] documented as of this encounter Procedures Procedure [...] Sheri Fishman M.D.06/15/2023 1:06 PM Dictation Location: [facility]--12 Transcribed By: [facility] 06/15/23 1306 Dictated By: Sheri Fishman MD 06/15/23 1301 Signed By: <Electronically signed by MD Sheri Fishman in OV> 06/15/23 1306 Narrative 06/15/2023 1:09 PM EDT [facility] [place] [address] XRay Report Signed Patient: Maynor Samuels MR#: [id number] : 1945 Acct:[id number] Age/Sex: 78 / M ADM Date: 06/15/23 Loc: XD Room: Type: [facility] Attending Dr: Jeferson Estrada MD Copies to: [...] bending Procedure Note Radiology, Radiologist, - 06/15/2023 [facility] Main [address] [address] XRay Report Signed Patient: Maynor Samuels LMR#: [id number] : 7Acct:[id number] Age/Sex: 78 / MADM Date: 06/15/23 Loc: XD Room:Type: [facility] Attending Dr: Jeferson Estrada MD Copies to: Jeferson Estrada MD Ordering Provider: Jeferosn Estrada MD Date of Service: 06/15/23 XR/XR [...] Sheri Fishman M.D.06/15/2023 1:06 PM Dictation Location: [place] [address] Transcribed By: [facility] 06/15/23 1306 Dictated By: Sheri Fishman MD [...] documented as of this encounter Care Teams Neighborhood Coordinator Relationship Specialty Start Date End Date Jeferson Estrada MD [address] [place] [address] PCP - ACO Reach 07/13/22 Jeferson Estrada MD [address] [place] [address] PCP - General Family Medicine 08/09/22 Leonie Mcginnis NP [address] [place] [address] Nurse Practitioner Family Medicine 09/18/22 05/08/24 Edwige Arana NP [address] [place] [address] Nurse Practitioner Pulmonary Disease 09/18/22 10/23/24 Jake Hall LPN Licensed Practical Nurse Family Medicine 07/20/2307/23/23 Gera Escobar MA [address] [place] [address] Family Medicine 07/01/24 07/09/24 Edwige Arana NP [address] [place] [address] Nurse Practitioner Family Medicine 10/24/24 documented as of this encounter
--- OUTSIDE RECORDS SUMMARY | 2024-11-20 09:06 | XMS_ITS | Encounter Summary ---
Author Organization [facility] Address [address] [place] [address] Care Team Providers Care Glue Mounter Operator Name Role Phone Jeferson Estrada MD Unavailable [phone] Jeferson Estrada MD Primary Care Provider [phone] Leonie Mcginnis NP Unavailable Edwige Arana NP Unavailable [phone] Jake Hall LPN Unavailable Unavailable Gera Escobar MA Unavailable [phone] Edwige Arana NP Unavailable Encounter Details Date Type Department Care Team (Late st Contact Info) Description 07/08/2023 Orders Only [facility] [address] [place] [address] Jeferson Estrada MD [address] [place] [address] Social History Tobacco Use Types Packs/Day Years [...] 1:10 PM EST Office Visit [facility] [address] [place] [address] Jan Ghosh DPM [address] [address] 02/03/2025 2:00 PM EST Office Visit [facility] [address] [place] [address] Jeferson Estrada MD [address] [place] [address] 05/29/2025 1:00 PM EDT Office Visit [facility] [address] [place] [address] Jl Grajeda DO [address] [place] [address] documented as of this encounter Procedures Procedure [...] documented as of this encounter Care Teams Glue Mounter Operator Relationship Specialty Start Date End Date Jeferson Estrada MD [address] [place] [address] PCP - ACO Reach 07/13/22 Jeferson Estrada MD [address] [place] [address] PCP - General Family Medicine 08/09/22 Leonie Mcginnis NP [address] [place] [address] Nurse Practitioner Family Medicine 09/18/22 05/08/24 Edwige Arana NP [address] [place] [address] Nurse Practitioner Pulmonary Disease 09/18/22 10/23/24 Jake Hall LPN Licensed Practical Nurse Family Medicine 07/20/2307/23/23 Gera Escobar, HEATH [address] [place] [address] Family Medicine 07/01/24 07/09/24 Edwige Arana NP [address] [place] [address] Nurse Practitioner Family Medicine 10/24/24 documented as of this encounter
--- OUTSIDE RECORDS SUMMARY | 2024-11-20 09:06 | XMS_ITS | Clinical Summary ---
Author Organization [facility] Address [address] [place] [address] Care Team Providers Care Immunochemist Name Role Phone Doug Estrada MD Unavailable Doug Estrada MD Primary Care Provider [phone] Edwige Arana ADJUSTMENT EXAMINER Unavailable [phone] Allergies Active Allergy Reactions Criticality Noted [...] with meals. 200 tablet 1 05/02/19 25 Active amLODIPine-valsart an (Exforge) 5-160 MG tablet [...] and 1 tablet in the evening. 025 Discontin ued(Reord er) desonide (DesOwen) 0.05 % lotionIndications: Morbilliform rash Apply topically in the morning and before bedtime. Do all this for 14 days. 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 [address] [place] [address] Doug Estrada MD 11/13/2024 Clinisync Result Encounter NOMS External Department Unsolicited Provider, Generic External Data 11/13/2024 Abstract [facility] [address] [place] [address] Doug Estrada MD 11/13/2024 Clinisync Result Encounter NOMS External Department Unsolicited Provider, Generic External Data 11/13/2024 Abstract [facility] [place] [address] [place] [address] Duog Estrada MD 11/13/2024 Clinisync Result Encounter NOMS External Department Unsolicited Provider, Generic External Data 11/12/2024 Abstract NOM [place] [facility] [address] [place] [address] Doug Estrada MD 11/03/2024 Telephone [facility] [address] [place] [address] Doug Estrada MD 11/03/2024 Orders Only [facility] [place] [facility] [address] [place] [address] Doug Estrada MD 10/28/2024 1:20 PM EDT Office Visit [facility] [place] [facility] [address] [place] [address] Doug Estrada MD Medicare annual wellness visit, subsequent [...] neoplasm of urinary bladder, unspecified site (HCC) 10/28/2024 Bamboo flowsheet [facility] [address] [place] [address] Doug Estrada MD 10/28/2024 Travel 10/21/2024 Abstract [facility] [address] [place] [address] Doug Estrada MD 10/11/2024 9:10 AM EDT [facility] [address] [place] [address] Leonie Mcginnis NP Morbilliform rash (Primary Dx); Cellulitis of right thigh 10/11/2024 Travel 10/02/2024 2:00 PM EDT Ancillary Procedure [facility] [address] [place] [address] 10/02/2024 10:25 AM EDT [facility] [address] [place] [address] Niya Johnson NP Acute pain of right thigh (Primary Dx); Rash; Cellulitis of right thigh 10/02/2024 Refill [facility] [address] [place] [address] Doug Estrada MD 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) 10/02/2024 Telephone [facility] [address] [place] [address] Niya Johnson NP 10/02/2024 Travel 09/29/2024 2:00 PM EDT [facility] [address] [facility] [place] [address] Jan Ghosh DPM Venous insufficiency (Primary Dx); Diabetes mellitus due to underlying condition with diabetic polyneuropathy, without long-term current use of insulin (HCC); Pain due to onychomycosis of toenails of both feet; PVD (peripheral vascular disease) 09/29/2024 Bamboo flowsheet [facility] [place] [facility] [address] [place] [address] Jan Ghosh DPM 09/18/2024 Results Follow-Up [facility] [address] [place] [address] Doug Estrada MD MR angiogram head wo IV contrast 09/18/2024 External Result Encounter NOMS External Department Unsolicited Doug Estrada MD 09/15/2024 Patient Outreach [facility] [address] [place] [address] Gera Escobar MA 09/15/2024 Abstract [facility] [address] [place] [address] Doug Estrada MD 09/07/2024 Abstract [facility] [address] [place] [address] Doug Estrada MD 08/28/2024 Clinisync Result Encounter NOMS External Department Unsolicited Provider, Generic External Data 08/27/2024 [facility] [address] [place] [address] Lupe Mcgregor MA Iron deficiency anemia secondary to inadequate dietary iron intake 08/21/2024 Clinisync Result Encounter NOMS External Department Unsolicited Provider, Generic External Data from Last 3 Months Immunizations Immunization Administration [...] EST Office Visit [facility] [address] [place] [address] Jan Ghosh DPM [address] [address] 02/03/2025 2:00 PM EST Office Visit [facility] [address] [place] [address] Doug Estrada MD [address] [place] [address] 05/29/2025 1:00 PM EDT Office Visit [facility] [place] [address] [place] [address] Jl Grajeda, [address] [place] [address] Health Maintenance Due Date Last Done Comments [...] Name Priority Date/Time Associated Diagnosis Comments XR CHEST 2V 11/13/2024 2:43 PM EDT ALL BASIC METABOLIC PANEL Routine 11/13/2024 1:15 PM EDT [facility] APTT Routine 11/13/2024 1:15 PM EDT [facility] PROTHROMBIN TIME INR W/O COUM Routine 11/13/2024 1:15 PM EDT ALL CBC WITH AUTO DIFF Routine 11/13/2024 1:15 PM EDT ECG 12-LEAD 11/13/2024 11:12 AM EDT DIABETIC RETINOPATHY SCREENING - OU - BOTH EYES Routine 10/29/2024 11:34 AM EDT VAS US LOWER EXTREMITY VENOUS DUPLEX RIGHT STAT [...] Recently Relevant to Health Maintenance Results * XR CHEST 2V (11/13/2024 2:43 PM EDT) Anatomical Region Laterality Modality Other 11/13/2024 2:43 PM EDT Narrative 11/13/2024 2:45 [place] [address] XRay Report Signed Patient: CLARY LIZAMA MR#: [id number] : 1945 Acct:[id number] Age/Sex: 79 / M ADM Date: 11/13/24 Loc: [facility] Attending Dr: Kang Smith M.D. Ordering Physician: Kang Smith M.D. Date of Service: 11/13/24 Procedure(s): XR chest 2V Accession Number(s): [id number] cc: DOUG ESTRADA ; Kang Smith M.D. [address] [address] Patient Name: CLARY LIZAMA MRN: [id number] date: 1945 Sex: M Assigned Patient Location: [facility] Current Patient Location: [facility] Accession/Order Number: [id number] Exam Date: 11/13/2024 13:25 Report Date: 11/13/2024 14:43 At the request of: KANG SMITH MD Procedure: XR chest 2V Chest 2 views CLINICAL HISTORY: Preop exam COMPARISON: None FINDINGS: Heart normal in size. No lung consolidation pneumothorax pleural effusion or free air. XR/XR chest 2V IMPRESSION: NO ACUTE CARDIOPULMONARY ABNORMALITY. Impression dictated by: Alejandro Springer Jr., D.O. 11/13/2024 2:43 PM Dictation Location: [place] [address] Electronically authenticated by: [id number] Y Date: 11/13/2024 14:43 Dictated By: Alejandro Springer M.D. Signed By: 11/13/241444 DD/ 42 TD/TT: Blaster Helper: Procedure Note Radiology, Radiologist, - 11/13/[address] [place] [address] XRay Report Signed Patient: DAI LIZAMAR#: [id number] : 1945cct:[id number] Age/Sex: 79 / MADM Date: 11/13/24 Loc: PST Attending Dr: Kang Smith M.D. Ordering Physician: Kang Smith M.D. Date of Service: 11/13/24 Procedure(s): XR chest 2V Accession Number(s): [id number] cc: DOUG ESTRADA ; Kang Smith M.D. [facility] [place] [address] Patient Name: CLARY LIZAMA MRN: [id number] date: 1945 Sex: M Assigned Patient Location: [facility] Current Patient Location: [facility] Accession/Order Number: [id number] Exam Date: 11/13/2024 13:25 Report Date: 11/13/2024 14:43 At the request of: KANG SMITH MD Procedure: XR chest 2V Chest 2 views CLINICAL HISTORY: Preop exam COMPARISON: None FINDINGS: Heart normal in size. No lung consolidation pneumothorax pleural effusionor free air. XR/XR chest 2V IMPRESSION: NO ACUTE CARDIOPULMONARY ABNORMALITY. Impression dictated by: Alejandro Springer Jr., D.O. 11/13/2024 2:43 PM Dictation Location: [place] [address] Electronically authenticated by: [id number] Y Date: 4:43 Dictated By: Alejandro Springer M.D. Signed By:11/13/241444 DD/ 42 TD/TT: Blaster Helper: Generic External Data Provider [facility] Final Result * [facility] PROTHROMBIN TIME INR W/O COUM (11/13/2024 1:15 PM EDT) Pathologist [facility] PROTHROMBIN TIME 11.1 9.0 - 11.6 sec TB TB INR 1.05 TB Comment: DESIRED INR: 2.0-3.0 CONDITIONS NOT LISTED BELOW 2.5-3.5 FOR PROSTHETIC HEART VALVE REPLACEMENT 2.5-3.5 RECURRENT THROMBOSIS 11/13/2024 1:15 PM EDT 11/13/2024 1:20 PM EDT Narrative [facility] - 11/13/2024 1:50 PM EDT Generic External Data Provider [facility] F ina Result Performing Organization Address City/[facility]/ZIP Co de Phone Number * [facility] APTT (11/13/2024 1:15 PM EDT) [facility] PARTIAL THROMBOPLASTIN TIME 27.7 22.3 - 36.2 sec [facility] 11/13/2024 1:15 PM EDT 11/13/2024 1:20 PM EDT Narrative [facility] - 11/13/2024 1:50 PM EDT Generic External Data Provider [facility] F inal Result Performing Organization Address City/[facility] Co de Phone Number * (ABNORMAL) ALL CBC WITH AUTO DIFF (11/13/2024 1:15 PM EDT) Pathologist [facility] TB WBC 6.7 4.0 - 11.0 10 3/uL TBH TB RBC 3.88(L) 4.70 - 6.10 10 6/uL TBH TBH HGB 11.5(L) 14.0 - 18.0 g/dL TB TB HCT 36.9(L) 42.0 - 54.0 % TBH TBH MCV 95.1(H) 80.0 - 94.0 fL TBH TBH MCH 29.6 25.9 - 34.0 pg TBH TBH MCHC 31.2 29.9 - 35.2 g/dL TBH TBH RDW 13.2 11.0 - 15.0 % TBH TBH PLT 217 150 - 450 10 3/uL TBH TBH MPV 10.7 9.5 - 13.5 fL TBH NEUTROPHILS PERCENT AUTO 70.9 43.0 - 75.0 % TBH LYMPHOCYTES PERCENT AUTO 17.0(L) 20.5 - 60.0 % TBH MONOCYTES PERCENT AUTO 6.3 1.7 - 12.0 % TBH TBH EO % 4.6 0.9 - 7.0 % TBH BASOPHILS PERCENT AUTO 0.9 0.2 - 2.0 % TBH IMMATURE GRANULOCYTES PCT AUTO 0.3 0.0 - 0.5 % TBH NEUTROPHILS ABSOLUTE AUTO 4.8 1.4 - 6.5 10 3/uL TBH LYMPHOCYTES ABSOLUTE AUTO 1.1(L) 1.2 - 3.8 10 3/uL TBH MONOCYTES ABSOLUTE AUTO 0.4 0.3 - 0.8 10 3/uL TBH TBH EO # 0.3 0.0 - 0.7 10 3/uL TBH BASOPHILS ABSOLUTE AUTO 0.1 0.0 - 0.1 10 3/uL TBH IMMATURE GRANULOCYTES ABS AUTO 0.02 0.00 - 0.03 10 3/uL TBH 11/13/2024 1:15 PM EDT 11/13/2024 1:20 PM EDT Narrative [facility] - 11/13/2024 1:35 PM EDT us Generic External Data Provider [facility] F inal Result * (ABNORMAL) ALL BASIC METABOLIC PANEL (11/13/2024 1:15 PM EDT) SODIUM 146(H) 136 - 145 mmol/L TBH POTASSIUM 5.2(H) 3.5 - 5.1 mmol/L TBH CHLORIDE 110(H) 98 - 107 mmol/L TBH CARBON DIOXIDE 28.6 21.0 - 32.0 mmol/L TBH ANION GAP 12.6 TBH GLUCOSE 132(H) 74 - 106 mg/dL TBH BLOOD UREA NITROGEN 38.0(H) 7.0 - 18.0 mg/dL TBH CREATININE 1.69(H) 0.70 - 1.30 mg/dL TBH TBH EGFR-AF TAIWANESE 48(L) >=60 mL/min/1.7 3m 2 TBH TBH EGFR-NON AF TAIWANESE 39(L) >=60 mL/min/1.7 3m 2 TBH BUN CREATININE RATIO 22.5 TBH CALCIUM 8.9 8.5 - 10.1 mg/dL TBH 11/13/2024 1:15 PM EDT 11/13/2024 1:20 PM EDT Narrative [facility] - 11/13/2024 2:02 PM EDT us Generic External Data Provider [facility] F inal Result [facility] * ECG 12-LEAD (11/13/2024 11:12 AM EDT) Anatomical Region Laterality Modality Other 11/13/2024 11:1 2 AM EDT Narrative 11/14/2024 7:31 [place] [address] Electrocardiograph Report Signed Patient: CLARY LIZAMA MR#: [id number] : 1945 Acct:[id number] Age/Sex: 79 / M ADM Date: 11/13/24 Loc: PST Attending Dr: Kang Smith M.D. Ordering Physician: Kang Smith M.D. Date of Service: 11/13/24 Procedure(s): ECG 12 lead Accession Number(s): [id number] cc: [facility] Test Date: 2024-11-13 Pat Name: CLARY LIZAMA Department: Room: - Gender: Male Glass Processing Worker: : 1945 Requested By: Order Number: [id number] Rakan MD: DOROTHY DELACRUZ M.D. Measurements Intervals [place] Rate: 41 P: DC: QRS: 19 QRSD: 87 T: 49 QT: 486 QTc: 405 Interpretive Statements SINUS BRADYCARDIA WITH 2ND DEGREE AV BLOCK, MOBITZ TYPE I (WENCKEBACH) MINIMAL ST DEPRESSION [0.025+ mV ST DEPRESSION] Abnormal ECG No previous ECG available for comparison Electronically Signed On 11-14-2024 7:30:48 EDT by DOROTHY DELACRUZ M.D. Dictated By: DOROTHY DELACRUZ Signed By: 11/14/2431 DD/ 11 TD/TT: Blaster Helper: Procedure Note Radiology, Radiologist, MD - 11/14/[address] [place] [address] Electrocardiograph Report Signed Patient: CHAR LIZAMA#: [id number] : 1945cct:[id number] Age/Sex: 79 / MADM Date: 11/13/24 Loc: PST Attending Dr: Kang Smith M.D. Ordering Physician: Kang Smith M.D. 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 Measurements Intervals [place] Rate: 41 P: DC: QRS: 19 QRSD: 87 T: 49 QT: 486 QTc: 405 Interpretive Statements SINUS BRADYCARDIA WITH 2ND DEGREE AV BLOCK, MOBITZ TYPE I (WENCKEBACH) MINIMAL ST DEPRESSION [0.025+ mV ST DEPRESSION] Abnormal ECG No previous ECG available for comparison Electronically Signed On 11-14-2024 7:30:48 EDT by DOROTHY DELACRUZ M.D. Dictated By: DOROTHY DELACRUZ Signed By:11/14/24 0731 DD/ 11 TD/TT: Blaster Helper: us Generic External Data Provider [facility] Final Result * Diabetic Retinopathy Screening - OU - Both Eyes (10/29/2024 11:34 AM EDT) Anatomical Region Laterality Modality Head Other us Doug Estrada MD OPHTH PHOTOGRAPHY Final Result * Vascular US lower extremity venous duplex right (10/02/2024 2:11 PM EDT) Anatomical Region Laterality Modality Lower Extremities Ultrasound 10/02/2024 2:47 PM EDT Impressions 10/02/2024 2:48 PM EDT NO DVT IDENTIFIED IN THE RIGHT LOWER EXTREMITY. ELECTRONICALLY SIGNED BY: Bello Queen DO Narrative 10/02/2024 2:48 PM EDT [facility] US LOWER EXTREMITY VENOUS DUPLEX RIGHT : [...] Procedure Note Bello Queen DO - 10/02/2024 [facility] US LOWER EXTREMITY VENOUS DUPLEX RIGHT : [...] SIGNED BY: Bello Queen DO Niya Johnson ADJUSTMENT EXAMINER IMG US PROCEDURES Final Res ult * [...] Escobar M.D. 09/18/2024 3:41 PM Dictation Location: [facility] Transcribed By: [facility] 09/18/24 1541 Dictated By: Jamie Escobar MD 09/18/24 1531 Signed By: <Electronically signed by Jamie Escobar MD in OV> 09/18/24 1541 Narrative 09/18/2024 3:43 PM EDT [facility] [place] [address] [place] [address] MRI Report Signed Patient: Clary Lizama MR#: [id number] : 1945 Acct:[id number] Age/Sex: 79 / M ADM Date: 09/18/24 Loc: MR Room: Type: [facility] Attending Dr: Doug Estrada MD Copies to: Doug Estrada MD Ordering Provider: Doug Estrada MD Date of Service: 09/18/24 MR/MR [...] posterior cerebral arteries are patent. origin bilateral pot room tapper. MR/MR angio head wo con Procedure Note Radiology, Radiologist, - 09/18/2024 [facility] Main [place] [address] [place] [address] MRI Report Signed Patient: Clary Lizama LMR#: [id number] : 7Acct:[id number] Age/Sex: 79 / MADM Date: 09/18/24 Loc: MR Room:Type: [facility] Attending Dr: Doug Estrada MD Copies to: Doug Estrada MD Ordering Provider: Doug Estrada MD Date of Service: 09/18/24 MR/MR [...] and posterior cerebral arteries are patent. originbilateral pot room tapper. 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 No large vessel occlusion or hemodynamically significant stenosis. Findings suggestive of subacute stroke throughout involving right spleniumthe corpus callosum and left parietal deep white matter. Impression dictated by: Jamie Escobar M.D. 09/18/2024 3:41 PM Dictation Location: [place] [address] Transcribed By: SHAWNA 09/18/24 1541 Dictated By: Jamie Escobar MD 09/18/24 1531 Signed By: <Electronically signed by Jamie Escobar MD in OV> 09/18/24 1541 us Doug Estrada MD IM MRI PROCEDURES Final Resul t * (ABNORMAL) [...] 74 - 99 mg/dL [facility] Comment: The [place] [employer] (ADA) provides guidance for cutoff [...] Standards of Medical Care in Diabetes 2016, [place] [employer]. Diabetes Care. 2016.39(Suppl 1). [facility] [...] PM EDT 08/28/2024 12:48 PM EDT Narrative [facility] - 08/28/2024 1:11 PM EDT Specimen Type: BLOOD SPECIMEN Ordering Facility: [facility] Address: [address] [place] [address] Original Ordering Provider: KIMBER AGUILLON us Generic External Data Provider ALEC billy Result [facility] [address] [place] [address] * (ABNORMAL) [facility] CBC W AUTO DIFF [...] AM EDT 08/21/2024 8:14 AM EDT Narrative [facility] - 08/21/2024 8:23 AM EDT Specimen Type: BLOOD SPECIMEN Ordering Facility: [facility] Address: [address] [facility] [place] [address] Original Ordering Provider: [address] us Generic External Data Provider ALEC F inal Result [facility] [address] [place] [address] * (ABNORMAL) POCT microalbumin manually resulted (08/05/2024 2:28 PM EDT) MICROALBUMIN, URINE 150 ALB/CREAT RATIO >300 URINE CREAT 100 Urine 08/05/2024 2:28 PM EDT Doug Estrada MD POINT OF CARE TEST ENTER/EDIT ORDERABLES Final Result * (ABNORMAL) POCT glycosylated hemoglobin (Hb A1C) docked device (08/05/2024 2:09 PM EDT) Hemoglobin A1C 6.6 Blood Venous blood specimen / Unknown 08/05/2024 2:09 PM EDT us Doug Estrada MD POINT OF CARE TEST ENTER/EDIT ORDERABLES Final Result from Last 3 Months or Most Recently Relevant to Health Maintenance Insurance MEDICARE [facility] MEDICARE SUPPLEMENT Care Teams Immunochemist Relationship Specialty Start Date End Date Doug Estrada MD [address] [place] [address] PCP - O [facility] 07/13/22 Doug Estrada MD [address] [place] [address] PCP - General Family Medicine 08/09/22 Edwige Arana NP [address] [place] [address] Nurse Practitioner Family Medicine 10/24/24
--- OUTSIDE RECORDS SUMMARY | 2024-11-20 09:06 | XMS_ITS ---
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
--- OUTSIDE RECORDS SUMMARY | 2024-11-20 09:06 | XMS_ITS | Encounter Summary ---
Author Organization [facility] Address [address] [place] [address] Phone Care Team Providers Care Tempering Oven Operator Name Role Phone Jeferson Estrada MD Primary Care Provider [phone] Encounter Details Date Type Department Care Team (Late st Contact Info) Description 09/01/2024 Scanned Document [facility] [address] [place] [address] Scanning, Generic Provider Social History [...] 12/09/2024 9:30 AM EDT Office Visit [address] [address] Erika Mayes MD [address] [facility] [address] [place] [address] 03/31/2025 11:10 AM EST Office Visit [address] [place] [address] Erika Mayes MD [address] [facility] [address] [place] [address] documented as of this encounter Visit Diagnoses Not on filedocumented in this encounter Additional Health Concerns Assessment Noted Time A fall risk assessment has been complete d for the patient 08/15/2024 1:06 PM EDT documented as of this encounter Care Teams Tempering Oven Operator Relationship Specialty Start Date End Date Jeferson Estrada MD [address] [place] [address] PCP - General 12/30/13 documented as of this encounter
--- OUTSIDE RECORDS SUMMARY | 2024-11-20 09:06 | XMS_ITS | Encounter Summary ---
Author Organization [facility] Address [address] [place] [address] Care Team Providers Care Manager Tax Name Role Phone Jeferson Estrada MD Unavailable [phone] Jeferson Estrada MD Primary Care Provider [phone] Edwige Arana CHIEF ULTRASOUND TECHNOLOGIST Unavailable [phone] Encounter Details Date Type Department Care Team (Late Contact Info) Description 11/12/2024 Abstract [facility] [address] [place] [address] Jeferson Estrada MD [address] [place] [address] Social History Tobacco Use Types Packs/Day Years [...] Office Visit [facility] [address] [facility] [place] [address] Jan Ghosh DPM [address] [address] 02/03/2025 2:00 PM EST Office Visit [facility] [address] [place] [address] Jeferson Estrada MD [address] [place] [address] 05/29/2025 1:00 PM EDT Office Visit [facility] [address] [place] [address] Jl Grajeda DO [address] [place] [address] documented as of this encounter Visit Diagnoses Not on filedocumented in this encounter Additional Health Concerns Assessment Noted Time PHQ-9 Depression Total Score: 6 10/29/19 25 1:00 PM EDT documented as of this encounter Care Teams Manager Tax Relationship Specialty Start Date End Date Jeferson Estrada MD [address] [place] [address] PCP - ACO Reach 07/13/22 Jeferson Estrada MD [address] [place] [address] PCP - General Family Medicine 08/09/22 Edwige Arana NP [address] [place] [address] Nurse Practitioner Family Medicine 10/24/24 documented as of this encounter
--- OUTSIDE RECORDS SUMMARY | 2024-11-20 09:06 | XMS_ITS | Encounter Summary ---
Author Organization [facility] Address [address] [facility] [place] [address] Care Team Providers Care Carpenter Helper Maintenance Name Role Phone Jeferson Estrada MD Unavailable [phone] Jeferson Estrada MD Primary Care Provider [phone] Leonie Mcginnis NP Unavailable Edwige Arana NP Unavailable Jake Hall LPN Unavailable Unavailable Gera Escobar MA Unavailable [phone] Edwige Arana NP Unavailable Encounter Details Date Type Department Care Team (Late st Contact Info) Description 06/10/2023 Abstract [facility] [address] [place] [address] Jeferson Estrada MD [address] [place] [address] Social History Tobacco Use Types Packs/Day Years [...] EST Office Visit [facility] [address] [place] [address] Jan Ghosh DPM [address] [address] 02/03/2025 2:00 PM EST Office Visit [facility] [address] [place] [address] Jeferson Estrada MD [address] [place] [address] 05/29/2025 1:00 PM EDT Office Visit [facility] [address] [place] [address] Jl Grajeda DO [address] [place] [address] documented as of this encounter Visit Diagnoses Not on filedocumented in this encounter Additional Health Concerns Assessment Noted Time PHQ-9 Depression Total Score: 0 09/29/19 12:00 PM EDT documented as of this encounter Care Teams Carpenter Helper Maintenance Relationship Specialty Start Date End Date Jeferson Estrada MD [address] [place] [address] PCP - ACO Reach 07/13/22 Jeferson Estrada MD [address] [place] [address] PCP - General Family Medicine 08/09/22 Leonie Mcginnis NP [address] [place] [address] Nurse Practitioner Family Medicine 09/18/22 05/08/24 Edwige Arana NP [address] [place] [address] Nurse Practitioner Pulmonary Disease 09/18/22 10/23/24 Jake Hall LPN Licensed Practical Nurse Family Medicine 07/20/2307/23/23 Gera Escobar MA [address] [place] [address] Family Medicine 07/01/24 07/09/24 Edwige Arana NP [address] [place] [address] Nurse Practitioner Family Medicine 10/24/24 documented as of this encounter
--- OUTSIDE RECORDS SUMMARY | 2024-11-20 09:06 | XMS_ITS | Encounter Summary ---
Author Organization [facility] Address [address] [facility] [place] [address] Care Team Providers Care Sas Programmer Analyst Name Role Phone Jeferson Estrada MD Unavailable [phone] Jeferson Estrada MD Primary Care Provider [phone] Edwige Arana VACUUM TESTER CANS Unavailable Edwige Arana VACUUM TESTER CANS Unavailable [phone] Encounter Details Date Type Department Care Team (Late st Contact Info) Description 10/21/2024 Abstract [facility] [address] [place] [address] Jeferson Estrada MD [address] [place] [address] Social History Tobacco Use Types Packs/Day Years [...] 12/26/2024 1:10 PM EST Office Visit [facility] [address] [place] [address] Jan Ghosh DPM [address] [address] 02/03/2025 2:00 PM EST Office Visit [facility] [address] [place] [address] Jeferson Estrada MD [address] [place] [address] 05/29/2025 1:00 PM EDT Office Visit [facility] [address] [place] [address] Jl Grajeda DO [address] [place] [address] documented as of this encounter Visit Diagnoses Not on filedocumented in this encounter Additional Health Concerns Assessment Noted Time PHQ-9 Depression Total Score: 2 10/09/19 1:18 PM EDT documented as of this encounter Care Teams Sas Programmer Analyst Relationship Specialty Start Date End Date Jeferson Estrada MD [address] [place] [address] PCP - ACO Reach 07/13/22 Jeferson Estrada MD [address] [place] [address] PCP - General Family Medicine 08/09/22 Edwige Arana VACUUM TESTER CANS [address] [place] [address] Nurse Practitioner Pulmonary Disease 09/18/22 10/23/24 Edwige Arana NP [address] [place] [address] Nurse Practitioner Family Medicine 10/24/24 documented as of this encounter
--- OUTSIDE RECORDS SUMMARY | 2024-11-20 09:08 | XMS_ITS | Encounter Summary ---
Author Organization [facility] Address [address] [place] [address] Care Team Providers Care Motor Bus Driver Name Role Phone Jeferson Estrada MD Unavailable [phone] Jeferson Estrada MD Primary Care Provider [phone] Edwige Arana TECHNICAL SOURCING RECRUITER Unavailable [phone] Encounter Details Date Type Department Care Team (Late Contact Info) Description 11/13/2024 Abstract [facility] [address] [place] [address] Jeferson Estrada MD [address] [place] [address] Social History Tobacco Use Types Packs/Day Years [...] Office Visit [facility] [address] [facility] [address] Jan Ghosh DPM [address] [address] 02/03/2025 2:00 PM EST Office Visit [facility] [address] [place] [address] Jeferson Estrada MD [address] [place] [address] 05/29/2025 1:00 PM EDT Office Visit [facility] [address] [place] [address] Jl Grajeda DO [address] [place] [address] documented as of this encounter Visit Diagnoses Not on filedocumented in this encounter Additional Health Concerns Assessment Noted Time PHQ-9 Depression Total Score: 6 10/29/19 25 1:00 PM EDT documented as of this encounter Care Teams Motor Bus Driver Relationship Specialty Start Date End Date Jeferson Estrada MD [address] [place] [address] PCP - ACO Reach 07/13/22 Jeferson Estrada MD [address] [place] [address] PCP - General Family Medicine 08/09/22 Edwige Arana NP [address] [place] [address] Nurse Practitioner Family Medicine 10/24/24 documented as of this encounter
--- OUTSIDE RECORDS SUMMARY | 2024-11-20 09:08 | XMS_ITS | Encounter Summary ---
Author Organization [facility] Address [address] [facility] [place] [address] Care Team Providers Care Associate Sales Representative Name Role Phone Jeferson Estrada MD Unavailable [phone] Jeferson Estrada MD Primary Care Provider [phone] Leonie Mcginnis NP Unavailable Edwige Arana NP Unavailable Jake Hall LPN Unavailable Unavailable Gera Escobar MA Unavailable [phone] Edwige Arana NP Unavailable Encounter Details Date Type Department Care Team (Late st Contact Info) Description 12/05/2022 Abstract [facility] [address] [place] [address] Jeferson Estrada MD [address] [place] [address] Social History Tobacco Use Types Packs/Day Years [...] Office Visit [facility] [address] [place] [address] Jan Ghosh DPM [address] [address] 02/03/2025 2:00 PM EST Office Visit [facility] [address] [place] [address] Jeferson Estrada MD [address] [place] [address] 05/29/2025 1:00 PM EDT Office Visit [facility] [address] [place] [address] Jl Grajeda DO [address] [place] [address] documented as of this encounter Visit Diagnoses Not on filedocumented in this encounter Additional Health Concerns Assessment Noted Time PHQ-9 Depression Total Score: 0 09/29/19 12:00 PM EDT documented as of this encounter Care Teams Associate Sales Representative Relationship Specialty Start Date End Date Jeferson Estrada MD [address] [place] [address] PCP - ACO Reach 07/13/22 Jeferson Estrada MD [address] [place] [address] PCP - General Family Medicine 08/09/22 Leonie Mcginnis NP [address] [place] [address] Nurse Practitioner Family Medicine 09/18/22 05/08/24 Edwige Arana NP [address] [place] [address] Nurse Practitioner Pulmonary Disease 09/18/22 10/23/24 Jake Hall LPN Licensed Practical Nurse Family Medicine 07/20/2307/23/23 Gera Escobar, [place] [address] [place] [address] Family Medicine 07/01/24 07/09/24 Edwige Arana PATIENT EDUCATOR [address] [place] [address] Nurse Practitioner Family Medicine 10/24/24 documented as of this encounter
--- OUTSIDE RECORDS SUMMARY | 2024-11-20 09:08 | XMS_ITS | Encounter Summary ---
Author Organization [facility] Address [address] [place] [address] Care Team Providers Care Glaze Wiper Name Role Phone Doug Estrada MD Unavailable [phone] Doug Estrada MD Primary Care Provider [phone] Edwige Arana ELECTRIC BLANKET PACKER Unavailable [phone] Encounter Details Date Type Department Care Team (Late Contact Info) Description 11/13/2024 Clinisync Result Encounter [facility] External Department Unsolicited Provider, Generic External Data Social History Tobacco Use Types Packs/Day Years [...] Upcoming Encounters Date Type Department Care Team ([facility] Contact Info) Description 12/26/2024 1:10 PM EST Office Visit [facility] [address] [place] [address] Jan Ghosh DPM [address] [place] [address] 02/03/2025 2:00 PM EST Office Visit [facility] [address] [place] [address] Doug Estrada MD [address] [place] [address] 05/29/2025 1:00 PM EDT Office Visit [facility] [address] [place] [address] Jl Grajeda DO [address] [place] [address] documented as of this encounter Procedures Procedure Name Priority Date/Time Associated Diagnosis Comments XR CHEST 2V 11/13/2024 2:43 PM EDT documented in this encounter Results * XR CHEST 2V (11/13/2024 2:43 PM EDT) Anatomical Region Laterality Modality Other 11/13/2024 2:43 PM EDT Narrative 11/13/2024 2:45 PM EDT The [address] [address] XRay Report Signed Patient: CLARY SAMUELS MR#: [id number] : 1945 Acct:[id number] Age/Sex: 79 / M ADM Date: 11/13/24 Loc: PST Attending Dr: Kang Dawkins M.D. Ordering Physician: Kang Dawkins M.D. Date of Service: 11/13/24 Procedure(s): XR chest 2V Accession Number(s): [id number] cc: DOUG ESTRADA ; Kang Dawkins M.D. The [address] [address] Patient Name: CLARY SAMUELS MRN: [id number] date: 1945 Sex: M Assigned Patient [facility]: [facility] Current Patient Location: [facility] Accession/Order Number: [id number] Exam Date: 11/13/2024 13:25 Report Date: 11/13/2024 14:43 At the request of: KANG DAWKINS MD Procedure: XR chest 2V Chest 2 views CLINICAL HISTORY: Preop exam COMPARISON: None FINDINGS: Heart normal in size. No lung consolidation pneumothorax pleural effusion or free air. XR/XR chest 2V IMPRESSION: NO ACUTE CARDIOPULMONARY ABNORMALITY. Impression dictated by: Alejandro Springer Jr., D.OSarah 11/13/2024 2:43 PM Dictation Location: [place] [address] Electronically authenticated by: [id number] Y Date: 11/13/2024 14:43 Dictated By: Alejandro Springer M.D. Signed By: 11/13/24 1445 DD/ 1443 TD/TT: Mental Health Practitioner: Procedure Note Radiology, Radiologist, MD - 11/13/2024 [place] [address] XRay Report Signed Patient: CHAR SAMUELS#: [id number] : 1945cct:[id number] Age/Sex: 79 / MADM Date: 11/13/24 Loc: PST Attending Dr: Kang Dawkins M.D. Ordering Physician: Kang Dawkins M.D. Date of Service: 11/13/24 Procedure(s): XR chest 2V Accession Number(s): [id number] cc: DOUG ESTRADA ; Kang Dawkins M.D. The [address] [address] Patient Name: CLARY SAMUELS MRN: [id number] date: 1945 Sex: M Assigned Patient Location: [facility] Current Patient Location: [facility] Accession/Order Number: [id number] Exam Date: 11/13/2024 13:25 Report Date: 11/13/2024 14:43 At the request of: KANG DAWKINS MD Procedure: XR chest 2V Chest 2 views CLINICAL HISTORY: Preop exam COMPARISON: None FINDINGS: Heart normal in size. No lung consolidation pneumothorax pleural effusionor free air. XR/XR chest 2V IMPRESSION: NO ACUTE CARDIOPULMONARY ABNORMALITY. Impression dictated by: Alejandro Springer Jr., DDelia 11/13/2024 2:43 PM Dictation Location: [place] [address] Electronically authenticated by: [id number] Y Date: 4:43 Dictated By: Alejandro Springer M.D. Signed By:11/13/24 1445 DD/ 42 TD/TT: Mental Health Practitioner: us Generic External Data Provider [facility] Final Result documented in this encounter Visit Diagnoses Not on filedocumented in this encounter Additional Health Concerns Assessment Noted Time PHQ-9 Depression Total Score: 6 10/29/19 25 1:00 PM EDT documented as of this encounter Care Teams Glaze Wiper Relationship Specialty Start Date End Date Doug Estrada MD [address] [place] [address] PCP - ACO Reach 07/13/22 Doug Estrada MD [address] [place] [address] PCP - General Family Medicine 08/09/22 Edwige Arana NP [address] [place] [address] Nurse Practitioner Family Medicine 10/24/24 documented as of this encounter
--- OUTSIDE RECORDS SUMMARY | 2024-11-20 09:08 | XMS_ITS | Encounter Summary ---
Author Organization [facility] Address [address] [place] [address] Care Team Providers Care Restoration Technician Name Role Phone Jeferson Estrada MD Unavailable [phone] Jeferson Estrada MD Primary Care Provider Edwige Arana GATHERING MACHINE FEEDER Unavailable Encounter Details Date Type Department Care Team (Late Contact Info) Description 11/13/2024 Abstract [facility] [address] [place] [address] Jeferson Estrada MD [address] [place] [address] Social History Tobacco Use Types Packs/Day Years [...] Office Visit [facility] [address] [facility] [place] [address] Jan Ghosh DPM [address] [address] 02/03/2025 2:00 PM EST Office Visit [facility] [address] [place] [address] Jeferson Estrada MD [address] [place] [address] 05/29/2025 1:00 PM EDT Office Visit [facility] [address] [place] [address] Jl Grajeda DO [address] [place] [address] documented as of this encounter Visit Diagnoses Not on filedocumented in this encounter Additional Health Concerns Assessment Noted Time PHQ-9 Depression Total Score: 6 10/29/19 25 1:00 PM EDT documented as of this encounter Care Teams Restoration Technician Relationship Specialty Start Date End Date Jeferson Estrada MD [address] [place] [address] PCP - ACO Reach 07/13/22 Jeferson Estrada MD [address] [place] [address] PCP - General Family Medicine 08/09/22 Edwige Arana NP [address] [place] [address] Nurse Practitioner Family Medicine 10/24/24 documented as of this encounter
--- OUTSIDE RECORDS SUMMARY | 2024-11-20 09:08 | XMS_ITS | Encounter Summary ---
Author Organization [facility] Address [address] [facility] [place] [address] Care Team Providers Care Chute Tender Name Role Phone Jeferson Estrada MD Unavailable [phone] Jeferson Estrada MD Primary Care Provider [phone] Leonie Mcginnis NP Unavailable Edwige Arana BUFFING WHEEL RAKER Unavailable Jake Hall LPN Unavailable Unavailable Gera Escobar MA Unavailable [phone] Edwige Arana BUFFING WHEEL RAKER Unavailable Encounter Details Date Type Department Care Team (Late st Contact Info) Description 09/19/2022 Orders Only [facility] [address] [place] [address] [place] [address] Qiana Agustin, BUFFING WHEEL RAKER [address] [place] [address] Social History Tobacco Use Types [...] 1:10 PM EST Office Visit [facility] [address] [place] [address] Jan Ghosh DPM [address] [address] 02/03/2025 2:00 PM EST Office Visit [facility] [address] [place] [address] Jeferson Estrada MD [address] [place] [address] 05/29/2025 1:00 PM EDT Office Visit [facility] [address] [place] [address] Jl Grajeda DO [address] [place] [address] documented as of this encounter Visit Diagnoses Not on filedocumented in this encounter Care Teams Chute Tender Relationship Specialty Start Date End Date Jeferson Estrada MD [address] [place] [address] PCP - ACO Reach 07/13/22 Jeferson Estrada MD [address] [place] [address] PCP - General Family Medicine 08/09/22 Leonie Mcginnis NP [address] [place] [address] Nurse Practitioner Family Medicine 09/18/22 05/08/24 Edwige Arana NP [address] [place] [address] Nurse Practitioner Pulmonary Disease 09/18/22 10/23/24 Jake Hall LPN Licensed Practical Nurse Family Medicine 07/20/2307/23/23 Gera Escobar [place] [address] [place] [address] Family Medicine 07/01/24 07/09/24 Edwige Arana NP [address] [place] [address] Nurse Practitioner Family Medicine 10/24/24 documented as of this encounter
--- OUTSIDE RECORDS SUMMARY | 2024-11-20 09:08 | XMS_ITS | Encounter Summary ---
Author Organization [facility] Address [address] [facility] [place] [address] Care Team Providers Care Accounts Manager Name Role Phone Jeferson Estrada MD Unavailable [phone] Jeferson Estrada MD Primary Care Provider Leonie Mcginnis NP Unavailable Edwige Arana NP Unavailable Gera Escobar MA Unavailable [phone] Edwige Arana NP Unavailable [phone] Encounter Details Date Type Department Care Team (Late st Contact Info) Description 03/06/2024 Abstract [facility] [address] [place] [address] Jeferson Estrada MD [address] [place] [address] Social History Tobacco Use Types [...] EST Office Visit [facility] [address] [place] [address] Jan Ghosh DPM [address] [address] 02/03/2025 2:00 PM EST Office Visit [facility] [address] [place] [address] Jeferson Estrada MD [address] [place] [address] 05/29/2025 1:00 PM EDT Office Visit [facility] [address] [place] [address] Jl Grajeda DO [address] [place] [address] documented as of this encounter Visit Diagnoses Not on filedocumented in this encounter Additional Health Concerns Assessment Noted Time PHQ-9 Depression Total Score: 2 10/09/19 1:18 PM EDT documented as of this encounter Care Teams Accounts Manager Relationship Specialty Start Date End Date Jeferson Estrada MD [address] [place] [address] PCP - ACO Reach 07/13/22 Jeferson Estrada MD [address] [place] [address] PCP - General Family Medicine 08/09/22 Leonie Mcginnis NP [address] [place] [address] Nurse Practitioner Family Medicine 09/18/22 05/08/24 Edwige Arana NP [address] [place] [address] Nurse Practitioner Pulmonary Disease 09/18/22 10/23/24 Gera Escobar, [place] [address] [place] [address] Family Medicine 07/01/24 07/09/24 Edwige Arana NP [address] [place] [address] Nurse Practitioner Family Medicine 10/24/24 documented as of this encounter
--- OUTSIDE RECORDS SUMMARY | 2024-11-20 09:08 | XMS_ITS | Encounter Summary ---
Author Organization [facility] Address [address] [facility] [place] [address] Care Team Providers Care Director Merit System Name Role Phone Jeferson Estrada MD Unavailable [phone] Jeferson Estrada MD Primary Care Provider Leonie Mcginnis NP Unavailable Edwige Arana NP Unavailable Gera Escobar MA Unavailable [phone] Edwige Arana NP Unavailable Encounter Details Date Type Department Care Team (Late st Contact Info) Description 03/04/2024 Orders Only [facility] [address] [place] [address] Jeferson Estrada MD [address] [place] [address] Social History Tobacco Use Types [...] Office Visit [facility] [address] [place] [address] Jan Ghosh DPM [address] [address] 02/03/2025 2:00 PM EST Office Visit [facility] [address] [place] [address] Jeferson Estrada MD [address] [place] [address] 05/29/2025 1:00 PM EDT Office Visit [facility] [address] [place] [address] Jl Grajeda DO [address] [place] [address] documented as of this encounter Procedures Procedure [...] as of this encounter Care Teams Director Merit System Relationship Specialty Start Date End Date Jeferson Estrada MD [address] [place] [address] PCP - ACO Reach 07/13/22 Jeferson Estrada MD [address] [place] [address] PCP - General Family Medicine 08/09/22 Leonie Mcginnis NP [address] [place] [address] Nurse Practitioner Family Medicine 09/18/22 05/08/24 Edwige Arana, STRAW BOSS [address] [place] [address] Nurse Practitioner Pulmonary Disease 09/18/22 10/23/24 Gera Escobar MA [address] [place] [address] Family Medicine 07/01/24 07/09/24 Edwige Arana, STRAW BOSS [address] [place] [address] Nurse Practitioner Family Medicine 10/24/24 documented as of this encounter
--- OUTSIDE RECORDS SUMMARY | 2024-11-20 09:08 | XMS_ITS | Encounter Summary ---
Author Organization [facility] Address [address] [place] [address] Care Team Providers Care Loop Machine Operator Name Role Phone Jeferson Estrada MD Unavailable [phone] Jeferson Estrada MD Primary Care Provider [phone] Edwige Arana ANATOMICAL EMBALMER Unavailable Encounter Details Date Type Department Care Team ([facility] Contact Info) Description 11/19/2024 Telephone [facility] [address] [place] [address] Jeferson Estrada MD [address] [place] [address] Social History Tobacco Use Types [...] encounter Miscellaneous Notes * Telephone Encounter - Lupe Mcgregor MA - 11/19/2024 10:43 AM EDT Mansi from office LM regarding surgical clearance for patient. She states papers were faxed to our office for to sign to clear patient for his surgery tomorrow. He was already cleared by cardiology. Looking through the media signed the clearance and cleared patient. Called office and spoke with pradeep and informed her pt is cleared for surgery. She will inform Mansi. documented in this encounter Plan of Treatment Upcoming Encounters Date Type Department Care Team (Late st Contact Info) Description 12/26/2024 1:10 PM EST Office Visit [facility] [address] [place] [address] Jan Ghosh DPM [address] [address] 02/03/2025 2:00 PM EST Office Visit [facility] [address] [place] [address] Jeferson Estrada MD [address] [place] [address] 05/29/2025 1:00 PM EDT Office Visit [facility] [address] [place] [address] Jl Grajeda DO [address] [place] [address] documented as of this encounter Visit Diagnoses Not on filedocumented in this encounter Additional Health Concerns Assessment Noted Time PHQ-9 Depression Total Score: 6 10/29/19 25 1:00 PM EDT documented as of this encounter Care Teams Loop Machine Operator Relationship Specialty Start Date End Date Jeferson Estrada MD [address] [place] [address] PCP - ACO Reach 07/13/22 Jeferson Estrada MD [address] [place] [address] PCP - General Family Medicine 08/09/22 Edwige Arana NP [address] [place] [address] Nurse Practitioner Family Medicine 10/24/24 documented as of this encounter
--- OUTSIDE RECORDS SUMMARY | 2024-11-20 09:08 | XMS_ITS | Encounter Summary ---
Author Organization [facility] Address [address] [place] [address] Care Team Providers Care Contact Lens Cutter Name Role Phone Jeferson Estrada MD Unavailable [phone] Jeferson Estrada MD Primary Care Provider Leonie Mcginnis NP Unavailable Edwige Arana NP Unavailable Jake Hall LPN Unavailable Unavailable Gera Escobar MA Unavailable [phone] Edwige Arana NP Unavailable [phone] Encounter Details Date Type Department Care Team (Late st Contact Info) Description 10/17/2022 [facility] [address] [place] [address] [place] [address] [place] [address] Social History Tobacco Use Types [...] Upcoming Encounters Date Type Department Care Team ([facility] st Contact Info) Description 12/26/2024 1:10 PM EST Office Visit [facility] [address] [place] [address] Jan Ghosh DPM [address] [address] 02/03/2025 2:00 PM EST Office Visit [facility] [address] [place] [address] Jeferson Estrada MD [address] [place] [address] 05/29/2025 1:00 PM EDT Office Visit [facility] [address] [place] [address] Jl Grajeda DO [address] [place] [address] documented as of this encounter Procedures Procedure [...] documented as of this encounter Care Teams Contact Lens Cutter Relationship Specialty Start Date End Date Jeferson Estrada MD [address] [place] [address] PCP - ACO Reach 07/13/22 Jeferson Estrada MD [address] [place] [address] PCP - General Family Medicine 08/09/22 Leonie Mcginnis NP [address] [place] [address] Nurse Practitioner Family Medicine 09/18/22 05/08/24 Edwige Arana PLYWOOD MATCHER [address] [place] [address] Nurse Practitioner Pulmonary Disease 09/18/22 10/23/24 Jake Hall LPN Licensed Practical Nurse Family Medicine 07/20/2307/23/23 Gera Escobar MA [address] [place] [address] Family Medicine 07/01/24 07/09/24 Edwige Arana PLYWOOD MATCHER [address] [place] [address] Nurse Practitioner Family Medicine 10/24/24 documented as of this encounter
--- OUTSIDE RECORDS SUMMARY | 2024-11-20 09:08 | XMS_ITS | Encounter Summary ---
Author Organization [facility] Address [address] [facility] [place] [address] Care Team Providers Care Ambulatory Nurse Name Role Phone Jeferson Estrada MD Unavailable [phone] Jeferson Estrada MD Primary Care Provider Leonie Mcginnis NP Unavailable Edwige Arana NP Unavailable [phone] Gera Escobar MA Unavailable [phone] Edwige Arana NP Unavailable Encounter Details Date Type Department Care Team (Late st Contact Info) Description 03/31/2024 Abstract [facility] [address] [place] [address] Jeefrson Estrada MD [address] [place] [address] Social History Tobacco Use Types [...] EST Office Visit [facility] [address] [place] [address] Jan Ghosh DPM [address] [address] 02/03/2025 2:00 PM EST Office Visit [facility] [address] [place] [address] Jeferson Estrada MD [address] [place] [address] 05/29/2025 1:00 PM EDT Office Visit [facility] [address] [place] [address] Jl Grajeda DO [address] [place] [address] documented as of this encounter Visit Diagnoses Not on filedocumented in this encounter Additional Health Concerns Assessment Noted Time PHQ-9 Depression Total Score: 2 10/09/19 24 1:18 PM EDT documented as of this encounter Care Teams Ambulatory Nurse Relationship Specialty Start Date End Date Jeferson Estrada MD [address] [place] [address] PCP - ACO Reach 07/13/22 Jeferson Estrada MD [address] [place] [address] PCP - General Family Medicine 08/09/22 Leonie Mcginnis NP [address] [place] [address] Nurse Practitioner Family Medicine 09/18/22 05/08/24 Edwige Arana NP [address] [place] [address] Nurse Practitioner Pulmonary Disease 09/18/22 10/23/24 Gera Escobar, [place] [address] [place] [address] Family Medicine 07/01/24 07/09/24 Edwige Arana NP [address] [place] [address] Nurse Practitioner Family Medicine 10/24/24 documented as of this encounter
--- OUTSIDE RECORDS SUMMARY | 2024-11-20 09:08 | XMS_ITS | Encounter Summary ---
Author Organization [facility] Address [address] [facility] [place] [place] [address] Care Team Providers Care Local Combination Truck Driver Name Role Phone Jeferson Estrada MD Unavailable [phone] Jeferson Estrada MD Primary Care Provider Leonie Mcginnis NP Unavailable Edwige Arana NP Unavailable Jake Hall LPN Unavailable Unavailable Gera Escobar MA Unavailable [phone] Edwige Arana NP Unavailable Encounter Details Date Type Department Care Team (Late st Contact Info) Description 12/12/2022 Abstract [facility] [address] [place] [address] Jeferson Estrada MD [address] [place] [address] Social History Tobacco Use Types [...] EST Office Visit [facility] [address] [place] [address] Jan Ghosh DPM [address] [address] 02/03/2025 2:00 PM EST Office Visit [facility] [address] [place] [address] Jeferson Estrada MD [address] [place] [address] 05/29/2025 1:00 PM EDT Office Visit [facility] [address] [place] [address] Jl Grajeda DO [address] [place] [address] documented as of this encounter Visit Diagnoses Not on filedocumented in this encounter Additional Health Concerns Assessment Noted Time PHQ-9 Depression Total Score: 0 09/29/19 12:00 PM EDT documented as of this encounter Care Teams Local Combination Truck Driver Relationship Specialty Start Date End Date Jeferson Estrada MD [address] [place] [address] PCP - ACO Reach 07/13/22 Jeferson Estrada MD [address] [place] [address] PCP - General Family Medicine 08/09/22 Leonie Mcginnis NP [address] [place] [address] Nurse Practitioner Family Medicine 09/18/22 05/08/24 Edwige Arana NP [address] [place] [address] Nurse Practitioner Pulmonary Disease 09/18/22 10/23/24 Jake Hall LPN Licensed Practical Nurse Family Medicine 07/20/2307/23/23 Gera Escobar MA [address] [place] [address] Family Medicine 07/01/24 07/09/24 Edwige Arana NP [address] [place] [address] Nurse Practitioner Family Medicine 10/24/24 documented as of this encounter
--- OUTSIDE RECORDS SUMMARY | 2024-11-20 09:08 | XMS_ITS | Encounter Summary ---
Author Organization [facility] Address [address] [place] [address] Care Team Providers Care Tying In Machine Operator Name Role Phone Jeferson Estrada MD Unavailable [phone] Jeferson Estrada MD Primary Care Provider [phone] Edwige Arana PLASTICS FABRICATOR OR WELDER Unavailable [phone] Encounter Details Date Type Department Care [...] Upcoming Encounters Date Type Department Care Team ([facility] Contact Info) Description 12/26/2024 1:10 PM EST Office Visit [facility] [address] [place] [address] Jan Ghosh DPM [address] [address] [place] [address] 02/03/2025 2:00 PM EST Office Visit [facility] [address] [place] [address] Jeferson Estrada MD [address] [place] [address] 05/29/2025 1:00 PM EDT Office Visit [facility] [address] [place] [address] Jl Grajeda DO [address] [place] [address] documented as of this encounter Procedures Procedure Name Priority Date/Time Associated Diagnosis Comments [facility] PROTHROMBIN TIME INR W/O COUM Routine 11/13/2024 1:15 PM EDT [facility] APTT Routine 11/13/2024 1:15 PM EDT ALL CBC WITH AUTO DIFF Routine 11/13/2024 1:15 PM EDT ALL BASIC METABOLIC PANEL Routine 11/13/2024 1:15 PM EDT documented in this encounter Results * (ABNORMAL) ALL BASIC METABOLIC PANEL (11/13/2024 [...] 0.70 - 1.30 mg/dL TBH TBH EGFR-AF NAMIBIAN 48(L) >=60 mL/min/1.7 3m 2 TBH TBH EGFR-NON AF NAMIBIAN 39(L) >=60 mL/min/1.7 3m 2 TBH BUN CREATININE RATIO 22.5 TBH CALCIUM 8.9 8.5 - 10.1 mg/dL TBH 11/13/2024 1:15 PM EDT 11/13/2024 1:20 PM EDT Narrative [facility] - 11/13/2024 2:02 PM EDT Generic External Data Provider [facility]NC F inal Result [facility] * [facility]CF APTT (11/13/2024 1:15 PM EDT) PARTIAL THROMBOPLASTIN TIME 27.7 22.3 - 36.2 sec TB 11/13/2024 1:15 PM EDT 11/13/2024 1:20 PM EDT Narrative CL[facility] - 11/13/2024 1:50 PM EDT Generic External Data Provider CLINISYNC F inal Result [facility] * [facility] PROTHROMBIN TIME INR W/O COUM (11/13/2024 1:15 PM EDT) PROTHROMBIN TIME 11.1 9.0 - 11.6 sec TB TBH INR 1.05 TBH Comment: DESIRED INR: 2.0-3.0 CONDITIONS NOT LISTED BELOW 2.5-3.5 FOR PROSTHETIC HEART VALVE REPLACEMENT 2.5-3.5 RECURRENT THROMBOSIS 11/13/2024 1:15 PM EDT 11/13/2024 1:20 PM EDT Narrative CLIN[facility] - 11/13/2024 1:50 PM EDT us Generic External Data Provider ALEC Chinchilla inal Result [facility] * (ABNORMAL) ALL CBC WITH AUTO DIFF (11/13/2024 1:15 PM EDT) [facility] TB WBC 6.7 4.0 - 11.0 10 3/uL TBH TBH RBC 3.88(L) 4.70 - 6.10 10 6/uL TBH TBH HGB 11.5(L) 14.0 - 18.0 g/dL TBH TBH HCT 36.9(L) 42.0 - 54.0 % TBH [...] PM EDT 11/13/2024 1:20 PM EDT Narrative ARACELYNC - 11/13/2024 1:35 PM EDT us Generic External Data Provider ALEC F inal Result ALEC [facility] documented in this encounter Visit Diagnoses Not on filedocumented in this encounter Additional Health Concerns Assessment Noted Time PHQ-9 Depression Total Score: 6 10/29/19 1:00 PM EDT documented as of this encounter Care Teams Tying In Machine Operator Relationship Specialty Start Date End Date Jeferson Estrada MD [address] [place] [address] PCP - ACO Reach 07/13/22 Jeferson Estrada MD [address] [place] [address] PCP - General Family Medicine 08/09/22 Edwige Arana NP [address] [place] [address] Nurse Practitioner Family Medicine 10/24/24 documented as of this encounter
--- OUTSIDE RECORDS SUMMARY | 2024-11-20 09:08 | XMS_ITS | Clinical Summary ---
Author Organization [facility] Address [address] [facility] [place] [address] Care Team Providers Care Debt Collector Name Role Phone Silviano Gonzalez MD Primary Care Provider [phone] Source Comments The following information is NOT included in Care Everywhere downloads:Psychiatric notes, ECG results, Cardiac Rehab notes, Pulmonary Function notes, data from [employer] (includes but not limited toPregnancy data,audiograms, eye exams, pre-surgical evaluation notes, well-child exam data).[facility] Allergies Active Allergy Reactions Criticality Noted [...] on file Type:PPO Address: [address] [place] [id number] Care Teams Debt Collector Relationship Specialty Start Date End Date Silviano Gonzalez MD PCP - General 12/10/08
--- OUTSIDE RECORDS SUMMARY | 2024-11-20 09:08 | XMS_ITS | Encounter Summary ---
Author Organization [facility] Address [address] [facility] [place] [address] Care Team Providers Care Radio Director Name Role Phone Jeferson Estrada MD Unavailable [phone] Jeferson Estrada MD Primary Care Provider Leonie Mcginnis NP Unavailable Edwige Arana NP Unavailable [phone] Jake Hall LPN Unavailable Unavailable Gera Escobar MA Unavailable [phone] Edwige Arana NP Unavailable Encounter Details Date Type Department Care Team (Late st Contact Info) Description 10/11/2022 Orders Only [facility] [address] [place] [address] Jeferson Estrada MD [address] [place] [address] Social History Tobacco Use Types [...] 1:10 PM EST Office Visit [facility] [address] [place] [address] Jan Ghosh DPM [address] [address] 02/03/2025 2:00 PM EST Office Visit [facility] [address] [place] [address] Jeferson Estrada MD [address] [place] [address] 05/29/2025 1:00 PM EDT Office [facility] [address] [place] [address] Jl Grajeda DO [address] [place] [address] documented as of this encounter Procedures Procedure [...] documented as of this encounter Care Teams Radio Director Relationship Specialty Start Date End Date Jeferson Estrada MD [address] [place] [address] PCP - ACO Reach 07/13/22 Jeferson Estrada MD [address] [place] [address] PCP - General Family Medicine 08/09/22 Leonie Mcginnis NP [address] [place] [address] Nurse Practitioner Family Medicine 09/18/22 05/08/24 Edwige Arana NP [address] [place] [address] Nurse Practitioner Pulmonary Disease 09/18/22 10/23/24 Jake Hall LPN Licensed Practical Nurse Family Medicine 07/20/2307/23/23 Gera Escobar MA [address] [place] [address] Family Medicine 07/01/24 07/09/24 Edwige Arana NP [address] [place] [address] Nurse Practitioner Family Medicine 10/24/24 documented as of this encounter
--- OUTSIDE RECORDS SUMMARY | 2024-11-20 09:08 | XMS_ITS | Encounter Summary ---
Author Organization [facility] Address [address] [place] [address] Care Team Providers Care Science Job Titles Name Role Phone Jeferson Estrada MD Unavailable [phone] Jeferson Estrada MD Primary Care Provider Edwige Arana CREW LEADER Unavailable [phone] Encounter Details Date Type Department Care [...] Upcoming Encounters Date Type Department Care Team ([facility] Contact Info) Description 12/26/2024 1:10 PM EST Office Visit [facility] [address] [place] [address] Jan Ghosh DPM [address] [address] [place] [address] 02/03/2025 2:00 PM EST Office Visit [facility] [address] [place] [address] Jeferson Estrada MD [address] [place] [address] 05/29/2025 1:00 PM EDT Office Visit [facility] [address] [place] [address] Jl Grajeda DO [address] [place] [address] documented as of this encounter Procedures Procedure Name Priority Date/Time Associated Diagnosis Comments ECG 12-LEAD 11/13/2024 11:12 AM EDT documented in this encounter Results * ECG 12-LEAD (11/13/2024 11:12 AM EDT) Anatomical Region Laterality Modality Other 11/13/2024 11:1 2 AM EDT Narrative 11/14/2024 7:31 AM EDT The [address] [address] Electrocardiograph Report Signed Patient: CLRAY SAMUELS MR#: [id number] : 1945 Acct:[id number] Age/Sex: 79 / M ADM Date: 11/13/24 Loc: PST Attending Dr: Kang Smith M.D. Ordering Physician: Kang Smith M.D. Date of Service: 11/13/24 Procedure(s): ECG 12 lead Accession Number(s): [id number] cc: [facility] Test Date: 2024-11-13 Pat Name: CLARY SAMUELS Department: Room: - Gender: Male Event Coordinator Marketing And Sales: : 1945 Requested By: Order Number: [id number] Reading MD: DOROTHY DELACRUZ M.D. Measurements Intervals [place] Rate: 41 P: MO: QRS: 19 QRSD: 87 T: 49 QT: 486 QTc: 405 Interpretive Statements SINUS BRADYCARDIA WITH 2ND DEGREE AV BLOCK, MOBITZ TYPE I (WENCKEBACH) MINIMAL ST DEPRESSION [0.025+ mV ST DEPRESSION] Abnormal ECG No previous ECG available for comparison Electronically Signed On 11-14-2024 7:30:48 EDT by DOROTHY DELACRUZ M.D. Dictated By: DOROTHY DELACRUZ Signed By: 11/14/24 0731 DD/ 1112 TD/TT: Blood Donor Unit Assistant: Procedure Note Radiology, Radiologist, MD - 11/14/2024 [place] [address] Electrocardiograph Report Signed Patient: DAI SAMUELSR#: [id number] : 1945cct:[id number] Age/Sex: 79 / MADM Date: 11/13/24 Loc: [facility] Attending Dr: Kang Smith M.D. Ordering Physician: Kang Smith M.D. Date of Service: 11/13/24 Procedure(s): ECG 12 lead Accession Number(s): [id number] cc: [facility] Test Date: 2024-11-13 Pat Name: CLARY SAMUELS Department: Room: - Gender: Male Event Coordinator Marketing And Sales: : 1945 Requested By: Order Number: [id number] Reading MD: DOROTHY DELACRUZ M.D. Measurements Intervals [place] Rate: 41 P: MO: QRS: 19 QRSD: 87 T: 49 QT: 486 QTc: 405 Interpretive Statements SINUS BRADYCARDIA WITH 2ND DEGREE AV BLOCK, MOBITZ TYPE I (WENCKEBACH) MINIMAL ST DEPRESSION [0.025+ mV ST DEPRESSION] Abnormal ECG No previous ECG available for comparison Electronically Signed On 11-14-2024 7:30:48 EDT by DOROTHY DELACRUZ M.D. Dictated By: DOROTHY DELACRUZ Signed By:11/14/24 0731 DD/ 1112 TD/TT: Blood Donor Unit Assistant: us Generic External Data Provider [facility] Final Result documented in this encounter Visit Diagnoses Not on filedocumented in this encounter Additional Health Concerns Assessment Noted Time PHQ-9 Depression Total Score: 6 10/29/19 25 1:00 PM EDT documented as of this encounter Care Teams Science Job Titles Relationship Specialty Start Date End Date Jeferson Estrada MD [address] [place] [address] PCP - ACO Reach 07/13/22 Jeferson Estrada MD [address] [place] [address] PCP - General Family Medicine 08/09/22 Edwige Arana NP [address] [place] [address] Nurse Practitioner Family Medicine 10/24/24 documented as of this encounter
--- OUTSIDE RECORDS SUMMARY | 2024-11-20 09:08 | XMS_ITS | Encounter Summary ---
Author Organization [facility] Address [address] [place] [address] Care Team Providers Care Vulcan Crewmember Name Role Phone Jeferson Estrada MD Unavailable [phone] Jeferson Estrada MD Primary Care Provider Leonie Mcginnis NP Unavailable Edwige Arana MANAGER OF COMPLIANCE Unavailable Gera Escobar MA Unavailable [phone] Edwige Arana MANAGER OF COMPLIANCE Unavailable Reason for Visit * Reason Comments Med Refill Encounter Details Date Type Department Care Team (Late Contact Info) Description 04/21/2024 Refill [facility] [address] [place] [address] Jl Grajeda, [address] [place] [address] Postoperative hypothyroidism Social History Tobacco Use Types [...] 1:10 PM EST Office Visit [facility] [address] [place] [address] Jan Ghosh DPM [address] [address] 02/03/2025 2:00 PM EST Office Visit [facility] [address] [place] [address] Jeferson Estrada MD [address] [place] [address] 05/29/2025 1:00 PM EDT Office Visit [facility] [address] [place] [address] Jl Grajeda DO [address] [place] [address] documented as of this encounter Visit Diagnoses Diagnosis Postoperative hypothyroidism Postsurgical hypothyroidism documented in this encounter Additional Health Concerns Assessment Noted Time PHQ-9 Depression Total Score: 2 10/09/19 24 1:18 PM EDT documented as of this encounter Care Teams Vulcan Crewmember Relationship Specialty Start Date End Date Jeferson Estrada MD [address] [place] [phone] PCP - ACO Reach 07/13/22 Jeferson Estrada MD [address] [place] [address] PCP - General Family Medicine 08/09/22 Leonie Mcginnis NP [address] [place] [address] Nurse Practitioner Family Medicine 09/18/22 05/08/24 Edwige Arana NP [address] [place] [address] Nurse Practitioner Pulmonary Disease 09/18/22 10/23/24 Gera Escobar MA [address] [place] [address] Family Medicine 07/01/24 07/09/24 Edwige Arana NP [address] [place] [address] Nurse Practitioner Family Medicine 10/24/24 documented as of this encounter
[2024-11-20] MEDS: CEFAZOLIN SODIUM 2 GM/50 ML D5W PREMIX IV (11:24)
--- NOTE | 2024-11-20 12:28 | P.URON_ITS ---
Urology Surgery Operative Note Operative Note Procedure Date: 11/20/24 Time Out Performed: yes Pre-op Diagnosis: Recurrent bladder tumors Post-op Diagnosis: same as pre-op Procedures performed: 1. Cystoscopy. 2. Transurethral resection of bladder tumors approximately 3 cm. 3. Fulguration of bladder lesions Anesthesia: KASHIF Primary Surgeon: Kang Smith Complications: None Estimated blood loss (mL): 5 Findings: 1. Papillary bladder tumors on the left lateral wall. 2. Erythematous areas on the dome right wall floor and left wall. 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 Surveillance cystoscopy revealed recurrence on his left lateral wall and some erythematous areas on the floor lateral edouard and dome. He now presents for TURBT. He has signed an informed consent after risks were explained. Detailed description of Procedure: The patient was brought to the operating room and placed on the operating room table in the supine position. SCDs were placed on the lower extremities and turned on and functioning during the entire case. Timeout was done by all parties in the room. We all agreed upon the patient's identification and the planned procedures for this patient. Genn. anesthesia was then administered. The patient was then repositioned into the modified dorsal lithotomy position. All pressure points were satisfactorily padded. Genitalia were sterilely prepped and draped in usual fashion. I started by passing a 26 Romansh Olympus resectoscope with a standard bipolar loop electrode per urethra and into the bladder. I identified the ureteral orifices and marked them with a loop electrode. I then found the 3 cm patch of papillary TCC of the bladder lesions on the left lateral wall. These were very carefully resected uniformly. Due to the very thin wall of the bladder this was done in a staccato fashion. All of the tissue was irrigated out with the Elick and sent for permanent sections. I then switched to the vaporization coagulation loop and coagulated the entire resection bed. No other true tumors were seen throughout the bladder but there were multiple erythematous friable areas that were actually bleeding a little bit. These were all coagulated. They were on the floor the right wall of the left wall and the dome. Upon completion, there was no evidence of bleeding. There were no tumors remaining. The scope was then removed and I then placed a 20 Romansh Owen catheter in the bladder. 15 cc of fluid was placed in the balloon. It drained clearly. The anesthetic was then reversed. He was then [place] [facility] [place] and wheeled to PACU in stable condition. Urinary Catheter Management Urinary Catheter Management Urethral: Cath placed during this visit: no
[2024-11-20] MEDS: HYOSCYAMINE SULFATE 0.125 MG TAB.SUBL SL (13:24)
--- NOTE | 2024-11-20 14:18 | PC.NURSE ---
pink tinged urine was drained from castaneda bag prior to discharge
== END 2024-11-20 14:05 | disposition home or self-care (01) ==
LOC: SURGOUT 09:02
PROVIDERS: PCP Family Medicine; Visit Provider Urology
PROC: (CPT 52235; principal; 2024-11-20 10:35)
DX: C67.2 Malignant neoplasm of lateral wall of bladder (principal); Z85.51 Personal history of malignant neoplasm of bladder; J45.909 Unspecified asthma, uncomplicated; E78.5 Hyperlipidemia, unspecified; Z85.850 Personal history of malignant neoplasm of thyroid; Z79.01 Long term (current) use of anticoagulants; I25.10 Atherosclerotic heart disease of native coronary artery without angina pectoris; I12.9 Hypertensive chronic kidney disease with stage 1 through stage 4 chronic kidney disease, or unspecified chronic kidney disease; E11.22 Type 2 diabetes mellitus with diabetic chronic kidney disease; N18.9 Chronic kidney disease, unspecified; L53.8 Other specified erythematous conditions; M19.90 Unspecified osteoarthritis, unspecified site; N40.0 Benign prostatic hyperplasia without lower urinary tract symptoms; K21.9 Gastro-esophageal reflux disease without esophagitis; I25.2 Old myocardial infarction; Z79.84 Long term (current) use of oral hypoglycemic drugs; E11.51 Type 2 diabetes mellitus with diabetic peripheral angiopathy without gangrene; Z79.82 Long term (current) use of aspirin; Z98.52 Vasectomy status; Z87.891 Personal history of nicotine dependence; Z95.5 Presence of coronary angioplasty implant and graft
CPT/HCPCS: 52235; 36415; 82948; J0360; J0690; J1100; J2250; J2405; J2704; J3010

== ENCOUNTER 2024-12-16 15:12 | Outpatient (OUT) | payer MEDICARE, OTHER, SELFPAY ==
--- OUTSIDE RECORDS SUMMARY | 2021-03-14 09:00 | XMS_ITS | Continuity of Care Document ---
Author Organization [facility] Address [address] [place] [address] Phone Care Team Providers Care Drafter Topographical Name Role Phone Alejandro Hinojosa DDS Unavailable [...] Panoramic Film Nutrit Couns For Control Of [place] Dis Dec Oral Hygiene Instruction Comp Oral Eval New/estab Patient 2020 Advance Directives Directive Yes / No Effective Date File Name No Information Encounters Encounter Description Practice Location Reason(s) For Visit Diagnoses Date Provider Providers Copied on Encounter [facility], [address] [place] [address], [address] [place] [address], tel:[phone] Dental Clinic Filling (chief complaint) Encounter for screening for dental disorders Ashish Allen. [address] [place] [address], [facility], . tel:[phone] [facility], [address] [place] [address], [address] [place] [address], tel:[phone] Dental Clinic Dental New (chief complaint) Encounter for screening for dental disorders Ashish Allen. [address] [place] [address], [facility], . tel:[phone] Family History Family Member Type Diagnosis Age At Onset Mother Problem malignant neopla sm of breast in first degree relative Father Problem stroke Payers Payer name Insurance type Covered democrat ID Authoriza tion(s) Self Pay Indigent [id number] Social History Type Description Quantity Date Captured [...]
--- OUTSIDE RECORDS SUMMARY | 2022-10-11 09:20 | XMS_ITS | Continuity of Care Document ---
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 Name Role Phone Ina Echeverria MD Unavailable Unavailable Allergies, Adverse Reactions, Alerts Substance Reaction Status Criticality No Known Drug Allergies Active No I nformation Medications Medication Instructions Dosage Effective Dates (start - stop) Status Comments levothyroxine 75 mcg tablet take 1 tablet by oral route every day 75 MCG - Active Vitamin D2 1,250 mcg (50,000 unit) capsule take 3 Capsule by oral route every month - Active Vitamin C 500 mg tablet take 1 tablet by oral route every day 1 tablet - Active isosorbide dinitrate 30 mg tablet take 1 tablet by oral route every day 30 MG - Active atorvastatin 40 mg tablet take 1 tablet by oral route every day 40 MG - Active Cymbalta 30 mg capsule,delayed release take 1 capsule by oral route every day - Active gabapentin 300 mg capsule take 1 capsule by oral route 2 times every day 300 MG - Active lisinopril 10 mg tablet take 1 tablet by oral route every day 10 MG - Active pioglitazone 45 mg tablet take 1 tablet by oral route every day 45 MG - Active metformin 1,000 mg tablet take 1 tablet by oral route 2 times every day - Active omeprazole 20 mg capsule,delayed release take 1 capsule by oral route every day before a meal 20 MG - Active atenolol 50 mg tablet take 1 tablet by oral route every day 50 MG - Active Nitrostat 0.[address] 1 tablet by sublingual route at the 1st sign of attack; may repeat every 5 min until relief; if pain persists after 3 tablets in 15 min, prompt medical attention is recommended 0.4 MG - Active alendronate 70 mg tablet take 1 tablet by oral route every week in the morning, at least 30 min before first food, beverage, or medication of day 70 MG - No Longer Active levothyroxine 175 mcg tablet take 1 tablet by oral route every day 175 MCG - No Longer Active Procedures Procedure Date Ophthal DX Image Post Retina I And R Uni Or Bi Eye Exam Established Patient Comprehensi ve 1 Or More Visits Intravitreal Injection Of Phamacologic A gent Intravitreal Injection Of Phamacologic A gent Ophthal DX Image Post Retina I And R Uni Or Bi Iluvien Fluocinol acet intravit imp .01 MG Iluvien Fluocinol acet intravit imp .01 MG Intravitreal Injection Of Phamacologic A gent Intravitreal Injection Of Phamacologic A gent Ophthal DX Image Post Retina I And R Uni Or Bi Ozurdex 0.1mg Ozurdex 0.1mg Intravitreal Injection Of Phamacologic A gent Intravitreal Injection Of Phamacologic A gent Ophthal DX Image Post Retina I And R Uni Or Bi Eylea 1mg Pre-filled Syringe Eylea 1mg Pre-filled Syringe Intravitreal Injection Of Phamacologic A gent Intravitreal Injection Of Phamacologic A gent Ophthal DX Image Post Retina I And R Uni Or Bi Ozurdex 0.1mg Sample Drug Ozurdex 0.1mg Sample Drug OFFICE/OUTPATIENT VISIT, EST, Moderate J Intravitreal Injection Of Phamacologic A gent Intravitreal Injection Of Phamacologic A gent Ophthal DX Image Post Retina I And R Uni Or Bi Eylea 1mg Pre-filled Syringe Eylea 1mg Pre-filled Syringe Intravitreal Injection Of Phamacologic A gent Ophthal DX Image Post Retina I And R Uni Or Bi Eylea 1mg Pre-filled Syringe OFFICE/OUTPATIENT VISIT, EST, Moderate A Intravitreal Injection Of Phamacologic A gent Ophthal DX Image Post Retina I And R Uni Or Bi Eylea 1mg Pre-filled Syringe OFFICE/OUTPATIENT VISIT, EST, Low Intravitreal Injection Of Phamacologic A gent Ophthal DX Image Post Retina I And R Uni Or Bi Eylea 1mg Pre-filled Syringe OFFICE/OUTPATIENT VISIT, EST, Moderate D Ophthal DX Image Post Retina I And R Uni Or Bi Eye Exam Established Patient Comprehensi ve 1 Or More Visits OCT Medical Eye Exam, Est With Tx 8 OCT Medical Eye Exam, Est With Tx 7 OCT Medical Eye Exam, Est With Tx 7 OCT Medical Eye Exam, Established 6 TREATMENT OF RETINAL LESION OCT Medical Eye Exam, Established With Tx Nova Fluorescein Angiography Fluorescein Angiography Fundus Photos Medical Eye Exam, Established With Tx [place] OCT Medical Eye Exam, Established 6 OCT Medical Eye Exam, Established With Tx No OCT Medical Eye Exam, Established 5 Fluorescein Angiography Fluorescein Angiography Fundus Photos Medical Eye Exam, Established With Tx Ju Fluorscein Angiography Fluorscein Angiography Fundus Photos Medical Eye Exam, Established With Tx No Medical Eye Exam, Established With Tx [place]oretta OCT Medical Eye Exam, Established 3 OCT OFFICE/OUTPATIENT VISIT, EST TREATMENT OF RETINAL LESION Fluorscein Angiography Fluorscein Angiography Fundus Photos Advance Directives Directive Yes / No Effective Date File Name No Information Encounters Encounter Description Practice Location Reason(s) For Visit Diagnoses Date Provider Providers Copied on Encounter [facility], [address] [facility], [place], [address], [place] tel:[phone] RVA Mykel Follow Up of PDE w/ME (chief complaint) Type 2 diab with prolif diab rtnop with macular edema, biPuckering of macula, left eyeEssential (primary) hypertensionPresen ce of intraocular lens 3 Alkaliby Ahmed. [address], [address], [place], [place], [id number] , [place]. [phone] Referring Provider: Ina Garcia, [address], [place], [address] . 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 [address], [address], [place], [place], [id number] , [place]. [phone] Referring Provider: No Ref Doc No Referring Doc. 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 [address], [address], [place], [place], [id number] , [place]. tel:[phone] Referring Provider: No Ref Doc No Referring Doc. 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 [address], [address] [facility], [place], [place], [id number] , [place]. tel:[phone] Referring Provider: Liz Garcia, [address] [place], [address] . 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 [address], [address] [facility], [place], [place], [id number] , [place]. tel:[phone] Referring Provider: Liz Palmer, [address] [place] [address], [address]. 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 [address], [address], [place], [place], [id number] , [place]. tel:[phone] Referring Provider: Liz Garcia, [address] [place], [address] . tel:[phone] OFFICE/OUTPA TIENT VISIT, EST, Moderate [facility], [address] [place], [address], [place] tel:[phone] RVA Comanche diabetic retinopathy (chief complaint)fog gy vision that comes and goes (chief complaint) Presence of intraocular lensEssential (primary) hypertensionPucker ing of macula, left eyeType 2 diab with prolif diab rtnop with macular edema, bi 2 Alkaliby Ahmed. [address], [address], [place], [place], [id number] , [place]. tel: [phone] Referring Provider: Liz Garcia, [address] [place], [address] . tel:[phone] OFFICE/OUTPA TIENT VISIT, EST, Low [facility], [address] [place], [address], [place] tel: [phone] EVELINE Hogue DR (chief complaint)rep orts gradual vision improvement (chief complaint) Presence of intraocular lensEssential (primary) hypertension 2 Alkaliby Ahmed. [address], [address], [place], [place], [id number] , [place]. tel: [phone] Referring Provider: Liz Garcia, [address] [place], [address] . tel:[phone] OFFICE/OUTPA TIENT VISIT, EST, Moderate [facility], [address] [facility], [place], [address], [place] tel: [phone] EVELINE Hogue diabetic edema per Dr. Palmer (chief complaint)dec reased vision (chief complaint)sta ble vision (chief complaint) Retinal hemorrhage, bilateralPresence of intraocular lensEssential (primary) hypertensionPucker ing of macula, left eye Dec- 1 Margareth Hyman. [address], [address], [place], [place], [id number] , [place]. tel: [phone] Referring Provider: Liz Garcia, [address] [place], [address] . tel:[phone] [facility], [address] [facility], [place], [address], [place] tel: [phone] RVLester Hogue diabetic retinopathy (chief complaint)sta ble vision (chief complaint) Puckering of macula, left eyePresence of intraocular lensEssential (primary) hypertension 9 Margareth Hyman. [address], [address] [facility], [place], [place], [id number] , [place]. tel:[phone] [facility], [address] [place], [address], [place] tel:[phone] RVA Comanche diabetic retinopathy (chief complaint)sta ble vision (chief complaint)DM (chief complaint) Puckering of macula, left eyePresence of intraocular lensEssential (primary) hypertension 8 Margareth Hyman. [address], [address] [facility], [place], [place], [id number] , [place]. tel:[phone] Referring Provider: Boogie Alva, [address] [facility], [place], [address] . tel:[phone] [facility], [address] [place], [address], [place] tel:[phone] RVA Mykel diabetic retinopathy (chief complaint)whi te floaters (chief complaint)den ies visual changes (chief complaint) Puckering of macula, left eyePresence of intraocular lens 7 Margareth Hyman. [address], [address], [place], [place], [id number] , [place]. tel:[phone] Referring Provider: Boogie Alva, [address] [facility], [place], [address] . tel:[phone] [facility], [address] [place], [address], [place] tel:[phone] RVA Mykel diabetic retinopathy (chief complaint)lar ge white floaters (chief complaint)sta ble vision (chief complaint) Vitreous degeneration, bilateralPresence of intraocular lensRetinal edemaEssential (primary) hypertension 7 Margareth Hyman. [address], [address] [place] [address], [id number] , [place]. tel:[phone] Referring Provider: Boogie Alva, [address] [facility], [place], [address] . tel:[phone] [facility], [address] [place], [address], [place] tel:[phone] RVA Comanche diabetic retinopathy (chief complaint)haz e in vision (chief complaint)den ies visual changes (chief complaint) Bilateral retinal micro-aneurysmsVit reous degeneration, bilateralPresence of intraocular lens 6 Margareth Hyman. [address], [address] [facility], [place], [place], [id number] , [place]. tel:[phone] Referring Provider: Boogie Alva, [address] [facility], [place], [address] . tel:[phone] [facility], [address] [place], [place], [facility], [place] tel:[phone] RVA Comanche diabetic retinopathy (chief complaint)int ermittent fogginess (chief complaint)vis ion stable (chief complaint) Bilateral retinal micro-aneurysmsVit reous degeneration, bilateralPresence of intraocular lens 6 Margareth Hyman. [address], [address] [facility], [place], [place], [id number] , [place]. tel:[phone] Referring Provider: Boogie Alva, [address] [place] [address], [place], [address] . tel:[phone] [facility], [address] [place], [address], [place] tel:[phone] RVA Mykel diabetic retinopathy (chief complaint)con tinued hazy vision with distortion (chief complaint) Presence of intraocular lensBilateral retinal micro-aneurysmsVit reous degeneration, bilateral 6 Margareth Hyman. [address], [address] [place] [address], [id number] , [place]. tel:[phone] Referring Provider: Boogie Alva, [address] [facility], [place], [address] . tel:[phone] [facility], [address] [place], [address], [place] tel:[phone] RVA Mykel macular edema (chief complaint)rigo rry vision with distortion (chief complaint) Vitreous degeneration, bilateralPresence of intraocular lensOther secondary cataract, right eye 6 Margareth Hyman. [address], [address] [facility], [place], [place], [id number] , [place]. tel: [phone] Referring Provider: Boogie Alva, [address] [place] [address], [place], [address] . tel:[phone] [facility], [address] [place], [address], [place] tel: [phone] RVA Comanche diabetic retinopathy (chief complaint)james aters (chief complaint)fog gy vision (chief complaint) Presence of intraocular lensOther secondary cataract, right eye 5 Margareth Hyman. [address], [address] [facility], [place], [place], [id number] , [place]. tel:[phone] Referring Provider: Boogie Alva, [address] [facility], [place], [address] . tel:[phone] [facility], [address] [place], [address], [place] tel:[phone] RVA Comanche diabetic retinopathy (chief complaint)imp roved vision (chief complaint) PseudophakiaCME 5 Margareth Hyman. [address], [place] [address], [place], [place], [id number] , [place]. tel:[phone] Referring Provider: Boogie Alva, [address] [facility], [place], [address] . tel:[phone] [facility], [address] [place], [address], [place] tel:[phone] RVA Mykel diabetic retinopathy (chief complaint)imp rovement (chief complaint)arti my vision (chief complaint) PseudophakiaCME 5 Margareth Hyman. [address], [address] [facility], [place], [place], [id number] , [place]. tel:[phone] Referring Provider: Boogie Alva, [address] [facility], [place], [address] . tel:[phone] [facility], [address] [place], [address], [place] tel:[phone] RVA Comanche diabetic retinopathy (chief complaint)dec reased vision (chief complaint) Retinal exudates and depositsSenile nuclear sclerosis 4 Margareth Hyman. [address], [address] [facility], [place], [place], [id number] , [place]. tel:[phone] Referring Provider: Boogie Alva, [address] [facility], [place], [address] . tel:[phone] [facility], [address] [place], [address], [place] [phone] RVA Comanche diabetic retinopathy (chief complaint) Vascular anomalies, congenitalRetinal exudates and depositsSenile nuclear sclerosis 4 Margareth Hyman. [address], [address] [facility], [place], [place], [id number] , [place]. tel:[phone] Specialist : Guera Aguilera, [address] [facility], [place], [address]. tel:[phone] erring Provider: Boogie Alva, [address] [facility], [place], [address] . tel:[phone] [facility], [address] [place], [address], [place] tel:[phone] RVA Mykel Vascular anomalies, congenitalRetinal exudates and depositsSenile nuclear sclerosis 3 Margareth Hyman. [address], [address], [place], [place], [id number] , . [phone] Referring Provider: Boogie Alva, [address], [place], [address] . tel:[phone] OFFICE/OUTPA TIENT VISIT, EST [facility], [address] [place], [address], [place] tel:[phone] RVA Comanche Vascular anomalies, congenitalRetinal exudates and deposits 3 Margareth Hyman. [address], [address], [place], [place], [address] , [place]. tel:[phone] Referring Provider: Boogie Alva, [address], [place], [address] . tel:[phone] Family History Family Member Type Diagnosis Age At Onset Problem (finding) Family history of Diabe irma mellitus Problem (finding) Family history of HBP Problem (finding) Family history of Cance r Problem (finding) Family history of Heart Disease Immunizations Vaccine Date Status Comments Influenza, seasonal, injecta ble, 3 yrs or older (36 mos+) FluLaval administered Source: Other Provider Influenza, seasonal, injecta ble, 3 yrs or older (36 mos+) FluLaval administered Source: Other Provider Influenza, seasonal, injecta ble, 3 yrs or older (36 mos+) FluLaval administered Source: Parents Recall Payers Payer name Insurance type Covered democrat ID Authoriza tisola(s) Medicare [place] [id number] [employer] [id number] Social History Type Description Quantity Date Captured Comments Alcohol Use Details No Caffeine Use Details Unknown Tobacco Use Status Ex-cigarette smoker 023 Smoking Status Former smoker Sex Male Vital Signs Date / Time: Height Weight BMI Pulse Rate Blood Pressure Temperature Respiratory Rate Body Surface Area Head Circumference Head Circ. Percentile Wt./Martir. Percentile BMI percentile Pulse Ox Inhaled Ox 1:26 PM 120/52 mm[Hg] Chief Complaint And Reason For Visit From encounter dated '10/11/2022 13:20'. Follow Up of PDE w/ME (chief complaint). Description: The 77 year old male presents for evaluation of 6 month Follow Up for PDR w/ME in the right and left eyes. Pt reports vision is stable but just abit better OS since last exam. He has his usual amount of floaters, but no flashes of flight, and will get a sharp pain in the left eye about once a week. He states that he has pain at the right sidetemple daily with no pattern as to timing. He is a type 2 NIDDM pt and last A1C was 7.1. Reason For Referral Reason For Referral No Information Plan Of Treatment Date Type Action Status Goal Tobacco cessation counseling completed Goal Tobacco cessation counseling completed Goal Tobacco cessation counseling completed Goal Tobacco cessation counseling completed History Of Present Illness Encounter Date Complaint History Of Prese nt Illness Follow Up of PDE w/ME The 77 yea r old male presents for evaluation of 6 month Follow Up for PDR w/ME in the right and left eyes. Pt reports vision is stable but just a bit better OS since last exam. He has his usual amount of floaters, but no flashes of flight, and will get a sharp pain in the left eye about once a week. He states that he has pain at the right side amish daily with no pattern as to timing. He is a type 2 NIDDM pt and last A1C was 7.1. PDR The 76 year old male presents for evaluation of PDR in the left and right eye with treatment of Iluven. possible Ozurdex int ravitreal injection The 76 year old male presents for evaluation of possible Ozurdex intravitreal injection in the right eye and left eye for treatment of PDR. diabetic retinopathy The 76 year old male presents for evaluation of diabetic retinopathy in the right eye and left eye. Patient reports vision initially improved, but has since decreased as of 1 week ago in both eyes. Patient denies ocular pain, flashes of light, or floaters in both eyes. PDR with edema The 76 year old male presents for evaluation of PDR with edema in the right and left eyes. blurry vision Patient states t hat he is still having trouble with blurry vision in the right eye. Patient describes it as seeing stream over glasses . Patient denies any eye pain, flashes of light, and new floaters. PDR The 76 year old male presents for evaluation of PDR in both eyes. Patient is scheduled for Eylea injection, OU. diabetic retinopathy The 76 year old male presents for evaluation of diabetic retinopathy in the right and left eyes. foggy vision that comes and goes The patient complains of foggy vision that comes and goes in the right and left eyes for about 4-[address] The 75 year old male presents for evaluation of DR in the right and left eyes. reports gradual vision improveme nt The patient reports gradual vision improvement in OD since last visit about 2 month(s) ago. In addition, the condition is associated with daily activities and chores. diabetic edema per Dr. Palmer The 75 year old male presents for evaluation of diabetic edema per Dr. Palmer in the right eye. decreased vision The patient rep orts decreased vision in the right eye. It occurs constantly. The onset was gradual. It affects both near and distance vision. stable vision The patient repo rts stable vision in the left eye. stable vision The patient repo rt stable vision in both eyes since last visit about 12 months ago. It occurs all the time. It affects both near and far vision. In addition, the condition is associated with daily activity and chores. Patient reports floaters not affecting the vision. Patient denies flashes. diabetic retinopathy The 73 year old male presents for diabetic retinopathy in both eyes. stable vision The patient cyndie es vision changes and eye pain since his last visit about 6 months ago. He does note a change though with his right eye floaters. They're described as more erratic since his last visit. He states his PCP is recommending a possible brain scan due to the floaters and sharp RT amish-head pain. He is driving himself today. diabetic retinopathy This 72 yea r old male presents for evaluation of diabetic retinopathy in both eyes. DM He reports decen t A1C especially after losing about 20 pound over the last 12-18 months. He's been having pulmonary testing due to SOB. 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 denies visual changes The patien t denies visual changes in the left eye since his last visit 6 months ago. The patient denies change in vision, eye pain, flashes and floaters. white floaters The patient comp lains of white floaters in the right eye which he noticed about 1 year ago. Patient isn't sure what could be causing them. Patient states they come and go randomly but when they do appear they can affect his vision depending on where they are in his vision. The patient denies change in vision, eye pain, flashes. diabetic retinopathy The 71 year old male presents for evaluation of diabetic retinopathy in both eyes. stable vision The patient repo rts stable vision in the left eye. large white floaters The patient complains of large white floaters in the right eye. It started about 5 months ago. It affects both near and far vision. The symptom is occasional. The condition is mild. In addition, the condition is associated with daily activity and chores. diabetic retinopathy The 71 year old male presents for evaluation of diabetic retinopathy in the both eyes. denies visual changes The patien t denies visual changes in the left eye. since last visit ago. It affects distance vision. The symptom is constant. It occurs all the time. In addition, the condition is associated with daily activity and chores. The patient denies eye pain, flashes and floaters. haze in vision The patient comp lains of haze in vision in the right eye. since last visit ago . It affects both near and far vision. The symptom is constant. It occurs all the time. The condition is mild. In addition, the condition is associated with daily activity and chores. The patient denies eye pain, flashes. diabetic retinopathy The 70 year old male presents for evaluation of diabetic retinopathy in the right eye and left eye. vision stable The patient repo rts vision stable in the left eye. intermittent fogginess The patie nt complains of intermittent fogginess in the right eye since 3 months ago . It affects both near and far vision. It occurs with no pattern. The condition is mild. diabetic retinopathy The 70 year old male presents for evaluation of diabetic retinopathy in the right eye and left eye. continued hazy visio n with distortion The patient complains of continued hazy vision with distortion in the right eye. It started about 14 months ago . The onset was post CE. It affects both near and far vision. The symptom is constant. It occurs always. The condition is significant. In addition, the condition is associated with daily activity and chores. diabetic retinopathy The 70 year old male presents for evaluation of diabetic retinopathy blurry vision with distortion Th e patient complains of blurry vision with distortion in the right eye. It affects both near and far vision. The condition is unchanged. In addition, the condition is associated with daily activity and chores. The patient has not noticed any change in vision until examination with Dr. Palmer. macular edema The 69 Years old male presents for evaluation of macular edema in the right eye per Dr. Palmer foggy vision The patient comp lains of foggy vision in the right eye. It started about 2 months ago. The onset was progressive. It affects both near and far vision. The symptom is constant. It occurs always. The condition is mild. In addition, the condition is associated with daily activity and chores. floaters The patient comp lains of floaters in the right eye. It started about 2 weeks ago . The onset was sudden. It affects both near and far vision. The symptom is intermittent. It occurs persistently. The condition is moderate. The condition is described as seeing floaters. In addition, the condition is associated with daily activity and chores. The patient denies flashes, eye pain. diabetic retinopathy The 69 Year s old male presents for evaluation of diabetic retinopathy improved vision The patient repo rts improved vision in the right eye since his last visit about 1-2 months ago. No floaters or eye pain. Recent DM labs were good. diabetic retinopathy This 69 yea r old male presents for evaluation of diabetic retinopathy and edema. filmy vision The patient comp lains of filmy vision in the right eye. It started about 2 months ago. The onset was gradual. It affects both near and far vision. The symptom is constant. It occurs always. The condition is mild. improvement The patient repo rts improvement in the right eye and left eye. The onset was post CE. It affects distance vision. The symptom is constant. It occurs always. In addition, the condition is associated with daily activity and chores. CE done April and June diabetic retinopathy The 69 Year s old male presents for evaluation of diabetic retinopathy decreased vision The patient com plains of worsening TV vision for a while now. He was told at his recent Dr. Palmer visit that the cataract is progressing. The BS has been good with an average in the 90's. diabetic retinopathy The 68 year old male presents for evaluation of diabetic retinopathy in both eyes. diabetic retinopathy The 68 year s old male presents for evaluation of diabetic retinopathy in the right eye and left eye. Functional Status Date Functional Assessmen t No Information Instructions Date Instruction Additional Infor mation Return in 1 year heriberto Echeverria MD for follow up , OCT, Color photos Related to Type 2 diab with prolif diab rtnop with macular edema, bi Impression/Plan Related to Essen tial (primary) hypertension Impression/Plan Related to Prese nce of intraocular lens Impression/Plan Related to Pucke ring of macula, left eye Impression/Plan Related to Type 2 diab with prolif diab rtnop with macular edema, bi Return in 6 months gi Echeverria MD for OCT OU Related to Type 2 diab with prolif diab rtnop with macular edema, bi Impression/Plan Related to Type 2 diab with prolif diab rtnop with macular edema, bi Return in 4 months w bruce Echeverria MD for IO ILUVIEN OU/OCT OU Related to Type 2 diab with prolif diab rtnop with macular edema, bi Impression/Plan Related to Type 2 diab with prolif diab rtnop with macular edema, bi Impression/Plan Related to Type 2 diab with prolif diab rtnop with macular edema, bi Return in 3 months w brcue Echeverria MD for follow up Ozurdex OU; OCT OU Related to Type 2 diab with prolif diab rtnop with macular edema, bi Impression/Plan Related to Type 2 diab with prolif diab rtnop with macular edema, bi Impression/Plan Related to Type 2 diab with prolif diab rtnop with macular edema, bi Impression/Plan Related to Type 2 diab with prolif diab rtnop with macular edema, bi Impression/Plan Related to Pucke ring of macula, left eye Impression/Plan Related to Essen tial (primary) hypertension Impression/Plan Related to Prese nce of intraocular lens Return in 6-8 week(s ) with Ina Echeverria MD for follow up, OCT, possible Eylea OD Related to Type 2 diab with severe nonp rtnop with macular edema, r eye Impression/Plan Related to Essen tial (primary) hypertension Impression/Plan Related to Type 2 diab with mod nonp rtnop without macular edema, l eye Impression/Plan Related to Prese nce of intraocular lens Impression/Plan Related to Type 2 diab with severe nonp rtnop with macular edema, r eye Return in 6-8 week(s ) for follow up, OCT, possible Eylea OD Related to Type 2 diab with severe nonp rtnop with macular edema, r eye Impression/Plan Related to Prese nce of intraocular lens Impression/Plan Related to Essen tial (primary) hypertension Impression/Plan Related to Retin al hemorrhage, bilateral Impression/Plan Related to Pucke ring of macula, left eye Impression/Plan Related to Type 2 diab with mod nonp rtnop without macular edema, l eye Impression/Plan Related to Type 2 diab with severe nonp rtnop with macular edema, r eye Return in 1 year wit brian Zuluaga for follow up exam and OCT. 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 Related to Type 2 diab with severe nonp rtnop without mclr edema, r eye Follow up - Return i n [address] Zuluaga for follow up exam and OCT. Related to Type 2 diab with severe nonp rtnop without mclr edema, r eye Impression/Plan - No n-Proliferative Diabetic Retinopathy without signs of neovascularization was noted on examination today and explained to the patient. No treatment is necessary at this time. The patient was instructed to call with new floaters or vision changes. Discussed ocular and systemic benefits of blood sugar control as well as the importance of follow up compliance from a retinal standpoint with the PCP/[employer] Envelope Machine Operator. Appropriate follow up with primary eye career agent was recommended. Diabetic letter sent to PCP. Related to Type 2 diab with severe nonp rtnop without mclr edema, r eye Impression/Plan - LE FT: Non-foveal DME OS. Treatment options discussed. Will observe closely at current level of vision and consider treatment if worsening DME or declining Va. I reaffirmed the importance of careful ongoing medical care of diabetes in the long-term visual prognosis. 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 The patient was advised of both ocular and systemic benefits of blood pressure control. They were advised to maintain close follow up with PCP to monitor BP status and immediate follow up if BP readings are greater than 140/90. Related to Essential (primary) hypertension Impression/Plan - A well positioned intraocular lens implants was noted in each eye. I have stressed the importance of regular follow-ups with the patient's primary eye career agent. Related to Presence of intraocular lens Impression/Plan - Ma cular Pucker was noted on examination today and explained to the patient. The pucker is not inducing vision loss or distortion that is severe enough to warrant surgical risk. I have counseled for continued observation at the current level of vision, and the patient will self-monitor with Amsler grid testing and let us know if there is any progressive vision loss or worsening metamorphopsia. If either symptom progresses, we can always consider vitreous surgery at a later date. Appropriate follow up with primary eye career agent was recommended. Related to Puckering of macula, left eye Return in 6 months w bruce Zuluaga for follow up exam and OCT. 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 The pucker is not inducing vision loss or distortion that is severe enough to warrant surgical risk. I have counseled for observation at the current level of vision, and the patient will self-monitor with Amsler grid testing and let us know if there is any progressive vision loss or worsening metamorphopsia. If either symptom progresses, we can always consider vitreous surgery at a later date. Appropriate follow up with primary eye career agent was recommended. Related to Puckering of macula, left eye Impression/Plan - RI GHT: Stable Non-Proliferative Diabetic Retinopathy without signs of neovascularization was noted on examination today and explained to the patient. No treatment is necessary at this time. The patient was instructed to call with new floaters or vision changes. Discussed ocular and systemic benefits of blood sugar control as well as the importance of follow up compliance from a retinal standpoint with the PCP/[employer] Envelope Machine Operator. Appropriate follow up with primary eye career agent was recommended. Related to Type 2 diab with severe nonp rtnop without mclr edema, r eye Impression/Plan - LE FT: Slight perifoveal DME OS. Treatment options discussed. Will observe closely at current level of vision and consider treatment if worsening DME or declining Va. I reaffirmed the importance of careful ongoing medical care of diabetes in the long-term visual prognosis. 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 I have stressed the importance of regular follow-ups with the patient's primary eye career agent. Related to Presence of intraocular lens Follow up - Return i n [address] Zuluaga for follow up exam and OCT. 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 No treatment is necessary at this time. Will monitor current level of edema for progression. The patient was instructed to call with new floaters or vision changes. 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 Appropriate follow up with primary eye career agent was recommended. 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 Monitor for progression. See Plan #1. Related to Retinal edema Impression/Plan - Po sterior vitreous detachment was noted on examination today and explained to the patient. There is no evidence of a retinal tear, break or detachment. 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 The patient was advised of both ocular and systemic benefits of blood pressure control as well as regular follow up compliance with the PCP. Related to Essential (primary) hypertension Impression/Plan - We ll centered IOL noted OU. Related to Presence of intraocular lens Follow up - Return i n [address] Zuluaga for follow up exam and OCT. 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 No treatment is necessary at this time. Will monitor current level of edema for progression. The patient was instructed to call with new floaters or vision changes. 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 Appropriate follow up with primary eye career agent was recommended. 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 Related to Type 2 diabetes mellitus with moderate nonproliferative diabetic retinopathy without macular edema, right eye Type 2 diabetes argelia itus with moderate nonproliferative diabetic retinopathy without macular edema, right eye - Discussed blood sugar control. Related to Type 2 diabetes mellitus with moderate nonproliferative diabetic retinopathy without macular edema, right eye Impression/Plan - We ll positioned intraocular lens implants were noted. I have stressed the importance of regular follow-ups with the patient's primary eye career agent. Related to Presence of intraocular lens Impression/Plan - Po sterior vitreous detachment was noted on examination today and explained to the patient. There is no evidence of a retinal tear, break or detachment. Related to Vitreous degeneration, bilateral Impression/Plan - Se condary to Diabetic Retinopathy - will monitor. 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 No progressive DME. Treatment options discussed. Will observe closely at current level of vision and consider treatment if worsening DME or declining Va. I reaffirmed the importance of careful ongoing medical care of diabetes in the long-term visual prognosis. Diabetic Letter sent to PCP. Related to Type 2 diabetes mellitus with moderate nonproliferative diabetic retinopathy without macular edema, right eye Follow up - Return i n [address] Zuluaga for follow up exam and OCT. Related to Type 2 diabetes mellitus with moderate nonproliferative diabetic retinopathy without macular edema, right eye Impression/Plan - LE FT: Non-Proliferative Diabetic Retinopathy with trace edema was noted on examination today and explained to the patient. No treatment is necessary at this time. The patient was instructed to call with new floaters or vision changes. 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 Appropriate follow up with primary eye career agent was recommended. 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 Related to Type 2 diab w severe nonprlf diabetic rtnop w macular edema - Well positioned in traocular lens implants were noted. I have stressed the importance of regular follow-ups with the patient's primary eye career agent. Related to Presence of intraocular lens - Posterior vitreous detachment was noted on examination today and explained to the patient. There is no evidence of a retinal tear, break or detachment. 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 Zuluaga for follow up exam with OCT. Related to Type 2 diab w severe nonprlf diabetic rtnop w macular edema - LEFT: Stable Sever e Non-Proliferative Diabetic Retinopathy without signs of neovascularization was noted on examination today. Will monitor.RIGHT: Non-Proliferative Diabetic Retinopathy with clinically significant Diabetic Macular Edema was noted on examination today and explained to the patient. No signs of neovascularization were noted. Focal laser photocoagulation treatment was recommended. The risks, benefits, and alternatives were discussed. The patient agreed to treatment and tolerated the procedure well. The patient was instructed to call with new floaters or vision changes. Discussed ocular and systemic benefits of blood sugar control as well as follow up compliance from a retinal standpoint and with the PCP/[employer]ary Envelope Machine Operator. Appropriate follow up with primary eye career agent was recommended. Related to Type 2 diab w severe nonprlf diabetic rtnop w macular edema - Posterior vitreous detachment was noted on examination today and explained to the patient. There is no evidence of a retinal tear, break or detachment. Related to Vitreous degeneration, bilateral - Well positioned in traocular lens implants were noted. I have stressed the importance of regular follow-ups with the patient's primary eye career agent. Related to Presence of intraocular lens Type 2 diab w severe nonprlf diabetic rtnop w macular edema - Discussed blood sugar control. Related to Type 2 diab w severe nonprlf diabetic rtnop w macular edema Type 2 diab w severe nonprlf diabetic rtnop w macular edema - Discussed blood sugar control. Related to Type 2 diab w severe nonprlf diabetic rtnop w macular edema - See plan #1 Related to Bilat eral retinal micro-aneurysms - Severe Non-Prolife rative Diabetic Retinopathy without signs of neovascularization was noted on examination today and explained to the patient. No treatment is necessary at this time. The patient was instructed to call with new floaters or vision changes. 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 Appropriate follow up with primary eye career agent was recommended. Related to Type 2 diab w severe nonprlf diabetic rtnop w macular edema - Return in [address] Zuluaga for follow up exam with OCT. Related to Type 2 diab w severe nonprlf diabetic rtnop w macular edema - Return in [address] Zuluaga for follow up exam with FA. Related to Type 2 diabetes mellitus with moderate nonproliferative diabetic retinopathy with macular edema - Posterior capsule opacification was noted on examination today and may be contributing to the patient's vision loss. Benefits of a Yag laser capsulotomy were again discussed with the patient. The patient was instructed to follow up with the referring physician for further evaluation and treatment. Related to Other secondary cataract, right eye - Well positioned in traocular lens implant were noted. I have stressed the importance of regular follow-ups with the patient's primary eye career agent. Related to Presence of intraocular lens - There is no eviden ce of a retinal tear, break or detachment. Related to Vitreous degeneration, bilateral - Non-Proliferative Diabetic Retinopathy with trace DME was noted on examination today and explained to the patient. Vision has improved and no treatment is necessary at this time. The patient was instructed to call with new floaters or vision changes. Discussed ocular and systemic benefits of blood sugar control as well as the importance of follow up compliance from a retinal standpoint with the PCP/Rotary Envelope Machine Operator. Appropriate follow up with primary eye career agent was recommended. Related to Type 2 diabetes mellitus with moderate nonproliferative diabetic retinopathy with macular edema - Well positioned in traocular lens implant were noted. Related to Presence of intraocular lens - Non-Proliferative Diabetic Retinopathy without signs of neovascularization was noted on examination today and explained to the patient. No treatment is necessary at this time. The patient was instructed to call with new floaters or vision changes. Discussed ocular and systemic benefits of blood sugar control as well as the importance of follow up compliance from a retinal standpoint with the PCP/Rotary Envelope Machine Operator. Related to Type 2 diabetes mellitus w/ moderate nonproliferative diabetic retinopathy w/o macular edema - Non-Proliferative Diabetic Retinopathy with trace DME was noted on examination today and explained to the patient. No treatment is necessary at this time. The patient was instructed to call with new floaters or vision changes. Discussed ocular and systemic benefits of blood sugar control as well as the importance of follow up compliance from a retinal standpoint with the PCP/Rotary Envelope Machine Operator. Appropriate follow up with primary eye career agent was recommended. Related to Type 2 diabetes mellitus with moderate nonproliferative diabetic retinopathy with macular edema - Return in [address] Zuluaga for FA , follow up exam. Related to Type 2 diabetes mellitus with moderate nonproliferative diabetic retinopathy with macular edema - Posterior capsule opacification was noted on examination today and may be contributing to the patient's vision loss. Benefits of a Yag laser capsulotomy were discussed with the patient. The patient was instructed to follow up with the referring physician for further evaluation and treatment. Related to Other secondary cataract, right eye Nonproliferative liz betic retinopathy NOS - Discussed blood sugar control. Related to Nonproliferative diabetic retinopathy NOS - Return in [address] Zuluaga for follow up exam with OCT. Related to Diabetes with ophthalmic manifestations, type II o - Resolved Cystoid M acular Edema was noted on examination today. Patient has responded well to Pred forte drops. Related to CME - Well positioned in traocular lens implant were noted. I have stressed the importance of regular follow-ups with the patient's primary eye career agent. Related to Pseudophakia - Non-Proliferative Diabetic Retinopathy without signs of neovascularization was noted on examination and testing today and explained to the patient. No treatment is necessary at this time. The patient was instructed to call with new floaters or vision changes. Appropriate follow up with primary eye career agent was recommended. Related to Nonproliferative diabetic retinopathy NOS - The patient has be en informed of the importance of maintaining good blood sugar control. The patient was advised of the necessity of follow up compliance with the PCP/Rotary Envelope Machine Operator. Appropriate follow up with primary eye career agent was recommended. 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 Related to Nonproliferative diabetic retinopathy NOS - The patient has be en informed of the importance of maintaining good blood sugar control. The patient was advised of the necessity of follow up compliance with the PCP/Rotary Envelope Machine Operator. Appropriate follow up with primary eye career agent was recommended. Related to Diabetes with ophthalmic manifestations, type II o - Return in 6-[address] Zuluaga for follow up exam with OCT. Related to Diabetes with ophthalmic manifestations, type II o - Cystoid Macular Ed jeremiah post op from recent cataract surgery was noted on examination today. Pred forte qid was e-scribed to patients pharmacy, and patient voiced understanding of usage. Related to CME - Well positioned in traocular lens implant were noted. Related to Pseudophakia - Non-Proliferative Diabetic Retinopathy without signs of neovascularization was noted on examination and testing today and explained to the patient. No treatment is necessary at this time. The patient was instructed to call with new floaters or vision changes. 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 Appropriate follow up with primary eye career agent was recommended. Related to Nonproliferative diabetic retinopathy NOS - The patient has be en informed of the importance of maintaining blood sugar control. The patient was advised of the necessity of follow up compliance with the PCP/[employer] Machine Operator. Appropriate follow up with primary eye career agent was recommended. 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 Zuluaga for follow up with OCT. Related to Diabetes with ophthalmic manifestations, type II o Diabetes with ophtha lmic manifestations, type II o - Blood sugar control discussed. 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 It is reasonable from a retinal standpoint that the patient return to their referring physician for further evaluation of the cataracts and to discuss surgical benefits of cataract removal. There is no retinal contraindication to proceeding with cataract surgery. Related to Senile nuclear sclerosis - Will continue to monitor. 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 No treatment is necessary at this time. The patient was instructed to call with new floaters or vision changes. 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 Appropriate follow up with primary eye career agent was recommended. Related to Nonproliferative diabetic retinopathy NOS - The patient has be en informed of the importance of maintaining blood sugar control. The patient was advised of the necessity of follow up compliance with the PCP/[employer] Machine Operator. Appropriate follow up with primary eye career agent was recommended. 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 It is reasonable from a retinal standpoint that the patient return to their referring physician for further evaluation of the cataracts. Related to Senile nuclear sclerosis - Will continue to o bserve condition and or symptoms. 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 No treatment is necessary at this time. The patient was instructed to call with new floaters or vision changes. 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 Appropriate follow up with primary eye career agent was recommended. Related to Nonproliferative diabetic retinopathy NOS - Return in [address] Zuluaga for follow up and FA. Related to Nonproliferative diabetic retinopathy NOS - S/P Focal laser- N o treatment is required at this time. Will continue to observe condition and or symptoms. 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 - S/P Focal laser- No treatment is required at this time. Will continue to observe condition and or symptoms. 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 No treatment is necessary at this time. The patient was instructed to call with new floaters or vision changes. 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 Appropriate follow up with primary eye career agent was recommended. 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 - The progression of cataracts was noted on examination today and discussed with the patient. It is reasonable from a retinal standpoint that the patient return to their referring physician for further evaluation of the cataracts. 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 - Will continue to observe condition and or symptoms. Related to Retinal exudates and deposits Diabetes with ophtha lmic manifestations, type II o - The patient has been informed of the risks of Diabetic Retinopathy and the importance of maintaining blood sugar control. The patient was advised of the necessity of follow up compliance with the PCP/[employer] Machine Operator. Appropriate follow up with primary eye career agent was recommended. 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 Zuluaga for follow up and OCT. 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 - Focal laser photocoagulation treatment was recommended. The risks, benefits, and alternatives were discussed. The patient agreed to treatment and tolerated the procedure well. The patient was instructed to call with new floaters or vision changes. 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 Emphasized blood sugar control. 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 Zuluaga for follow up and OCT. 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 - Will continue to observe condition and or symptoms. Related to Retinal exudates and deposits Nonproliferative liz betic retinopathy NOS OU Condition: mild, chronic, stable. 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 No treatment is necessary at this time. The patient was instructed to call with new floaters or vision changes. 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 Appropriate follow up with primary eye career agent was recommended. 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 Conditions: severe, chronic, improved assessment Puckering of macula, left eye Au impression Puckering of macula, left eye: H35.372. OS. Condition: mild, chronic, stable assessment Essential (primary) hypertension assessment Presence of intraocular lens Sep impression Presence of intraocu lar lens: Z96.1. Bilateral. Condition: established, stable impression Essential (primary) hypertension : I10. Conditions: established Patient Care Teams Name Effective Dates (start - stop) Status Members No Information
--- OUTSIDE RECORDS SUMMARY | 2024-10-28 13:20 | XMS_ITS | Encounter Summary ---
Author Organization [facility] Address [address] [place] [address] Care Team Providers Care Test Driller Name Role Phone Jeferson Estrada MD Unavailable [phone] Jeferson Estrada MD Primary Care Provider [phone] Edwige Arana LIBRARY CLERICAL ASSISTANT Unavailable [phone] Encounter Details DateTypeDepartmentCare Team (Latest Contact Info)Gapooyapkei38/09/2025 1:20 PM EDTOffice Visit [facility] [address] [place] [id number] Jeferson Estrada MD [address] [place] [address] Medicare annual wellness visit, subsequent (Primary Dx); Anemia of chronic disease; Iron deficiency; Acquired hypothyroidism ; Benign prostatic hyperplasia with urinary frequency; Stage 3b chronic kidney disease (CMS-HCC); Hypertensive heart failure (HCC); Idiopathic progressive neuropathy; Hiatal hernia; Primary insomnia; PAD (peripheral artery disease); Diverticulosis of large intestine without hemorrhage; Gastroesophageal reflux disease without esophagitis; Diverticulosis; Vitamin D deficiency; Mixed hyperlipidemia ; 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); Morbilliform rash; Malignant neoplasm of urinary bladder, unspecified site (HCC) Social History Tobacco UseTypesPacks/DayYears UsedDateSmoking Tobacco: FormerCigarettes 04/24/1962 - 1984Smokeless Tobacco: NeverAlcohol UseStandard Drinks/WeekComments Never0 (1 standard drink = 0.6 oz pure alcohol)Quit drinking in 1979AUDIT-C AnswerDate RecordedQ1: How often do you have a drink containing alcohol?Never 12/12/2022Q2: How many drinks containing alcohol do you have on a typical day when you are drinking?Patient does not drink12/12/2022Q3: How often do you have six or more drinks on one occasion?Never12/12/2022HQ-2AnswerDate Recorded Patient Health Questionnaire-2 [id number] and Gender InformationValue Date RecordedSex Assigned at BirthNot on fileLegal NlgVedd8205/03/2022 7:12 PM EDT Gender IdentityNot on fileSexual OrientationNot on filedocumented as of this encounter Last Filed Vital Signs Vital SignReadingTime TakenCommentsBlood Fjrypfiw919/6009 2:25 PM EDT Bznui181610/28/2024 1:18 PM PWZGxbsmxrzjjr56.6 ??C (97.8 ??F)10/28/2024 1:18 PM EDTRespiratory Rate--Oxygen Kgsrwsmykc20%10/28/2024 1:18 PM EDTInhaled Oxygen Concentration--Flyorh45 kg (161 lb)10/28/2024 1:18 PM LCSHftvgm827.7 cm (5' 8 ) 10/28/2024 1:18 PM EDTBody Mass Index24.4809 1:18 PM EDTdocumented in this encounter Functional Status * Over the past 2 weeks, how often have you been bothered by any of the following problems?QuestionAnswerDate of AssessmentAuthorLittle interest or pleasure in doing thingsNot at all10/28/2024 1:00 PM Anthony Morganeeling down, depressed, or hopelessNot at all10/28/2024 1:00 PM Radha Morgan Patient Health Questionnaire-2 [id number] 1:00 PM Radha Morgan * QuestionAnswerDate of AssessmentAuthorTrouble falling or staying asleep, or sleeping too muchNearly every day10/28/2024 1:00 PM Anthony Morganeeling tired or having little energyNearly every day10/28/2024 1:00 PM Radha MorganPoor appetite or overeatingNot at 10/28/2024 1:00 PM Cathy, LedyieFeeling bad about yourself - or that you are a failure or have let yourself or your family downNot at all10/28/2024 1:00 PM Radha Morgan Trouble concentrating on things, such as reading the newspaper or watching televisionNot at all10/28/2024 1:00 PM Cathy, RadhaMoving or speaking so slowly that other people could have noticed? Or the opposite - being so fidget y or restless that you have been moving around a lot more than usual.Not at all10/28/2024 1:00 PM Cathy, Noemyhoughts that you would be better off or hurting yourself in some wayNot at all10/28/2024 1:00 PM Radha MorganPatient Health Questionnaire-9 [id number] 1:00 PM Radha Morgan documented as of this encounter Progress Notes * Radha Sotomayor - 10/28/2024 1:20 PM EDT Images from the original note were not included. Having trouble sleeping does not like the ambien he use to be on due to the side effects States he was told his bladder CA is back and will be having surgery on nov 28 2024 Would like an Rx for desonide .05 % Maynor Samuels is a 79 y.o. male presents with chief complaint of No chief complaint on file. HPI: History of Present Illness I have reviewed and reconciled the history and medication list with the patient today. 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 Angina pectoris Anginal chest pain at rest 04/27/2023 Anxiety Arthritis AV block, Mobitz 1 12/19/2022 B12 deficiency 05/16/2024 Bladder cancer (HCC) 05/16/2024 BMI 24.0-24.9, adult 02/21/2024 CAD (coronary artery disease) Cancer ([facility]) 12/19/2022 Carcinoma of thyroid gland ([facility]) 12/19/2022 Cataract Cataract 12/19/2022 Chronic kidney disease (CKD), stage III (moderate) ([facility]) Closed displaced fracture of acromial end of left clavicle, initial encounter Collar bone fracture Colon polyps Coronary atherosclerosis Dehydration 04/27/2023 Delirium 05/16/2024 Dementia ([facility]) 12/11/2018 Diabetes mellitus ([facility]) Diaphragmatic hernia without obstruction and without gangrene Diverticulosis Diverticulosis of colon without hemorrhage Dyslipidemia 05/16/2024 Elevated TSH 05/16/2024 Esophageal reflux Essential hypertension 12/19/2022 Essential tremor 12/19/2022 Excessive daytime sleepiness 08/11/2022 Follicular cystitis 05/16/2024 Former smoker 12/07/2023 Glaucoma 05/16/2024 H/O total thyroidectomy 12/19/2022 Heel spur Hiatal hernia History of being hospitalized 03/2018 chest pain History of penile implant History of testicular mass 05/16/2024 Hyperkalemia 04/27/2023 Hypertension Hypertensive urgency 05/16/2024 Hypothyroidism IBS (irritable bowel syndrome) Intermittent claudication 12/19/2022 Intermittent left lower quadrant abdominal pain 04/27/2023 Intramuscular lipoma Iron deficiency anemia 05/16/2024 Left renal stone 05/16/2024 Mixed hyperlipidemia Mobitz (type) I (Wenckebach's) atrioventricular block 04/27/2023 Mobitz type 1 second degree atrioventricular block Neuropathy Noncompliance w/medication treatment due to intermit use of medication 04/27/2023 Obesity Osteoarthritis Pain in throat 12/19/2022 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 Spear COLONOSCOPY W/ POLYPECTOMY 2011 CORONARY ANGIOPLASTY WITH STENT PLACEMENT 2003, 2008 CORONARY STENT PLACEMENT 2008 CT ANGIO HEAD 09/29/2022 CT ANGIO HEAD 09/29/2022 [facility] CT CT ANGIO HEAD 04/05/2023 CT ANGIO HEAD 04/05/2023 [facility] CT EYE EXAM 2013 FOOT EXAM 2012 HEEL SPUR SURGERY 2004 HIATAL HERNIA REPAIR 06/2021 KNEE SURGERY 2007 arthroscopy MR ANGIOGRAM HEAD WO IV CONTRAST 09/18/2024 MR ANGIOGRAM HEAD WO IV CONTRAST OTHER SURGICAL HISTORY 2012 PSA TONSILLECTOMY 1994 TOTAL THYROIDECTOMY 2001, 2001 TRIGGER FINGER RELEASE 08/16/2015 RSF Trigger SBS VASECTOMY 1976 SOCIAL HISTORY: Social History Tobacco Use Smoking status: Former Current packs/day: 0.00 Types: Cigarettes Start date: 04/24/1962 Quit date: 1984 Years since quittin.7 Smokeless tobacco: Never Substance Use Topics Alcohol use: Never Comment: Quit drinking in 1979 Drug use: Never Depression: Not at risk (03/20/2024) PHQ-2 PHQ-2 Score: 0 FAMILY HISTORY: Family History Problem Relation Name Age of Onset Breast cancer Mother lisa 42 Heart disease Father anna 76 Hypertension Father anna Diabetes Father anna Stroke Father anna Hypertension Sister nhung kelly 1949 COPD Sister nhung No Known Problems Daughter willie kelly 1972 No Known Problems Daughter lilli kelly 1975 MEDICATIONS: Current Outpatient Medications Medication Instructions amLODIPine (Norvasc) 10 MG tablet Daily amLODIPine-valsartan (Exforge) 5-160 MG tablet 1 tablet, Daily RT ASPIRIN 81 PO 81 mg, Daily atorvastatin (LIPITOR) 40 mg, Every 24 hours cholecalciferol (VITAMIN D-3) 1,000 Units, Daily cloNIDine (CATAPRES) 0.1 mg, 2 times daily clopidogrel (PLAVIX) 75 mg, Daily ezetimibe (Zetia) 10 MG tablet Daily Ferrous Fumarate 325 mg, Oral, Daily ferrous sulfate 325 (65 Fe) MG EC tablet 1 tablet, 2 times daily isosorbide mononitrate ER (IMDUR) 30 mg, Daily RT ivermectin (STROMECTOL) 9 mg, Oral, Daily levothyroxine (SYNTHROID) 125 mcg, Oral, Daily before breakfast metFORMIN (GLUCOPHAGE) 1,000 mg, Oral, 2 times daily with meals metFORMIN (GLUCOPHAGE) 500 mg, Oral, 2 times daily with meals nitroglycerin (NITROSTAT) 0.4 mg, Every 5 min PRN omeprazole (PRILOSEC) 40 mg, Oral, Nightly pantoprazole (ProtoNix) 40 MG EC tablet pioglitazone (ACTOS) 30 mg, Oral, Daily tamsulosin (Flomax) 0.4 MG 24 hr capsule vitamin C 1,000 mg, Every 24 hours ALLERGIES: Allergies Allergen Reactions Beta Adrenergic Blockers Other Reaction(s): Other: See Comments bradycardia Vitamin B12 Dizziness Dust Mite Extract Unknown Other Reaction(s): Sneezing This patient is not allergic to Albuterol Other Other Reaction(s): Sneezing RECENT LABS No results found for this or any previous visit (from the past 6 weeks). PHYSICAL EXAM: Physical Exam Visit Vitals Smoking Status Former BP Readings from Last 3 Encounters: 10/11/24 126/84 10/02/24 122/68 08/05/24 124/62 Wt Readings from Last 3 Encounters: 10/11/24 156 lb 10/02/24 156 lb 09/29/24 155 lb Physical Exam Results ASSESSMENT AND PLAN: Assessment & Plan This clinical note was created utilizing [employer] documentation system. All information has beenthoroughly reviewed, corrected as necessary, and authenticated by the provider to ensure accuracy and completeness. On occasion, [employer]an[employer] documentation system erroneously drops words or replaces aspoken word with a similar sounding word. Please notify with any questions or concerns regarding this clinical note. * Jeferson Estrada MD - 10/28/2024 1:20 PM EDT Images from the original note were not included. Maynor Samuels is a 79 y.o. male presents with chief complaint of No chief complaint on file. HPI: History of Present Illness The patient presents for a Medicare wellness visit and is having some difficulty with sleeping. He has had some difficulty with sleeping. He has tried Ambien in the past, which caused him some problems. He had a reaction to ivermectin, which he was taking for a month. He was supposed to reduce the dosage to 3 days a week but continued taking it for months, resulting in a rash on his feet and body. He stopped taking it and started using desonide cream, which has helped him. He has had no other probl ems. He has a recurrent bladder cancer, which he is getting treatment for at the cancer center. He is going to resume treatment there. He has had a Medicare wellness visit today and has no complaints. 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 He reports no chest pain, shortness of breath, diarrhea, or constipation. I have reviewed and reconciled the history and medication list with the patient today. CURRENT PCP/CARE TEAM: Patient Care Team: Jeferson Estrada MD as PCP - General (Family Medicine) Jeferson Estrada MD as PCP - ACO Reach Edwige Arana NP as Nurse Practitioner (Family Medicine) Over the past 2 weeks, how often have you been bothered by any of the following problems? Little interest or pleasure in doing things: Not at all Feeling down, depressed, or hopeless: Not at all Patient Health Questionnaire-2 Score: 0 Over the past 2 weeks, how often have you been bothered by any of the following problems? Trouble falling or staying asleep, or sleeping too much: Nearly every day Feeling tired or having little energy: Nearly every day Poor appetite or overeating: Not at all Feeling bad about yourself - or that you are a failure or have let yourself or your family down: Not at all Trouble concentrating on things, such as reading the newspaper or watching television: Not at all Moving or speaking so slowly that other people could have noticed? Or the opposite - being so fidgety or restless that you have been moving around a lot more than usual.: Not at all Thoughts that you would be better off or hurting yourself in some way: Not at all Patient Health Questionnaire-9 Score: 6 Rankin Fall Risk History of Falling, Immediate or Within 3 Months: No Secondary Diagnosis: No Ambulatory Aid: Walks without aid/bedrest/nurse assist Intravenous Therapy/Heparin Lock: No Gait/Transferring: Normal/bedrest/immobile Mental Status: Oriented to own ability Rankin Fall Risk Score: 0 Health Risk Assessment Form Do you need help eating, bathing, using the toilet, dressing, or getting around your home?: No Can you prepare your own meals?: Yes Can you do your own housework without help?: Yes Can you shop for groceries or clothes without help?: Yes Do you exercise for about 20 minutes 3 or more days a week?: Yes How confident are you that you can control and manage most of your health problems?: Very confident Can you mange your money, credit cards and accounts, pay bills and taxes?: Yes Vision Screening: Yes, no gross abnormalities Hearing Screening: Not done Cognitive Screening Self Assessment: No overt cognitive deficiency is apparent by direct observation Three Word Registration: Bandar Reyes, Finger Clock Drawing: Normal Clock - 2 Three Word Recall: All 3 words correct - 3 Total Score (0-5 Points): 5 HISTORIES: PAST MEDICAL HISTORY: Past Medical History: Diagnosis Date Abdominal aneurysm Acute cystitis 05/16/2024 Acute metabolic encephalopathy 05/16/2024 NIRANJAN (acute kidney injury) 04/27/2023 Allergies Altered mental status 05/16/2024 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 Angina pectoris Anginal chest pain at rest 04/27/2023 Anxiety Arthritis AV block, Mobitz 1 12/19/2022 B12 deficiency 05/16/2024 Bladder cancer ([facility]) 05/16/2024 BMI 24.0-24.9, adult 02/21/2024 CAD (coronary artery disease) Cancer ([facility]) 12/19/2022 Carcinoma of thyroid gland ([facility]) 12/19/2022 Cataract Cataract 12/19/2022 Chronic kidney disease (CKD), stage III (moderate) ([facility]) Closed displaced fracture of acromial end of left clavicle, initial encounter Collar bone fracture Colon polyps Coronary atherosclerosis Dehydration 04/27/2023 Delirium 05/16/2024 Dementia ([facility]) 12/11/2018 Diabetes mellitus ([facility]) Diaphragmatic hernia without obstruction and without gangrene Diverticulosis Diverticulosis of colon without hemorrhage Dyslipidemia 05/16/2024 Elevated TSH 05/16/2024 Esophageal reflux Essential hypertension 12/19/2022 Essential tremor 12/19/2022 Excessive daytime sleepiness 08/11/2022 Follicular cystitis 05/16/2024 Former smoker 12/07/2023 Glaucoma 05/16/2024 H/O total thyroidectomy 12/19/2022 Heel spur Hiatal hernia History of being hospitalized 03/2018 chest pain History of penile implant History of testicular mass 05/16/2024 Hyperkalemia 04/27/2023 Hypertension Hypertensive urgency 05/16/2024 Hypothyroidism IBS (irritable bowel syndrome) Intermittent claudication 12/19/2022 Intermittent left lower quadrant abdominal pain 04/27/2023 Intramuscular lipoma Iron deficiency anemia 05/16/2024 Left renal stone 05/16/2024 Mixed hyperlipidemia Mobitz (type) I (Wenckebach's) atrioventricular block 04/27/2023 Mobitz type 1 second degree atrioventricular block Neuropathy Noncompliance w/medication treatment due to intermit use of medication 04/27/2023 Obesity Osteoarthritis Pain in throat 12/19/2022 Primary papillary adenocarcinoma of thyroid gland (HCC) 04/27/2023 Psoriasis S/P coronary artery stent placement 04/27/2023 Simple renal cyst 05/16/2024 Sinus problem Status post coronary angioplasty 12/19/2022 Status post excision of lipoma 04/27/2023 Stricture of penile urethra 05/16/2024 Thyroid cancer (HCC) UTI (urinary tract infection) 05/16/2024 Vitamin D deficiency, unspecified SURGICAL HISTORY: Past Surgical History: Procedure Laterality Date ANGIOPLASTY 2006 CARDIAC CATHETERIZATION 03/2018 with stenting x1 CARDIOVASCULAR STRESS TEST [address] Spear COLONOSCOPY W/ POLYPECTOMY 2011 CORONARY ANGIOPLASTY WITH STENT PLACEMENT 2003, 2008 CORONARY STENT PLACEMENT 2008 CT ANGIO HEAD 09/29/2022 CT ANGIO HEAD 09/29/2022 [facility] [address] CT ANGIO HEAD 04/05/2023 CT ANGIO HEAD 04/05/2023 [facility] CT EYE EXAM 2014 FOOT EXAM 2013 HEEL SPUR SURGERY 2005 HIATAL HERNIA REPAIR 06/2021 KNEE SURGERY 2008 arthroscopy MR ANGIOGRAM HEAD WO IV CONTRAST 09/18/2024 MR ANGIOGRAM HEAD WO IV CONTRAST OTHER SURGICAL HISTORY 2012 PSA TONSILLECTOMY 1994 TOTAL THYROIDECTOMY 2001, 2001 TRIGGER FINGER RELEASE 08/16/2015 RSF Trigger SBS VASECTOMY 1977 SOCIAL HISTORY: Social History Tobacco Use Smoking status: Former Current packs/day: 0.00 Types: Cigarettes Start date: 04/24/1962 Quit date: 1984 Years since quittin.7 Smokeless tobacco: Never Substance Use Topics Alcohol use: Never Comment: Quit drinking in 1979 Drug use: Never Depression: Not at risk (10/28/2024) PHQ-2 PHQ-2 Score: 0 FAMILY HISTORY: Family History Problem Relation Name Age of Onset Breast cancer Mother lisa 42 Heart disease Father anna 76 Hypertension Father anna Diabetes Father anna Stroke Father anna Hypertension Sister nhung mendoza 1949 COPD Sister nhung No Known Problems Daughter willie mendoza 1971 No Known Problems Daughter lilli mendoza 1975 MEDICATIONS: Current Outpatient Medications Medication Instructions amLODIPine (Norvasc) 10 MG tablet Daily amLODIPine-valsartan (Exforge) 5-160 MG tablet 1 tablet, Daily RT ASPIRIN 81 PO 81 mg, Daily atorvastatin (LIPITOR) 40 mg, Every 24 hours cholecalciferol (VITAMIN D-3) 1,000 Units, Daily cloNIDine (CATAPRES) 0.1 mg, 2 times daily clopidogrel (PLAVIX) 75 mg, Daily desonide (DesOwen) 0.05 % lotion Topical, 2 times daily ezetimibe (Zetia) 10 MG tablet Daily Ferrous Fumarate 325 mg, Oral, Daily ferrous sulfate 325 mg, Oral, 2 times daily (09/30) isosorbide mononitrate ER (IMDUR) 30 mg, Daily RT ivermectin (STROMECTOL) 9 mg, Oral, Daily levothyroxine (SYNTHROID) 125 mcg, Oral, Daily before breakfast metFORMIN (GLUCOPHAGE) 1,000 mg, Oral, 2 times daily with meals metFORMIN (GLUCOPHAGE) 500 mg, Oral, 2 times daily with meals nitroglycerin (NITROSTAT) 0.4 mg, Every 5 min PRN omeprazole (PRILOSEC) 40 mg, Oral, Nightly oxazepam (SERAX) 15 mg, Oral, Nightly PRN pantoprazole (ProtoNix) 40 MG EC tablet pioglitazone (ACTOS) 30 mg, Oral, Daily tamsulosin (Flomax) 0.4 MG 24 hr capsule vitamin C 1,000 mg, Every 24 hours ALLERGIES: Allergies Allergen Reactions Beta Adrenergic Blockers Other Reaction(s): Other: See Comments bradycardia Vitamin B12 Dizziness Dust Mite Extract Unknown Other Reaction(s): Sneezing This patient is not allergic to Albuterol Other Other Reaction(s): Sneezing RECENT LABS No results found for this or any previous visit (from the past 6 weeks). PHYSICAL EXAM: Physical Exam Mood and affect are within normal limits. Head is normocephalic and atraumatic. Ears, nose, and throat are without abnormalities. Neck is supple. There is no JVD. Carotids show no bruits. Lungs are clear to auscultation and percussion. Heart exhibits a regular rate and rhythm without murmur, rub, or gallop. PMI is nonspecific. Abdomen is soft, nontender, nondistended with bowel sounds present. Guarding and rebound are absent. Skin is warm and dry without any other problems. Visit Vitals BP 140/60 Pulse 82 Temp 97.8 ??F (Temporal) Ht 5' 8 Wt 161 lb SpO2 98% BMI 24.48 kg/m?? Smoking Status Former BSA 1.87 m?? BP Readings from Last 3 Encounters: 10/28/24 140/60 10/11/24 126/84 10/02/24 122/68 Wt Readings from Last 3 Encounters: 10/28/24 161 lb 10/11/24 156 lb 10/02/24 156 lb Physical Exam Results ASSESSMENT AND PLAN: Diagnosis Plan 1. Medicare annual wellness visit, subsequent Patient here for annual Medicare Wellness visit. Demographics were updated. Self-assessment was completed. Past medical, family, and social history were updated. The medication list, including supplements being taken, was updated. A list of other current medical providers was established/updated. Time was spent discussing health maintenance issues, ordering proper testing, and a schedule was provided regarding recommended screening. We discussed safety issues and fall risk. Depression screening was completed and addressed. Fall screening was completed and addressed. Cognitive function was assessed by direct observation and assessment of ability to perform ADL's and IADL's was done. The current BMI was provided. The BMI will continue to be monitored at routine office visits as well. 2. Anemia of chronic disease Stable 3. Iron deficiency Continue with iron supplementation ferrous sulfate 325 (65 Fe) MG EC tablet 4. Acquired hypothyroidism Patient to continue to take her thyroid medication on an empty stomach at least 1 hour and no othermedications with the thyroid medication and continue to monitor the thyroid levels at least every 6months. All questions were ansered. 5. Benign prostatic hyperplasia with urinary frequency Stable 6. Stage 3b chronic kidney disease ([facility]) Labs were reviewed and discussed with the patient. All risk factors were reviewed and addressed. All appropriate modifications were made to reduce or delay the progression of kidney disease. We will continue the current medications and continue to modify all risk factors as we are able to do so. Fol low-up labs again at next office visit. 7. Hypertensive heart failure (HCC) Possible complications of uncontrolled hypertension include stroke, congestive heart failure, heartattack, loss of vision, and kidney failure. Please complete labs as directed and call our office inone week if you have not received your lab results. Patient is encouraged to reduce salt in diet and to exercise at least 150 minutes per week. Avoid tobacco use and alcohol consumption. Please take all medications as prescribed. 8. Idiopathic progressive neuropathy Stable 9. Hiatal hernia Stable and continue treatment 10. Primary insomnia Will add serax for possible sleep issues oxazepam (Serax) 15 MG capsule 11. PAD (peripheral artery disease) Stable 12. Diverticulosis of large intestine without hemorrhage No worse than before, no changes and is doing well with the medications and 13. Gastroesophageal reflux disease without esophagitis Denies any symptoms at this time. Continue current regimen. 14. Diverticulosis 15. Vitamin D deficiency Take medication as directed. Encouraged to obtain 20 minutes of direct sunlight daily during peak hours of sunlight. Consume food sources high in Vitamin D. Repeat labs as instructed. I recommend thevitamin d level between 40-60. Also start vitamin K2 100mcg daily with the vitamin d3 supplement suggested, 16. Mixed hyperlipidemia 17. 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) 18. Morbilliform rash Will start some steroid creams desonide (DesOwen) 0.05 % lotion 19. Malignant neoplasm of urinary bladder, unspecified site (HCC) The patient is seeing the urologist for the therapy Assessment & Plan 1. Sleep disorder: - Difficulty sleeping has been reported. - Ambien was tried in the past but caused problems. 2. Adverse reaction to medication: - A rash on the feet and body was caused by ivermectin. - Desonide cream was used to alleviate symptoms. 3. Bladder cancer: - Recurrent bladder cancer is present. - Receiving treatment at the cancer center. 4. Medicare wellness visit: - No complaints were reported. - Physical exam findings include warm and dry skin, normocephalic head, clear lungs, regular heart rate and rhythm, and soft, nontender abdomen. This clinical note was created utilizing [employer] system. All information has beenthoroughly reviewed, corrected as necessary, and authenticated by the provider to ensure accuracy and completeness. On occasion, [employer] ambient documentation system erroneously drops words or replaces aspoken word with a similar sounding word. Please notify with any questions or concerns regarding this clinical note. documented in this encounter Plan of Treatment DateTypeDepartmentCare Team (Latest Contact Info)Rjawrhhydwb21/05/2025 1:10 PM ESTOffice Visit [facility] [address] [place] [address] Jan Ghosh DPM [address] [address] 02/03/2025 2:00 PM ESTOffice Visit [facility] [address] [place] [address] Jeferson Estrada MD [address] [place] [address] 05/29/2025 1:00 PM EDTOffice Visit [facility] [address] [place] [id number] Jl Grajeda DO [address] [place] [address] documented as of this encounter Visit Diagnoses Diagnosis Medicare annual wellness visit, subsequent- Primary Anemia of chronic disease Anemia of other chronic disease Iron deficiency Disorders of iron metabolism Acquired hypothyroidism Unspecified hypothyroidism Benign prostatic hyperplasia with urinary frequency Stage 3b chronic kidney disease (CMS-HCC) Hypertensive heart failure (HCC) Unspecified hypertensive heart disease with heart failure Idiopathic progressive neuropathy Hiatal hernia Diaphragmatic hernia without mention of obstruction or gangrene Primary insomnia Persistent disorder of initiating or maintaining sleep PAD (peripheral artery disease) Unspecified peripheral vascular disease Diverticulosis of large intestine without hemorrhage Gastroesophageal reflux disease without esophagitis Esophageal reflux Diverticulosis Diverticulosis of colon (without mention of hemorrhage) Vitamin D deficiency Mixed hyperlipidemia 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) Morbilliform rash Malignant neoplasm of urinary bladder, unspecified site (HCC) documented in this encounter Additional Health Concerns AssessmentNoted TimePHQ-9 Depression Total Score: 6010/28/2024 1:00 PM EDT documented as of this encounter Care Teams Team MemberRelationshipSpecialtyStart DateEnd Date Jeferson Estrada MD [address] [place] [address] PCP - ACO Reach07/13/22 Jeferson Estrada MD [address] [place] [address] PCP - GeneralFamily Medicine08/09/22 Edwige Arana NP [address] [place] [address] Nurse PractitionerFamily Medicine10/24/24documented as of this encounter
--- OUTSIDE RECORDS SUMMARY | 2024-12-09 09:30 | XMS_ITS | Encounter Summary ---
Author Organization [facility] Address [address] [place] [phone] Phone Care Team Providers Care Bench Inspector Name Role Phone Jeferson Estrada MD Primary Care Provider [phone] Reason for Visit * ReasonCommentsBlood Pressure Check * Consultation (Routine) - AuthorizedSpecialtyDiagnoses / ProceduresReferred By ContactReferred To ContactCardiology Diagnoses Essential hypertension Procedures Follow Up In Cardiology Erika Mayes MD [address] [place] [address] Phone: tel: fax: Erika Mayes MD [address] [place] [address] Phone: tel: fax: Referral IDStatusReasonStart DateExpiration DateVisits RequestedVisits [id number]/11/20259/ Encounter Details DateTypeDepartmentCare Team (Latest Contact Info)Cpcxorzkwmf12/21/2025 9:30 AM EDTOffice Visit [facility] [address] [address] Erika Mayes MD [address] [place] [address] Essential hypertension; Former smoker; BMI 24.0-24.9, adult Social History Tobacco UseTypesPacks/DayYears UsedDateSmoking Tobacco: FormerCigarettesQuit: 06/1984Smokeless Tobacco: NeverAlcohol UseStandard Drinks/WeekCommentsNever0 (1 standard drink = 0.6 oz pure alcohol)Sex and Gender InformationValueDate RecordedSex Assigned at BirthNot on fileLegal NmoYgov55/26/2022 4:28 AM EST Gender IdentityNot on fileSexual OrientationNot on filedocumented as of this encounter Last Filed Vital Signs Vital SignReadingTime TakenCommentsBlood Qsohpmva261/6012/09/2024 9:34 AM EDT Cwbff002212/09/2024 9:31 AM EDTTemperature--Respiratory Rate--Oxygen Saturation-- Inhaled Oxygen Concentration--Byorfb18 kg (161 lb)12/09/2024 9:31 AM EDTHeight 172.7 cm (5' 8 )12/09/2024 9:31 AM EDTBody Mass Index24.4812/09/2024 9:31 AM EDT documented in this encounter Functional Status * BPAnswerDate of QmordhrrgzJlyypd918/6012/09/2024 9:34 AM Charlee Gurrola RN * PulseAnswerDate of YkvydlvmdyIfjhlk4247/21/2025 9:31 AM Charlee Gurrola RN * Communicable Disease ScreeningQuestionAnswerDate of AssessmentAuthorDo you have any of the following new or worsening symptoms?None of these12/09/2024 9:17 AM Senia Olivo documented as of this encounter Patient Instructions * Patient Instructions* Charlee Guerrero RN - 12/09/2024 9:30 AM EDT Please bring all medicines, vitamins, and herbal supplements with you when you come to the office. Prescriptions will not be filled unless you are compliant with your follow up appointments or have a follow up appointment scheduled as per instruction of your physician. Refills should be requested at the time of your visit. documented in this encounter Progress Notes * Erika Mayes MD - 12/09/2024 9:30 AM EDT HPI Patient is in the office for hypertension management. Since we added Nebivolol 5 mg daily his pressure is normalized without any side effects. Follow-up kidney function revealed a drop with a creatinine down to 1.69 mg/dL and creatinine clearance 39 mL/min. Present medical therapy will be left unchanged. ROS Vitals: 12/09/24 0931 12/09/24 0934 BP: 124/60 122/60 BP Location: Right arm Left arm Patient Position: Sitting Sitting Pulse: 60 Weight: 73 kg (161 lb) Height: 1.727 [...] 2 times daily (morning and late afternoon) nebivolol (BYSTOLIC) 5 mg, oral, Daily nitroglycerin (NITROSTAT) 0.4 mg, sublingual, Every 5 min PRN pantoprazole (PROTONIX) 40 mg, oral, Daily before breakfast, Do not crush, chew, or split. pioglitazone (Actos) 15 mg tablet 1 tablet, Daily tamsulosin (FLOMAX) 0.4 mg, Daily Assessment/Plan 1. Essential hypertension Follow Up In Cardiology 2. Former smoker 3. BMI 24.0-24.9, adult Scribe Attestation By signing my name below, ICharlee RN , Scribe attest that this documentation has been prepared under the direction and in the presence of Erika Mayes MD. Provider Attestation - Scribe documentation All medical record entries made by the Scribe were at my direction and personally dictated by me. Geovanna reviewed the chart and agree that the record accurately reflects my personal performance of the history, physical exam, discussion and plan. documented in this encounter Plan of Treatment DateTypeDepartmentCare Team (Latest Contact Info)Xeovgxufhyi34/10/2026 11:10 AM ESTOffice Visit [facility] [address] [facility] [address] [place] [phone] Erika Mayes MD [address] [facility] [address], [address] [place] [address] documented as of this encounter Visit Diagnoses Diagnosis Essential hypertension Unspecified essential hypertension Former smoker Personal history of tobacco use, presenting hazards to health BMI 24.0-24.9, adult documented in this encounter Additional Health Concerns AssessmentNoted TimeA fall risk assessment has been completed for the patient 12/09/2024 9:29 AM EDTdocumented as of this encounter Care Teams Team MemberRelationshipSpecialtyStart DateEnd Date Jeferson Estrada MD [address] [place] [address] PCP - Lqwohly82/11/14documented as of this encounter
--- OUTSIDE RECORDS SUMMARY | 2024-12-16 15:16 | XMS_ITS | Clinical Summary ---
Author Organization [facility] Address [address] [facility] [place] [address] Care Team Providers Care Plant Safety Engineer Name Role Phone Silviano Gonzalez MD Primary Care Provider [phone] Source Comments The following information is NOT included in Care Everywhere downloads:Psychiatric notes, ECG results, Cardiac Rehab notes, Pulmonary Function notes, data from [employer] (includes but not limited toPregnancy data,audiograms, eye exams, pre-surgical evaluation notes, well-child exam data).[facility] Allergies Active AllergyReactionsCriticalityNoted DateCommentsDustBlurred Osbklh7912/17/2008 Dust mites. Runny eyes, nasal drainage. Takes weekly allergy shots Medications MedicationSigDispense QuantityRefillsLast FilledStart DateEnd DateStatus TYLENOL PM EXTRA STRENGTH ORAL Take by mouth as needed.Active AMBIEN CR 12.5 MG TBCR Take 12.5 mg by mouth at bedtime as needed for Sleep.Active ASPIRIN 81 MG tablet Take 81 mg by mouth daily.Active NITROSTAT SUBLINGUAL 0.4 mg by Sublingual route as needed.Active CO-ENZYME Q-10 100 MG CAPS Take by mouth daily.Active OMEPRAZOLE 20 MG TBEC Take by mouth daily.Active SYNTHROID 175 MCG TABS Indications:Malignant neoplasm of thyroid gland (HCC),Secondary and unspecified malignant neoplasm of lymph nodes of head, face, and neckTake 175 mcg by mouth daily.Active LISINOPRIL 10 MG tablet Take 10 mg by mouth daily.Active PLAVIX 75 MG TABS Take 75 mg by mouth daily.Active CRESTOR 10 MG TABS Take 10 mg by mouth daily.Active ACTOS 45 MG TABS Take 45 mg by mouth daily.Active METFORMIN 1000 MG tablet Take 1,000 mg by mouth 2 times daily (with meals).Active ONGLYZA 5 MG TABS Take by mouth daily.Active TRILIPIX 135 MG CPDR Take by mouth daily.Active Social History Tobacco UseTypesPacks/DayYears UsedDateSmoking Tobacco: Never AssessedSex and Gender InformationValueDate RecordedSex Assigned at BirthNot on fileLegal Sex Male12/24/2011 12:55 PM ESTGender IdentityNot on fileSexual OrientationNot on file Last Filed Vital Signs Vital SignReadingTime TakenCommentsBlood Qvpmxddi843/7512/17/2008 10:43 AM EDT Seiyj971612/17/2008 10:43 AM ERDOkuuztlfdhb46.8 ??C (96.5 ??F)12/17/2008 10:43 AM EDTRespiratory Anzp6207 10:43 AM EDTOxygen Saturation--Inhaled Oxygen Concentration--Lskzjk31.6 kg (180 lb)12/17/2008 10:43 AM NTMOjhxkp690.8 cm (5' 10 )12/17/2008 10:43 AM EDTBody Mass Index25.8312/17/2008 10:43 AM EDT Plan of Treatment Health MaintenanceDue DateLast DoneCommentsHepatitis C Uwtjtein22/15/1965Tdap Mlarpcp5705/03/1964Hepatitis A (HAV) Vaccine (optional start 19+ years)1965 Tetanus (Td or Tdap) Nqgzrdc7805/03/1965Pneumococcal Vaccine(s) (50+ yrs) (1 of 1 - PCV)1996Shingles (RZV) Vaccine (1 of 2)1996Hepatitis B (HBV) Vaccine (optional start 60+ years)2006RSV vaccine (adult) (1 - 1-dose 75+ series)2COVID-19 Vaccine (1 - 2024-26 season)2024Influenza Vaccine (#1)2024 Insurance Care Teams Team MemberRelationshipSpecialtyStart DateEnd Date Silviano Gonzalez MD [facility]12/10/08
--- OUTSIDE RECORDS SUMMARY | 2024-12-16 15:16 | XMS_ITS | Encounter Summary ---
Author Organization [facility] Address [address] 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 Name Role Phone Jeferson Estrada MD Primary Care Provider [phone] Encounter Details DateTypeDepartmentCare Team (Latest Contact Info)Rdwctdksbmi99/21/2025Travel Social History Tobacco UseTypesPacks/DayYears UsedDateSmoking Tobacco: FormerCigarettesQuit: 06/1984Smokeless Tobacco: NeverAlcohol UseStandard Drinks/WeekCommentsNever0 (1 standard drink = 0.6 oz pure alcohol)Sex and Gender InformationValueDate RecordedSex Assigned at BirthNot on fileLegal QxlEcnp87/26/2022 4:28 AM EST Gender IdentityNot on fileSexual OrientationNot on filedocumented as of this encounter Functional Status * BPAnswerDate of KeiibeolgkIreyou518/6012/09/2024 9:34 AM Cahrlee Gurrola RN * PulseAnswerDate of EfxfaaianwHksgkk9526/21/2025 9:31 AM Charlee Gurrola RN * Communicable Disease ScreeningQuestionAnswerDate of AssessmentAuthorDo you have any of the following new or worsening symptoms?None of these12/09/2024 9:17 AM Senia Olivo documented as of this encounter Plan of Treatment DateTypeDepartmentCare Team (Latest Contact Info)Zxfvbsftatp51/10/2026 11:10 AM ESTOffice Visit [facility] [address] [facility] [address] [place] [address] Erika Mayes MD [address] [place] [address] documented as of this encounter Visit Diagnoses Not on filedocumented in this encounter Additional Health Concerns AssessmentNoted TimeA fall risk assessment has been completed for the patient 12/09/2024 9:29 AM EDTdocumented as of this encounter Care Teams Team MemberRelationshipSpecialtyStart DateEnd Date Jeferson Estrada MD [address] [place] [address] PCP - Chcinqu80/11/14documented as of this encounter
--- OUTSIDE RECORDS SUMMARY | 2024-12-16 15:16 | XMS_ITS | Clinical Summary ---
Author Organization [facility] Address [address] [place] [address] Care Team Providers Care Journalists And Other Writers Name Role Phone Jeferson Estrada MD Primary Care Provider Unav ailable Allergies Active AllergyReactionsCriticalityNoted DateCommentsBeta-Blockers (Beta- Adrenergic Blocking Agts)Other: See Qfyztiqx11/07/2024 bradycardia Medications MedicationSigDispense QuantityRefillsLast FilledStart DateEnd DateStatus atorvastatin calcium (ATORVASTATIN ORAL) Take 50 mg by mouth once daily.08/16/2015Active aspirin, enteric coated (ASPIRIN, ENTERIC COATED) 81 mg EC tablet Take 81 mg by mouth once daily.Active clopidogrel (PLAVIX) 75 mg tablet Take 75 mg by mouth once daily.08/16/2015Active isosorbide mononitrate ER (IMDUR) 30 mg 24 hr tablet Take 30 mg by mouth once daily.08/16/2015Active levothyroxine (SYNTHROID) 100 mcg tablet Take 100 mcg by mouth daily before breakfast.5Active levothyroxine (SYNTHROID) 175 mcg tablet Take 175 mcg by mouth daily before breakfast.08/16/2015Active MAGNESIUM ORAL Take 300 mg by mouth once daily.Active metFORMIN (GLUCOPHAGE) 1,000 mg tablet Take 1,000 mg by mouth two times a day with meals.12/15/2011ctive nitroglycerin sublingual (NITROQUICK) 0.4 mg SL tablet Dissolve 0.4 mg under the tongue every 5 minutes as needed.02/28/2013ctive pioglitazone (ACTOS) 45 mg tablet Take 45 mg by mouth once daily.08/16/2015Active Ascorbic Acid (VITAMIN C) 1,000 mg tablet Take 1,000 mg by mouth once daily.Active cholecalciferol, vitamin D3, (VITAMIN D3 ORAL) Take by mouth once daily.Active amLODIPine-Valsartan 5-160 mg per tablet Take 1 tablet by mouth once daily.ctive omeprazole (PRILOSEC) 20 mg capsule Take 40 mg by mouth once daily.12/15/2011ctive pantoprazole DR (PROTONIX) 40 mg tablet Take 40 mg by mouth./ctive Active Problems ProblemNoted DateDiagnosed DateMalignant neoplasm of overlapping sites of wuczifz5703/28/2024 Cancer Staging: Clinical:Stage I(cT1, cN0, cM0) - Signed by Tunde Blair MD on 03/30/2024 Encounters DateTypeDepartmentCare UzqcUyijlvccnsi57/26/2025Telephone Cancer Appts [address] [place] [address] Tunde Blair MD 09/16/2024Telephone Hematology/Oncology [address] [place] [address] [place] [address] Tunde Blair MD Records copiedfrom Last 3 Months Immunizations ImmunizationAdministration DatesNext Dueinfluenza (HD-IIV3) vaccine, age 65+ yr, high dose, trivalent, PF (FLUZONE HIGH-DOSE)10/21/2019,01/19/2017influenza (HD- IIV4) vaccine, age 65+ yr, high dose, quadrivalent, PF (FLUZONE HIGH-DOSE) 11/24/2021,10/25/2020influenza (IIV3) vaccine, trivalent (AFLURIA, FLULAVAL, FLUVIRIN, FLUZONE)11/20/2023,01/17/2016,11/19/2014influenza (IIV3) vaccine, trivalent, PF (AFLURIA, FLUARIX, FLULAVAL, FLUVIRIN, FLUZONE)02/10/2015influenza (IIV3) vaccine, trivalent, PF, intradermal (FLUZONE INTRADERMAL)12/20/2015, 01/20/2011influenza (IIV4) vaccine, age 6 mo - 64 yr, quadrivalent, PF (AFLURIA, FLUARIX, FLULAVAL, FLUZONE)11/05/2019,12/24/2017influenza (aIIV4) vaccine, age 65+ yr, quadrivalent, PF (FLUAD QUAD)3pneumococcal conjugate (PCV13) vaccine, 13 valent (PREVNAR 13)08/05/2014,02/19/2013pneumococcal polysaccharide (PPV23) vaccine, 23 valent (PNEUMOVAX 23)10/31/2017,01/17/2016,03/01/2013tetanus diphtheria (Td) vaccine, age 7+ yr, 5 Lf tetanus, PF (TENIVAC)07/14/2007zoster (ZVL) vaccine, live (ZOSTAVAX)01/17/2016,01/24/2013,11/19/2012 Family History Medical HistoryRelationCommentsDiabetesFatherHeart diseaseFatherHyperlipidemia FatherHypertensionFatherStrokeFatherCancerMotherLiver DiseaseMotherMalignant neoplasm of female breastMotherStrokeSisterRelationStatusCommentsFatherMother Sister Social History Tobacco UseTypesPacks/DayYears UsedDateSmoking Tobacco: FormerCigarettes Smokeless Tobacco: Never Tobacco Cessation:Counseling Given: Not Answered Alcohol UseStandard Drinks/WeekCommentsNot Currently0 (1 standard drink = 0.6 oz pure alcohol)Area Deprivation IndexAnswerDate RecordedNational Score (1-100), lower number is lower kjrg568003/28/2024State Score (1-10), lower number is lower ched870Data from: https://www.neighborhoodatlas.medicine.[facility].edu/. Last address used for [address] [facility]03/28/2024Sex and Gender Information ValueDate RecordedSex Assigned at BirthNot on fileLegal UzqTzku96/02/2012 9:48 AM ESTGender IdentityNot on fileSexual OrientationNot on file Last Filed Vital Signs Vital SignReadingTime TakenCommentsBlood Ayrrmiry880/6307/04/2024 8:17 AM EDT Gdlrp0551 8:17 AM AIRKtmrrdfncer16.6 ??C (97.8 ??F)08/21/2024 8:17 AM EDTRespiratory Osph841708/21/2024 8:17 AM EDTOxygen Rxvnrlirbl69%08/21/2024 8:17 AM EDTInhaled Oxygen Concentration--Xrlvok00.9 kg (167 lb 5.3 oz)08/21/2024 8:17 AM BBDVdcuna945.3 cm (5' 7.44 )08/21/2024 8:17 AM EDTBody Mass Index25.87 08/21/2024 8:17 AM EDT Plan of Treatment Health MaintenanceDue DateLast DoneCommentsAnxiety Molhaisqy45/15/1965Depression Ioibedsnk55/15/1965Hepatitis C Bnqaomkbd78/15/1965DTaP,Tdap,Td Vaccine (1 - Tdap)Medicare Annual Wellness Visit04/20/2011Shingrix Vaccine (2 of 3), 01/24/2013, 11/19/2012RSV Vaccine (1 - 1- dose 75+ series)2021dvance Directive Ukvgyhkisi43/01/2025Covid-19 Vaccine ( season)/06/2020, 05/07/2020, 04/14/2020Influenza Vaccine (#1)/02/2023, 12/12/2022, 11/24/2021, Additional history existsDiabetes Olnjkdxvp86/11/2024, 08/21/2024, 08/05/2024, Additional history existsPneumococcal Vaccine: 50+Vkicnzlhj72/12/2018, 01/17/2016, 08/05/2014, Additional history exists Procedures Procedure NamePriorityDate/TimeAssociated DiagnosisCommentsCOMPREHENSIVE METABOLIC ZUTVTSvnsjvl71/10/2025 12:48 PM EDT Malignant neoplasm of overlapping sites of bladder (HCC) from Last 3 Months or Most Recently Relevant to Health Maintenance Results * (ABNORMAL) COMPREHENSIVE METABOLIC PANEL (08/28/2024 12:48 PM EDT)Component ValueRef RangeTest MethodAnalysis TimePerformed AtPathologist Signature Protein, Total7.16.3 - 8.0 g/dL08/28/2024 1:11 PM [facility] LABAlbumin4.43.9 - 4.9 g/dL08/28/2024 1:11 PM [facility] LABCalcium, Total9.78.5 - 10.2 mg/dL08/28/2024 1:11 PM EDJ[facility] LABBilirubin, Total0.30.2 - 1.3 mg/dL 08/28/2024 1:11 PM EDJ[facility] LABAlkaline Fizqzckzona73778 - 113 U/L08/28/2024 1:11 PM [facility] HTFZRP18(L)14 - 40 U/L08/28/2024 1:11 PM [facility] GPEZZA3723 - 54 U/L08/28/2024 1:11 PM [facility] GDLDxczfhg008(H)74 - 99 mg/dL08/28/2024 1:11 PM [facility] LABComment: The [place] Diabetes Association (ADA) provides guidance for cutoff values for fasting glucose andrandom glucose. The ADA defines fasting as no [...] Standards of Medical Care in Diabetes 2016, [place] Diabetes Association. Diabetes Care. 2016.39(Suppl 1). BUN45(H)9 - 24 mg/dL08/28/2024 1:11 PM [facility] LAB Creatinine2.08(H)0.73 - 1.22 mg/dL08/28/2024 1:11 PM EDTNORTTR[facility] XVWKcdngw957918 - 144 mmol/L08/28/2024 1:11 PM EDTNORTTRINITY [facility] LABPotassium4.93.7 - 5.1 mmol/L08/28/2024 1:11 PM EDT [facility] JSXGwelybyz93990 - 107 mmol/L08/28/2024 1:11 PM EDTNORTTR[facility] GHRAG66579 - 30 mmol/L08/28/2024 1:11 PM EDTNORTTRIN[facility] LABAnion Wxg662 - 15 mmol/L08/28/2024 1:11 PM EDTNOMONTG[facility] LABEstimated Glomerular Filtration Rate 32(L)>=60 mL/min/1.73m 08/28/2024 1:11 PM EDTCAMDEN CLARK MEDICAL [facility]ENTER LABComment:Estimated Glomerular Filtration Rate (eGFR) is calculated using the 2020 CKD-EPI creatinine equation. This equation utilizes serum creatinine, sex, and age as parameters. The creatinine assay has traceable calibration to isotope dilution- mass spectrometry. Refer to KDIGO guidelines for clinical interpretation. In patients with unstable renal function, e.g. those with acute kidney injury, the eGFRmay not accurately reflect actual GFR.Specimen (Source)Anatomical Location / LateralityCollection Method / VolumeCollection TimeReceived TimeBloodBLOOD SPECIMEN / UnknownVenipuncture / Ndilrvg7308/28/2024 12:48 PM EDT08/28/2024 12:48 PM EDT Narrative Authorizing ProviderResult TypeResult StatusJaimee Leo LANDRUM.CNPLABORATORYFinal ResultPerforming OrganizationAddressCity/State/ZIP CodePhone Number [facility] [address] [place] [address] from Last 3 Months or Most Recently Relevant to Health Maintenance Insurance Care Teams Team MemberRelationshipSpecialtyStart DateEnd Date Jeferson Estrada MD [address] [place] [address] PCP - [facility]03/28/24
--- OUTSIDE RECORDS SUMMARY | 2024-12-16 15:16 | XMS_ITS | Clinical Summary ---
Author Organization [facility] Address [address] [place] [address] Care Team Providers Care Scarf And Anneal Operator Name Role Phone Doug Estrada MD Unavailable [phone] Doug Estrada MD Primary Care Provider [phone] Edwige Arana POT TENDER Unavailable [phone] Allergies Active AllergyReactionsCriticalityNoted DateCommentsBeta Adrenergic Blockers 03/28/2023 Other Reaction(s): Other: See Comments bradycardia Dust Mite QiqjnkwOoeotjlYlp45/23/2023 Other Reaction(s): Sneezing This patient is not allergic to Albuterol EdfsrVgd40/07/2025 Other Reaction(s): Sneezing Vitamin F74Buuanflui12/23/2023 Medications MedicationSigDispense QuantityRefillsLast FilledStart DateEnd DateStatus ASPIRIN 81 PO Take 81 mg by mouth in the morning.Active clopidogrel (Plavix) 75 MG tablet Take 75 mg by mouth in the morning.Active nitroglycerin (Nitrostat) 0.[address] 0.4 mg under the tongue every 5 (five) minutes if needed.Active atorvastatin (Lipitor) 40 MG tablet Take 40 mg by mouth 1 (one) time each day at the same time.Active Ascorbic Acid (vitamin C) 1000 MG tablet Take 1,000 mg by mouth 1 (one) time each day at the same time.Active isosorbide mononitrate ER (Imdur) 30 MG 24 hr tablet Take 30 mg by mouth in the morning.03/01/2023ctive cholecalciferol (Vitamin D-3) 25 MCG (1000 UT) tablet Indications:Vitamin D DeficiencyTake 1,000 Units by mouth DailyActive metFORMIN (Glucophage) 1000 MG tablet Indications:Type 2 diabetes mellitus with chronic kidney disease, with long-term current use of insulin, unspecified CKD stage (HCC)Take 1 tablet (1,000 mg) by mouth in the morning and 1 tablet (1,000 mg) in the evening. Take with meals. 200 tablet 5Active amLODIPine-valsartan (Exforge) 5-160 MG tablet Take 1 tablet by mouth in the morning.ctive ivermectin (Stromectol) 3 MG tablet Indications:Thyroid cancer (HCC)Take 3 tablets (9 mg) by mouth Daily for 90 doses 90 tablet 5Active metFORMIN (Glucophage) 500 MG tablet Indications:Type 2 diabetes mellitus with chronic kidney disease, with long-term current use of insulin, unspecified CKD stage (HCC)Take 1 tablet (500 mg) by mouth in the morning and 1 tablet (500 mg) in the evening. Take with meals. 180 tablet 5Active omeprazole (PriLOSEC) [address] capsule Indications:Esophageal dysphagiaTake 2 capsules (40 mg) by mouth at bedtime 180 capsule 5Active Additional Information Patient not taking.Reported on 10/28/2024 Ferrous Fumarate 325 (106 Fe) MG tablet Indications:Iron deficiency anemia secondary to inadequate dietary iron intake Take 325 mg by mouth Daily 90 tablet 5Active amLODIPine (Norvasc) 10 MG tablet Daily5Active cloNIDine (Catapres) 0.1 MG tablet Take 0.1 mg by mouth in the morning and 0.1 mg in the evening.09/08/2024 6Active ezetimibe (Zetia) 10 MG tablet Daily5Active pantoprazole (ProtoNix) 40 MG EC tablet 5Active tamsulosin (Flomax) 0.4 MG 24 hr capsule 5Active pioglitazone (Actos) 30 MG tablet Indications: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)Take 1 tablet (30 mg) by mouth Daily 90 tablet 6Active ferrous sulfate 325 (65 Fe) MG EC tablet Indications:Iron deficiencyTake 1 tablet (325 mg) by mouth in the morning and at noon 180 tablet tive oxazepam (Serax) 15 MG capsule Indications:Primary insomniaTake 1 capsule (15 mg) by mouth as needed at bedtime for sleep 30 capsule 5002/25/2025ctive desonide (DesOwen) 0.05 % lotion Indications:Morbilliform rashApply topically in the morning and before bedtime. Do all this for 14 days. 118 mL 5Active levothyroxine (Synthroid) 125 MCG tablet Indications:Postoperative hypothyroidismTake 1 tablet (125 mcg) by mouth in the morning. Take before meals. 90 tablet ctive levothyroxine (Synthroid) 125 MCG tablet Indications:Postoperative hypothyroidismTake 1 tablet (125 mcg) by mouth in the morning. Take before meals. 90 tablet /Discontinued(Reorder) Active Problems ProblemNoted DateDiagnosed DateAbnormal CT scan, jnquvi2011/21/2023sthma 11/21/2023PH (benign prostatic hyperplasia)11/21/20235670Rscwhncnklpxnp45/02/2024 Vomiting without zlluto3806/19/2023bdominal aortic aneurysm (AAA) without rupture 08/11/2022bnormal blood opyzhajbv43/23/2023bnormal ultrasound of neck 08/11/2022cquired hwrvytkxhpmrwz35/23/2023nemia of chronic eckhwlp5508/11/2022 Carotid stenosis, /23/2023hronic cluster headache, not intractable 08/11/2022erebral aneurysm ([facility]-H[facility])08/11/2022iabetic peripheral neuropathy associated with type 2 diabetes lmpkiqpw61/23/2023iverticulosis of large intestine without pvklfexjit05/23/9154Umuuldva79/23/2023Esophageal dysphagia 08/11/2022astroesophageal reflux rcfoeyf2708/11/2022Hiatal kpvwwb8808/11/2022 Neurogenic pain08/11/2022AD (peripheral artery disease)08/11/2022eripheral wbsjtenemv99/23/2023Sensorineural hearing loss, /23/2023rimary wmbibzgv58/23/2023Stage 3b chronic kidney ykcifsf9108/11/2022Type 2 diabetes mellitus with diabetic chronic kidney ctuwfii3508/11/2022Vitamin D deficiency 08/11/2022lass 1 vbgqrqb4710/21/2020eactive depression (situational)10/01/2020 Hypertensive heart /21/2021Pulmonary fxbmiifdsqvp73/21/2021ow back pain11/17/20195507Wnozbxlodlut35/03/2020Mixed juaryhuhobmlzl93/23/2019Unspecified rotator cuff tear or rupture of left shoulder, not specified as traumatic 05/22/2018Lumbosacral spondylosis without bxzjihicfc06/08/2018Chronic obstructive pulmonary pjtwnig9706/01/2017Iron sngwrofykl24/19/2018Hyperglycemia due to type 2 diabetes /11/2017Chronic diastolic heart failure 06/12/2016Simple chronic idbbrpcunm18/24/2017Peripheral angiopathy due to type 2 diabetes gunfbsyy05/07/2016 Resolved Problems ProblemNoted DateDiagnosed DateResolved DateAcute skcidvij60 Acute metabolic uhmwegsywblrzw42ltered mental status 12 zhbgxjxcjq11ladder zimjmf2305/16/2024 05/16/20246488Wuavckjf52DyslipidemiaElevated TSHFollicular utmwmlne95Glaucoma05/16/2024 05/16/2024History of testicular massHypertensive urgency Iron deficiency rpjmgr20Left renal stone Simple renal cystStricture of penile ozngavq35UTI (urinary tract infection)MI 24.0-24.9, adult01///Former ocfytu29KI (acute kidney injury)nginal chest pain at rest Primary papillary adenocarcinoma of thyroid glandehydration HyperkalemiaIntermittent left lower quadrant abdominal painMobitz (type) I (Wenckebach's) atrioventricular blockNoncompliance w/medication treatment due to intermit use of kzzrazrcvt71S/P coronary artery stent powaefgdz03Status post excision of inwpfq66 Aneurysm of middle cerebral artery ([facility]-H[facility])ancer12/19/2022 04/27/2023arcinoma of thyroid glandataract12/19/2022 04/27/2023Essential grorsvlesffm56Essential aknlto8412/19/2022 04/27/2023H/O total ixsxfgrxxgbqn86Intermittent claudication V block, Mobitz ain in throat Status post coronary mafortphylu22VD (cerebrovascular disease)/04/2022Excessive daytime sleepiness Muscle qxdcya31Other osteoporosis without current pathological zejnnsbp96/5025Hqrkecnm21 Hvxymsmos13 Encounters DateTypeDepartmentCare YbciJahdgplqmiq10/27/2025Orders Only [facility] [address] [place] [address] Tami Minor MA Postoperative hypothyroidism; Hx of papillary thyroid carcinoma; Chronic anticoagulation; Postoperative ddngvsbyvorvwz47/07/2025bstract [facility] [place] [facility] [address] [place] [phone] Dogu Estrada MD 11/19/2024Telephone [facility] [address] [place] [phone] Doug Estrada MD 11/13/2024linisync Result Encounter [facility] External Department Unsolicited Provider, Generic External Data 11/13/2024bstract [facility] [place] [facility] [address] [place] [phone] Doug Estrada MD 11/13/2024linisync Result Encounter [facility] External Department Unsolicited Provider, Generic External Data 11/13/2024bstract [facility] [address] [place] [phone] Doug Estrada MD 11/13/2024linisync Result Encounter [facility] External Department Unsolicited Provider, Generic External Data 11/12/2024bstract [facility] [address] [place] [phone] Doug Estrada MD 11/03/2024Telephone [facility] [address] [place] [phone] Doug Estrada MD 11/03/2024Orders Only [facility] [place] [facility] [address] [place] [address] Doug Estrada MD 10/28/2024 1:20 PM EDTOffice Visit [facility] [place] [facility] [address] [place] [address] Doug Estrada MD Medicare annual wellness visit, subsequent (Primary Dx); Anemia of chronic disease; Iron deficiency; Acquired hypothyroidism ; Benign prostatic hyperplasia with urinary frequency; Stage 3b chronic kidney disease ([facility]-H[facility]); Hypertensive heart failure (HCC); Idiopathic progressive neuropathy; Hiatal hernia; Primary insomnia; PAD (peripheral artery disease); Diverticulosis of large intestine without hemorrhage; Gastroesophageal reflux disease without esophagitis; Diverticulosis; Vitamin D deficiency; Mixed hyperlipidemia ; 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); Morbilliform rash; Malignant neoplasm of urinary bladder, unspecified site ([facility])10/28/2024amboo flowsheet [facility] [address] [place] [address] Doug Estrada MD 10/28/20249347Kjjnti03/02/2025bstract [facility] [address] [place] [address] Doug Estrada MD 10/11/2024 9:10 AM EDTOffice Visit [facility] [address] [place] [address] Leonie Mcginnis NP Morbilliform rash (Primary Dx); Cellulitis of right thigh10/11/20249221Vhgzlr47/14/2025 2:00 PM EDTAncillary Procedure [facility] [address] [place] [address] 10/02/2024 10:25 AM EDTOffice Visit [facility] [address] [place] [address] Niya Johnson NP Acute pain of right thigh (Primary Dx); Rash; Cellulitis of right thigh10/02/2024Refill [facility] [address] [place] [address] Doug Estrada MD 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) 10/02/2024Telephone [facility] [address] [place] [phone] Niya Johnson NP 10/02/20241336Dategi80/11/2025 2:00 PM EDTOffice Visit [facility] [address] [place] [phone] Jan Ghosh DPM Venous insufficiency (Primary Dx); Diabetes mellitus due to underlying condition with diabetic polyneuropathy, without long-term current use of insulin (HCC); Pain due to onychomycosis of toenails of both feet; PVD (peripheral vascular disease)09/29/2024amboo flowsheet [facility] [place] [facility] [address] [place] [phone] Jan Ghosh DPM 09/18/2024Results Follow-Up [facility] [address] [place] [phone] Doug Estrada MD MR angiogram head wo IV rjiqsovq81/31/2025External Result Encounter [facility] External Department Unsolicited Doug Estrada MD 09/15/2024Patient Outreach [facility] [address] [place] [address] Gera Escobar MA 09/15/2024bstract [facility] [address] [place] [phone] Doug Estrada MD from Last 3 Months Immunizations ImmunizationAdministration DatesNext DueInfluenza, High Dose Seasonal, Preservative Free11/05/2019,12/24/2017,12/20/2015Influenza, High-dose Seasonal, Quadrivalent, Preservative Free11/24/2021,10/25/2020,10/21/2019Influenza, Seasonal, Quadrivalent, Kgimaoryau25/24/2023Influenza, Ezbmoacjpuj06/01/2024 Influenza, seasonal, azzigzfxom39/28/2016Influenza, seasonal, injectable, preservative free02/10/2015Influenza, seasonal, intradermal, preservative free 01/20/2011Influenza, trivalent, bhunxzraph10/05/2025Pneumococcal Conjugate PCV 1306,02/19/2013Pneumococcal Polysaccharide RCHQ9116,01/17/2016, 03/01/2013Td (adult), 5 Lf tetanus toxoid, preservative free, yakrbrml23/25/2008 Zoster, live01/17/2016,01/24/2013,11/19/2012 Family History Medical HistoryRelationNameCommentsNo Known ProblemsDaughter 1jenniferdob 1972No Known ProblemsDaughter 2heididob 1976DiabetesFathermelHeart diseaseFathermeldied 76HypertensionFathermelStrokeFathermelBreast cancerMotherbettydied 42COPDSister lynnHypertensionSisterlynndob 1949RelationNameStatusCommentsDaughter 1jennifer AliveDaughter 2heidiAliveFathermelDeceasedMaternal GrandfatherDeceasedMaternal GrandmotherDeceasedMotherbettyDeceasedPaternal GrandfatherDeceasedPaternal GrandmotherDeceasedSisterlynnAlive Social History Tobacco UseTypesPacks/DayYears UsedDateSmoking Tobacco: FormerCigarettes 04/24/1962 - 1984Smokeless Tobacco: Never Tobacco Cessation:Counseling Given: Yes Alcohol UseStandard Drinks/WeekCommentsNever0 (1 standard drink = 0.6 oz pure alcohol)Quit drinking in 1979AUD-CAnswerDate RecordedQ1: How often do you have a drink containing alcohol?Never12/12/2022Q2: How many drinks containing alcohol do you have on a typical day when you are drinking?Patient does not drink 12/12/2022Q3: How often do you have six or more drinks on one occasion?Never 12/12/2022HQ-2AnswerDate RecordedPatient Health Questionnaire-2 Score0 10/28/2024Sex and Gender InformationValueDate RecordedSex Assigned at BirthNot on fileLegal XlrYope2105/03/2022 7:12 PM EDTGender IdentityNot on fileSexual OrientationNot on file Last Filed Vital Signs Vital SignReadingTime TakenCommentsBlood Tfkqhhcz296/6009 2:25 PM EDT Jtptt1014 1:18 PM LXDDggnmgkfmip41.6 ??C (97.8 ??F)10/28/2024 1:18 PM EDTRespiratory Pksj9153 1:55 PM EDTOxygen Eoaakscqvt06%10/28/2024 1:18 PM EDTInhaled Oxygen Concentration--Ngqqzd42 kg (161 lb)10/28/2024 1:18 PM EDT Vxyszn280.7 cm (5' 8 )10/28/2024 1:18 PM EDTBody Mass Index24.48010/28/2024 1:18 PM EDT Plan of Treatment DateTypeDepartmentCare Team (Latest Contact Info)Uhnjnevvtku19/05/2025 1:10 PM ESTOffice Visit [facility] [address] [place] [phone] Jan Ghosh DPM [address] [address] 02/03/2025 2:00 PM ESTOffice Visit [facility] [address] [place] [phone] Doug Estrada MD [address] [place] [address] 05/29/2025 1:00 PM EDTOffice Visit [facility] [address] [place] [phone] Jl Grajeda DO [address] [place] [address] Health MaintenanceDue DateLast DoneCommentsHepatitis A Vaccines (1 of 2 - Risk 2-dose series)1965Hepatitis B Vaccines (1 of 3 - Risk 3-dose series) 2006DTaP/Tdap/Td Vaccines (2 - Tdap)COVID-19 Vaccine (4 - season)/06/2020, 05/07/2020, 1Diabetes: Hemoglobin A1C/, 03/06/2024, 10/09/2023, Additional history existsDiabetes: Urine Protein Xdpqxbczq80/17/283669/, 06/14/2023, 06/27/2021, Additional history existsMedicare Annual Wellness (AWV)10/28/2025 10/28/2024, 10/09/2023, 2Diabetes: Retinopathy Tuqfjpost49/10/2027 10/29/2024, 06/06/2023, 10/11/2022, Additional history existsPneumococcal Vaccine: 65+ XkizjPefgrlhyj64/12/2018, 01/17/2016, 08/05/2014, Additional history existsInfluenza VgsijctVgmqbewvb32/05/2025, 11/20/2023, 12/12/2022, Additional history existsHIB VaccinesAged OutNo longer eligible based on patient's age to complete this topicHPV VaccinesAged OutNo longer eligible based on patient's age to complete this topicIPV VaccinesAged OutNo longer eligible based on patient's age to complete this topicMeningococcal B VaccineAged OutNo longer eligible based on patient's age to complete this topicMeningococcal VaccineAged OutNo longer eligible based on patient's age to complete this topic Rotavirus VaccinesAged OutNo longer eligible based on patient's age to complete this topic Procedures Procedure NamePriorityDate/TimeAssociated DiagnosisCommentsXR CHEST 2V11/13/2024 2:43 PM EDT ALL BASIC METABOLIC QPLCNQouzxxk96/25/2025 1:15 PM EDT [facility] QGBHWjxmraw60/25/2025 1:15 PM EDT SRMCOH PROTHROMBIN TIME INR W/O QZDMDrtofvk60/25/2025 1:15 PM EDT ALL CBC WITH AUTO ZKRJXpjajvp14/25/2025 1:15 PM EDT ECG 12-LEAD11/13/2024 11:12 AM EDT DIABETIC RETINOPATHY SCREENING - OU - BOTH HLMNAtcssrt24/10/2025 11:34 AM EDT VASC US LOWER EXTREMITY VENOUS DUPLEX IXBVXBHPE44/14/2025 2:11 PM EDT Acute pain of right thigh MR ANGIOGRAM HEAD WO IV ZJRVTIPT36/31/2025 3:31 PM EDT POCT MRQCSLVGYCJFJzweepr09/17/2025 2:28 PM EDT Type 2 diabetes mellitus with chronic kidney disease, with long-term current use of insulin, unspecified CKD stage (HCC) POCT GLYCOSYLATED HEMOGLOBIN (HGB A1C)Xkwhowv3608/05/2024 2:09 PM EDT Type 2 diabetes mellitus with chronic kidney disease, with long-term current use of insulin, unspecified CKD stage (HCC) from Last 3 Months or Most Recently Relevant to Health Maintenance Results * XR CHEST 2V (11/13/2024 2:43 PM EDT)Anatomical RegionLateralityModalityOther Specimen (Source)Anatomical Location / LateralityCollection Method / Volume Collection TimeReceived Time11/13/2024 2:43 PM EDT Narrative 11/13/2024 2:45 PM EDT [facility] ?[address] ? [place] [address] ?XRay Report ? Signed ? Patient: CLARY SAMUELS ?MR#: [id number] ?? : 1945 ?Acct:[id number] ?? Age/Sex: 79 / M ?ADM Date: 11/13/24 ?? Loc: PST ? Attending Dr: Kang Smith M.D. ? Ordering Physician: Kang Smith M.D. ?? Date of Service: 11/13/24 ?? Procedure(s): XR chest 2V ?? Accession Number(s): [id number] ? cc: DOUG ESTRADA ; Kang Smith M.D. ? [facility] ? [address] ? [place] [address] ? Patient Name: ?? CLARY ??DL ? MRN: [facility]:[id number] ? date: 1945 ?Sex: M ?? Assigned Patient Location: SURGOUT ?? Current Patient Location: SURGOUT ?? Accession/Order Number: [id number] ?? Exam Date: 11/13/2024 ??13:25 ?Report Date: 11/13/2024 ??14:43 ? At the request of: ?? KANG ??MARIZA ? Procedure: ??XR chest 2V ? Chest 2 views ? CLINICAL HISTORY: Preop exam ? COMPARISON: None ? FINDINGS: ? Heart normal in size. ??No lung consolidation pneumothorax pleural effusion or ?? free air. ? XR/XR chest 2V ?? IMPRESSION: ? NO ACUTE CARDIOPULMONARY ABNORMALITY. ? Impression dictated by: Alejandro Springer Jr. DDelia ??11/13/2024 2:43 PM ? Dictation Location: RADIO-PC-23 ? Electronically authenticated by: [id number] ??Y ?? Date: 11/13/2024 ??14:43 ? Dictated By: ?Alejandro Springer M.D. ? Signed By: ?11/13/24 1445 ? DD/ 1443 ? TD/TT: ? Ramp Manager: Procedure Note Radiology, Radiologist, - 11/13/2024 [place] [address] XRay Report Signed Patient: DAI SAMUELSR#: [id number] : 1945cct:[id number] Age/Sex: 79 / MADM Date: 11/13/24 Loc: PST Attending Dr: Kang Smith M.D. Ordering Physician: Kang Smith M.D. Date of Service: 11/13/24 Procedure(s): XR chest 2V Accession Number(s): [id number] cc: DOUG ESTRADA ; Kang Smith M.D. The [address] [address] Patient Name: CLARY SAMUELS MRN: [facility]:[id number] date: 1945 Sex: M Assigned [facility] Current Patient Location: [facility] Accession/Order Number: [id number] Exam Date: 11/13/2024 13:25 Report Date: 11/13/2024 14:43 At the request of: KANG SMITH MD Procedure: XR chest 2V Chest 2 views CLINICAL HISTORY: Preop exam COMPARISON: None FINDINGS: Heart normal in size. No lung consolidation pneumothorax pleural effusionor free air. XR/XR chest 2V IMPRESSION: NO ACUTE CARDIOPULMONARY ABNORMALITY. Impression dictated by: Alejandro Springer Jr., D.O. 11/13/2024 2:43 PM Dictation Location: [place] [address] Electronically authenticated by: [id number] Y Date: 4:43 Dictated By: Alejandro Springer M.D. Signed By:11/13/241444 DD/ 42 TD/TT: Ramp Manager: Authorizing ProviderResult TypeResult StatusGeneric External Data Provider CLINISYHI IMAGINGFinal Result * SRMCOH PROTHROMBIN TIME INR W/O COUM (11/13/2024 1:15 PM EDT)ComponentValueRef RangeTest MethodAnalysis TimePerformed AtPathologist SignaturePROTHROMBIN TIME 11.19.0 - 11.6 secTBHTBH INR1.05TBHComment: DESIRED INR: 2.0-3.0 CONDITIONS NOT LISTED BELOW 2.5-3.5 FOR PROSTHETIC HEART VALVE REPLACEMENT 2.5-3.5 RECURRENT THROMBOSIS Specimen (Source)Anatomical Location / LateralityCollection Method / Volume Collection TimeReceived Time11/13/2024 1:15 PM EDT11/13/2024 1:20 PM EDT Narrative [facility]IN[facility]YNC - 11/13/2024 1:50 PM EDT Authorizing ProviderResult TypeResult StatusGeneric External Data Provider CLINISYNCFinal ResultPerforming OrganizationAddressCity/State/ZIP CodePhone Number [facility] * [facility] APTT (11/13/2024 1:15 PM EDT)ComponentValueRef RangeTest MethodAnalysis TimePerformed AtPathologist SignaturePARTIAL THROMBOPLASTIN TIME27.722.3 - 36.2 secTBHSpecimen (Source)Anatomical Location / LateralityCollection Method / VolumeCollection TimeReceived Time11/13/2024 1:15 PM EDT11/13/2024 1:20 PM EDT Narrative [facility]IN[facility]YNC - 11/13/2024 1:50 PM EDT Authorizing ProviderResult TypeResult StatusGeneric External Data Provider CLINISYNCFinal ResultPerforming OrganizationAddressCity/State/ZIP CodePhone Number [facility] * (ABNORMAL) ALL CBC WITH AUTO DIFF (11/13/2024 1:15 PM EDT)ComponentValueRef RangeTest MethodAnalysis TimePerformed AtPathologist SignatureTBH WBC6.74.0 - 11.0 10 3/uLTBHTBH RBC3.88(L)4.70 - 6.10 10 6/uLTBHTBH HGB11.5(L)14.0 - 18.0 g/dLTBHTBH HCT36.9(L)42.0 - 54.0 %TBHTBH MCV95.1(H)80.0 - 94.0 fLTBHTBH MCH 29.625.9 - 34.0 pgTBHTBH MCHC31.229.9 - 35.2 g/dLTBHTBH RDW13.211.0 - 15.0 % TBHTBH LLL425656 - 450 10 3/uLTBHTBH MPV10.79.5 - 13.5 fLTBHNEUTROPHILS PERCENT AUTO70.943.0 - 75.0 %TBHLYMPHOCYTES PERCENT AUTO17.0(L)20.5 - 60.0 % TBHMONOCYTES PERCENT AUTO6.31.7 - 12.0 %TBHTBH EO %4.60.9 - 7.0 %TBHBASOPHILS PERCENT AUTO0.90.2 - 2.0 %TBHIMMATURE GRANULOCYTES PCT AUTO0.30.0 - 0.5 %TBH NEUTROPHILS ABSOLUTE AUTO4.81.4 - 6.5 10 3/uLTBHLYMPHOCYTES ABSOLUTE AUTO1.1 (L)1.2 - 3.8 10 3/uLTBHMONOCYTES ABSOLUTE AUTO0.40.3 - 0.8 10 3/uLTBHTBH EO # 0.30.0 - 0.7 10 3/uLTBHBASOPHILS ABSOLUTE AUTO0.10.0 - 0.1 10 3/uLTBHIMMATURE GRANULOCYTES ABS AUTO0.020.00 - 0.03 10 3/uLTBHSpecimen (Source)Anatomical Location / LateralityCollection Method / VolumeCollection TimeReceived Time 11/13/2024 1:15 PM EDT11/13/2024 1:20 PM EDT Narrative [facility]INISYNC - 11/13/2024 1:35 PM EDT Authorizing ProviderResult TypeResult StatusGeneric External Data Provider CLINISYNCFinal ResultPerforming OrganizationAddressCity/State/ZIP CodePhone Number [facility] * (ABNORMAL) ALL BASIC METABOLIC PANEL (11/13/2024 1:15 PM EDT)ComponentValueRef RangeTest MethodAnalysis TimePerformed AtPathologist QhsupiojuBOVSCG721(H)136 - 145 mmol/LTBHPOTASSIUM5.2(H)3.5 - 5.1 mmol/NLJLLHUBAVYE331(H)98 - 107 mmol/L TBHCARBON MRYBSSP51.621.0 - 32.0 mmol/LTBHANION GAP12.3EGGMLUAWCP646(H)74 - 106 mg/dLTBHBLOOD UREA VULVUOEN48.0(H)7.0 - 18.0 mg/dLTBHCREATININE1.69(H)0.70 - 1.30 mg/dLTBHTBH EGFR-AF ZIOJKXHD72(L)>=60 mL/min/1.73m 2TBHTBH EGFR-NON AF JGVZKIBM24(L)>=60 mL/min/1.73m 2TBHBUN CREATININE RATIO22.2CVXJMBGMIB6.98.5 - 10.1 mg/dLTBHSpecimen (Source)Anatomical Location / LateralityCollection Method / VolumeCollection TimeReceived Time11/13/2024 1:15 PM EDT11/13/2024 1:20 PM EDT Narrative CLINISYNC - 11/13/2024 2:02 PM EDT Authorizing ProviderResult TypeResult StatusGeneric External Data Provider CLINISYNCFinal ResultPerforming OrganizationAddressCity/State/ZIP CodePhone Number [facility] * ECG 12-LEAD (11/13/2024 11:12 AM EDT)Anatomical RegionLateralityModalityOther Specimen (Source)Anatomical Location / LateralityCollection Method / Volume Collection TimeReceived Time11/13/2024 11:12 AM EDT Narrative 11/14/2024 7:31 AM EDT [facility] ?[address] ? [place] [address] ? Electrocardiograph Report ? Signed ? Patient: SHARON SAMUELSN ?MR#: [id number] ?? : 1945 ?Acct:[id number] ?? Age/Sex: 79 / M ?ADM Date: 11/13/24 ?? Loc: PST ? Attending Dr: Kang Smith M.D. ? Ordering Physician: Kang Smith M.D. ?? Date of Service: 11/13/24 ?? Procedure(s): ECG 12 lead ?? Accession Number(s): [id number] ? cc: ?[facility] ? Test Date: ?2024-11-13 ?? Pat Name: ? CLARY SAMUELS ? Department: ? Room: ? - ?? Gender: ? Male ? Turf Keeper: ? : ?1945 ? Requested By: ?? Order Number: [id number] ?Reading MD: ?? DOROTHY ??Sapna DELACRUZ ? Measurements ?? Intervals ?Reform ? Rate: ? 41 ? P: ? IL: ?QRS: ?19 ?? QRSD: ? 87 ? T: ?49 ?? QT: ? 486 ? QTc: ?405 ? Interpretive Statements ?? SINUS BRADYCARDIA WITH 2ND DEGREE AV BLOCK, MOBITZ TYPE I (WENCKEBACH) ?? MINIMAL ST DEPRESSION [0.025+ mV ST DEPRESSION] ?? Abnormal ECG ?? No previous ECG available for comparison ?? Electronically Signed On 11-14-2024 7:30:48 EDT by DOROTHY ??Sapna DELACRUZ ? Dictated By: ?DOROTHY DELACRUZ ? Signed By: ?11/14/24 0731 ? DD/ 1112 ? TD/TT: ? Ramp Manager: Procedure Note Radiology, Radiologist, - 11/14/2024 [place] [address] Electrocardiograph Report Signed Patient: CHAR SAMUELS#: [id number] : 7Acct:[id number] Age/Sex: 79 / MADM Date: 11/13/24 Loc: [facility] Attending Dr: Kang Smith M.D. Ordering Physician: Kang Smith M.D. Date of Service: 11/13/24 Procedure(s): ECG 12 lead Accession Number(s): [id number] cc: [facility] Test Date: 2024-11-13 Pat Name: CLARY SAMUELS Department: Room: - Gender: Male Turf Keeper: : 1945 Requested By: Order Number: [id number] Reading MD: DOROTHY DELACRUZ M.D. Measurements Intervals Reform Rate: 41 P: IL: QRS: 19 QRSD: 87 T: 49 QT: 486 QTc: 405 Interpretive Statements SINUS BRADYCARDIA WITH 2ND DEGREE AV BLOCK, MOBITZ TYPE I (WENCKEBACH) MINIMAL ST DEPRESSION [0.025+ mV ST DEPRESSION] Abnormal ECG No previous ECG available for comparison Electronically Signed On 11-14-2024 7:30:48 EDT by DOROTHY DELACRUZ M.D. Dictated By: DOROTHY DELACRUZ Signed By:11/14/24 0731 DD/ 1112 TD/TT: Ramp Manager: Authorizing ProviderResult TypeResult StatusGeneric External Data Provider CLINISYNC IMAGINGFinal Result * Diabetic Retinopathy Screening - OU - Both Eyes (10/29/2024 11:34 AM EDT) Anatomical RegionLateralityModalityHeadOther Narrative Authorizing ProviderResult TypeResult StatusBrshelia Estrada MDSAC-[facility] PHOTOGRAPHY Final Result * Vascular US lower extremity venous duplex right (10/02/2024 2:11 PM EDT) Anatomical RegionLateralityModalityLower ExtremitiesUltrasoundSpecimen (Source)Anatomical Location / LateralityCollection Method / VolumeCollection TimeReceived Time10/02/2024 2:47 PM EDT Impressions 10/02/2024 2:48 PM EDT NO DVT IDENTIFIED IN THE RIGHT ??LOWER EXTREMITY. ELECTRONICALLY SIGNED BY: Bello Queen DO Narrative 10/02/2024 2:48 PM EDT [facility] US LOWER EXTREMITY VENOUS DUPLEX RIGHT : 10/02/2024 1:42 PM CLINICAL HISTORY: right thigh pain and erythema. hx of cancer. COMPARISON: None available. Grayscale, compression, color and waveform Doppler analysis of the right lower extremity deep venous systems was performed with augmentation. FINDINGS: There is no deep venous thrombosis, abnormal masses, fluid collections or other findings of concernidentified within the right lower extremity. Procedure Note Bello Queen DO - 10/02/2024 [facility] LOWER EXTREMITY VENOUS DUPLEX RIGHT : 10/02/2024 [...] EXTREMITY. 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 ? No large vessel occlusion or hemodynamically significant stenosis. ? Findings suggestive of subacute stroke throughout involving right splenium the corpus callosum and left parietal deep white matter. ? Impression dictated by: Jamie Escobar M.D. ??09/18/2024 3:41 PM ? Dictation Location: RADIO-PC-29 ? Transcribed By: ? PWS ?09/18/24 1541 ? Dictated By: ?Jamie Escobar MD ?09/18/24 1531 ? Signed By: <Electronically signed by Jamie R Escobar, MD in OV> ? 09/18/25 1541 Narrative 09/18/2024 3:43 PM EDT [facility] ?[facility] [place] ?[address] ? [place] [address] ? MRI Report ? Signed ? Patient: Dl,Clary L ?MR#: [id number] ?? [id number] ? : 1945 ?Acct:[id number] ? Age/Sex: 79 / M ?ADM Date: 09/18/24 ? Loc: MR ?Room: ?Type: REG CLI ?? Attending Dr: Doug Estrada MD ?? Copies to: Doug Estrada MD ? Ordering Provider: Doug Estrada MD ?? Date of Service: 09/18/24 ?? MR/MR angio head wo con: I67.1 ? MR angio head wo con ??09/18/2024 12:14 PM ? SIGN OF SYMPTOMS: I67.1 routine monitoring aneurysm ? COMPARISON: CT angiogram head 02/28/2024. ? FINDINGS: ? MRI BRAIN WITHOUT CONTRAST: ?? Evidence of diffusion hyperintensity right splenium the corpus callosum and involving the left parietal deep white matter without corresponding ADC signal suggestive of areas of subacute stroke.? Moderate generalized involutional changes, advanced for the patient's age. ??Diffuse thinning of the corpus callosum with remote focus of gliosis anterior body noted. ??No shift midline structure. ?? Basal cisterns are patent. ??Moderate burden of periventricular, subcortical T2 signal suggestive of chronic small vessel ischemic disease. ??No midline shift. ??Cisterns are patent. ??Polypoid changes right sphenoid sinus. ??Remote areas of stroke left posterior medial cerebellum. ??Remote right thalamic lacunar stroke. ? MRA BRAIN: ? Stable 2 x 2 x 2.8 mm anterior inferiorly directed to aneurysm arising from the left MCA bifurcation. ??Otherwise intracranial ICAs, ACAs and MCAs are patent. ??Vertebral arteries, picas, bas ilar artery, and posterior cerebral arteries are patent. ?? origin bilateral head of operation and logistics. ? MR/MR angio head wo con ?? Procedure Note Radiology, Radiologist, - 09/18/2024 [facility] [place] [address] [place] [address] MRI Report Signed Patient: Clary Samuels LMR#: [id number] : 7Acct:[id number] Age/Sex: 79 / MADM Date: 09/18/24 Loc: Room:Type: [facility] Attending Dr: Doug Estrada MD Copies to: [...] and posterior cerebral arteries are patent. originbilateral head of operation and logistics. 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 No large vessel occlusion or hemodynamically significant stenosis. Findings suggestive of subacute stroke throughout involving right spleniumthe corpus callosum and left parietal deep white matter. Impression dictated by: Jamie Escobar M.D. 09/18/2024 3:41 PM Dictation Location: [facility]-PC-29 Transcribed By: [facility] 09/18/24 1541 Dictated By: Jamie Escobar MD 09/18/24 1531 Signed By: <Electronically signed by Jamie Escobar MD in OV> 09/18/24 1541 Authorizing ProviderResult TypeResult Stephane Estrada MDIMDevante MRI PROCEDURES Final Result * (ABNORMAL) POCT microalbumin manually resulted (08/05/2024 2:28 PM EDT) ComponentValueRef RangeTest MethodAnalysis TimePerformed AtPathologist SignatureMICROALBUMIN, [id number]/CREAT RATIO>300URINE CKKHH964Sideeuxe (Source)Anatomical Location / LateralityCollection Method / VolumeCollection TimeReceived DbxvUzjjh61/17/2025 2:28 PM EDT Narrative Authorizing ProviderResult TypeResult StatusDoug Estrada MDPOINT OF CARE TEST ENTER/EDIT ORDERABLESFinal Result * (ABNORMAL) POCT glycosylated hemoglobin (Hb A1C) docked device (08/05/2024 2:09 PM EDT)ComponentValueRef RangeTest MethodAnalysis TimePerformed At Pathologist SignatureHemoglobin A1C6.6Specimen (Source)Anatomical Location / LateralityCollection Method / VolumeCollection TimeReceived TimeBloodVenous blood specimen / Vlozvby1808/05/2024 2:09 PM EDT Narrative Authorizing ProviderResult TypeResult Stephane Estrada MDPOINT OF CARE TEST ENTER/EDIT ORDERABLESFinal Result from Last 3 Months or Most Recently Relevant to Health [place] [address] [place] [address] Care Teams Team MemberRelationshipSpecialtyStart DateEnd Date Doug Estrada MD [address] [place] [address] PCP - ACO Reach07/13/22 Doug Estrada MD [address] [place] [address] PCP - GeneralFamily Medicine08/09/22 Edwige Arana NP [address] [place] [address] Nurse PractitionerFamily Medicine10/24/24
--- OUTSIDE RECORDS SUMMARY | 2024-12-16 15:16 | XMS_ITS | Clinical Summary ---
Author Organization [facility] Address [address] [place] [address] Phone Care Team Providers Care Editor Managing Director Name Role Phone Jeferson Estrada MD Primary Care Provider [phone] Allergies Active AllergyReactionsCriticalityNoted DateCommentsAmlodipineSwellingMedium 10/07/20240820FgvylyfrQxnsgcyZoz15/30/2025eta-Blockers (Beta-Adrenergic Blocking Agts)FnriiZsv74/07/2024 bradycardia ClonidineShortness of batlyiDrgz08/11/2025yanocobalamin (Vitamin B12)Dizziness Low07/16/2024HydralazineShortness of fawkttQosv68/11/2025 Medications MedicationSigDispense QuantityRefillsLast FilledStart DateEnd DateStatus aspirin 81 mg chewable tablet Chew and swallow 1 tablet (81 mg) once daily.Active pioglitazone (Actos) 15 mg tablet Take 1 tablet (15 mg) by mouth once daily.Active ascorbic acid (Vitamin C) 1,000 mg tablet Take 1 tablet (1,000 mg) by mouth once daily.Active atorvastatin (Lipitor) 40 mg tablet Indications:Mixed hyperlipidemiaTAKE 1 TABLET BY MOUTH DAILY 90 tablet 5Active levothyroxine (Synthroid, Levoxyl) 100 mcg tablet Take 1 tablet (100 mcg) by mouth early in the morning.. Take on an empty stomach at the same time each day, either 30 to 60 minutes prior to breakfastActive tamsulosin (Flomax) 0.4 mg 24 hr capsule Take 1 capsule (0.4 mg) by mouth once daily./ctive metFORMIN (Glucophage) 500 mg tablet Take 1 tablet (500 mg) by mouth 2 times daily (morning and late afternoon). 5Active cholecalciferol (Vitamin D3) 50 mcg (2,000 units) capsule Take 2 capsules (100 mcg) by mouth once daily.Active MAGNESIUM GLYCINATE ORAL Take 300 mg by mouth 2 times a day.Active ferrous sulfate 325 (65 Fe) mg EC tablet Take 1 tablet by mouth 2 times a day. Do not crush, chew, or split.Active ezetimibe (Zetia) 10 mg tablet Indications:Mixed hyperlipidemiaTake 1 tablet (10 mg) by mouth once daily. 90 tablet /ctive pantoprazole (Protonix) 40 mg EC tablet Indications:Gastroesophageal reflux disease without esophagitisTake 1 tablet (40 mg) by mouth once daily in the morning. Take before meals. Do not crush, chew, orsplit. 90 tablet /6Active lisinopril 10 mg tablet Indications:Essential hypertensionTake 1 tablet (10 mg) by mouth once daily. 90 tablet 6Active nitroglycerin (Nitrostat) 0.4 mg SL tablet Indications:Athscl heart disease of [place] coronary artery w/o ang pctrsPlace 1 tablet (0.4 mg) under the tongue every 5 minutes if needed for chest pain. 25 tablet 1105Active nebivolol (Bystolic) 5 mg tablet Indications:Essential hypertensionTake 1 tablet (5 mg) by mouth once daily. 90 tablet 5Active clopidogrel (Plavix) 75 mg tablet Indications:Athscl heart disease of [place] coronary artery w/o ang pctrs, Essential hypertensionTake 1 tablet (75 mg) by mouth once daily. 90 tablet Expired Active Problems ProblemNoted DateDiagnosed DateStage 3b chronic kidney llwfhaq69/24/2025BMI 24.0-24.9, adult02/21/2024PVD (peripheral vascular disease)12/07/2023Former tynprp5412/07/2023AA (abdominal aortic aneurysm)12/19/2022neurysm of middle cerebral gifcjd2812/19/20220213Qzzmnmvdc73/31/2023thscl heart disease of [place] coronary artery w/o ang /19/2022V block, Mobitz ancer 12/19/2022arcinoma of thyroid gland12/19/20221637Aqcnocls59/31/2023iabetes mzyyiyfh26/31/2023Esophageal gjozfn5312/19/2022Essential musweatakzjj96/31/2023 Essential rqryfn7212/19/2022H/O total msawgjlvdulsg72/31/2023Hyperlipidemia 12/19/20228143Yxspvowrvslumo53/31/2023ain in zsldyl9112/19/2022Status post coronary kuhizndjpbd91/31/2023 Resolved Problems ProblemNoted DateDiagnosed DateResolved DateBMI 25.0-25.9,adult12/07/2023 02/21/20248942Aylhyovreirlrei48/31/202310/18/2024Intermittent mfsivvslzuzj42/31/2023 12/07/2023 Encounters DateTypeDepartmentCare TdjxZxicnmkgxhy45/21/2025 9:30 AM EDTOffice Visit [address] [address] Erika Mayes MD Essential hypertension; Former smoker; BMI 24.0-24.9, adult12/09/20243020Xyarfa32/11/2025 9:30 AM EDTOffice Visit [address] [address] Erika Mayes MD Essential hypertension; Athscl heart disease of [place] coronary artery w/o ang pctrs; BMI 24.0-24.9, adult; Former dofvzh3910/30/20242821Vqndgi84/08/2025Scanned [facility] [address] [place] [address] Scanning, Generic Provider 10/23/2024[place] [address] [place] [address] [place] [address] Riddhi Harden LPN pre op10/15/2024[place] [address] [place] [address] [place] [address] Althea Rojas LPN Wusxkdkqskze44/19/2025 9:30 AM EDTOffice Visit [facility] [address] [place] [address] [address] [place] [address] Erika Mayes MD Essential desnavrrrrcu33/19/4182Vecuhw67/28/2025Telephone [facility] [address] [place] [address] [address] [place] [address] Althea Rojas LPN recent ER visitfrom Last 3 Months Immunizations ImmunizationAdministration DatesNext DueFlu vaccine (IIV4), preservative free *Check age/dose*11/05/2019Flu vaccine, quadrivalent, high-dose, preservative free, age 65y+ (FLUZONE)11/24/2021,10/25/2020Flu vaccine, trivalent, preservative free, HIGH-DOSE, age 65y+ (Fluzone)10/21/2019,01/19/2017Flu vaccine, trivalent, preservative free, age 6 months and greater (Fluarix/Fluzone/Flulaval)02/10/2015Influenza, Seasonal, Quadrivalent, Auihbqyzvl76/24/2023Influenza, Szydoavlcve18/01/2024,12/24/2017Influenza, seasonal, catavfqdiz61/01/2024,11/19/2014Influenza, seasonal, intradermal, preservative free12/20/2015,01/20/2011Pneumococcal conjugate vaccine, 13-valent (PREVNAR 13)08/05/2014,02/19/2013Pneumococcal polysaccharide vaccine, 23-valent, age 2 years and older (PNEUMOVAX 23)10/31/2017,01/17/2016,03/01/2013Td vaccine, age 7 years and older (TENIVAC)07/14/2007Zoster, live01/17/2016,01/24/2013, 11/19/2012 Family History Medical HistoryRelationNameCommentsCoronary artery diseaseFatherStrokeFather arteriosclerotic cardiovascular diseaseFatherBreast cancerMotherRelationName StatusCommentsFatherMother Social History Tobacco UseTypesPacks/DayYears UsedDateSmoking Tobacco: FormerCigarettesQuit: 06/1984Smokeless Tobacco: NeverAlcohol UseStandard Drinks/WeekCommentsNever0 (1 standard drink = 0.6 oz pure alcohol)Sex and Gender InformationValueDate RecordedSex Assigned at BirthNot on fileLegal YcmWjwp20/26/2022 4:28 AM EST Gender IdentityNot on fileSexual OrientationNot on file Last Filed Vital Signs Vital SignReadingTime TakenCommentsBlood Nbivmkje168/6012/09/2024 9:34 AM EDT Uhdei609212/09/2024 9:31 AM EDTTemperature--Respiratory Rate--Oxygen Saturation-- Inhaled Oxygen Concentration--Lauxue76 kg (161 lb)12/09/2024 9:31 AM EDTHeight 172.7 cm (5' 8 )12/09/2024 9:31 AM EDTBody Mass Index24.4812/09/2024 9:31 AM EDT Plan of Treatment DateTypeDepartmentCare Team (Latest Contact Info)Jwtofgtdofj89/10/2026 11:10 AM ESTOffice Visit [facility] [address] [address] Erika Mayes MD 703 [facility] 2, [facility] [address] [place] [address] Health MaintenanceDue DateLast DoneCommentsCreatinine Level1946Diabetes: Hemoglobin A1C1945Medicare Annual Wellness Visit (AWV)1945Potassium Level1946Diabetes: Retinopathy Wnllmczra56/15/1957Hepatitis C Screening 1964Hepatitis A Vaccines (1 of 2 - Risk 2-dose series)1965Hepatitis B Vaccines (1 of 3 - Risk 3-dose series)2006DTaP/Tdap/Td Vaccines (1 - Tdap)Zoster Vaccines (2 of 3), 01/24/2013, 11/19/2012RSV High Risk: (Elderly (60+) or Population) (1 - 1-dose 75+ series)05/03/20219924Xzatnrxbngtudr94/03/202305/2Diabetes: Urine Protein Waiovnfzj01/25/25726206/14/2023OVID-19 Vaccine (2024- season) 2024Thyroglobulin Test/Lipid Panel/04/2024, 10/10/2023TSH Level/04/2024, 05/16/2024, 05/16/2024Pneumococcal IynotzeVokvuimdw15/12/2018, 01/17/2016, 08/05/2014, Additional history exists FnhxxlmjkyrQsdjpbpzflci98/07/2021olorectal Cancer ScreeningDiscontinued Irritable Bowel GhxgxfueKjveowuvddej29/07/2021Influenza VaccineCompleted 10/24/2024, 11/20/2023, 11/20/2023, Additional history existsCT Colonography DiscontinuedFIT-DNA (Cologuard)DiscontinuedFITDiscontinuedHIB VaccinesAged OutNo longer eligible based on patient's age to complete this topicHPV VaccinesAged OutNo longer eligible based on patient's age to complete this topicIPV Vaccines Aged OutNo longer eligible based on patient's age to complete this topic Meningococcal VaccineAged OutNo longer eligible based on patient's age to complete this topicRotavirus VaccinesAged OutNo longer eligible based on patient's age to complete this topicSigmoidoscopyDiscontinued Procedures Procedure NamePriorityDate/TimeAssociated DiagnosisCommentsECHOCARDIOGRAM 06/21/2021 from Last 3 Months or Most Recently Relevant to Health Maintenance Results * ECHOCARDIOGRAM (06/21/2021) Narrative 06/21/2021 Ordered by an unspecified provider. Authorizing ProviderResult TypeResult StatusOnbase ConversionCV ECHO PROCEDURES Final Result from Last 3 Months or Most Recently Relevant to Health Maintenance Insurance Care Teams Team MemberRelationshipSpecialtyStart DateEnd Jeferson Estrada MD [address] [place] [address] [facility]12/30/13
--- OUTSIDE RECORDS SUMMARY | 2024-12-16 15:16 | XMS_ITS | Encounter Summary ---
Author Organization [facility] Address [address] [place] [address] Care Team Providers Care Blasting Miner Name Role Phone Jeferson Estrada MD Unavailable [phone] Jeferson Estrada MD Primary Care Provider [phone] Edwige Arana MID LEVEL PROJECT MANAGER Unavailable [phone] Encounter Details DateTypeDepartmentCare Team (Latest Contact Info)Xcegdfslumv58/27/2025Orders Only [facility] [address] [place] [address] Tami Minor MA Postoperative hypothyroidism; Hx of papillary thyroid carcinoma; Chronic anticoagulation; Postoperative hypothyroidism Social History Tobacco UseTypesPacks/DayYears UsedDateSmoking Tobacco: FormerCigarettes [...] on one occasion?Never12/12/2022HQ-2AnswerDate Recorded Patient Health Questionnaire-2 Adgkq734Sex and Gender InformationValue Date RecordedSex Assigned at BirthNot on fileLegal EfvLpte4705/03/2022 7:12 PM EDT Gender IdentityNot on fileSexual OrientationNot on filedocumented as of this encounter Plan of Treatment DateTypeDepartmentCare Team (Latest Contact Info)Tijdzgljmbc65/05/2025 1:10 PM ESTOffice Visit [facility] [address] [place] [phone] Jan Ghosh DPM [address] [address] 02/03/2025 2:00 PM ESTOffice Visit [facility] [place] [facility] [address] [place] [address] Jeferson Estrada MD [address] [place] [address] 05/29/2025 1:00 PM EDTOffice Visit [facility] [address] [place] [phone] Jl Grajeda DO [address] [place] [address] documented as of this encounter Visit Diagnoses Diagnosis Postoperative hypothyroidism Postsurgical hypothyroidism Hx of papillary thyroid carcinoma Chronic anticoagulation Encounter for long-term (current) use of anticoagulants documented in this encounter Additional Health Concerns AssessmentNoted TimePHQ-9 Depression Total Score: 6010/28/2024 1:00 PM EDT documented as of this encounter Care Teams Team MemberRelationshipSpecialtyStart DateEnd Date Jeferson Estrada MD [address] [place] [address] PCP - ACO Reach07/13/22 Jeferson Estrada MD [address] [place] [address] PCP - GeneralFamily Medicine08/09/22 Edwige Arana MID LEVEL PROJECT MANAGER [address] [place] [place] [phone] Nurse PractitionerFamily Medicine10/24/24documented as of this encounter
--- OUTSIDE RECORDS SUMMARY | 2024-12-16 15:16 | XMS_ITS ---
Author Organization [facility] Address [address] [place] [address] Care Team Providers Care Engine Repairer Name Role Phone Jeferson Estrada MD Primary Care Provider Unav ailable Active Problems ProblemNoted DateDiagnosed DateMalignant neoplasm of overlapping sites of ajkqmvt4603/28/2024 Cancer Staging: Clinical:Stage I(cT1, cN0, cM0) - Signed by Tunde Blair MD on 03/30/2024 Current Treatment and Therapy Plans BLADDER INSTILLATION* Plan Start Date:08/08/2024 Plan Provider:Tunde Blair MD Linked Problems Malignant neoplasm of overla pping sites of bladder (HCC) Treatment Medications bcg vaccine for bladder irri gation Past Treatment and Therapy Plans No past plan information found.
--- OUTSIDE RECORDS SUMMARY | 2024-12-16 15:16 | XMS_ITS ---
Author Organization [facility] Address [address] [place] [address] Care Team Providers Care Head Of Data Name Role Phone Jeferson Estrada MD Unavailable [phone] Jeferson Estrada MD Primary Care Provider Edwige Arana CHIEF ACCOUNTANT Unavailable Active Problems ProblemNoted DateDiagnosed DateAbnormal CT scan, yeapmq7811/21/2023sthma 11/21/2023PH (benign prostatic hyperplasia)2872Ksvdvxttqxmmuv30/02/2024 Vomiting without parxrc6106/19/2023bdominal aortic aneurysm (AAA) without rupture 08/11/2022bnormal blood aurhcjgnc62/23/2023bnormal ultrasound of neck 08/11/2022cquired lfajhipicpyzcs88/23/2023nemia of chronic kjvzyky8408/11/2022 Carotid stenosis, cktpuzbye52/23/2023hronic cluster headache, not intractable 3Cerebral aneurysm (HHS-HCC)08/11/2022iabetic peripheral neuropathy associated with type 2 diabetes vpagfzik10/23/2023iverticulosis of large intestine without oudlcpmlnx71/23/5750Chnlzzxl18/23/2023Esophageal dysphagia 08/11/2022astroesophageal reflux cbqtsfz8108/11/2022Hiatal ewrgeq9508/11/2022 Neurogenic pain08/11/2022AD (peripheral artery disease)08/11/2022eripheral bsmjiokfbm43/23/2023Sensorineural hearing loss, awgrfkpbo54/23/2023rimary /23/2023Stage 3b chronic kidney rqcjwsp9608/11/2022Type 2 diabetes mellitus with diabetic chronic kidney dxvqgci5508/11/2022Vitamin D deficiency 08/11/2022lass 1 zqnkvpi2510/21/2020eactive depression (situational)10/01/2020 Hypertensive heart ytpgguy1808/09/2020ulmonary /21/2021ow back pain11/17/20198316Zllvkuleeqtt36/03/2020Mixed amxepxgthwpxvj55/23/2019Unspecified rotator cuff tear or rupture of left shoulder, not specified as traumatic 05/22/2018Lumbosacral spondylosis without zyslyulgqr22/08/2018Chronic obstructive pulmonary ipnffrf3506/01/2017Iron kdiyqmnkft05/19/2018Hyperglycemia due to type 2 diabetes /11/2017Chronic diastolic heart failure 06/12/2016Simple chronic fqiuueuioj03/24/2017Peripheral angiopathy due to type 2 diabetes achxgbko43/07/2016 Current Treatment and Therapy Plans No current plan information found. Past Treatment and Therapy Plans No past plan information found. Lifetime Dose Tracking * ChemicalLifetime DoseAutomatic EntryManual RemwoHawepgovc804 iJv371 mSv0 mSv Resolved Problems ProblemNoted DateDiagnosed DateResolved DateAcute lnjgmyru87 Acute metabolic fbrifrlskhpoae14ltered mental status 12 sjpdkzcxcp66ladder eloazq6805/16/2024 05/16/20245138Fmlfmsgb50/28/5128Nqtmnboaykub75Elevated TSHFollicular qaskoukr06Glaucoma05/16/2024 05/16/2024History of testicular massHypertensive urgency Iron deficiency abvpxb82/28/Left renal stone Simple renal cystStricture of penile umuxhul80UTI (urinary tract infection)MI 24.0-24.9, adultFormer csjvfz02KI (acute kidney injury)nginal chest pain at rest Primary papillary adenocarcinoma of thyroid glandehydration HyperkalemiaIntermittent left lower quadrant abdominal painMobitz (type) I (Wenckebach's) atrioventricular blockNoncompliance w/medication treatment due to intermit use of wkoyvevhto16S/P coronary artery stent gkxmextna84Status post excision of xlyhlv65 Aneurysm of middle cerebral artery ([facility])ancer12/19/2022 04/27/2023arcinoma of thyroid glandataract12/19/2022 04/27/2023Essential akfxwmwmriud77Essential xakjyp3212/19/2022 04/27/2023H/O total fmmfgknsbdeoa42Intermittent claudication V block, Mobitz ain in throat Status post coronary kyyikcyuywq21VD (cerebrovascular disease)/04/2022Excessive daytime sleepiness /Muscle hyzjga85/04/2022Other osteoporosis without current pathological cocmrvzt35/03/4676Yauvaztw01 Lnpcpijaj09
== END 2024-12-16 15:13 | disposition home or self-care (01) ==
LOC: PST 15:12
PROVIDERS: PCP Family Medicine; Visit Provider Urology
DX: Z01.818 Encounter for other preprocedural examination (principal); Z85.51 Personal history of malignant neoplasm of bladder

== ENCOUNTER 2024-12-25 10:33 | Day surgery (SDC) | payer MEDICARE, OTHER, SELFPAY ==
[2024-12-25] VITALS (16 sets, daily range): BP systolic 156–187; BP diastolic 61–82; PULSE 50–66; TEMP 35.3–36.1; O2SAT 96–100; BMI 25.1
--- OUTSIDE RECORDS SUMMARY | 2024-12-25 10:38 | XMS_ITS | Encounter Summary ---
Author Organization [facility] Address [address] [facility] [place] [address] Care Team Providers Care Temperature Regulator Name Role Phone Jeferson Estrada MD Unavailable [phone] Jeferson Estrada MD Primary Care Provider [phone] Edwige Arana OVEN UNLOADER Unavailable [phone] Reason for Visit * ReasonOnset DateCommentsMed Qebeug2912/23/2024 Encounter Details DateTypeDepartmentCare Team (Latest Contact Info)Ycamzgimrik86/04/2025Refill [facility] [address] [place] [place] [address] Radha Sotomayor Primary insomnia; Morbilliform rash Social History Tobacco UseTypesPacks/DayYears UsedDateSmoking Tobacco: FormerCigarettes [...] on one occasion?Never12/12/2022HQ-2AnswerDate Recorded Patient Health Questionnaire-2 Kaldm595Sex and Gender InformationValue Date RecordedSex Assigned at BirthNot on fileLegal ZtzXuat9605/03/2022 7:12 PM EDT Gender IdentityNot on fileSexual OrientationNot on filedocumented as of this encounter Plan of Treatment DateTypeDepartmentCare Team (Latest Contact Info)Guzqxeilctk36/05/2025 1:10 PM ESTOffice Visit [facility] [place] [address] [place] [address] Jan Ghosh DPM [address] [address] 02/03/2025 2:00 PM ESTOffice Visit [facility] [place] [facility] [address] [place] [address] Jeferson Estrada MD [address] [place] [address] 05/29/2025 1:00 PM EDTOffice Visit [facility] [place] [address] [place] [address] Jl Grajeda DO [address] [place] [address] documented as of this encounter Visit Diagnoses Diagnosis Primary insomnia Persistent disorder of initiating or maintaining sleep Morbilliform rash documented in this encounter Additional Health Concerns AssessmentNoted TimePHQ-9 Depression Total Score: 6010/28/2024 1:00 PM EDT documented as of this encounter Care Teams Team MemberRelationshipSpecialtyStart DateEnd Date Jeferson Estrada MD [address] [place] [address] PCP - ACO Reach07/13/22 Jeferson Estrada MD [address] [place] [address] PCP - GeneralFamily Medicine08/09/22 Edwige Arana NP [address] [place] [address] Nurse PractitionerFawaly Medicine10/24/24documented as of this encounter
--- OUTSIDE RECORDS SUMMARY | 2024-12-25 10:38 | XMS_ITS | Encounter Summary ---
Author Organization [facility] Address [address] [facility] [place] [address] Care Team Providers Care Telemetry Nurse Name Role Phone Jeferson Estrada MD Unavailable [phone] Jeferson Estrada MD Primary Care Provider [phone] Edwige Arana LACQUER SPRAY BOOTH OPERATOR Unavailable Reason for Visit * ReasonOnset DateCommentsMed Tktjlr3412/16/2024 Encounter Details DateTypeDepartmentCare Team (Latest Contact Info)Vzccjkqvwxe42/28/2025Refill [facility] [address] [place] [address] Radha Sotomaoyr Primary insomnia Social History Tobacco UseTypesPacks/DayYears UsedDateSmoking Tobacco: FormerCigarettes [...] on one occasion?Never12/12/2022HQ-2AnswerDate Recorded Patient Health Questionnaire-2 Yxngn847Sex and Gender InformationValue Date RecordedSex Assigned at BirthNot on fileLegal AycUyop6105/03/2022 7:12 PM EDT Gender IdentityNot on fileSexual OrientationNot on filedocumented as of this encounter Plan of Treatment DateTypeDepartmentCare Team (Latest Contact Info)Mpyzzkktrra59/05/2025 1:10 PM ESTOffice Visit [facility] [place] [facility] [address] [place] [address] Jan Ghosh DPM [address] [address] 02/03/2025 2:00 PM ESTOffice Visit [facility] [place] [facility] [address] [place] [address] Jeferson Estrada MD [address] [place] [address] 05/29/2025 1:00 PM EDTOffice Visit [facility] [place] [facility] [address] [place] [address] Jl Grajeda DO [address] [place] [address] documented as of this encounter Visit Diagnoses Diagnosis Primary insomnia Persistent disorder of initiating or maintaining sleep documented in this encounter Additional Health Concerns AssessmentNoted TimePHQ-9 Depression Total Score: 6010/28/2024 1:00 PM EDT documented as of this encounter Care Teams Team MemberRelationshipSpecialtyStart DateEnd Date Jeferson Estrada MD [address] [place] [address] PCP - ACO Reach07/13/22 Jeferson Estrada MD [address] [place] [address] PCP - GeneralFamily Medicine08/09/22 Edwige Arana LACQUER SPRAY BOOTH OPERATOR [address] [place] [address] Nurse PractitionerFamily Medicine10/24/24documented as of this encounter
--- OUTSIDE RECORDS SUMMARY | 2024-12-25 10:38 | XMS_ITS ---
Author Organization [facility] Address [address] [place] [address] Care Team Providers Care Mechanical Artist Name Role Phone Jeferson Estrada MD Unavailable [phone] Jeferson Estrada MD Primary Care Provider Edwige Arana MILK CONDENSER Unavailable Active Problems ProblemNoted DateDiagnosed DateAbnormal CT scan, zftezu1811/21/2023sthma 11/21/2023PH (benign prostatic hyperplasia)7809Qukncjzcyukswr83/02/2024 Vomiting without bobjfp0506/19/2023bdominal aortic aneurysm (AAA) without rupture 08/11/2022bnormal blood lcuquuerb98/23/2023bnormal ultrasound of neck 08/11/2022cquired wxysmsurgbbcif05/23/2023nemia of chronic qouqucj3408/11/2022 Carotid stenosis, pwicumqlv38/23/2023hronic cluster headache, not intractable 3Cerebral aneurysm (HHS-HCC)08/11/2022iabetic peripheral neuropathy associated with type 2 diabetes pmxfdqaw49/23/2023iverticulosis of large intestine without vgxrehhulm37/23/4447Bgwktwmn42/23/2023Esophageal dysphagia 08/11/2022astroesophageal reflux nozsxsn0108/11/2022Hiatal lfufoo2808/11/2022 Neurogenic pain08/11/2022AD (peripheral artery disease)08/11/2022eripheral iqiimouwwa88/23/2023Sensorineural hearing loss, gegueduzk20/23/2023rimary leukakxd66/23/2023Stage 3b chronic kidney bcngmtl0708/11/2022Type 2 diabetes mellitus with diabetic chronic kidney wtnttsd9308/11/2022Vitamin D deficiency 08/11/2022lass 1 gyqagzl7110/21/2020eactive depression (situational)10/01/2020 Hypertensive heart gwigmsg3908/09/2020ulmonary znpqgputkrbt15/21/2021ow back pain11/17/20196266Gnquzqprtnoq39/03/2020Mixed qpjnitrraaadje14/23/2019Unspecified rotator cuff tear or rupture of left shoulder, not specified as traumatic 05/22/2018Lumbosacral spondylosis without hjpoossmid87/08/2018Chronic obstructive pulmonary yrjdybl6606/01/2017Iron /19/2018Hyperglycemia due to type 2 diabetes zkomwxqg05/11/2017Chronic diastolic heart failure 06/12/2016Simple chronic vygipcirhf32/24/2017Peripheral angiopathy due to type 2 diabetes /07/2016 Current Treatment and Therapy Plans No current plan information found. Past Treatment and Therapy Plans No past plan information found. Lifetime Dose Tracking * ChemicalLifetime DoseAutomatic EntryManual UxcoqUjaululde946 jLq546 mSv0 mSv Resolved Problems ProblemNoted DateDiagnosed DateResolved DateAcute nlohnkwe69 Acute metabolic evuwgagndsrxmx34ltered mental status 12 uffvswabdg75ladder qglaeb3405/16/2024 05/16/20244305Bguibefq89/28/1317Bydmlfgbrbte30Elevated TSHFollicular vavfserv69Glaucoma05/16/2024 05/16/2024History of testicular massHypertensive urgency Iron deficiency /28/Left renal stone Simple renal cystStricture of penile zuflzbz92UTI (urinary tract infection)MI 24.0-24.9, adultFormer szxpdm42KI (acute kidney injury)nginal chest pain at rest Primary papillary adenocarcinoma of thyroid glandehydration HyperkalemiaIntermittent left lower quadrant abdominal painMobitz (type) I (Wenckebach's) atrioventricular blockNoncompliance w/medication treatment due to intermit use of ofjpvkjird25S/P coronary artery stent yrtmqnivi57Status post excision of cnubud38 Aneurysm of middle cerebral artery ([facility]-HCC)ancer12/19/2022 04/27/2023arcinoma of thyroid glandataract12/19/2022 04/27/2023Essential zvobefamdona60Essential jubjhk7512/19/2022 04/27/2023H/O total qojoeyivaaxmn17Intermittent claudication V block, Mobitz ain in throat Status post coronary yeoqzgjhqet31VD (cerebrovascular disease)/04/2022Excessive daytime sleepiness /Muscle ifvvei48/04/2022Other osteoporosis without current pathological fhwacmje03/03/2942Oohomuzk37 Gcsaqrvwc73
--- OUTSIDE RECORDS SUMMARY | 2024-12-25 10:38 | XMS_ITS | Clinical Summary ---
Author Organization [facility] Address [address] [place] [address] Phone Care Team Providers Care Ground Water Pump Installer Name Role Phone Jeferson Estrada MD Primary Care Provider [phone] Allergies Active AllergyReactionsCriticalityNoted DateCommentsAmlodipineSwellingMedium 10/07/20244333TrhxoxepIiygpcwUpa13/30/2025eta-Blockers (Beta-Adrenergic Blocking Agts)UfvpfBks64/07/2024 bradycardia ClonidineShortness of wieuuxHifh01/11/2025yanocobalamin (Vitamin B12)Dizziness Low07/16/2024HydralazineShortness of gbuphvIymg04/11/2025 Medications MedicationSigDispense QuantityRefillsLast FilledStart DateEnd DateStatus aspirin [...] mg SL tablet Indications:Athscl heart disease of [place] coronary artery w/o ang pctrsPlace 1 tablet (0.4 mg) under the tongue every 5 minutes if needed for chest pain. 25 tablet 1105Active nebivolol (Bystolic) 5 mg tablet Indications:Essential hypertensionTake 1 tablet (5 mg) by mouth once daily. 90 tablet 5Active clopidogrel (Plavix) 75 mg tablet Indications:Athscl heart disease of [place] coronary artery w/o ang pctrs, Essential hypertensionTake 1 tablet (75 mg) by mouth once daily. 90 tablet Expired Active Problems ProblemNoted DateDiagnosed DateStage 3b chronic kidney klwgves93/24/2025BMI 24.0-24.9, adult02/21/2024PVD (peripheral vascular disease)12/07/2023Former mpujsj7012/07/2023AA (abdominal aortic aneurysm)12/19/2022neurysm of middle cerebral ugvcsx2012/19/20223312Qbkcvbtxz24/31/2023thscl heart disease of [place] coronary artery w/o ang /19/2022V block, Mobitz ancer 12/19/2022arcinoma of thyroid gland12/19/20220539Adynywup11/31/2023iabetes gjtouspa39/31/2023Esophageal hbpghx9012/19/2022Essential oeligoxzmvdb97/31/2023 Essential udidsl6812/19/2022H/O total aithcgeinxswd26/31/2023Hyperlipidemia 12/19/20224977Rogoyfwwprryqu02/31/2023ain in larqse5912/19/2022Status post coronary hkhfmzjzhey03/31/2023 Resolved Problems ProblemNoted DateDiagnosed DateResolved DateBMI 25.0-25.9,adult12/07/2023 02/21/20240742Djijdngtzgxjvko60/31/202310/18/2024Intermittent avholmtylgxo61/31/2023 12/07/2023 Encounters DateTypeDepartmentCare SxqaTquqxeihvfk81/21/2025 9:30 AM EDTOffice Visit [address] [address] Erika Mayes MD Essential hypertension; Former smoker; BMI 24.0-24.9, adult12/09/20241386Scrlye72/11/2025 9:30 AM EDTOffice Visit [address] [address] Erika Mayes MD Essential hypertension; Athscl heart disease of [place] coronary artery w/o ang pctrs; BMI 24.0-24.9, adult; Former lmqktf7510/30/20249008Orcwqb96/08/2025Scanned [facility] [address] [place] [address] Scanning, Generic Provider 10/23/2024[place] [address] [place] [address] Riddhi Harden LPN pre op10/15/2024[place] [address] [place] [address] Althea Rojas LPN Xkunkljmqxik80/19/2025 9:30 AM EDTOffice Visit [place] [address] [place] [address] [place] [address] Erika Mayes MD Essential zvvyrdcnsmxf14/19/2025Travelfrom Last 3 Months Immunizations ImmunizationAdministration DatesNext DueFlu vaccine (IIV4), preservative free *Check age/dose*11/05/2019Flu vaccine, quadrivalent, high-dose, preservative free, age 65y+ (FLUZONE)11/24/2021,10/25/2020Flu vaccine, trivalent, preservative free, HIGH-DOSE, age 65y+ (Fluzone)10/21/2019,01/19/2017Flu vaccine, trivalent, preservative free, age 6 months and greater (Fluarix/Fluzone/Flulaval)02/10/2015Influenza, Seasonal, Quadrivalent, Qzzmxrevbb70/24/2023Influenza, Csmxfykfkzi21/01/2024,12/24/2017Influenza, seasonal, jiufxoqllt75/01/2024,11/19/2014Influenza, seasonal, intradermal, preservative free12/20/2015,01/20/2011Pneumococcal conjugate vaccine, 13-valent [...] InformationValueDate RecordedSex Assigned at BirthNot on fileLegal XrnHmbo26/26/2022 4:28 AM EST Gender IdentityNot on fileSexual OrientationNot on file Last Filed Vital Signs Vital SignReadingTime TakenCommentsBlood Gukgtxkj182/6012/09/2024 9:34 AM EDT Pgugs409312/09/2024 9:31 AM EDTTemperature--Respiratory Rate--Oxygen Saturation-- Inhaled Oxygen Concentration--Whgxwd42 kg (161 lb)12/09/2024 9:31 AM EDTHeight 172.7 cm (5' 8 )12/09/2024 9:31 AM EDTBody Mass Index24.4812/09/2024 9:31 AM EDT Plan of Treatment DateTypeDepartmentCare Team (Latest Contact Info)Tyfooeyhffz71/10/2026 11:10 AM ESTOffice Visit [facility] [address] [facility] [address] [place] [address] Erika Mayes MD [address] [facility] [place] [address] Health MaintenanceDue DateLast DoneCommentsCreatinine Level1946Diabetes: Hemoglobin A1C1946Medicare Annual Wellness Visit (AWV)1946Potassium Level1946Diabetes: Retinopathy Qaeomwpvv68/15/1957Hepatitis C Screening 1964Hepatitis A Vaccines (1 of 2 - Risk 2-dose series)1965Hepatitis B Vaccines (1 of 3 - Risk 3-dose series)2006DTaP/Tdap/Td Vaccines (1 - Tdap)Zoster Vaccines (2 of 3), 01/24/2013, 11/19/2012RSV High Risk: (Elderly (60+) or Population) (1 - 1-dose 75+ series)05/03/20216813Jdvmrecgnbvvpw91/03/202305/2Diabetes: Urine Protein Sxsqbnnvs34/25/833027/OVID-19 Vaccine ( season) 2024Thyroglobulin TestLipid Panel/04/2024, 10/10/2023TSH Level/04/2024, 05/16/2024, 05/16/2024Pneumococcal AuaszgzIhoiphgbp57/12/2018, 01/17/2016, 08/05/2014, Additional history exists OfwsupgqixaMhjpfrbjplbh40/07/2021olorectal Cancer ScreeningDiscontinued Irritable Bowel XfhrtzknBwjdnsncskoo46/07/2021Influenza VaccineCompleted 10/24/2024, 11/20/2023, 11/20/2023, Additional history existsCT [...] DateEnd Jeferson Estrada MD [address] [place] [phone] [facility] - Yzqwrjf25/11/14
--- OUTSIDE RECORDS SUMMARY | 2024-12-25 10:39 | XMS_ITS | Encounter Summary ---
Author Organization [facility] Address [address] [place] [address] Care Team Providers Care Sausage Grinder Name Role Phone Jeferson Estrada MD Unavailable [phone] Jeferson Estrada MD Primary Care Provider [phone] Edwige Arana MACHINE PLUG SHAPER Unavailable [phone] Encounter Details DateTypeDepartmentCare Team (Latest Contact Info)Rqywwdcrodq71/27/2025Orders Only [facility] [place] [facility] [address] [place] [address] Tami Minor MA Postoperative hypothyroidism; Hx of [...] on one occasion?Never12/12/2022HQ-2AnswerDate Recorded Patient Health Questionnaire-2 Bprwb871Sex and Gender InformationValue Date RecordedSex Assigned at BirthNot on fileLegal GbkJifi3505/03/2022 7:12 PM EDT Gender IdentityNot on fileSexual OrientationNot on filedocumented as of this encounter Plan of Treatment DateTypeDepartmentCare Team (Latest Contact Info)Ovithydokoz46/05/2025 1:10 PM ESTOffice Visit [facility] [place] [facility] [address] [place] [address] Jan Ghosh DPM [address] [address] 02/03/2025 2:00 PM ESTOffice Visit [facility] [place] [address] [place] [address] Jeferson Estrada MD [address] [place] [address] 05/29/2025 1:00 PM EDTOffice Visit [facility] [place] [facility] [address] [place] [address] Jl Grjaeda DO [address] [place] [place] [address] documented as of this encounter Visit Diagnoses Diagnosis Postoperative hypothyroidism Postsurgical hypothyroidism Hx of papillary thyroid carcinoma Chronic anticoagulation Encounter for long-term (current) use of anticoagulants documented in this encounter Additional Health Concerns AssessmentNoted TimePHQ-9 Depression Total Score: 6010/28/2024 1:00 PM EDT documented as of this encounter Care Teams Team MemberRelationshipSpecialtyStart DateEnd Date Jeferson Estrada MD [address] [place] [address] PCP - ACO Reach07/13/22 Jeferson Estrada MD [address] [place] [address] PCP - GeneralFamily Medicine08/09/22 Edwige Arana MACHINE PLUG SHAPER [address] [place] [address] Nurse PractitionerFamily Medicine10/24/24documented as of this encounter
--- OUTSIDE RECORDS SUMMARY | 2024-12-25 10:39 | XMS_ITS | Clinical Summary ---
Author Organization [facility] Address [address] [facility] [place] [address] Care Team Providers Care Plastics Design Engineer Name Role Phone Silviano Gonzalez MD Primary Care Provider [phone] Source Comments The following information is NOT included in Care Everywhere downloads:Psychiatric notes, ECG results, Cardiac Rehab notes, Pulmonary Function notes, data from [employer] (includes but not limited toPregnancy data,audiograms, eye exams, pre-surgical evaluation notes, well-child exam data).[facility] Allergies Active AllergyReactionsCriticalityNoted DateCommentsDustBlurred Pcsucc3412/17/2008 Dust mites. Runny eyes, nasal drainage. Takes [...] Last Filed Vital Signs Vital SignReadingTime TakenCommentsBlood Pyzylvtm307/7512/17/2008 10:43 AM EDT Zgdcv271712/17/2008 10:43 AM VCYKzqlulgmkbs97.8 ??C (96.5 ??F)12/17/2008 10:43 AM EDTRespiratory Xbbw6165 10:43 AM EDTOxygen Saturation--Inhaled Oxygen Concentration--Fuluba92.6 kg (180 lb)12/17/2008 10:43 AM DWHLefour734.8 cm (5' 10 )12/17/2008 10:43 AM EDTBody Mass Index25.8312/17/2008 10:43 AM EDT Plan of Treatment Health MaintenanceDue DateLast DoneCommentsHepatitis C Ontveqwz78/15/1965Tdap Ldwctdb7705/03/1964Hepatitis A (HAV) Vaccine (optional start 19+ years)1965 Tetanus (Td or Tdap) Epjnjpw5505/03/1965Pneumococcal Vaccine(s) (50+ yrs) (1 of 1 - PCV)1996Shingles (RZV) Vaccine (1 of 2)1996Hepatitis B (HBV) Vaccine (optional start 60+ years)2006RSV vaccine (adult) (1 - 1-dose 75+ series)2COVID-19 Vaccine (1 - 2024-26 season)2024Influenza Vaccine (#1)2024 Insurance Care Teams Team MemberRelationshipSpecialtyStart DateEnd Date Silviano Gonzalez MD [facility]12/10/08
--- OUTSIDE RECORDS SUMMARY | 2024-12-25 10:39 | XMS_ITS | Clinical Summary ---
Author Organization [facility] Address [address] [place] [address] Care Team Providers Care Etiology Teacher Name Role Phone Jeferson Estrada MD Primary Care Provider Unav ailable Allergies Active AllergyReactionsCriticalityNoted DateCommentsBeta-Blockers (Beta- Adrenergic Blocking Agts)Other: See Brdxqutl06/07/2024 bradycardia Medications MedicationSigDispense QuantityRefillsLast FilledStart DateEnd DateStatus [...] DateDiagnosed DateMalignant neoplasm of overlapping sites of rvljcvf0003/28/2024 Cancer Staging: Clinical:Stage I(cT1, cN0, cM0) - Signed by Tunde Blair MD on 03/30/2024 Encounters DateTypeDepartmentCare PnfoGsftqkhcnta69/26/2025Telephone Cancer Appts [address] [place] [address] Tunde Blair MD from Last 3 Months Immunizations ImmunizationAdministration DatesNext Dueinfluenza [...] RecordedNational Score (1-100), lower number is lower tmqg869703/28/2024State Score (1-10), lower number is lower pumy833Data from: https://www.neighborhoodatlas.[facility].edu/. Last address used for [address]/28/2024Sex and Gender Information ValueDate RecordedSex Assigned at BirthNot on fileLegal ZdhMput70/02/2012 9:48 AM ESTGender IdentityNot on fileSexual OrientationNot on file Last Filed Vital Signs Vital SignReadingTime TakenCommentsBlood Mhcneplj723/6307 8:17 AM EDT Vjmlr3978 8:17 AM JDNObkysqvwxoj70.6 ??C (97.8 ??F)08/21/2024 8:17 AM EDTRespiratory Dpac2235 8:17 AM EDTOxygen Nuofcetmbl20%08/21/2024 8:17 AM EDTInhaled Oxygen Concentration--Gfefus09.9 kg (167 lb 5.3 oz)08/21/2024 8:17 AM JPDLuhhxq023.3 cm (5' 7.44 )08/21/2024 8:17 AM EDTBody Mass Index25.87 08/21/2024 8:17 AM EDT Plan of Treatment Health MaintenanceDue DateLast DoneCommentsAnxiety Wtvnupsvz44/15/1965Depression Vnxdyjrht22/15/1965Hepatitis C Qmklpgpas49/15/1965DTaP,Tdap,Td Vaccine (1 - Tdap)Medicare Annual Wellness Visit04/20/2011Shingrix Vaccine (2 of 3), 01/24/2013, 11/19/2012RSV Vaccine (1 - 1- dose 75+ series)2021dvance Directive Zkuzxtvoxm74/01/2025ovid-19 Vaccine ( season)/06/2020, 05/07/2020, 04/14/2020Influenza Vaccine (#1)/02/2023, 12/12/2022, 11/24/2021, Additional history existsDiabetes Salghstqq08/11/2024, 08/21/2024, 08/05/2024, Additional history existsPneumococcal Vaccine: 50+Fltfgwkzy39/12/2018, 01/17/2016, 08/05/2014, Additional history exists Procedures Procedure NamePriorityDate/TimeAssociated DiagnosisCommentsCOMPREHENSIVE METABOLIC SYGIDLjncjje91/10/2025 12:48 PM EDT Malignant neoplasm of overlapping sites of bladder (HCC) from Last 3 Months or Most Recently Relevant to Health Maintenance Results * (ABNORMAL) COMPREHENSIVE METABOLIC PANEL (08/28/2024 12:48 PM EDT)Component ValueRef RangeTest MethodAnalysis TimePerformed AtPathologist Signature Protein, Total7.16.3 - 8.0 g/dL08/28/2024 1:11 PM EDTNORTHCCOREWELL [facility] LABAlbumin4.43.9 - 4.9 g/dL08/28/2024 1:11 PM [facility] LABCalcium, Total9.78.5 - 10.2 mg/dL08/28/2024 1:11 PM [facility]DSUM[facility] LABBilirubin, Total0.30.2 - 1.3 mg/dL 08/28/2024 1:11 PM [facility]DSUMMERSV[facility] LABAlkaline Rjrpowuqaud72638 - 113 U/L08/28/2024 1:11 PM [facility] NKIWGD57(L)14 - 40 U/L08/28/2024 1:11 PM [facility] NVCTPV4334 - 54 U/L08/28/2024 1:11 PM [facility] KDPIcjyxeh872(H)74 - 99 mg/dL08/28/2024 1:11 PM [facility] LABComment: The [place] [employer] (ADA) provides guidance for cutoff [...] Standards of Medical Care in Diabetes 2016, [place] [employer]. Diabetes Care. 2016.39(Suppl 1). BUN45(H)9 - 24 mg/dL08/28/2024 1:11 PM [facility] LAB Creatinine2.08(H)0.73 - 1.22 mg/dL08/28/2024 1:11 PM [facility] DMCOwezpq404454 - 144 mmol/L08/28/2024 1:11 PM EDTNORTCOREWELL [facility] LABPotassium4.93.7 - 5.1 mmol/L08/28/2024 1:11 PM EDT [facility] VLBSxkirezc06179 - 107 mmol/L08/28/2024 1:11 PM EDTNORTCOREWE[facility] ZHCQR05643 - 30 mmol/L08/28/2024 1:11 PM EDTNORTCOREWE[facility] LABAnion Kev751 - 15 mmol/L08/28/2024 1:11 PM EDTNORTCOREWELL [facility] LABEstimated Glomerular Filtration Rate 32(L)>=60 mL/min/1.73m 08/28/2024 1:11 PM EDTNOST. JOSEPH[facility] LABComment:Estimated Glomerular Filtration Rate (eGFR) is calculated [...] VolumeCollection TimeReceived TimeBloodBLOOD SPECIMEN / UnknownVenipuncture / Euhvuha5208/28/2024 12:48 PM EDT08/28/2024 12:48 PM EDT Narrative Authorizing ProviderResult TypeResult StatusJaimee Leo COSTACNPLABORATORYFinal ResultPerforming OrganizationAddressCity/State/ZIP CodePhone Number [facility] [address] [place] [address] from Last 3 Months or Most Recently Relevant to Health Maintenance Insurance Care Teams Team MemberRelationshipSpecialtyStart DateEnd Jeferson Estrada MD [address] [place] [address] [facility] - [facility]03[facility]28/24
--- OUTSIDE RECORDS SUMMARY | 2024-12-25 10:39 | XMS_ITS | Clinical Summary ---
Author Organization [facility] Address [address] [place] [address] Care Team Providers Care Industrial Maintenance Instructor Name Role Phone Doug Estrada MD Unavailable [phone] Doug Estrada MD Primary Care Provider [phone] Edwige Arana NEWSPAPER DELIVERY DRIVER Unavailable Allergies Active AllergyReactionsCriticalityNoted DateCommentsBeta Adrenergic Blockers 03/28/2023 Other Reaction(s): Other: See Comments bradycardia Dust Mite VumbsjbDsgnvuiTul76/23/2023 Other Reaction(s): Sneezing This patient is not allergic to Albuterol MhrahYtw94/07/2025 Other Reaction(s): Sneezing Vitamin L65Yoeluctcr82/23/2023 Medications MedicationSigDispense QuantityRefillsLast FilledStart DateEnd DateStatus ASPIRIN [...] the morning and at noon 180 tablet 5Active levothyroxine (Synthroid) 125 MCG tablet Indications:Postoperative hypothyroidismTake 1 tablet (125 mcg) by mouth in the morning. Take before meals. 90 tablet 501/6Active oxazepam (Serax) 15 MG capsule Indications:Primary insomniaTake 1 capsule (15 mg) by mouth as needed at bedtime for sleep 30 capsule 5004/22/2025ctive desonide (DesOwen) 0.05 % lotion Indications:Morbilliform rashApply topically in the morning and before bedtime. 118 mL /5Active levothyroxine (Synthroid) 125 MCG tablet Indications:Postoperative hypothyroidismTake 1 tablet (125 mcg) by mouth in the morning. Take before meals. 90 tablet //Discontinued(Reorder) oxazepam (Serax) 15 MG capsule Indications:Primary insomniaTake 1 capsule (15 mg) by mouth as needed at bedtime for sleep 30 capsule Discontinued(Reorder) desonide (DesOwen) 0.05 % lotion Indications:Morbilliform rashApply topically in the morning and before bedtime. Do all this for 14 days. 118 mL Discontinued(Reorder) oxazepam (Serax) 15 MG capsule Indications:Primary insomniaTake 1 capsule (15 mg) by mouth as needed at bedtime for sleep 30 capsule Discontinued(Reorder) Active Problems ProblemNoted DateDiagnosed DateAbnormal CT scan, tybkwh8311/21/2023sthma 11/21/2023PH (benign prostatic hyperplasia)11/21/20237465Ugzivqfrmtswnd18/02/2024 Vomiting without dheqaz4806/19/2023bdominal aortic aneurysm (AAA) without rupture 08/11/2022bnormal blood mgwkvsecu90/23/2023bnormal ultrasound of neck 08/11/2022cquired nwbdifvaqhzzoi67/23/2023nemia of chronic szepyen1308/11/2022 Carotid stenosis, miltxzatt94/23/2023hronic cluster headache, not intractable 08/11/2022erebral aneurysm (HHS-HCC)08/11/2022iabetic peripheral neuropathy associated with type 2 diabetes lqerzgij50/23/2023iverticulosis of large intestine without nqzeaawikc11/23/2375Dvhpreeg94/23/2023Esophageal dysphagia 08/11/2022astroesophageal reflux mmpvlxa5408/11/2022Hiatal snmyei3508/11/2022 Neurogenic pain08/11/2022AD (peripheral artery disease)08/11/2022eripheral oihsczxtvv95/23/2023Sensorineural hearing loss, isgydsxlg82/23/2023rimary /23/2023Stage 3b chronic kidney audxkll6108/11/2022Type 2 diabetes mellitus with diabetic chronic kidney ybsgjcs3308/11/2022Vitamin D deficiency 08/11/2022lass 1 fslxlmh1010/21/2020eactive depression (situational)10/01/2020 Hypertensive heart xnxnkzn8608/09/2020ulmonary qhazewzowqjp75/21/2021ow back pain11/17/20199185Dfmkqrthjpwo31/03/2020Mixed telbwpmlqkkyim96/23/2019Unspecified rotator cuff tear or rupture of left shoulder, not specified as traumatic 05/22/2018Lumbosacral spondylosis without cxipsizlqx77/08/2018Chronic obstructive pulmonary llfitfu7706/01/2017Iron jeqngoiliy07/19/2018Hyperglycemia due to type 2 diabetes tfojpavw60/11/2017Chronic diastolic heart failure 06/12/2016Simple chronic vwjpttewsu57/24/2017Peripheral angiopathy due to type 2 diabetes dfirthzm86/07/2016 Resolved Problems ProblemNoted DateDiagnosed DateResolved DateAcute fvoqydcc07 Acute metabolic aigntpwcxsdoiq36ltered mental status 12 jqfwkjyzth91ladder uqbbmo3905/16/2024 05/16/20244627Ehzwxhbj15DyslipidemiaElevated TSHFollicular jsouclxz27Glaucoma05/16/2024 05/16/2024History of testicular massHypertensive urgency Iron deficiency zkbscd53Left renal stone Simple renal cystStricture of penile rrtjooq14UTI (urinary tract infection)MI 24.0-24.9, adultFormer ucbiwv27KI (acute kidney injury)nginal chest pain at rest Primary papillary adenocarcinoma of thyroid glandehydration HyperkalemiaIntermittent left lower quadrant abdominal painMobitz (type) I (Wenckebach's) atrioventricular blockNoncompliance w/medication treatment due to intermit use of laplxymdkw92S/P coronary artery stent vifyywhyw08Status post excision of uzuimv09 Aneurysm of middle cerebral artery ([facility]-HCC)ancer12/19/2022 04/27/2023arcinoma of thyroid glandataract12/19/2022 04/27/2023Essential qtdxxylisxrh71Essential nzttwb1012/19/2022 04/27/2023H/O total jqmwpegsclbir34Intermittent claudication /V block, Mobitz /ain in throat Status post coronary tozadadrwfh74VD (cerebrovascular disease)/04/2022Excessive daytime sleepiness /Muscle kappoi51/04/2022Other osteoporosis without current pathological vwiisrhc21/8548Ntyfnjxh18/23/201901/ Narpkgwff90 Encounters DateTypeDepartmentCare RfqvOjvbvwqfrdl88/04/2025Refill [facility] [address] [place] [phone] Radha Sotomayor Primary insomnia; Morbilliform rash12/16/2024[facility] [address] [place] [address] Radha Sotomayor Primary vgkoodpe53/27/2025Orders Only [facility] [address] [place] [address] Tami Minor MA Postoperative hypothyroidism; Hx of papillary thyroid carcinoma; Chronic anticoagulation; Postoperative ygompisgmjgwnv03/07/2025bstract [facility] [address] [place] [phone] Doug Estrada MD 11/19/2024Telephone [facility] [address] [place] [phone] Doug Estrada MD 11/13/2024linisync Result Encounter [facility] Unsolicited Provider, Generic External Data 11/13/2024bstract [facility] [address] [place] [phone] Doug Estrada MD 11/13/2024linisync Result Encounter [facility] External [facility] Unsolicited Provider, Generic External Data 11/13/2024bstract [facility] [address] [place] [address] Doug Estrada MD 11/13/2024linisync Result Encounter [facility] Unsolicited Provider, Generic External Data 11/12/2024bstract [facility] [address] [place] [address] Doug Estrada MD 11/03/2024Telephone [facility] [address] [place] [phone] Doug Estrada MD 11/03/2024Orders Only [facility] [address] [place] [address] Doug Estrada MD 10/28/2024 1:20 PM EDTOffice Visit [facility] [address] [place] [address] Doug Estrada MD Medicare annual wellness visit, [...] Malignant neoplasm of urinary bladder, unspecified site (HCC)10/28/2024amboo flowsheet [facility] [address] [place] [address] Doug Estrada MD 10/28/20247945Iyfpfd07/02/2025bstract [facility] [address] [place] [address] Doug Estrada MD 10/11/2024 9:10 AM EDTOffice Visit [facility] [address] [place] [phone] Leonie Mcginnis NP Morbilliform rash (Primary Dx); Cellulitis of right thigh10/11/20245836Jtmzal71/14/2025 2:00 PM EDTAncillary Procedure [facility] [address] [place] [address] 10/02/2024 10:25 AM EDTOffice Visit [facility] [address] [place] [address] Niya Johnson NP Acute pain of right thigh (Primary Dx); Rash; Cellulitis of right thigh10/02/2024Refill [facility] [address] [place] [address] Doug Estrada MD 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) 10/02/2024Telephone [facility] [address] [place] [address] Niya Johnson NP 10/02/20245061Wfpibf76/11/2025 2:00 PM EDTOffice Visit [facility] [address] [place] [phone] Jan Ghosh DPM Venous insufficiency (Primary Dx); Diabetes mellitus due to underlying condition with diabetic polyneuropathy, without long-term current use of insulin (HCC); Pain due to onychomycosis of toenails of both feet; PVD (peripheral vascular disease)09/29/2024amboo flowsheet [facility] [address] [place] [address] Jan Ghosh DPM from Last 3 Months Immunizations ImmunizationAdministration DatesNext DueInfluenza, High Dose Seasonal, Preservative Free11/05/2019,12/24/2017,12/20/2015Influenza, High-dose Seasonal, Quadrivalent, Preservative Free11/24/2021,10/25/2020,10/21/2019Influenza, Seasonal, Quadrivalent, Bsctklhvtu19/24/2023Influenza, Snncqdcqkuz91/01/2024 Influenza, seasonal, vnocdpwviu58/28/2016Influenza, seasonal, injectable, preservative free02/10/2015Influenza, seasonal, intradermal, preservative free 01/20/2011Influenza, trivalent, qhtjrfybdm18/05/2025Pneumococcal Conjugate PCV 1306,02/19/2013Pneumococcal Polysaccharide ZBHM2842,01/17/2016, 03/01/2013Td (adult), 5 Lf tetanus toxoid, preservative free, psxaochy90/25/2008 Zoster, live01/17/2016,01/24/2013,11/19/2012 Family History Medical HistoryRelationNameCommentsNo Known ProblemsDaughter 1jenniferdob 1972No Known ProblemsDaughter 2heididob 1976DiabetesFathermelHeart diseaseFathermeldied 76HypertensionFathermelStrokeFathermelBreast cancerMotherbettydied 42COPDSister lynnHypertensionSisterlynndob 1949RelationNameStatusCommentsDaughter 1jennifer AliveDaughter 2heidiAliveFathermelDeceasedMaternal GrandfatherDeceasedMaternal GrandmotherDeceasedMotherbettyDeceasedPaternal GrandfatherDeceasedPaternal GrandmotherDeceasedSisterlynnAlive Social History Tobacco UseTypesPacks/DayYears UsedDateSmoking Tobacco: FormerCigarettes 04/24/1962 - 1984Smokeless Tobacco: Never Tobacco Cessation:Counseling Given: Yes Alcohol UseStandard Drinks/WeekCommentsNever0 (1 standard drink = 0.6 oz pure alcohol)Quit drinking in 1979AUDIT-CAnswerDate RecordedQ1: How often do you have a drink containing alcohol?Never12/12/2022Q2: How many drinks containing alcohol do you have on a typical day when you are drinking?Patient does not drink 12/12/2022Q3: How often do you have six or more drinks on one occasion?Never 12/12/2022HQ-2AnswerDate RecordedPatient Health Questionnaire-2 Score0 10/28/2024Sex and Gender InformationValueDate RecordedSex Assigned at BirthNot on fileLegal RimUvlg1305/03/2022 7:12 PM EDTGender IdentityNot on fileSexual OrientationNot on file Last Filed Vital Signs Vital SignReadingTime TakenCommentsBlood Znwadxvz372/6009 2:25 PM EDT Ylzoe1604 1:18 PM HCMXelqnpqetcn18.6 ??C (97.8 ??F)10/28/2024 1:18 PM EDTRespiratory Qyrv7040 1:55 PM EDTOxygen Fipnmfwvmj49%10/28/2024 1:18 PM EDTInhaled Oxygen Concentration--Xhtjbu28 kg (161 lb)10/28/2024 1:18 PM EDT Lcsoiy250.7 cm (5' 8 )10/28/2024 1:18 PM EDTBody Mass Index24.4809 1:18 PM EDT Plan of Treatment DateTypeDepartmentCare Team (Latest Contact Info)Vlrynkexhcj07/05/2025 1:10 PM ESTOffice Visit [facility] [address] [place] [phone] Jan Ghosh DPM [address] [address] 02/03/2025 2:00 PM ESTOffice Visit [facility] [address] [place] [phone] Doug Estrada MD [address] [place] [address] 05/29/2025 1:00 PM EDTOffice Visit [facility] [address] [place] [phone] Jl Grajeda Gareth, DO [address] [place] [address] Health MaintenanceDue DateLast DoneCommentsCOVID-19 Vaccine ( season) /06/2020, 05/07/2020, 04/14/2020iabetes: Hemoglobin A1C11/05/2024 08/05/2024, 03/06/2024, 10/09/2023, Additional history existsDiabetes: Urine Protein Gluxfywkn96, 06/14/2023, 06/27/2021, Additional history existsMedicare Annual Wellness (AWV)609/10/2024, 09/22/2021 Diabetes: Retinopathy Whnerrdgk50/10/566493/11/2024, 06/06/2023, 10/11/2022, Additional history existsPneumococcal Vaccine: 65+ BshefPrairlngs22/12/2018, 01/17/2016, 08/05/2014, Additional history existsInfluenza VaccineCompleted 10/24/2024, 11/20/2023, 12/12/2022, Additional history exists Procedures Procedure NamePriorityDate/TimeAssociated DiagnosisCommentsXR CHEST 2V11/13/2024 2:43 PM EDT ALL BASIC METABOLIC LHJVVOumemmi75/25/2025 1:15 PM EDT [facility] SIYVGbhncdd63/25/2025 1:15 PM EDT SRMCOH PROTHROMBIN TIME INR W/O IWZSPdsvkxs55/25/2025 1:15 PM EDT ALL CBC WITH AUTO OQMPLtgizvr25/25/2025 1:15 PM EDT ECG 12-LEAD11/13/2024 11:12 AM EDT DIABETIC RETINOPATHY SCREENING - OU - BOTH UCPPCgkqqvv82/10/2025 11:34 AM EDT VASC US LOWER EXTREMITY VENOUS DUPLEX WXLPVJMGK68/14/2025 2:11 PM EDT Acute pain of right thigh POCT WVCODZFHTPCWCshxmju26/17/2025 2:28 PM EDT Type 2 diabetes mellitus with chronic kidney disease, with long-term current use of insulin, unspecified CKD stage (HCC) POCT GLYCOSYLATED HEMOGLOBIN (HGB A1C)Gywxaio6108/05/2024 2:09 PM EDT Type 2 diabetes mellitus with chronic kidney disease, with long-term current use of insulin, unspecified CKD stage (HCC) from Last 3 Months or Most Recently Relevant to Health Maintenance Results * XR CHEST 2V (11/13/2024 2:43 PM EDT)Anatomical RegionLateralityModalityOther Specimen (Source)Anatomical Location / LateralityCollection Method / Volume Collection TimeReceived Time11/13/2024 2:43 PM EDT Narrative 11/13/2024 2:45 PM EDT [facility] ?[address] ? [place] [address] ?XRay Report ? Signed ? Patient: DL,CLARY ?MR#: [id number] ?? : 1945 ?Acct:[id number] ?? Age/Sex: 79 / M ?ADM Date: 11/13/24 ?? Loc: PST ? Attending Dr: Kang Smith M.D. ? Ordering Physician: Kang Smith M.D. ?? Date of Service: 11/13/24 ?? Procedure(s): XR chest 2V ?? Accession Number(s): [id number] ? cc: DOUG ESTRADA ; Kang Smith M.D. ? [facility] ? [address] ? [place] [address] ? Patient Name: ?? CLARY ??DL ? MRN: [id number] ? date: 1945 ?Sex: M ?? Assigned Patient Location: SURGOUT ?? Current Patient Location: SURGOUT ?? Accession/Order Number: [id number] ?? Exam Date: 11/13/2024 ??13:25 ?Report Date: 11/13/2024 ??14:43 ? At the request of: ?? KANG ??SMITH ??MD ? Procedure: ??XR chest 2V ? Chest 2 views ? CLINICAL HISTORY: Preop exam ? COMPARISON: None ? FINDINGS: ? Heart normal in size. ??No lung consolidation pneumothorax pleural effusion or ?? free air. ? XR/XR chest 2V ?? IMPRESSION: ? NO ACUTE CARDIOPULMONARY ABNORMALITY. ? Impression dictated by: Alejandro Springer Jr., D.O. ??11/13/2024 2:43 PM ? Dictation Location: RADIO-PC-23 ? Electronically authenticated by: [id number] ??Y ?? Date: 11/13/2024 ??14:43 ? Dictated By: ?Alejandro Springer M.D. ? Signed By: ?11/13/24 1445 ? DD/ 1443 ? TD/TT: ? Cream Hauler: Procedure Note Radiology, Radiologist, - 11/13/2024 [place] [address] XRay Report Signed Patient: DAI SAMUELSR#: [id number] : 1945cct:[id number] Age/Sex: 79 / MADM Date: 11/13/24 Loc: [facility] Attending Dr: Kang Smith M.D. Ordering Physician: Kang Smith M.D. Date of Service: 11/13/24 Procedure(s): XR chest 2V Accession Number(s): [id number] cc: DOUG ESTRADA ; Kang Smith M.D. [facility] [place] [address] Patient Name: CLARY SAMUELS MRN: [id number] date: 1945 Sex: M Assigned Patient Location: [facility] Current Patient Location: [facility] Accession/Order Number: [id number] Exam Date: 11/13/2024 13:25 Report Date: 11/13/2024 14:43 At the request of: KANG SMITH MD Procedure: XR chest 2V Chest 2 views CLINICAL HISTORY: Preop exam COMPARISON: None FINDINGS: Heart normal in size. No lung consolidation pneumothorax pleural effusionor free air. XR/XR chest 2V IMPRESSION: NO ACUTE CARDIOPULMONARY ABNORMALITY. Impression dictated by: Alejandro Springer Jr., D.O. 11/13/2024 2:43 PM Dictation Location: [place] [address] Electronically authenticated by: [id number] Y Date: 4:43 Dictated By: Alejandro Springer M.D. Signed By:11/13/24 1445 DD/ 42 TD/TT: Cream Hauler: Authorizing ProviderResult TypeResult StatusGeneric External Data Provider CLINISYPA IMAGINGFinal Result * SRMCOH PROTHROMBIN TIME INR W/O COUM (11/13/2024 1:15 PM EDT)ComponentValueRef RangeTest MethodAnalysis TimePerformed AtPathologist SignaturePROTHROMBIN TIME 11.19.0 - 11.6 secTBHTBH INR1.05TBHComment: DESIRED INR: 2.0-3.0 CONDITIONS NOT LISTED BELOW 2.5-3.5 FOR PROSTHETIC HEART VALVE REPLACEMENT 2.5-3.5 RECURRENT THROMBOSIS Specimen (Source)Anatomical Location / LateralityCollection Method / Volume Collection TimeReceived Time11/13/2024 1:15 PM EDT11/13/2024 1:20 PM EDT Narrative CLINISYPA - 11/13/2024 1:50 PM EDT Authorizing ProviderResult TypeResult StatusGeneric External Data Provider CLINISYNCFinal ResultPerforming OrganizationAddressCity/State/ZIP CodePhone Number [facility] * [facility] APTT (11/13/2024 1:15 PM EDT)ComponentValueRef RangeTest MethodAnalysis TimePerformed AtPathologist SignaturePARTIAL THROMBOPLASTIN TIME27.722.3 - 36.2 secTBHSpecimen (Source)Anatomical Location / LateralityCollection Method / VolumeCollection TimeReceived Time11/13/2024 1:15 PM EDT11/13/2024 1:20 PM EDT Narrative [facility]YPA - 11/13/2024 1:50 PM EDT Authorizing ProviderResult TypeResult StatusGeneric External Data Provider CLINISYNCFinal ResultPerforming OrganizationAddressCity/State/ZIP CodePhone Number [facility] * (ABNORMAL) ALL CBC WITH AUTO DIFF (11/13/2024 1:15 PM EDT)ComponentValueRef RangeTest MethodAnalysis TimePerformed AtPathologist SignatureTBH WBC6.74.0 - 11.0 10 3/uLTBHTBH RBC3.88(L)4.70 - 6.10 10 6/uLTBHTBH HGB11.5(L)14.0 - 18.0 g/dLTBHTBH HCT36.9(L)42.0 - 54.0 %TBHTBH MCV95.1(H)80.0 - 94.0 fLTBHTBH MCH 29.625.9 - 34.0 pgTBHTBH MCHC31.229.9 - 35.2 g/dLTBHTBH RDW13.211.0 - 15.0 % TBHTBH FWW143764 - 450 10 3/uLTBHTBH MPV10.79.5 - 13.5 [...] Provider CLINISYNCFinal ResultPerforming OrganizationAddressCity/State/ZIP CodePhone Number [facility] * (ABNORMAL) ALL BASIC METABOLIC PANEL (11/13/2024 1:15 PM EDT)ComponentValueRef RangeTest MethodAnalysis TimePerformed AtPathologist TpseyixlfTFBOKZ784(H)136 - 145 mmol/LTBHPOTASSIUM5.2(H)3.5 - 5.1 mmol/LDHDZKIMWVON074(H)98 - 107 mmol/L TBHCARBON KXRPKDO16.621.0 - 32.0 mmol/LTBHANION GAP12.7XOONOIQPVI779(H)74 - 106 mg/dLTBHBLOOD UREA XHGSLUGB35.0(H)7.0 - 18.0 mg/dLTBHCREATININE1.69(H)0.70 - 1.30 mg/dLTBHTBH EGFR-AF JDEHRRLE19(L)>=60 mL/min/1.73m 2TBHTBH EGFR-NON AF VQWPNUXQ55(L)>=60 mL/min/1.73m 2TBHBUN CREATININE RATIO22.8HDSZSEOOIX3.98.5 - 10.1 mg/dLTBHSpecimen (Source)Anatomical Location / LateralityCollection Method / VolumeCollection TimeReceived Time11/13/2024 1:15 PM EDT11/13/2024 1:20 PM EDT Narrative [facility] - 11/13/2024 2:02 PM EDT Authorizing ProviderResult TypeResult StatusGeneric External Data Provider CLINISYNCFinal ResultPerforming OrganizationAddressty/State/ZIP CodePhone Number [facility] * ECG 12-LEAD (11/13/2024 11:12 AM EDT)Anatomical RegionLateralityModalityOther Specimen (Source)Anatomical Location / LateralityCollection Method / Volume Collection TimeReceived Time11/13/2024 11:12 AM EDT Narrative 11/14/2024 7:31 AM EDT [facility] ?[address] ? [place] [address] ? Electrocardiograph Report ? Signed ? Patient: SHARON SAMUELSN ?MR#: [id number] ?? : 1945 ?Acct:[id number] ?? Age/Sex: 79 / M ?ADM Date: 11/13/ ?? Loc: PST ? Attending Dr: Kang Smith M.D. ? Ordering Physician: Kang Smith M.D. ?? Date of Service: 11/13/24 ?? Procedure(s): ECG 12 lead ?? Accession Number(s): [id number] ? cc: ?[facility] ? Test Date: ?2024-11-13 ?? Pat Name: ? CLARY SAMUELS ? Department: ? Room: ? - ?? Gender: ? Male ? Surveillance Systems Analyst: ? : ?1945 ? Requested By: ?? Order Number: [id number] ?Reading MD: ?? DOROTHY ??Sapna DELACRUZ ? Measurements ?? Intervals ?[place] ? Rate: ? 41 ? P: ? NC: ?QRS: ?19 ?? QRSD: ? 87 ? T: ?49 ?? QT: ? 486 ? QTc: ?405 ? Interpretive Statements ?? SINUS BRADYCARDIA WITH 2ND DEGREE AV BLOCK, MOBITZ TYPE I (WELINDSEY) ?? MINIMAL ST DEPRESSION [0.025+ mV ST DEPRESSION] ?? Abnormal ECG ?? No previous ECG available for comparison ?? Electronically Signed On 11-14-2024 7:30:48 EDT by DOROTHY ??Sapna DELACRUZ ? Dictated By: ?DOROTHY DELACRUZ ? Signed By: ?09/26/25 0731 ? DD/ 1112 ? TD/TT: ? Cream Hauler: Procedure Note Radiology, Radiologist, - 11/14/2024 [place] [address] Electrocardiograph Report Signed Patient: DAI SAMUELSR#: [id number] : 1945cct:[id number] Age/Sex: 79 / MADM Date: 11/13/24 Loc: [facility] Attending Dr: Kang Smith M.D. Ordering Physician: Kang Smith M.D. Date of Service: 11/13/24 Procedure(s): ECG 12 lead Accession Number(s): [id number] cc: [facility] Test Date: 2024-11-13 Pat Name: CLARY SAMUELS Department: Room: - Gender: Male Surveillance Systems Analyst: : 1945 Requested By: Order Number: [id number] Rakan MD: DOROTHY DELACRUZ M.D. Measurements Intervals [place] Rate: 41 P: NC: QRS: 19 QRSD: 87 T: 49 QT: 486 QTc: 405 Interpretive Statements SINUS BRADYCARDIA WITH 2ND DEGREE AV BLOCK, MOBITZ TYPE I (W[place]KEBACH) MINIMAL ST DEPRESSION [0.025+ mV ST DEPRESSION] Abnormal ECG No previous ECG available for comparison Electronically Signed On 11-14-2024 7:30:48 EDT by DOROTHY DELACRUZ M.D. Dictated By: DOROTHY DELACRUZ Signed By:11/14/24 0731 DD/ 1112 TD/TT: Cream Hauler: Authorizing ProviderResult TypeResult StatusGeneric External Data Provider CLINISYNC IMAGINGFinal Result * Diabetic Retinopathy Screening - OU - Both Eyes (10/29/2024 11:34 AM EDT) Anatomical RegionLateralityModalityHeadOther Narrative Authorizing ProviderResult TypeResult StatusBrshelia Estrada MDHCA MIDWEST DIVISION PHOTOGRAPHY Final Result * Vascular US lower extremity venous duplex right (10/02/2024 2:11 PM EDT) Anatomical RegionLateralityModalityLower ExtremitiesUltrasoundSpecimen (Source)Anatomical Location / LateralityCollection Method / VolumeCollection TimeReceived Time10/02/2024 2:47 PM EDT Impressions 10/02/2024 2:48 PM EDT NO DVT IDENTIFIED IN THE RIGHT ??LOWER EXTREMITY. ELECTRONICALLY SIGNED BY: Bello Queen DO Narrative 10/02/2024 2:48 PM EDT [facility] US LOWER EXTREMITY VENOUS DUPLEX RIGHT : [...] Procedure Note Bello Queen DO - 10/02/2024 [facility] US LOWER EXTREMITY VENOUS DUPLEX RIGHT : [...] BY: Bello Queen DO Authorizing ProviderResult TypeResult StatusNiya Barclaybrook NPIMG US PROCEDURESFinal Result * (ABNORMAL) POCT microalbumin manually resulted (08/05/2024 2:28 PM EDT) ComponentValueRef RangeTest MethodAnalysis TimePerformed AtPathologist SignatureMICROALBUMIN, ZRHCB307NAI/CREAT RATIO>300URINE NONRX295Wuflodaw (Source)Anatomical Location / LateralityCollection Method / VolumeCollection TimeReceived BgwzEyzpk44/17/2025 2:28 PM EDT Narrative Authorizing ProviderResult TypeResult StatusDoug Estrada MDPOINT OF CARE TEST ENTER/EDIT ORDERABLESFinal Result * (ABNORMAL) POCT glycosylated hemoglobin (Hb A1C) docked device (08/05/2024 2:09 PM EDT)ComponentValueRef RangeTest MethodAnalysis TimePerformed At Pathologist SignatureHemoglobin A1C6.6Specimen (Source)Anatomical Location / LateralityCollection Method / VolumeCollection TimeReceived TimeBloodVenous blood specimen / Vgipuyl5608/05/2024 2:09 PM EDT Narrative Authorizing ProviderResult TypeResult StatusDoug Estrada MDPOINT OF CARE TEST ENTER/EDIT ORDERABLESFinal Result from Last 3 Months or Most Recently Relevant to Health Maintenance Insurance Care Teams Team MemberRelationshipSpecialtyStart DateEnd Doug Estrada MD [address] [place] [address] PCP - [facility]07/13/22 Doug Estrada MD [address] [place] [address] PCP - GeneralFamily Medicine08/09/22 Edwige Arana NP [address] [place] [address] Nurse PractitionerFamily Medicine10/24/24
[2024-12-25 10:45] LABS: Hematocrit 37.1 % (42.0-54.0); Hemoglobin 11.8 g/dL (14.0-18.0); Immature Granulocytes Abs Auto 0.03 10^3/uL (0.00-0.03); Immature Granulocytes Pct Auto 0.4 % (0.0-0.5); Lymphocytes Absolute Auto 1.3 10^3/uL (1.2-3.8); Mean Corpuscular HGB Conc 31.8 g/dL (29.9-35.2); Mean Corpuscular Hemoglobin 29.8 pg (25.9-34.0); Mean Corpuscular Volume 93.7 fL (80.0-94.0); Platelet Count 251 10^3/uL (150-450); Red Blood Count 3.96 10^6/uL (4.70-6.10); White Blood Count 7.4 10^3/uL (4.0-11.0)
[2024-12-25 11:02] LABS: Anion Gap 15.1; Blood Urea Nitrogen 64.0 mg/dL (7.0-18.0); Calcium 9.0 mg/dL (8.5-10.1); Carbon Dioxide 25.2 mmol/L (21.0-32.0); Chloride 108 mmol/L (98-107); Estimated GFR (African America 35 (>=60 mL/min/1.73m^2); Estimated GFR (Non-African Ame 28 (>=60 mL/min/1.73m^2); Glucose 149 mg/dL (74-106); Potassium 5.3 mmol/L (3.5-5.1); Sodium 143 mmol/L (136-145)
[2024-12-25 11:05] LABS: INR 1.02; Partial Thromboplastin Time 28.1 sec (22.3-36.2); Prothrombin Time 10.8 sec (9.0-11.6)
[2024-12-25] MEDS: CEFAZOLIN SODIUM 2 GM/50 ML D5W PREMIX IV (13:27)
--- NOTE | 2024-12-25 14:29 | P.URON_ITS ---
Urology Surgery Operative Note Operative Note Procedure Date: 12/25/24 Time Out Performed: yes Pre-op Diagnosis: History of high-grade invasive TCC of the bladder Post-op Diagnosis: other (Recurrent bladder tumors) Procedures performed: 1. Cystoscopy. 2. Transurethral resection of bladder tumors approximately 6 cm. 3. Urethral dilation with Kian sounds to 26 [place]. Anesthesia: ELSYA Primary Surgeon: Kang Smith Complications: None Estimated blood loss (mL): 10 Findings: Multiple sheets of papillary TCC appearing tumors on the left and right sided edouard. Multiple patches of red friable concerning appearing mucosa. Specimens: Bladder tumors. Drains: 22 [place] three-way coud? Owen catheter in the bladder. Indications for Procedures: This gentleman has a history of high-grade invasive TCC of the bladder for which he has had BCG treatments intravesically. He had a recurrence about 9 months after diagnosis. Resection revealed high-grade invasive but there was apparently no muscle found in the specimen. He now presents for cystoscopy and transurethral reresection of the resection beds so as to get some deeper tissue. He has signed an informed consent after risks were explained. Detailed description of Procedure: The patient was brought to the operating room and placed on the operating room table in the supine position. SCDs were placed on the lower extremities and turned on and functioning during the entire case. Timeout was done by all parties in the room. We all agreed upon the patient's identification and the planned procedures for this patient. Genn. anesthesia was then administered. The patient was then repositioned into the modified dorsal lithotomy position. All pressure points were satisfactorily padded. Genitalia were sterilely prepped and draped in usual fashion. 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 Kian sounds were used to dilate the meatus up to 26 [place]. I then passed the scope into the bladder. At this time I could see that he had recurrent bladder tumors on the lateral edouard and up on the dome. I uniformly and deeply resected all of these patches of papillary tumors. There were also some very concerning appearing flat red areas along the dome and the lateral edouard which were resected and fulgurated. All resection beds were fulgurated. Several red areas were simply fulgurated throughout the bladder. The Elick was used to get all the tissue out from the bladder and this was sent for permanent sections. Greater than 6 cm of resection was done. The ureteral orifices were identified and spared. Upon completion there was no evidence of bleeding. All tissue was removed from the bladder. A 22 [place] three-way coud? was placed in the bladder and 30 cc of fluid was placed in the balloon. It irrigated a light pink color. The anesthetic was then reversed. He was then transferred [facility] bed and wheeled to PACU in stable condition. Urinary Catheter Management Urinary Catheter Management 3-way Urethral: Cath placed during this visit: no
== END 2024-12-25 16:05 | disposition home or self-care (01) ==
LOC: SURGOUT 10:35
PROVIDERS: PCP Family Medicine; Visit Provider Urology
PROC: (CPT 52235; principal; 2024-12-25 11:35)
DX: C67.9 Malignant neoplasm of bladder, unspecified (principal); Z87.891 Personal history of nicotine dependence; N40.0 Benign prostatic hyperplasia without lower urinary tract symptoms; Z87.442 Personal history of urinary calculi; Z79.02 Long term (current) use of antithrombotics/antiplatelets; I25.10 Atherosclerotic heart disease of native coronary artery without angina pectoris; R06.09 Other forms of dyspnea; Z98.52 Vasectomy status; E78.5 Hyperlipidemia, unspecified; I71.9 Aortic aneurysm of unspecified site, without rupture; K21.9 Gastro-esophageal reflux disease without esophagitis; E11.40 Type 2 diabetes mellitus with diabetic neuropathy, unspecified; Z79.84 Long term (current) use of oral hypoglycemic drugs; M19.90 Unspecified osteoarthritis, unspecified site; N18.9 Chronic kidney disease, unspecified; E11.22 Type 2 diabetes mellitus with diabetic chronic kidney disease; E07.9 Disorder of thyroid, unspecified; I12.9 Hypertensive chronic kidney disease with stage 1 through stage 4 chronic kidney disease, or unspecified chronic kidney disease
CPT/HCPCS: 52235; 36415; 80048; 85025; 85610; 85730; 88307; J0131; J0690; J1100; J2250; J2405; J2704; J3010